=== PATIENT | female | born 1950 | race Caucasian/White ===

== ENCOUNTER → 2021-01-11 12:38 | Outpatient (CLI) | payer MEDICARE, OTHER, SELFPAY | PROVIDERS: Visit Provider Physician Assistant | DX: Z11.52 Encounter for screening for COVID-19 (principal) | CPT/HCPCS: 87635; U0005; U0003 ==

== ENCOUNTER 2021-01-13 12:10 | Emergency (ER) | payer MEDICARE, OTHER, SELFPAY ==
[2021-01-13 12:10] VITALS: BP 123/72; PULSE 68; RESP 18; TEMP 37.2; O2SAT 93; BMI 22.4
--- NOTE | 2021-01-13 13:35 | RAD_ITS ---
STUDY: X-RAY CHEST REASON FOR EXAM: Female, 70 years old. Cough TECHNIQUE: Single AP portable view of the chest. COMPARISON: January 11, 2021 FINDINGS: There are mild right lower lung increased opacity. There is no demonstrated pleural abnormality. Normal size heart. Normal mediastinum and chirag. Normal visualized pulmonary arteries. Normal visualized aortic arch and descending thoracic aorta. Normal visualized thoracic spine. Normal visualized ribs, clavicles, and shoulders. There is no demonstrated abnormality of the visualized soft tissue structures of the upper abdomen. RAD/Chest 1 View (Portable) IMPRESSION: Right lower lung infiltrate or edema. Electronically Signed: Ankush Wilburn MD at 15:14 EDT , Service support ,
--- NOTE | 2021-01-13 13:36 | EDS_ITS ---
HPI History of Present Illness Chief Complaint: General Illness Narrative Narrative: 70-year-old female with history of cough for the last 2 weeks. Patient states that she has not had a fever, chills, myalgias, change in taste or smell. She states she has been a little bit rundown. This has been worse over the last 3 days. She states she has been very sleepy. She has decreased oral intake but states this is not due to nausea she just does not feel like eating. She has been tested for COVID-19 twice. She has been seen at urgent care and then put on Augmentin which gave her diarrhea and made her nauseous. She was switched to Z-Jay Jay. She is also been on methylprednisolone. She had a chest x-ray which she was told was negative and she was also told that she probably had COVID-19. Is unclear why she was placed on antibiotics and steroids as she her oxygen saturations were never low. She states she continues to cough. [facility] Medical History Acute bronchitis, unspecified Encounter for screening for COVID-19 URI (upper respiratory infection) Home Medications benzonatate 200 mg capsule 200 mg PO TID PRN #20 cap 01/04/21 [Rx Last Taken Unknown] methylprednisolone 4 mg tablets in a dose pack See Rx Instructions PO PER PKG DIR #21 tab 01/04/21 [Rx Last Taken Unknown] amoxicillin 875 mg-potassium clavulanate 125 mg tablet 1 tab PO BID #20 tab 01/11/21 [Rx Last Taken Unknown] azithromycin 250 mg tablet 250 mg PO QDAY #6 tab 01/12/21 [Rx Last Taken Unknown] Allergy/AdvReac Type Severity Reaction Status Date / Time No Known Allergies Allergy Verified 01/13/21 12:13 Family History Other Cancer Social History Smoking Status: Never smoker alcohol intake: current alcohol intake frequency: holidays/special occasions only Alcohol type: beer ROS ROS ED Constitutional Constitutional ED: Reports chills and other Details: Fatigue ; Denies sweats ENT ENT ED: Denies rhinorrhea or sore throat Cardiovascular Cardiovascular: Denies chest pain or palpitations Respiratory/Chest Respiratory/Chest: Reports cough; Denies sputum Gastrointestinal Gastrointestinal: Reports diarrhea; Denies abdominal pain, nausea or vomiting Genitourinary Genitourinary ED: Denies dysuria or hematuria Musculoskeletal Musculoskeletal: Denies arthralgias, back pain, myalgias or neck pain Integumentary Denies Abrasions or rash Neurologic Neurologic: Denies headache(s) EXAM Physical Exam Const Vital Signs: 01/13/21 12:10 01/13/21 14:04 Temperature 98.9 F Temperature Source Temporal Pulse Rate 68 Respiratory Rate 18 Respiratory Pattern Normal Blood Pressure 123/72 H Blood Pressure Mean 89 Pulse Ox 93 Oxygen Delivery Method Room Air Positive well nourished General Appearance ED: NAD; Negative for pallor HEENT Denies moist mucous membranes Negative for trauma Eyes PERRL General Eye ED: Yes pale conjunctiva Resp normal respiratory effort and clear to auscultation bilaterally Cardio regular rate and regular rhythm GI normal to inspection, nondistended, normoactive bowel sounds Neuro oriented x3, CN's II-XII intact bilaterally and no sensory deficits noted Sensorium / Orientation: alert Motor Exam: strength 5/5 throughout Psych mental status grossly normal Skin no rashes or lesions noted and no wounds General Skin Exam: Negative for jaundice or pallor MDM MDM MDM Narrative Medical decision making narrative: Patient presented with cough for 2 weeks and generalized fatigue. She does not have really any other symptoms. I did check blood work and she has a slight leukocytosis of 14.8. Her renal function and electrolytes are normal. Urinalysis is negative for infection but does have some ketones. Patient's chest x-ray on my interpretation shows right lower lobe infiltrate and the radiologist does agree. After having a discussion with the patient it seems that she was on Augmentin and could not tolerate it and now she is on azithromycin and took the first 500 mg last evening. She still has 4 more days of treatment. I am not sure that she needs a different antibiotic at this time. He is counseled to continue her course of antibiotics to see if she improves. She is not hypoxic, tachycardic, febrile. She is not requiring any oxygen. I think she is safe for discharge. She was given strict return precautions. Impression: 1. Community-acquired Lab Data Labs: Laboratory Results - last 24 hr 01/13/21 01/13/21 01/13/21 14:00 14:00 15:00 WBC 14.8 H RBC 4.42 Hgb 13.0 Hct 39.3 MCV 88.9 MCH 29.4 MCHC 33.1 RDW Std Deviation 43.1 RDW Coeff of Demetra 13.2 Plt Count 322 MPV 8.4 Immature Gran % (Auto) 0.900 Neut % (Auto) 85.2 H Lymph % (Auto) 6.6 L [place] % (Auto) 6.8 Eos % (Auto) 0.1 Baso % (Auto) 0.4 Absolute Neuts (auto) 12.6 H Absolute Lymphs (auto) 0.97 Nucleated RBC % 0 Sodium 138 Potassium 3.8 Chloride 106 Carbon Dioxide 27.0 Anion Gap 5 BUN 14 Creatinine 0.80 Estim Creat Clear Calc 58.04 Est GFR (MDRD) Af Amer 91 Est GFR (MDRD) Non-Af 75 BUN/Creatinine Ratio 17.5 Glucose 96 Calcium 9.2 Total Bilirubin 1.00 AST 13 L ALT 20 Alkaline Phosphatase 93 Total Protein 7.5 Albumin 3.3 Globulin 4.2 Albumin/Globulin Ratio 0.8 L Urine Color Yellow Urine Clarity Clear Urine pH 5.0 Ur Specific [place] 1.020 Urine Protein 15 H Urine Glucose (UA) Normal Urine Ketones 150 A* Urine Occult Blood 25 H Urine Nitrite Negative Urine Bilirubin Negative Urine Urobilinogen Normal Ur Leukocyte Esterase Negative Urine RBC 0-5 SEEN Urine WBC 0 SEEN Ur Squamous Epith Cells 0-5 SEEN Urine Bacteria 1+ Urine Mucus 1+ Radiography Diagnostic Testing: Radiology Impression Chest X-Ray 01/13/21 13:35 IMPRESSION: Right lower lung infiltrate or edema. Electronically Signed: Ankush Wilburn MD at 15:14 EDT , Service support , Discharge Plan Triage Chief Complaint: General Illness ED Provider: Jeff Christy Dx/Rx/DC Orders Instructions: ED Pneumonia (Adult) Prescriptions: No Action methylprednisolone [Medrol (Jay Jay)] 4 mg tablets,dose pack See Rx Instructions PO PER PKG DIR Qty: 21 RF: 0 benzonatate 200 mg capsule 200 mg PO TID PRN (Reason: cough) Qty: 20 RF: 0 amoxicillin-pot clavulanate 875-125 mg tablet 1 tab PO BID Qty: 20 RF: 0 azithromycin 250 mg tablet 250 mg PO QDAY Qty: 6 RF: 0 Primary Care Provider: Russell Hill Referrals: Russell Hill MD [Primary Care Provider] - Disposition Disposition: Home, Self Care
[2021-01-13 14:05] LABS: Absolute Lymphocyte Count 0.97 X10^3/uL (0.83-4.51); Absolute Neutrophil Count 12.6 X10^3/uL (2.0-7.7); Basophil# 0.06 X10^3/uL; Basophil% 0.4 % (0-1); Eosinophil# 0.01 X10^3/uL; Eosinophils% 0.1 % (0-5); Hematocrit 39.3 % (37-47); Lymphocyte # 0.97 X10^3/ul (0.83-4.51); Lymphocyte % 6.6 % (19-41); Mean Corp Hgb Conc 33.1 g/dL (32-36); Mean Corpuscular Hgb 29.4 pg (27.0-32.0); Mean Corpuscular Volume 88.9 fL (81-99); Mean Platelet Vol. 8.4 fl (6.2-12.0); Monocyte# 1.01 X10^3/uL; Monocyte% 6.8 % (0-10); NRBC Flagged by Analyzer 0 % (0-5); Neutrophil % 85.2 % (47-70); Platelet Count 322 K/mm3 (150-450); RBC Distribution Width CV 13.2 % (11.6-14.6); RBC Distribution Width SD 43.1 fl (35.1-43.9); Red Blood Count 4.42 M/mm3 (4.2-5.4); White Blood Count 14.8 K/mm3 (4.4-11.0)
[2021-01-13 14:22] LABS: ALB/GLOB Ratio 0.8 RATIO (0.9-2.4); AST(SGOT) 13 U/L (15-37); Alanine Aminotransfer ALT/SGPT 20 U/L (13-56); Albumin, Serum 3.3 g/dL (3.2-5.0); Alkaline Phosphatase 93 U/L (45-117); Anion Gap 5 (5-15); BUN 14 mg/dL (7-18); BUN/Creat Ratio 17.5 RATIO (10-20); Calcium,Total 9.2 mg/dL (8.5-10.1); Chloride 106 mmol/L (98-107); EST Glomerular Filtration Rate 75 mL/min (>60); Est Glom Filt Rate - Afr Amer 91 mL/min (>60); Estimated Creatinine Clearance 58.04 ml/min; Globulin 4.2 g/dL (2.2-4.2); Glucose 96 mg/dL (74-106); Potassium 3.8 mmol/L (3.5-5.1); Protein, Total 7.5 g/dL (6.4-8.2); Sodium Level 138 mmol/L (136-145)
[2021-01-13 15:06] LABS: White Blood Cells 0 SEEN /hpf (0-5)
[2021-01-13 15:09] LABS: Color, Urine Yellow (Yellow); Glucose, Dipstick Normal (Normal); Leukocyte Esterase-Dipstick Negative /ul (Negative); Nitrite-Dipstick Negative (Negative); Occult Blood-Urine 25 /ul (Negative); Protein-Dipstick 15 mg/dl (Negative); Urine Bilirubin Dipstick Negative (Negative); Urine Clarity Clear (Clear); Urine Urobilinogen Normal (Normal)
[2021-01-13 15:10] LABS: Ketone-Dipstick 150 mg/dl (Negative)
[2021-01-13 15:14] LABS: Bacteria 1+ /hpf (None Seen); Mucous, Urine 1+ /hpf (<or=2+); Red Blood Cells-Urine 0-5 SEEN /hpf (0-5); Squamous Epithelial Cells - UA 0-5 SEEN /hpf (5-10)
[2021-01-13 15:53] VITALS: BP 168/72; PULSE 84; RESP 18; O2SAT 96
== END 2021-01-13 15:59 | disposition home or self-care (01) ==
PROVIDERS: Emergency Provider Student in an Organized Health Care Education/Training Program; PCP Family Medicine
DX: J18.9 Pneumonia, unspecified organism (principal); Z20.822 Contact with and (suspected) exposure to COVID-19
CPT/HCPCS: 71045; 80053; 81001; 85025; 96372; 99283; A4216

== ENCOUNTER → 2021-01-25 09:09 | Outpatient (CLI) | payer MEDICARE, OTHER, SELFPAY ==
[2021-01-25 10:42] LABS: Vitamin D,25 Hydroxy 31.5 ng/mL
[2021-01-25 10:53] LABS: Anion Gap 5 (5-15); BUN 13 mg/dL (7-18); Calcium,Total 9.3 mg/dL (8.5-10.1); Chloride 107 mmol/L (98-107); Cholesterol 214 mg/dL (200); Creatinine, Serum 0.93 mg/dL (0.55-1.02); EST Glomerular Filtration Rate 63 mL/min (>60); Est Glom Filt Rate - Afr Amer 77 mL/min (>60); Glucose 93 mg/dL (74-106); High Density Lipoprotein 50 mg/dL; Potassium 4.1 mmol/L (3.5-5.1); Sodium Level 141 mmol/L (136-145); Triglycerides 193 mg/dL; Very Low Density Lipoprotein 39 mg/dL (5-40)
== END ==
PROVIDERS: PCP Family Medicine; Referring Provider Family Medicine; Visit Provider Family Medicine
DX: Z00.00 Encounter for general adult medical examination without abnormal findings (principal)
CPT/HCPCS: 36415; 80048; 80061; 82306

== ENCOUNTER → 2021-11-09 | Outpatient (CLI) | payer MEDICARE, SELFPAY ==
--- NOTE | 2021-11-09 12:10 | BI_ITS ---
MAMMOGRAPHY - BILATERAL SCREENING REASON FOR EXAM: Female, 70 years old. Routine annual screening examination. PERTINENT HISTORY: Sister with breast cancer. Remote left excisional breast biopsy. TECHNIQUE: Digital bilateral breast jackie (3D mammographic acquisition) in the CC and MLO projections. 2-D mediolateral oblique (MLO) and craniocaudad (CC) views of both breasts were obtained. CAD: Full Field Digital Mammography with Computer Added Detection was performed. COMPARISON: Comparison is made with prior outside examination of 04/02/2016. FINDINGS: Breast Composition: The breasts are heterogeneously dense, which may obscure small masses. There are no dominant masses or suspicious calcifications. Stable benign-appearing bilateral axillary lymph nodes. No other significant abnormalities are identified. There has been no significant change since the prior study. BI/SCRN MAMM (CAD)W/JACKIE BILAT IMPRESSION: Stable bilateral screening mammogram. Yearly follow-up mammogram recommended. (A) ASSESSMENT CATEGORY: BIRADS Category 2: Benign. A letter regarding these results will be sent to the patient by the facility within 30 days. Approximately 10% of breast cancers are not detected by mammography. A normal mammogram should not delay biopsy of a clinically suspicious abnormality. [id number] Electronically Signed: David Coates MD at 11:18 EDT ,
== END | disposition home or self-care (01) ==
LOC: OPBI 12:03
PROVIDERS: PCP Family Medicine; Referring Provider Family Medicine; Visit Provider Family Medicine
DX: Z12.31 Encounter for screening mammogram for malignant neoplasm of breast (principal); Z80.3 Family history of malignant neoplasm of breast
CPT/HCPCS: 77063; 77067

== ENCOUNTER 2022-12-10 17:30 | Outpatient (RCR) | payer SELFPAY | END 2022-12-10 23:59 | LOC: NS 17:30 | PROVIDERS: PCP Family Medicine | DX: Z71.3 Dietary counseling and surveillance (principal); E11.9 Type 2 diabetes mellitus without complications ==

== ENCOUNTER → 2024-04-08 | Outpatient (CLI) | payer MEDICARE, SELFPAY ==
--- NOTE | 2024-04-08 14:20 | BI_ITS ---
MAMMOGRAPHY - BILATERAL SCREENING 3-D TOMOSYNTHESIS REASON FOR EXAM: Female, 73 years old. Routine screening PERTINENT HISTORY: Sister with breast cancer.. TECHNIQUE: 2-D mammograms and 3-D Tomosynthesis of the breast (s) were performed. CAD was performed. COMPARISON: 11/09/2021 FINDINGS: The breast composition is heterogeneously dense that can obscure small breast masses. Scattered benign calcifications are seen. No dense spiculated masses or suspicious microcalcifications are identified. No architectural distortion is identified. There is no skin thickening or retraction. There has been no significant change since the prior study. BI/SCREENING MAMM (CAD), BILAT IMPRESSION: No mammographic signs of malignancy. Routine yearly mammograms recommended. ASSESSMENT CATEGORY: BIRADS Category 1: Negative. A letter regarding these results will be sent to the patient by the facility within 30 days. FOLLOW UP RECOMMENDATION: Yearly follow up mammogram recommended. (A) Approximately 10% of breast cancers are not detected by mammography. A normal mammogram should not delay biopsy of a clinically suspicious abnormality. Electronically Signed: Jerod Mckeon MD at 15:42 EST ,
--- NOTE | 2024-04-08 14:20 | BD_ITS ---
STUDY: DUAL ENERGY X-RAY ABSORPTIOMETRY / DXA REASON FOR EXAM: Female, 73 years old. [id number] TECHNIQUE: Bone Mineral Density (BMD) measurements of lumbar spine and bilateral hips were obtained. COMPARISON: None. FINDINGS: Lumbar Spine (L1-L4): g/cm2 (0.904) / T-score (-1.3) / Z-score (1.1) Findings are suggestive of osteopenia with a low fracture risk. Left Femur Total: g/cm2 (0.659) / T-score (-2.3) / Z-score (-0.6) Left Femoral Neck: g/cm2 (0.602) / T-score (-2.2) / Z-score (-0.2) Right Femur Total: g/cm2 (0.673) / T-score (-2.2) / Z-score (-0.5) Right Femoral Neck: g/cm2 (0.584) / T-score (-2.4) / Z-score (-0.4) BD/Dexa Bone Density Study IMPRESSION: The patient is considered osteopenic as outlined below according to World Chris Organization (WHO) criteria with a high fracture risk. Reference Information: The T-score is the number of standard deviations above or below the standard which is normal for young adults at their peak bone mineral density. The World Health Organization (WHO) interprets the T-scores as follows: Above -1 Normal bone density Between -1 and -2.5 Osteopenia Equal to / or below -2.5 Osteoporosis As a practical clinical guideline, osteopenia may be graded as follows: Mild -1 through -1.5 Moderate -1.6 through -2.0 Severe -2.1 through -2.4 The Z-score is the number of standard deviations above or below age-matched controls. A Z-score of less than -1.5 would be considered abnormal. References: 1. NIH Osteoporosis and Related Bone Diseases www osteo.org 2. International Society for Clinical Densitometry www iscd.org 3. National Osteoporosis Foundation www nof.org Electronically Signed: David Coates MD at 13:01 EST ,
== END | disposition home or self-care (01) ==
LOC: OPBD 14:18
PROVIDERS: PCP Family Medicine; Referring Provider Nurse Practitioner Family; Visit Provider Nurse Practitioner Family
DX: Z12.31 Encounter for screening mammogram for malignant neoplasm of breast (principal); Z78.0 Asymptomatic menopausal state; M81.0 Age-related osteoporosis without current pathological fracture; Z13.820 Encounter for screening for osteoporosis
CPT/HCPCS: 77067; 77080

== ENCOUNTER 2024-09-05 15:43 | Emergency (ER) | payer MEDICARE, SELFPAY ==
[2024-09-05 15:45] VITALS: BP 155/82; PULSE 62; RESP 18; TEMP 36.6; O2SAT 96; BMI 22.0
--- NOTE | 2024-09-05 15:53 | US_ITS ---
PROCEDURE: GALLBLADDER 09/05/2024 REASON FOR EXAM: PAIN FINDINGS: Liver: Grossly normal size and echotexture. Gallbladder: Multiple echogenic gallstones are identified. Common bile duct: Common bile duct stones are identified with the duct measuring up to 10 mm. Pancreas: Visualized portions are sonographically unremarkable. Other: US/Gallbladder IMPRESSION: Cholelithiasis with choledocholithiasis. Reading Location: [id number]
--- NOTE | 2024-09-05 15:54 | EX.ED.DYSGE1 ---
HPI History of Present Illness Chief Complaint: Other, Pain/Inj Detail of Chief Complaint: Right upper quadrant pain with intermittent radiation to the back Informant: patient and spouse/S.O. Onset/Context/Timing Onset: Yesterday and - (A couple times this past week prior to the pain becoming constant) Context: Sudden Onset Timing: Continuous and Waxes and wanes Quality: Colicky Location: Right upper quadrant Current Severity: Mild Maximum Severity: Moderate Worsened by: Nothing specific Relieved by: Nothing Associated Symptoms Associated Symptoms: Nausea Narrative Narrative: Patient is a healthy 73-year-old woman who is on no medication presently who presents with right upper quadrant pain that intermittently radiates to the back. This past week while having a donut and after having something rich she experienced right upper quadrant pain. She did not present at that time because it went away. This has not gone away. She had fried fish yesterday. She has not eaten since last night. She reported 1 episode of diarrhea. She not noticed any blood or mucus. Mother had emergent cholecystectomy per patient. There is no history personally or in the family of ureteral or renal lithiasis. She denies dysuria, frequency, urgency or hematuria. She denies cardiac or respiratory symptoms. There is no history of trauma. She has not noted a rash. Prior similar symptoms: No Recent Illness/Hospitalization: No PFSH PFSH Medical History (Updated 09/05/24 @ 15:[address] Tj Banerjee MD) FH: total abdominal hysterectomy and bilateral salpingo-oophorectomy Encounter for screening for COVID-19 Acute bronchitis, unspecified URI (upper respiratory infection) Home Medications ?Medication ?Instructions ?Recorded ?Last Taken ?Type NK 09/05/24 Unknown History Allergy/AdvReac Type Severity Reaction Status Date / Time No Known Allergies Allergy Verified 09/05/24 15:45 Family History Other Cancer Social History (Updated 09/05/24 @ 15:[address] Tj Banerjee MD) household members: spouse Smoking Status: Never smoker alcohol intake: current alcohol intake frequency: holidays/special occasions only Alcohol type: beer ROS ROS ED Constitutional Constitutional ED: Denies chills, fever(s), subjective or sweats Eyes Eyes: Denies change in vision Cardiovascular Cardiovascular: Denies chest pain, orthopnea, palpitations or paroxysmal nocturnal dyspnea Respiratory/Chest Respiratory/Chest: Denies cough, dyspnea, dyspnea on exertion, orthopnea or paroxysmal nocturnal dyspnea Gastrointestinal Gastrointestinal: Reports abdominal pain, diarrhea and nausea; Denies constipation, melena or vomiting Genitourinary Genitourinary ED: Denies dysuria, hematuria or urinary frequency Musculoskeletal Musculoskeletal: Reports back pain; Denies arthralgias or myalgias Integumentary Denies rash Neurologic Neurologic: Denies weakness Psychiatric Psychiatric: Denies anxiety or depression Endocrine Endocrinology: Denies cold intolerance or heat intolerance Hematologic/Lymphatic Hematologic/Lymphatic: Reports systems reviewed and no addt'l complaints, except as documented EXAM Physical Exam Const Vital Signs: 09/05/24 15:45 09/05/24 15:49 Temperature 97.9 F Temperature Source Temporal Pulse Rate 62 Respiratory Rate 18 Respiratory Effort Normal Respiratory Pattern Normal Blood Pressure 155/82 H Blood Pressure Mean 106 Pulse Ox 96 Oxygen Delivery Method Room Air Positive well nourished and well developed Constitutional Narrative: Patient appears uncomfortable. General Appearance ED: well developed; Negative for pallor HEENT HEENT Narrative: Head is atraumatic normocephalic. Ears normal. Nares patent. Eyes PERRL and EOMs intact bilaterally General Eye ED: Negative for pale conjunctiva or scleral icterus Neck no lymphadenopathy, supple and no JVD Chest Wall inspection of chest normal and palpation of chest normal Resp normal respiratory effort and clear to auscultation bilaterally Cardio regular rate, regular rhythm, S1 normal heart sound, S2 normal heart sound and no murmurs GI non-distended and no masses; Negative for non-tender or hepatosplenomegaly Inspection: Negative for abdominal distention Auscultation: hypoactive bowel sounds Palpation: soft, tender RUQ and Yeh's sign and guarding RUQ; Negative for splenomegaly or mass Back/Spine no CVA tenderness Extremity normal to inspection Neuro oriented x3 and CN's II-XII intact bilaterally Sensorium / Orientation: alert Psych mental status grossly normal Skin no rashes or lesions noted, no wounds and skin turgor normal General Skin Exam: elasticity normal; Negative for jaundice or pallor MDM MDM MDM Narrative Medical decision making narrative: Differential diagnosis is bowel pain of unknown etiology, right lower lobe pneumonia, cholelithiasis, acute cholecystitis hepatitis. Workup included ultrasound, appropriate blood work. Patient's nausea was treated with Zofran and pain with IV ketorolac. History & Record Review Additional record(s) reviewed:: Prior outpatient record, Prior ED visit (Seen January 2021 for upper respiratory infection and at urgent care [facility] for upper respiratory infection) and Prior labs Lab Data Attestation: I reviewed the patient's lab results. Lab results narrative: There are multiple gallstones noted. There may be a gallstone in the common bile duct. Liver enzymes revealed total bili of 3.79, direct bili of 2.72 with an AST and ALT of 428 and 424 respectively. Alkaline phosphatase is elevated. Labs: Laboratory Results - last 24 hr 09/05/24 15:59 WBC 9.7 RBC 4.42 Hgb 13.0 Hct 39.5 MCV 89.4 MCH 29.4 MCHC 32.9 RDW Std Deviation 45.5 H RDW Coeff of Demetra 13.8 Plt Count 261 MPV 9.0 Immature Gran % (Auto) 0.500 Neut % (Auto) 81.2 H Lymph % (Auto) 8.0 L [place] % (Auto) 8.7 Eos % (Auto) 1.0 Baso % (Auto) 0.6 Absolute Neuts (auto) 7.9 H Absolute Lymphs (auto) 0.78 L Nucleated RBC % 0 Total Bilirubin 3.79 H Direct Bilirubin 2.72 H AST 428 H ALT 424 H Alkaline Phosphatase 305 H Total Protein 7.1 Albumin 4.3 Globulin 2.8 Lipase 62 Labs are consistent with choledocholithiasis. And would confirm where I believe there is a stone in the common bile duct that there is a stone in the common bile duct. Radiography Diagnostic Testing: Clinical Impression(s) from Imaging Studies Gallbladder Ultrasound 09/05/24 15:53 IMPRESSION: Cholelithiasis with choledocholithiasis. Reading Location: [id number] Ultrasound reveals multiple gallstones. There appears to be a stone in the common bile duct. Will need to assess liver enzymes. Management Discussion w/another healthcare provider: Geotechnical Operating Engineer (Spoke with Dr. Xiong. She recommended admission to medicine with consult to GI. She was informed that GI is not on-call this weekend. She recommended transfer. Since patient has [facility] insurance service secretary was asked to contact [facility] for transfer for admission to hospitalist w) and Other (Spoke with the hospitalist at [facility] Dr. Cruz. Patient will be excepted.) Treatment and Re-Evaluation :: Patient was reassessed at 1652. She is still having pain. Morphine was ordered Discharge Plan Triage Chief Complaint: Other, Pain/Inj ED Provider: Tj Banerjee Dx/Rx/DC Orders Prescriptions: No Action NK Primary Care Provider: Russell Hill Referrals: Russell Hill MD [Primary Care Provider] - Print Language: Albanian Disposition Disposition: Acute Care Hospital Discharge Location: [facility]
[2024-09-05] MEDS: Ketorolac 15 MG/ML Vial IV (16:05)
[2024-09-05] MEDS: Ondansetron 4 MG/2 ML Vial IV (16:05)
[2024-09-05 16:10] LABS: Absolute Lymphocyte Count 0.78 X10^3/uL (0.83-4.51); Absolute Neutrophil Count 7.9 X10^3/uL (2.0-7.7); Basophil# 0.06 X10^3/uL; Basophil% 0.6 % (0-1); Hematocrit 39.5 % (37-47); Lymphocyte # 0.78 X10^3/ul (0.83-4.51); Mean Corp Hgb Conc 32.9 g/dL (32-36); Mean Corpuscular Hgb 29.4 pg (27.0-32.0); Mean Corpuscular Volume 89.4 fL (81-99); Monocyte# 0.84 X10^3/uL; Monocyte% 8.7 % (0-10); NRBC Flagged by Analyzer 0 % (0-5); Neutrophil # 7.88 X10^3/uL (2.7-7.7); Neutrophil % 81.2 % (47-70); Platelet Count 261 K/mm3 (150-450); RBC Distribution Width CV 13.8 % (11.6-14.6); RBC Distribution Width SD 45.5 fl (35.1-43.9); Red Blood Count 4.42 M/mm3 (4.2-5.4); White Blood Count 9.7 K/mm3 (4.4-11.0)
[2024-09-05 16:36] LABS: AST(SGOT) 428 U/L (<=31); Alanine Aminotransfer ALT/SGPT 424 U/L (<=34); Albumin, Serum 4.3 g/dL (3.4-4.8); Alkaline Phosphatase 305 U/L (35-104); Bilirubin, Direct 2.72 mg/dL (0.00-0.30); Globulin 2.8 g/dL (2.2-4.2); Lipase 62 U/L (13-75); Protein, Total 7.1 g/dL (5.9-8.4); Total Bilirubin 3.79 mg/dL (0.00-1.30)
[2024-09-05] MEDS: Morphine 4 MG/ML Syringe IV (16:57)
--- NOTE | 2024-09-05 17:12 | PCA ---
CALLED [facility] @ [phone]. FAXED FACE SHEET AND PUSHED ULTRASOUND TO THEM
--- NOTE | 2024-09-05 18:08 | PCA ---
[facility] CALLED @ 175 WILL A BED- H-5 ROOM 9. [facility] WILL HERE TO GET THE PATIENT IN ABOUT 30 MINS- [phone]
[2024-09-05 18:14] LABS: Anion Gap 14 (5-15); BUN 17 mg/dL (4-19); Calcium,Total 9.4 mg/dL (7.6-11.0); Carbon Dioxide 19.6 mmol/L (21.0-32.0); Chloride 106 mmol/L (98-108); Creatinine, Serum 1.06 mg/dL (0.70-1.20); EST Glomerular Filtration Rate 55 (>60); Estimated Creatinine Clearance 43.59 ml/min (50-250); Glucose 104 mg/dL (70-99); Potassium 4.1 mmol/L (3.3-5.1); Sodium Level 140 mmol/L (133-145)
[2024-09-05 18:30] VITALS: BP 138/77; PULSE 50; RESP 16; TEMP 37; O2SAT 97
--- NOTE | 2024-09-05 18:30 | ED.RN ---
REPORT CALLED TO CORINNE GARCIA
== END 2024-09-05 18:43 | disposition short-term general hospital (02) ==
PROVIDERS: Emergency Provider Emergency Medicine; PCP Family Medicine; Referring Provider Emergency Medicine; Visit Provider Emergency Medicine
DX: K80.50 Calculus of bile duct without cholangitis or cholecystitis without obstruction (principal); R10.11 Right upper quadrant pain; R11.0 Nausea; Z90.710 Acquired absence of both cervix and uterus; R19.7 Diarrhea, unspecified
CPT/HCPCS: 76705; 80048; 80076; 83690; 85025; 96374; 96375; 99284; A4216; J2405

== ENCOUNTER → 2024-09-18 | Outpatient (CLI) | payer MEDICARE, SELFPAY ==
[2024-09-18 15:55] LABS: Hematocrit 34.8 % (37-47); Hemoglobin 10.7 g/dL (12.0-15.0); Mean Corp Hgb Conc 30.7 g/dL (32-36); Mean Corpuscular Hgb 28.7 pg (27.0-32.0); Mean Corpuscular Volume 93.3 fL (81-99); Mean Platelet Vol. 8.6 fl (6.2-12.0); POSITIVE COUNT YES; POSITIVE MORPHOLOGY YES; Platelet Count 595 K/mm3 (150-450); RBC Distribution Width CV 14.3 % (11.6-14.6); RBC Distribution Width SD 48.7 fl (35.1-43.9); Red Blood Count 3.73 M/mm3 (4.2-5.4)
[2024-09-18 16:04] LABS: Differential Indicated MANUAL DIFF
[2024-09-18 16:54] LABS: AST(SGOT) 32 U/L (<=31); Alanine Aminotransfer ALT/SGPT 61 U/L (<=34); Albumin, Serum 3.3 g/dL (3.4-4.8); Alkaline Phosphatase 236 U/L (35-104); Anion Gap 11 (5-15); BUN 16 mg/dL (4-19); BUN/Creat Ratio 20.3 RATIO (10-20); Calcium,Total 9.2 mg/dL (7.6-11.0); Carbon Dioxide 24.9 mmol/L (21.0-32.0); Chloride 105 mmol/L (98-108); Creatinine, Serum 0.78 mg/dL (0.70-1.20); EST Glomerular Filtration Rate 80 (>60); Globulin 3.3 g/dL (2.2-4.2); Glucose 89 mg/dL (70-99); Lipase 201 U/L (13-75); Potassium 4.3 mmol/L (3.3-5.1); Protein, Total 6.5 g/dL (5.9-8.4); Sodium Level 141 mmol/L (133-145)
[2024-09-18 19:13] LABS: Lymphocyte 17 % (19-41); Metamyelocyte 2 % (0-1); Monocyte 7 % (0-10); Neutrophil-Segmented 74 % (47-70); Total Cells Counted 100 (MANUAL DIFF)
[2024-09-18 19:16] LABS: Absolute Lymphocyte Count 2.03 X10^3/uL (0.83-4.51); Absolute Neutrophil Count 8.9 X10^3/uL (2.0-7.7)
[2024-09-18 19:18] LABS: Platelet Estimate ADEQUATE (ADEQ); Red Cell Morphology NORM C+C NORMAL (NORM C&C)
[2024-09-18 19:19] LABS: Pathologist Review May foll; Toxic Granulation 2+
== END | disposition home or self-care (01) ==
LOC: MFPLAB 11:28
PROVIDERS: PCP Family Medicine; Referring Provider Family Medicine; Visit Provider Family Medicine
DX: K85.90 Acute pancreatitis without necrosis or infection, unspecified (principal)
CPT/HCPCS: 36415; 80053; 83690; 85025

== ENCOUNTER → 2025-04-15 | Outpatient (CLI) | payer MEDICARE, SELFPAY ==
--- NOTE | 2025-04-15 15:42 | BI_ITS ---
EXAM: SCRN MAMM (CAD)W/JACKIE BILAT DATE: 04/15/2025 CLINICAL HISTORY: F, Age 74 y/o , SCREENING Sister with breast cancer. Remote left excisional breast biopsy. TECHNIQUE: Procedure Code: [id number] Modality: MG Procedure: SCRN MAMM (CAD)W/JACKIE BILAT COMPARISON: Prior exam(s) dated April 08, 2024.. FINDINGS: TISSUE DENSITY: The breasts are heterogeneously dense, which may obscure small masses. Bilateral Breast Mammographic Findings: No significant masses, calcifications or other abnormalities are identified. No suspicious masses, areas of developing architectural distortion, or suspicious calcifications. There has been no significant interval change. BI/SCRN MAMM (CAD)W/JACKIE BILAT IMPRESSION: Stable bilateral screening mammogram. OVERALL FINAL ASSESSMENT BI-RADS 2: BENIGN RECOMMENDATION: Routine annual follow-up in 1 Year Additional Recommendation none A letter with findings and recommendations will be mailed to the patient. Reading Location: [place] [id number]
--- OUTSIDE RECORDS SUMMARY | 2025-04-15 18:28 | XMS RPT_ITS | CCD ---
Author Organization [facility] Care Team Providers Care Beauty Director Name Role Phone Russell Hill MD Primary Care Provider Sergio LAMAS, Dr. Wells Primary Care Provider Chriss LAMAS, Dr. Spencer Attending Provider Chriss LAMAS, Dr. Spencer Referring Provider Chriss LAMAS, Dr. Spencer Emergency Provider Sergio LAMAS, Dr. Wells Attending Provider Sergio LAAMS, Dr. Wells Referring Provider Tj Bryant Referring Unavailable Tj Bryant Attending Unavailable Russell Hill Primary Care Unavailable Hanna Crain Referring Unavailable Hanna Crain Attending Unavailable Russell Hill Primary Care Unavailable Russell Hill Referring Unavailable Russell Hill Attending Unavailable Russell Hill Primary Care Unavailable SAMIULLAH, FNU Admitting Unavailable CRISTIAN RUIZ Attending Unavailable CRISTIAN RUIZ Referring Unavailable RUSSELL HILL Primary Care Unavailable TJ BRYANT Referring Unavailable RUSSELL HILL Primary Care Unavailable GEM LISA Admitting Unavailable CHEPYALA, ELLIS Attending Unavailable Medications Current Medications Medication Drug Class(es) Dates Sig (Normalized) Sig (Original) Spearfish (Nk) (1 source) Start: 09-05-2024 Spearfish (Nk) Active September 05, 2024 12:00am pantoprazole 40 mg delayed release oral tablet (10 sources) Proton Pump Inhibitor Start: 09-13-2024 End: 11-12-2024 take 1 tablet by mouth once daily pantoprazole (ProtoNix) 40 MG EC tablet Take 1 tablet (40 mg) by mouth daily. Do not crush, chew, or split. 30 tablet 1 09/13/2024 11/12/2024 Active Completed/Discontinued Medications Medication Drug Class(es) Dates Sig (Normalized) Sig (Original) acetaminophen 500 mg oral tablet (2 sources) Start: 09-08-2024 End: 09-13-2024 take 1 tablet by mouth every eight hours 1,000 mg, Oral, Every 8 hours, First dose on 09/08/24 at 1230, Phase II/On Unit, Maximum dose of acetaminophen is 4000 mg from all sources in 24 hours. acetaminophen 325 mg / oxyCODONE hydrochloride 5 mg oral tablet (2 sources) Opioid Agonist Start: 09-05-2024 End: 09-08-2024 take 1 tablet by mouth every six hours as needed for pain 1 tablet, Oral, Every 6 hours PRN, moderate pain (4-6), Starting on 09/05/24 at 2120, Maximum dose of acetaminophen is 4000 mg from all sources in 24 hours. amoxicillin 875 mg / clavulanate 125 mg oral tablet (3 sources) Penicillin-class Antibacterial Start: 01-11-2021 End: 09-05-2024 Amoxicillin-Pot Clavulanate 875-125 mg tablet Discontinued 1 {tbl} PO TWICE A DAY January 11, 2021 12:00am September 05, 2024 4:43pm Start: 01-11-2021 take 1 tablet by mima twice daily Amoxicillin-Pot Clavulanate Active 1 TABLET PO TWICE A DAY January 11, 2021 12:00am azithromycin 250 mg oral tablet (3 sources) Macrolide Antimicrobial Start: 01-12-2021 End: 09-05-2024 Azithromycin 250 mg tablet Discontinued 250 mg PO daily January 12, 2021 12:00am September 05, 2024 4:43pm 2 tablets today, then 1 tablet daily on days 2 through 5 benzonatate 200 mg oral capsule (3 sources) Non-narcotic Antitussive Start: 01-04-2021 End: 09-05-2024 take 1 capsule by mouth three times daily as needed for cough Benzonatate 200 mg capsule Discontinued 200 mg PO THREE TIMES A DAY as needed for cough January 04, 2021 12:00am September 05, 2024 4:43pm bisacodyl 10 mg rectal suppository (2 sources) Stimulant Laxative Start: 09-09-2024 End: 09-09-2024 take 10 mg rectal route once 10 mg, Rectal, Once, On Sat09/09/24 at 1100, For 1 dose calcium chloride 0.0014 meq/ml / potassium chloride 0.004 meq/ml / sodium chloride 0.103 meq/ml / sodium lactate 0.028 meq/ml injectable solution (4 sources) Start: 09-06-2024 End: 09-13-2024 take 75 mL intravenously every hour 75 mL/hr, IntraVENous, Continuous, Starting on Sat09/07/24 at 1330 0.4 ml enoxaparin sodium 100 mg/ml prefilled syringe (2 sources) Low Molecular Weight Heparin Start: 09-06-2024 End: 09-13-2024 inject 40 mg by subcutaneous injection every twenty-four hours 40 mg, SubCUTAneous, Every 24 hours scheduled (Daily), First dose on Sat09/06/24 at 0900, Indication of Use: Prophylaxis-DVT/PE, Indications: Prophylaxis of Venous Thromboembolism 1 ml HYDROmorphone hydrochloride 1 mg/ml cartridge (4 sources) Opioid Agonist Start: 09-09-2024 End: 09-13-2024 take 0.5 mg by mouth every three hours as needed for pain 0.5 mg, IntraVENous, Every 3 hours PRN, for breakthrough pain only, Starting on Sat09/09/24 at 0912, Phase II/On Unit, If oral and IV narcotics ordered, use oral first and only use IV if oral is ineffective or cannot take oral. Do Not give oral and IV within 1 hour of each other unless specifically ordered. Start: 09-08-2024 End: 09-08-2024 0.5 mg, IntraVENous, Every 5 min PRN, severe pain (7-10), Starting on Sat09/08/24 at 1010, For 4 doses, Recovery (only), Phase I and Phase II- Initial therapy for severe pain (7-10). Restricted to a 90 minute time frame starting when the patient can verbally state their pain score. If after 2 doses the pain score does not decrease by more than one point, then call the provider. If oral meds are utilized, do not return to initial therapy medications. methocarbamol 500 mg oral tablet (2 sources) Muscle Relaxant Start: 09-09-2024 End: 09-13-2024 take 1 dose by mouth three times daily 500 mg, Oral, Every 8 hours scheduled (3 times per day), First dose on Sat09/09/24 at 1400, Phase II/On Unit methylPREDNISolone 4 mg oral tablet (3 sources) Corticosteroid Start: 01-04-2021 End: 09-05-2024 take 1 tablet by mouth once Methylprednisolone (Medrol (Jay Jay)) 4 mg tablets,dose pack Discontinued 0 PO per package directions January 04, 2021 12:00am September 05, 2024 4:43pm PO PER PKG DIR 1 ml morphine sulfate 4 mg/ml cartridge (2 sources) Opioid Agonist Start: 09-05-2024 End: 09-09-2024 take 2 mg intravenously every four hours as needed for pain 2 mg, IntraVENous, Every 4 hours PRN, severe pain (7-10), Starting on 09/05/24 at 2120, If oral and injectable narcotics ordered, use oral first and only use injectable if oral is ineffective or cannot take oral. Do Not give oral and injectable within 1 hour of each other unless specifically ordered. 1 ml naloxone hydrochloride 0.4 mg/ml injection (2 sources) Opioid Antagonist Start: 09-05-2024 End: 09-13-2024 0.4 mg, IntraVENous, Every 5 min PRN, opioid reversal, respiratory depression, Starting on 09/05/24 at 2127, +++ For RR ondansetron 4 mg disintegrating oral tablet (11 sources) Serotonin-3 Receptor Antagonist Start: 09-13-2024 End: 09-20-2024 take 1 tablet by mouth every eight hours as needed for nausea and vomiting ondansetron ODT (Zofran-ODT) 4 MG disintegrating tablet Take 1 tablet (4 mg) by mouth every 8 hours as needed for nausea or vomiting for up to 7 days. 20 tablet 09/13/2024 09/20/2024 Start: 01-13-2021 End: 09-05-2024 take 1 tablet by mouth every eight hours as needed for nausea Ondansetron 4 mg tablet,disintegrating Discontinued 4 mg PO EVERY 8 HOURS NEEDED as needed for Nausea January 13, 2021 12:00am September 05, 2024 4:43pm ondansetron ODT (Zofran-ODT) disintegrating tablet 4 mg (2 sources) Start: 09-05-2024 End: 09-13-2024 take 1 tablet by mouth every eight hours as needed for nausea and vomiting ondansetron ODT (Zofran-ODT) disintegrating tablet 4 mg oxyCODONE hydrochloride 5 mg oral tablet (10 sources) Opioid Agonist Start: 09-13-2024 End: 09-18-2024 take 1 tablet by mouth every four hours as needed for pain oxyCODONE (Roxicodone) 5 MG immediate release tablet Indications: Choledocholithiasis Take 1 tablet (5 mg) by mouth every 4 hours as needed for moderate pain (4-6) or severe pain (7-10) for up to 5 days. 15 tablet 09/13/2024 09/18/2024 Start: 09-08-2024 End: 09-13-2024 take 1 tablet by mouth every four hours as needed for pain oxyCODONE (Roxicodone) immediate release tablet 5 mg polyethylene glycol [id number] [id number] mg powder for oral solution (4 sources) Osmotic Laxative Start: 09-09-2024 End: 09-13-2024 take 1 dose by mouth every twenty-four hours for constipation 17 g, Oral, Daily, First dose (after last modification) on 09/09/24 at 1100, 1st line for treatment of constipation - give scheduled if no bowel movement in past 24 hours. Start: 09-05-2024 End: 09-09-2024 take 17 g by mouth every twenty-four hours as needed for constipation 17 g, Oral, Daily PRN, constipation, Starting on 09/05/24 at 2059, 1st line for treatment of constipation - give scheduled if no bowel movement in past 24 hours. microencapsulated potassium chloride 10 meq extended release oral tablet (4 sources) Start: 09-13-2024 End: 09-13-2024 40 mEq, Oral, Once, On 09/13/24 at 0945, For 1 dose, Best given with food and plenty of water to minimize gastric irritation. Do not crush or chew. Start: 09-13-2024 End: 09-13-2024 40 mEq, Oral, Once, On Sun at 0945, For 1 dose, Best given with food and plenty of water to minimize gastric irritation. Do not crush or chew. Start: 09-12-2024 End: 09-12-2024 40 mEq, Oral, Once, On Sat at 1000, For 1 dose, Best given with food and plenty of water to minimize gastric irritation. Do not crush or chew. 5 ml sodium chloride 9 mg/ml injection (18 sources) Start: 10-22-2024 End: 10-22-2024 10 mL, IntraVENous, Every 12 hours scheduled (2 times per day), First dose on Renetta 10/22/24 at 0900 Start: 10-22-2024 End: 10-22-2024 take 100 mL intravenously every hour as needed, then take 20 mL intravenously every hour as needed 5-250 mL/hr, IntraVENous, PRN, if patient receiving piggyback infusions and maintenance fluids are not ordered OR KVO fluids to protect IV site / prevent frequent line interruptions/ long duration, Starting on Renetta 10/22/24 at 0830, For piggyback infusion, administer at same rate as piggyback for a total of 25 mL. Enter 25 mL into dose field and piggyback rate into rate field of order. If piggyback is infusing at a rate less than 100 mL/hr, enter 25 mL into dose field and 100 mL/hr into rate field of order. For KVO fluids, enter rate of 20 mL/hr or less into rate field of order. Start: 10-22-2024 End: 10-22-2024 take 10 mL intravenously once as needed 10 mL, IntraVENous, PRN, line care, Starting on Renetta 10/22/24 at 0830, After every IV line use Start: 09-08-2024 End: 09-13-2024 10 mL, IntraVENous, Every 12 hours scheduled (2 times per day), First dose on Sat09/08/24 at 2100, Phase II/On Unit Start: 09-05-2024 End: 09-13-2024 take 5-40 mL intravenously every twelve hours 5-40 mL, IntraVENous, Every 12 hours, First dose on Sat09/05/24 at 2115, For Line Patency: Peripheral IV = 5 mL; Midline or Central Line = 10 mL/lumen. If following IV push medication, administer flush at same rate as the IV push. Flush volume is determined by type of infusion therapy being given. For non-viscous solutions use: Peripheral IV = 5 mL Midline or Central Line = 10 mL/lumen For viscous solutions (i.e. blood components, parenteral nutrition, contrast media, or after obtaining blood sample) use: Peripheral IV = 10 mL Midline or Central Line = 20 mL/lumen Start: 09-05-2024 End: 09-13-2024 Start: 09-05-2024 End: 09-13-2024 Problems Active Problems Problem Classification Problem Date Documented Date Episodic/Chronic Abdominal pain (1 source) Right upper quadrant pain; Translations: [Right upper quadrant pain] Onset: 09-09-2024 Episodic Acute bronchitis (3 sources) Acute bronchitis; Translations: [Acute bronchitis, unspecified] 01-04-2021 Episodic Biliary tract disease (18 sources) Common bile duct calculus; Translations: [Calculus of bile duct without cholangitis or cholecystitis without obstruction] Onset: 09-05-2024 09-05-2024 Episodic Immunizations and screening for infectious disease (3 sources) Patient encounter status; Translations: [Encounter for screening for COVID-19] 01-11-2021 Episodic Other liver diseases (1 source) Jaundice; Translations: [Unspecified jaundice] 09-13-2024 Episodic Other upper respiratory infections (3 sources) Upper respiratory infection; Translations: [Acute upper respiratory infection, unspecified] 01-04-2021 Episodic Pancreatic disorders (not diabetes) (1 source) Acute pancreatitis without necrosis or infection, unspecified; Translations: [Acute pancreatitis without necrosis or infection, unspecified] Onset: 09-23-2024 Episodic Residual codes; unclassified (1 source) Family history of total abdominal hysterectomy with bilateral salpingo-oophorectom y; Translations: [Family history of other diseases of the genitourinary system] 09-05-2024 Episodic Past or Other Problems Problem Classification Problem Date Documented Da te Episodic/Chronic Other screening for suspected conditions (not mental disorders or infectious disease) (1 source) Encounter for screening mammogram for malignant neoplasm of breast; Translations: [Encounter for screening mammogram for malignant neoplasm of breast] Onset: 05-08-2024 Episodic Results Test Name Value Interpretation Reference Range Facility 36on 10-22-2024 36 EGD w stent removal completed today. Pt recommended to follow up w referring physician and/or PCP. No further action needed at this time. Advanced endo list updated. Normal [facility] 36on 10-20-[address] Cristian Ruiz EGD EUS/ERCP/EMR Date: 10/22/24 Arrival time: 7:30am Please report to: [facility] ([facility]) [address] [place] [address] [place] [address] (Go to the registration desk on the ground floor of the [facility]) Spoke with pt, confirmed they will attend scheduled procedure. All questions or concerns addressed. Prep instructions sent via Zyncdt if active. Normal [facility] CBC W/Diff, Automatedon 09-11 PATH REV Reviewed [facility] Comment on above: Result Comment: SEE REPORT IN PATIENT'S EMR AMENDED REPORT 10/01/24 1546 PATH REV previously reported as: September Performed By: #### L 100.0100, L500.4050, L501.2450 #### [facility] [address] [place], [place], [address] 36on 09-21-2024 36 Patient called in to get scheduled. Patient now scheduled on 10/22/24 @ 8:30am with the arrival time of 7:30am with Dr. Ruiz at [address] [place] [address]. EPIC schedule updated Order submitted Open Case request submitted Case # [id number] Endo packet mailed to patient Prep sent via Earnix if pt acct active Pt is aware they will need a haul driver to take them home from procedure. Must be family member or friend. They cannot use any ride programs. Ex: Uber, Lyft, SCAT, bus, etc...) Normal [facility] 36 Lmtcb to discuss EGD w stent removal. Sent Donordonut message. Normal [facility] Absolute lymphocyte countOrd ered By: Russell Hill on 09-18-2024 Lymphocytes Auto (Unsp spec) [#/Vol] 2.03 10*3/uL 0.83-4.51 [facility] Absolute neutrophil countOrd ered By: Russell Hill on 09-18-2024 Neutrophils (Bld) [#/Vol] 8.9 10*3/uL High 2.0-7.7 [facility] Anion gap in Serum or Plasma Ordered By: Russell Hill on 09-18-2024 Anion gap [Moles/Vol] 11 mmol/L 5-15 [facility] BUN/creatinine ratioOrdered By: Russell Hill on 09-18-2024 Urea nitrogen/Creatinine [Mass ratio] 20.3 mg/mg High 10-20 [facility] Bilirubin, totalOrdered By: Russell Hill on 09-18-2024 Bilirubin [Mass/Vol] 0.30 mg/dL 0.00-1.30 [facility] Blood lymphocytes/100 leukoc ytesOrdered By: Russell Hill on 09-18-2024 Lymphocytes/100 WBC (Bld) 17 % Low 19-41 [facility] Blood metamyelocytes/100 thony kocytesOrdered By: Russell Hill on 09-18-2024 Metamyelocytes/100 WBC (Bld) 2 % High 0-1 [facility] Blood monocytes/100 leukocyt esOrdered By: Russell Hill on 09-18-2024 Monocytes/100 WBC (Bld) 7 % 0-10 [facility] Blood segmented neutrophils/ 100 leukocytesOrdered By: Russell iHll on 09-18-2024 Segmented neutrophils/100 WBC (Bld) 74 % High 47-70 [facility] Carbon dioxide, total [Moles /volume] in Central venous bloodOrdered By: Russell Hill on 09-18-2024 CO2 [Moles/Vol] 24.9 mmol/L 21.0-32.0 [facility] Chloride assayOrdered By: Roddy Hill on 09-18-2024 Chloride [Moles/Vol] 105 mmol/L 98-108 [facility] Comprehensive Metabolic Prof ilon 09-18-2024 Albumin [Mass/Vol] 3.3 g/dL Low 3.4-4.8 [facility] Comment on above: Performed By: #### L 100.0100, L500.0430, L501.3190 #### [facility] [address] [place], [address] Albumin/Globulin [Mass ratio] 1.0 {ratio} Normal 0.9-2.4 [facility] Comment on above: Performed By: #### L 100.0100, L500.4050, [id number] #### [facility] [address] [place], [address] ALK PHOS 236 U/L High 35-104 [facility] Comment on above: Performed By: #### L 100.0100, L500.4050, [id number] #### [facility] [address] [place], [address] ALT [Catalytic activity/Vol] 61 U/L High <=34 [facility] Comment on above: Performed By: #### L 100.0100, [id number], [id number] #### [facility] [address] [place], [address] AST [Catalytic activity/Vol] 32 U/L Normal <=31 [facility] Comment on above: Performed By: #### L 100.0100, L500.4050, [id number] #### [facility] [address] [place], [address] Bilirubin [Mass/Vol] 0.30 mg/dL Normal 0.00-1.30 [facility] Comment on above: Performed By: #### L 100.0100, [id number], [id number] #### [facility] [address] [place], [address] BUN/CRE 20.3 RATIO High 10-20 [facility] Comment on above: Performed By: #### L 100.0100, [id number], [id number] #### [facility] [address] [place], [address] Calcium [Mass/Vol] 9.2 mg/dL Normal 7.6-11.0 [facility] Comment on above: Performed By: #### L 100.0100, [id number], [id number] #### [facility] [address] [place], [address] Chloride [Moles/Vol] 105 mmol/L Normal 98-108 [facility] Comment on above: Performed By: #### L 100.0100, [id number], [id number] #### [facility] [address] [place], [address] CO2 [Moles/Vol] 24.9 mmol/L Normal 21.0-32.0 [facility] Comment on above: Performed By: #### L 100.0100, [id number], [id number] #### [facility] [address] [place], [address] Creatinine [Mass/Vol] 0.78 mg/dL Normal 0.70-1.20 [facility] Comment on above: Performed By: #### L 100.0100, [id number], [id number] #### [facility] [address] [place], [address] GAP 11 Normal 5-15 [facility] Comment on above: Performed By: #### L 100.0100, [id number], [id number] #### [facility] [address] [place], [address] GFR/1.73 sq M.predicted among non-blacks MDRD (S/P/Bld) [Vol rate/Area] 80 mL/min/{1.73_m2} Normal >60 [facility] Comment on above: Result Comment: mL/m in/1.73m2 CKD-EPI Creatinine Equation (2020) Performed By: #### L 100.0100, [id number], [id number] #### [facility] [address] [place], [address] Globulin (S) [Mass/Vol] 3.3 g/dL Normal 2.2-4.2 [facility] Comment on above: Performed By: #### L 100.0100, [id number], [id number] #### [facility] [address] [place], [address] Glucose [Mass/Vol] 89 mg/dL Normal 70-99 [facility] Comment on above: Performed By: #### L 100.0100, [id number], [id number] #### [facility] [address] [place], [address] Potassium [Moles/Vol] 4.3 mmol/L Normal 3.3-5.1 [facility] Comment on above: Performed By: #### L 100.0100, [id number], [id number] #### [facility] [address] [place], [address] Sodium [Moles/Vol] 141 mmol/L Normal 133-145 [facility] Comment on above: Performed By: #### L 100.0100, [id number], [id number] #### [facility] [address] [place], [address] T PROT 6.5 g/dL Normal 5.9-8.4 [facility] Comment on above: Performed By: #### L 100.0100, [id number], [id number] #### [facility] [address] [place], [address] Urea nitrogen [Mass/Vol] 16 mg/dL Normal 4-19 [facility] Comment on above: Performed By: #### L 100.0100, [id number], [id number] #### [facility] [address] [place], [address] Erythrocyte distribution wid th ratioOrdered By: Russell Hill on 09-18-2024 Erythrocyte distribution width (RBC) [Ratio] 14.3 % 11.6-14.6 [facility] Erythrocyte distribution wid th standard deviationOrdered By: Russell Hill on 09-18-2024 Erythrocyte distribution width (RBC) [Ratio] 48.7 fl High 35.1-43.9 [facility] Erythrocyte morphology asses smentOrdered By: Russell Hill on 09-18-2024 RBC morphology finding Nom (Bld) NORM C+C NORMAL NORM C&C [facility] Glomerular filtration rate ( GFR) estimation/1.73 sq m using serum, plasma, or whole bOrdered By: Russell Hill on 09-18-2024 GFR/1.73 sq M.predicted among non-blacks MDRD (S/P/Bld) [Vol rate/Area] 80 mL/min/{1.73_m2} >60 [facility] Comment on above: mL/min/1.73m2 CKD-EP I Creatinine Equation (2020) Hematocrit Auto (Bld) [Volum e fraction]Ordered By: Russell Hill on 09-18-2024 Hematocrit (Bld) [Volume fraction] 34.8 % Low 37-47 [facility] Hemoglobin measurementOrdere d By: Russell Hill on 09-18-2024 Hemoglobin (Bld) [Mass/Vol] 10.7 g/dL Low 12.0-15.0 [facility] - Chemistry and C hemistry - challengeOrdered By: Russell Hill on 09-18-2024 AST [Catalytic activity/Vol] 32 U/L <32 [facility] Lipaseon 09-18-2024 Lipase [Catalytic activity/Vol] 201 U/L High 13-75 [facility] Comment on above: Result Comment: Gaby crystal note: LIPASE revised reference range effective 22. New Lipase methodology. Expected to produce lower values than the previous assay method. NEW Reference Range: 13 - 75 U/L Performed By: #### L 100.0100, L500.4050, L501.2450 #### [facility] [address] [place], [place], [id number] Lipase measurementOrdered By : Russell Hill on 09-18-2024 Lipase [Catalytic activity/Vol] 201 U/L High 13-75 [facility] Comment on above: Please note:LIPASE r evised reference range effective 22. New Lipase methodology. Expected to produce lower values than the previous assay method. NEW Reference Range: 13 - 75 U/L MCV (mean corpuscular volume ) determinationOrdered By: Russell Hill on 09-18-2024 MCV (RBC) [Entitic vol] 93.3 fL 81-99 [facility] Mean corpuscular hemoglobin (MCH) determinationOrdered By: Russell Hill on 09-18-2024 MCH (RBC) [Entitic mass] 28.7 pg 27.0-32.0 [facility] Mean corpuscular hemoglobin concentration (MCHC) determinationOrdered By: Russell Hill on 09-18-2024 MCHC (RBC) [Mass/Vol] 30.7 g/dL Low 32-36 [facility] Mean platelet volume determi nationOrdered By: Russell Hill on 09-18-2024 Platelet mean volume (Bld) [Entitic vol] 8.6 fL 6.2-12.0 [facility] Platelet countOrdered By: Roddy Hill on 09-18-2024 Platelets (Bld) [#/Vol] 595 10*3/uL High 150-450 [facility] Platelet estimateOrdered By: Russell Hill on 09-18-2024 Platelets LM Ql (Bld) ADEQUATE ADEQ [facility] Potassium measurement (mass/ volume)Ordered By: Russell Hill on 09-18-2024 Potassium (Unsp spec) [Mass/Vol] 4.3 mmol/L 3.3-5.1 [facility] RBC Auto (Bld) [#/Vol]Ordere d By: Russell Hill on 09-18-2024 RBC (Bld) [#/Vol] 3.73 10*6/uL Low 4.2-5.4 [facility] Review by pathologistOrdered By: Russell Hill on 09-18-2024 Pathologist review Lamont (Unsp spec) [Interp] September foll [facility] Serum creatinine measurement (mass/volume)Ordered By: Russell Hill on 09-18-2024 Creatinine [Mass/Vol] 0.78 mg/dL 0.70-1.20 [facility] Serum globulin measurementOr dered By: Russell Hill on 09-18-2024 Globulin (S) [Mass/Vol] 3.3 g/dL 2.2-4.2 [facility] Serum glucose measurement (m ass/volume)Ordered By: Russell Hill on 09-18-2024 Glucose [Mass/Vol] 89 mg/dL 70-99 [facility] Serum or plasma alanine sanabria otransferase (ALT) measurementOrdered By: Russell Hill on 09-18-2024 ALT [Catalytic activity/Vol] 61 U/L High <35 [facility] Serum or plasma albumin yue urement (mass/volume)Ordered By: Russell Hill on 09-18-2024 Albumin [Mass/Vol] 3.3 g/dL Low 3.4-4.8 [facility] Serum or plasma albumin/glob ulin mass ratioOrdered By: Russell Hill on 09-18-2024 Albumin/Globulin [Mass ratio] 1.0 {ratio} 0.9-2.4 [facility] Serum or plasma alkaline irma sphatase measurementOrdered By: Russell Hill on 09-18-2024 ALP [Catalytic activity/Vol] 236 U/L High 35-104 [facility] Serum or plasma calcium yue urement (mass/volume)Ordered By: Russell Hill on 09-18-2024 Calcium [Mass/Vol] 9.2 mg/dL 7.6-11.0 [facility] Serum or plasma urea nitroge n measurement (mass/volume)Ordered By: Rsusell Hill on 09-18-2024 Urea nitrogen [Mass/Vol] 16 mg/dL 4-19 [facility] Sodium levelOrdered By: Russell Hill on 09-18-2024 Sodium [Moles/Vol] 141 mmol/L 133-145 [facility] Total cell countOrdered By: Russell Hill on 09-18-2024 Cells counted Molgen (Bld/Tiss) [#] 100 MANUAL DIFF [facility] Total proteinOrdered By: Diana Hill on 09-18-2024 Protein [Mass/Vol] 6.5 g/dL 5.9-8.4 [facility] Toxic leukocyte granulation detectionOrdered By: Russell Hill on 09-18-2024 Toxic granules LM Ql (Bld) 2+ [facility] White blood cell (WBC) count Ordered By: Russell Hill on 09-18-2024 WBC (Bld) [#/Vol] 12.0 10*3/uL High 4.4-11.0 [facility] 36on 09-16-2024 36 Called and spoke wit h patient's . Zane was not able to help me schedule the EGD w stent removal. Stated that patient doesn't feel like coming to the doctor again. I offered her 10/19. Zane will have to discuss it with patient and let us know. Normal [facility] 36on 09-15-2024 36 Lmtcb to get schedul ed for EGD with stent removal. Normal [facility] 36on 09-14-2024 36 Lmtcb to get schedul ed for an EGD w stent removal. [facility] 36 Noted. Advanced endo list updated. GI staff to contact pt for scheduling of EGD w stent removal. Holding 10/19/24. Normal [facility] 30on 09-13-2024 30 Problem: Pain - Adul t Goal: Verbalizes/displays adequate comfort level or baseline comfort level Outcome: Progressing Problem: Safety - Adult Goal: Free from fall injury Outcome: Progressing Problem: Discharge Planning Goal: Discharge to home or other facility with appropriate resources Outcome: Progressing Problem: Chronic Conditions and Co-morbidities Goal: Patient's chronic conditions and co-morbidity symptoms are monitored and maintained or improved Outcome: Progressing Problem: Knowledge Deficit Goal: Patient/family/caregiv er demonstrates understanding of disease process, treatment plan, medications, and discharge instructions Outcome: Progressing Problem: Potential for Compromised Skin Integrity Goal: Skin Integrity is Maintained or Improved Outcome: Progressing Goal: Nutritional status is improving Outcome: Progressing Problem: Urinary Incontinence Goal: Perineal skin integrity is maintained or improved Outcome: Progressing Normal [facility] BASIC METABOLIC PANELon Anion gap [Moles/Vol] 8 mmol/L Normal 3-13 [facility] Comment on above: Performed By: #### L AB15, [id number] ####Country Printer Apprentice: ERIN MYRICK ([id number])[facility] ([address] Calcium [Mass/Vol] 8.3 mg/dL Low 8.8-10.0 [facility] Comment on above: Performed By: #### L AB15, [id number] ####Country Printer Apprentice: ERIN MYRICK ([id number])[facility] ([facility])[address] [place] [address] Chloride [Moles/Vol] 105 mmol/L Normal 98-107 [facility] Comment on above: Performed By: #### L AB15, [id number] ####Country Printer Apprentice: ERIN MYRICK ([id number])[facility] ([facility])[address] [place] [address] [place] CO2 [Moles/Vol] 25 mmol/L Normal 23-31 [facility] Comment on above: Performed By: #### L AB15, [id number] ####Country Printer Apprentice: ERIN MYRICK ([phone])[facility])[address] [place] [address] Creatinine [Mass/Vol] 0.68 mg/dL Normal 0.57-1.11 [facility] Comment on above: Performed By: #### L AB15, [id number] ####Country Printer Apprentice: ERIN MYRICK ([id number])[facility])[address] [place] [address] GLOMERULAR FILTRATION RATE ML/MIN/1.73 SQ M.PREDICTED >90.0 Normal >60.0 [facility] Comment on above: Result Comment: Calc ulation based on the Chronic Kidney Disease Epidemiology Collaboration (CKD-EPI) equation refit without adjustment for race Performed By: #### L AB15, [id number] ####Country Printer Apprentice: ERIN MYRICK ([id number])[facility] ([facility])[address] [place] [address] Glucose [Mass/Vol] 97 mg/dL Normal 82-115 [facility] Comment on above: Performed By: #### L AB15, [id number] ####Country Printer Apprentice: ERIN MYRICK ([phone])[facility])[address] [place] [address] [place] Potassium [Moles/Vol] 3.6 mmol/L Normal 3.5-5.1 [facility] Comment on above: Result Comment: Plas ma potassium values may be up to 0.5 mmol/L lower than serum values. Performed By: #### L AB15, [id number] ####Country Printer Apprentice: ERIN MYRICK ([id number])[facility])[address] [place] [address] Sodium [Moles/Vol] 138 mmol/L Normal 136-145 [facility] Comment on above: Performed By: #### L AB15, [id number] ####Country Printer Apprentice: ERIN MYRICK ([id number])[facility] ([facility])[address] [place] [address] Urea nitrogen [Mass/Vol] 9 mg/dL Normal 9-23 [facility] Comment on above: Performed By: #### L AB15, [id number] ####Country Printer Apprentice: ERIN MYRICK ([id number])[address] Basic metabolic 1998 panelon 09-13-2024 Anion gap [Moles/Vol] 8 mmol/L 3 - 13 mmol/L [facility] Calcium [Mass/Vol] 8.3 mg/dL Low 8.8 - 10. 0 mg/dL [facility] Chloride [Moles/Vol] 105 mmol/L 98 - 10 7 mmol/L [facility] CO2 [Moles/Vol] 25 mmol/L 23 - 31 mmol/L [facility] Creatinine [Mass/Vol] 0.68 mg/dL 0.57 - 1.11 mg/dL [facility] GFR/1.73 sq M.predicted (S/P/Bld) [Vol rate/Area] - PINF [facility] Comment on above: Calculation based on the Chronic Kidney Disease Epidemiology Collaboration (CKD-EPI) equation refit without adjustment for race Glucose [Mass/Vol] 97 mg/dL 82 - 115 mg/dL [facility] Potassium [Moles/Vol] 3.6 mmol/L 3.5 - 5.1 mmol/L [facility] Comment on above: Plasma potassium mark ues may be up to 0.5 mmol/L lower than serum values. Sodium [Moles/Vol] 138 mmol/L 136 - 145 mmol/L [facility] Urea nitrogen [Mass/Vol] 9 mg/dL 9 - 23 mg/dL [facility] C-REACTIVE PROTEINon 025 CRP [Mass/Vol] 269.3 mg/L High <5.0 [facility] Comment on above: Performed By: #### L AB15, [id number] ####Country Printer Apprentice: ERIN MYRICK ([id number])[facility] ([facility])[address] [place] [address] CBC (HEMOGRAM)on 09-13-2024 Erythrocyte distribution width (RBC) [Ratio] 14.1 % Normal 11.5-15.0 [facility] Comment on above: Performed By: #### L [id number] ####Country Printer Apprentice: ERIN MYRICK ([id number])[facility])[address] [place] [address] Hematocrit (Bld) [Volume fraction] 28.7 % Low 35.0-47.0 [facility] Comment on above: Performed By: #### L [id number] ####Country Printer Apprentice: ERIN MYRICK ([id number])[facility] ([facility])[address] [place] [address] Hemoglobin (Bld) [Mass/Vol] 9.3 g/dL Low 11.7-16.0 [facility] Comment on above: Performed By: #### L [id number] ####Country Printer Apprentice: ERIN MYRICK ([id number])[facility] ([facility])[address] [place] [address] MCH (RBC) [Entitic mass] 28.6 pg Normal 26.0-34.0 [facility] Comment on above: Performed By: #### L [id number] ####Country Printer Apprentice: ERIN MYRICK ([id number])[facility])[address] [place] [address] MCHC 32.4 % Normal 30.5-36.0 [facility] Comment on above: Performed By: #### L [id number] ####Country Printer Apprentice: ERIN MYRICK ([id number])[facility])[address] [place] [address] MCV (RBC) [Entitic vol] 88.3 fL Normal 77.0-99.0 [facility] Comment on above: Performed By: #### L [id number] ####Country Printer Apprentice: ERIN MYRICK ([id number])[facility] ([facility])[address] [place] [address] Platelet mean volume (Bld) [Entitic vol] 8.9 fL Low 9.0-12.7 [facility] Comment on above: Performed By: #### L [id number] ####Country Printer Apprentice: ERIN MYRICK ([id number])[facility] ([facility])[address] [place] [address] Platelets (Bld) [#/Vol] 325 10*3/uL Normal 140-440 [facility] Comment on above: Performed By: #### L [id number] ####Country Printer Apprentice: ERIN MYRICK ([id number])[facility] ([facility])[address] [place] [address] RBC (Bld) [#/Vol] 3.25 10*6/uL Low 3.80-5.20 [facility] Comment on above: Performed By: #### L [id number] ####Country Printer Apprentice: ERIN MYRICK ([id number])[facility] ([facility])[address] [place] [address] WBC (Bld) [#/Vol] 11.3 10*3/uL High 3.6-10.7 [facility] Comment on above: Performed By: #### L [id number] ####Country Printer Apprentice: ERIN MYRICK ([id number])[facility] ([facility])[address] [place] [address] CBC panel Auto (Bld)on 09-13 Erythrocyte distribution width (RBC) [Ratio] 14.1 % 11.5 - 15.0 % [facility] Hematocrit (Bld) [Volume fraction] 28.7 % Low 35.0 - 47.0 % [facility] Hemoglobin (Bld) [Mass/Vol] 9.3 g/dL Low 11.7 - 16.0 g/dL [facility] Interpretation and review of laboratory results Abnormal [facility] MCH (RBC) [Entitic mass] 28.6 pg 26.0 - 34.0 pg [facility] MCHC (RBC) [Mass/Vol] 32.4 % 30.5 - 36.0 % [facility] MCV (RBC) [Entitic vol] 88.3 fL 77.0 - 99.0 fL [facility] Platelet mean volume (Bld) [Entitic vol] 8.9 fL Low 9.0 - 12.7 fL [facility] Platelets (Bld) [#/Vol] 325 10*3/uL 140 - 440 10*3/uL [facility] RBC (Bld) [#/Vol] 3.25 10*6/uL Low 3.80 - 5.2 0 10*6/uL [facility] WBC (Bld) [#/Vol] 11.3 10*3/uL High 3.6 - 10.7 10*3/uL [facility] Laboratory - Chemistry and C hemistry - challengeon 09-13-2024 CRP [Mass/Vol] 269.3 mg/L High NINF - 5.0 mg/L [facility] No Panel Informationon 09-13 Interpretation and review of laboratory results Abnormal [facility] C-REACTIVE PROTEINon 025 CRP [Mass/Vol] 276.5 mg/L High <5.0 [facility] Comment on above: Performed By: #### L AB17, [id number] ####Country Printer Apprentice: ERIN MYRICK ([id number])[address] CBC W Auto Differential pane l (Bld)Ordered By: Bernardino Osborne on 09-12-2024 Basophils (Bld) [#/Vol] 0 10*3/uL 0.0 - 0.2 10*3/uL [facility] Basophils/100 WBC (Bld) 0.3 % 0.0 - 2.0 % [facility] Eosinophils (Bld) [#/Vol] 0.1 10*3/uL 0.0 - 0.5 10*3/uL [facility] Eosinophils/100 WBC (Bld) 0.8 % 0.0 - 6.0 % [facility] Erythrocyte distribution width (RBC) [Ratio] 14.2 % 11.5 - 15.0 % [facility] Hematocrit (Bld) [Volume fraction] 31 % Low 35.0 - 47.0 % [facility] Hemoglobin (Bld) [Mass/Vol] 10 g/dL Low 11.7 - 16.0 g/dL [facility] Struq Immature granulocytes (Bld) [#/Vol] 0.1 10*3/uL High NINF - 0.1 10*3/uL [facility] Struq Immature granulocytes/100 WBC (Bld) 0.9 % 0.0 - 2.0 % [facility] Interpretation and review of laboratory results Abnormal [facility] Lymphocytes (Bld) [#/Vol] 0.5 10*3/uL Low 1.0 - 4.3 10*3/uL [facility] Lymphocytes/100 WBC (Bld) 4.5 % Low 15.0 - 45.0 % [facility] MCH (RBC) [Entitic mass] 29 pg 26.0 - 34.0 pg [facility] Struq MCHC (RBC) [Mass/Vol] 32.3 % 30.5 - 36.0 % [facility] MCV (RBC) [Entitic vol] 89.9 fL 77.0 - 99.0 fL [facility] Monocytes (Bld) [#/Vol] 0.9 10*3/uL 0.0 - 0.9 10*3/uL [facility] Monocytes/100 WBC (Bld) 7.6 % 5.0 - 13.0 % [facility] Neutrophils (Bld) [#/Vol] 10 10*3/uL High 1.8 - 7.5 10*3/uL [facility] Neutrophils/100 WBC (Bld) 85.9 % High 38.0 - 82.0 % [facility] Nucleated RBC/100 WBC (Bld) [Ratio] 0 % [facility] Platelet mean volume (Bld) [Entitic vol] 8.8 fL Low 9.0 - 12.7 fL [facility] Platelets (Bld) [#/Vol] 314 10*3/uL 140 - 440 10*3/uL [facility] RBC (Bld) [#/Vol] 3.45 10*6/uL Low 3.80 - 5.2 0 10*6/uL [facility] WBC (Bld) [#/Vol] 11.6 10*3/uL High 3.6 - 10.7 10*3/uL [facility] CBC WITH AUTO DIFFERENTIALon 09-12-2024 Basophils (Bld) [#/Vol] 0.0 10*3/uL Normal 0.0-0.2 [facility] Comment on above: Performed By: #### L [id number] ####Country Printer Apprentice: ERIN MYRICK ([id number])[facility])[address] [place] [address] Basophils/100 WBC (Bld) 0.3 % Normal 0.0-2.0 [facility] Comment on above: Performed By: #### L [id number] ####Country Printer Apprentice: ERIN MYRICK ([id number])[facility])[address] [place] [address] Eosinophils (Bld) [#/Vol] 0.1 10*3/uL Normal 0.0-0.5 [facility] Comment on above: Performed By: #### L [id number] ####Country Printer Apprentice: ERIN MYRICK ([id number])[facility] ([facility])[address] [place] [address] Eosinophils/100 WBC (Bld) 0.8 % Normal 0.0-6.0 [facility] Comment on above: Performed By: #### L [id number] ####Country Printer Apprentice: ERIN MYRICK ([id number])[address] Erythrocyte distribution width (RBC) [Ratio] 14.2 % Normal 11.5-15.0 [facility] Comment on above: Performed By: #### L [id number] ####Country Printer Apprentice: ERIN MYRICK ([id number])[address] Hematocrit (Bld) [Volume fraction] 31.0 % Low 35.0-47.0 [facility] Comment on above: Performed By: #### L [id number] ####Country Printer Apprentice: ERIN [id number])[facility])[address] [place] [address] Hemoglobin (Bld) [Mass/Vol] 10.0 g/dL Low 11.7-16.0 [facility] Comment on above: Performed By: #### L [id number] ####Country Printer Apprentice: ERIN MYRICK ([id number])[facility])[address] [place] [address] IMMATURE GRANS % 0.9 % Normal 0.0-2.0 [facility] Comment on above: Performed By: #### L [id number] ####Country Printer Apprentice: ERIN MYRICK ([id number])[address] IMMATURE GRANS ABSOLUTE 0.1 10*3/uL High <0.1 [facility] Comment on above: Performed By: #### L [id number] ####Country Printer Apprentice: ERIN MYRICK ([id number])[facility])[address] [place] [address] Lymphocytes (Bld) [#/Vol] 0.5 10*3/uL Low 1.0-4.3 [facility] Comment on above: Performed By: #### L [id number] ####Country Printer Apprentice: ERIN MYRICK ([id number])[facility])[address] [place] [address] Lymphocytes/100 WBC (Bld) 4.5 % Low 15.0-45.0 [facility] Comment on above: Performed By: #### L [id number] ####Country Printer Apprentice: ERIN MYRICK ([id number])[facility])[address] [place] [address] MCH (RBC) [Entitic mass] 29.0 pg Normal 26.0-34.0 [facility] Comment on above: Performed By: #### L [id number] ####Country Printer Apprentice: ERIN MYRICK ([id number])[facility])[address] [place] [address] MCHC 32.3 % Normal 30.5-36.0 [facility] Comment on above: Performed By: #### L [id number] ####Country Printer Apprentice: ERIN MYRICK ([id number])[facility])[address] [place] [address] MCV (RBC) [Entitic vol] 89.9 fL Normal 77.0-99.0 [facility] Comment on above: Performed By: #### L [id number] ####Country Printer Apprentice: ERIN MYRICK ([id number])[facility])[address] [place] [address] Monocytes (Bld) [#/Vol] 0.9 10*3/uL Normal 0.0-0.9 [facility] Comment on above: Performed By: #### L [id number] ####Country Printer Apprentice: ERIN MYRICK ([id number])[facility])[address] [place] [address] Monocytes/100 WBC (Bld) 7.6 % Normal 5.0-13.0 [facility] Comment on above: Performed By: #### L [id number] ####Country Printer Apprentice: ERIN MYRICK ([id number])[facility])[address] [place] [address] NEUTROPHILS ABSOLUTE 10.0 10*3/uL High 1.8-7.5 [facility] Comment on above: Performed By: #### L [id number] ####Country Printer Apprentice: ERIN MYRICK ([id number])[facility])[address] [place] [address] Neutrophils/100 WBC (Bld) 85.9 % High 38.0-82.0 [facility] Comment on above: Performed By: #### L [id number] ####Country Printer Apprentice: ERIN MYRICK ([id number])[facility])[address] [place] [address] NRBC 0.0 /100 WBCs Normal 0.0-2.0 [facility] Comment on above: Performed By: #### L [id number] ####Country Printer Apprentice: ERIN MYRICK ([id number])[facility] ([facility])[address] [place] [address] Platelet mean volume (Bld) [Entitic vol] 8.8 fL Low 9.0-12.7 [facility] Comment on above: Performed By: #### L [id number] ####Country Printer Apprentice: ERIN MYRICK ([id number])[facility] ([facility])[address] [place] [address] Platelets (Bld) [#/Vol] 314 10*3/uL Normal 140-440 [facility] Comment on above: Performed By: #### L [id number] ####Country Printer Apprentice: ERIN MYRICK ([id number])[facility] ([facility])[address] [place] [address] RBC (Bld) [#/Vol] 3.45 10*6/uL Low 3.80-5.20 [facility] Comment on above: Performed By: #### L [id number] ####Country Printer Apprentice: ERIN MYRICK ([id number])[facility] ([facility])[address] [place] [address] WBC (Bld) [#/Vol] 11.6 10*3/uL High 3.6-10.7 [facility] Comment on above: Performed By: #### L [id number] ####Country Printer Apprentice: ERIN MYRICK ([id number])[facility] ([facility])[address] [place] [address] COMPREHENSIVE METABOLIC PANE Remy 09-12-2024 Albumin [Mass/Vol] 2.1 g/dL Low 3.4-4.8 [facility] Comment on above: Performed By: #### L AB17, [id number] ####Country Printer Apprentice: ERIN MYRICK ([id number])[facility])[address] [place] [address] ALP [Catalytic activity/Vol] 161 U/L High 40-150 [facility] Comment on above: Performed By: #### L AB17, [id number] ####Country Printer Apprentice: ERIN MYRICK ([id number])[facility] [place] [address] [place] ALT [Catalytic activity/Vol] 82 U/L High <30 [facility] Comment on above: Performed By: #### L AB17, [id number] ####Country Printer Apprentice: ERIN MYRICK ([id number])[facility] ([facility])[address] [place] [address] [place] Anion gap [Moles/Vol] 7 mmol/L Normal 3-13 [facility] Comment on above: Performed By: #### L AB17, [id number] ####Country Printer Apprentice: ERIN MYRICK ([id number])[facility] ([facility])[address] [place] [address] AST [Catalytic activity/Vol] 28 U/L Normal <34 [facility] Comment on above: Performed By: #### L AB17, [id number] ####Country Printer Apprentice: ERIN MYRICK ([id number])[facility] ([facility])[address] [place] [address] Bilirubin [Mass/Vol] 0.7 mg/dL Normal <1.2 [facility] Comment on above: Performed By: #### L AB17, [id number] ####Country Printer Apprentice: ERIN MYRICK ([id number])[facility] ([facility])[address] [place] [address] Calcium [Mass/Vol] 8.2 mg/dL Low 8.8-10.0 [facility] Comment on above: Performed By: #### L AB17, [id number] ####Country Printer Apprentice: ERIN MYRICK ([id number])[facility] ([facility])[address] [place] [address] [place] Chloride [Moles/Vol] 104 mmol/L Normal 98-107 [facility] Comment on above: Performed By: #### L AB17, [id number] ####Country Printer Apprentice: ERIN MYRICK ([id number])[facility] ([facility])[address] [place] [address] [place] CO2 [Moles/Vol] 25 mmol/L Normal 23-31 [facility] Comment on above: Performed By: #### L AB17, [id number] ####Country Printer Apprentice: ERIN MYRICK ([id number])[facility])[address] [place] [address] Creatinine [Mass/Vol] 0.69 mg/dL Normal 0.57-1.11 [facility] Comment on above: Performed By: #### L AB17, [id number] ####Country Printer Apprentice: ERIN MYRICK ([id number])[facility])[address] [place] [address] GLOMERULAR FILTRATION RATE ML/MIN/1.73 SQ M.PREDICTED >90.0 Normal >60.0 [facility] Comment on above: Result Comment: Calc ulation based on the Chronic Kidney Disease Epidemiology Collaboration (CKD-EPI) equation refit without adjustment for race Performed By: #### L AB17, [id number] ####Country Printer Apprentice: ERIN MYRICK ([id number])[facility])[address] [place] [address] Glucose [Mass/Vol] 92 mg/dL Normal 82-115 [facility] Comment on above: Performed By: #### L AB17, [id number] ####Country Printer Apprentice: ERIN MYRICK ([id number])[address] Potassium [Moles/Vol] 3.4 mmol/L Low 3.5-5.1 [facility] Comment on above: Result Comment: [facility] potassium values may be up to 0.5 mmol/L lower than serum values. Performed By: #### L AB17, [id number] ####Country Printer Apprentice: ERIN MYRICK ([phone])[facility])[address] [place] [address] Protein [Mass/Vol] 5.1 g/dL Low 6.4-8.3 [facility] Comment on above: Performed By: #### L AB17, [id number] ####Country Printer Apprentice: ERIN MYRICK ([phone])[facility])[address] [place] [address] Sodium [Moles/Vol] 136 mmol/L Normal 136-145 [facility] Comment on above: Performed By: #### L AB17, [id number] ####Country Printer Apprentice: ERIN MYRICK ([phone])[facility] [facility] [place] [address] Urea nitrogen [Mass/Vol] 11 mg/dL Normal 9-23 [facility] Comment on above: Performed By: #### L [id number], [id number] ####Country Printer Apprentice: ERIN MYRICK ([phone])[facility] [place] [address] Comprehensive metabolic 1998 panelon 09-12-2024 Albumin [Mass/Vol] 2.1 g/dL Low 3.4 - 4.8 g/dL [facility] ALP [Catalytic activity/Vol] 161 U/L High 40 - 150 U/L [facility] ALT [Catalytic activity/Vol] 82 U/L High NINF - 30 U/L [facility] Anion gap [Moles/Vol] 7 mmol/L 3 - 13 mmol/L [facility] AST [Catalytic activity/Vol] 28 [facility]L [facility] - [facility]/L [facility] Bilirubin [Mass/Vol] 0.7 mg/dL [facility] - 1.2 mg/dL [facility] Calcium [Mass/Vol] 8.2 mg/dL Low 8.8 - 10. 0 mg/dL [facility] Chloride [Moles/Vol] 104 mmol/L 98 - 10 7 mmol/L [facility] CO2 [Moles/Vol] 25 mmol/L 23 - 31 mmol/L [facility] Creatinine [Mass/Vol] 0.69 mg/dL 0.57 - 1.11 mg/dL [facility] GFR/1.73 sq M.predicted (S/P/Bld) [Vol rate/Area] - PINF [facility] Comment on above: Calculation based on the Chronic Kidney Disease Epidemiology Collaboration (CKD-EPI) equation refit without adjustment for race Glucose [Mass/Vol] 92 mg/dL 82 - 115 mg/dL [facility] Potassium [Moles/Vol] 3.4 mmol/L Low 3.5 - 5.1 mmol/L [facility] Comment on above: Plasma potassium mark ues may be up to 0.5 mmol/L lower than serum values. Protein [Mass/Vol] 5.1 g/dL Low 6.4 - 8.3 g/dL [facility] Sodium [Moles/Vol] 136 mmol/L 136 - 145 mmol/L [facility] Urea nitrogen [Mass/Vol] 11 mg/dL 9 - 23 mg/dL [facility] Laboratory - Chemistry and C hemistry - challengeon 09-12-2024 CRP [Mass/Vol] 276.5 mg/L High NINF - 5.0 mg/L [facility] No Panel Informationon 09-12 Interpretation and review of laboratory results Abnormal [facility] Progress Noteon 09-12-2024 Progress Note Nutrition update completed. Chart reviewed. Patient to be monitored and followed by the diet line technician. Dietitian available upon request. JARON Dacosta Normal [facility] 30on 09-11-2024 30 Problem: Pain - Adul t Goal: Verbalizes/displays adequate comfort level or baseline comfort level Outcome: Progressing Problem: Safety - Adult Goal: Free from fall injury Outcome: Progressing Problem: Discharge Planning Goal: Discharge to home or other facility with appropriate resources Outcome: Progressing Normal [facility] [id number] 09-11-2024 [id number] SW present during Rounds this morning as Tx team discussed Pt's current health status and discharge plans. Reviewed chart. Met w /Pt, introduced self, explained role, and inquired upon possible need for supports or community resources. Male present at bedside, identified as Pt's Noah. Gave [facility] HDM and [employer] info and flyer. Pt reported no needs for SW to address at this time. [facility] C-REACTIVE PROTEINon 025 CRP [Mass/Vol] 264.5 mg/L High <5.0 [facility] Comment on above: Performed By: #### L [id number], [id number] ####Country Printer Apprentice: ERIN MYRICK ([phone])[facility] ([facility])[address] [place] [address] CBC W Auto Differential pane l (Bld)on 09-11-2024 Basophils (Bld) [#/Vol] 0 10*3/uL 0.0 - 0.2 10*3/uL [facility] Basophils/100 WBC (Bld) 0.2 % 0.0 - 2.0 % [facility] Eosinophils (Bld) [#/Vol] 0 10*3/uL 0.0 - 0.5 10*3/uL [facility] Eosinophils/100 WBC (Bld) 0.2 % 0.0 - 6.0 % [facility] Erythrocyte distribution width (RBC) [Ratio] 14.1 % 11.5 - 15.0 % [facility] Hematocrit (Bld) [Volume fraction] 33.2 % Low 35.0 - 47.0 % [facility] Hemoglobin (Bld) [Mass/Vol] 10.6 g/dL Low 11.7 - 16.0 g/dL [facility] Immature granulocytes (Bld) [#/Vol] 0.1 10*3/uL High NINF - 0.1 10*3/uL [facility] Immature granulocytes/100 WBC (Bld) 0.9 % 0.0 - 2.0 % [facility] Interpretation and review of laboratory results Abnormal [facility] Lymphocytes (Bld) [#/Vol] 0.8 10*3/uL Low 1.0 - 4.3 10*3/uL [facility] Lymphocytes/100 WBC (Bld) 6.1 % Low 15.0 - 45.0 % [facility] MCH (RBC) [Entitic mass] 29 pg 26.0 - 34.0 pg [facility] MCHC (RBC) [Mass/Vol] 31.9 % 30.5 - 36.0 % [facility] MCV (RBC) [Entitic vol] 91 fL 77.0 - 99.0 fL [facility] Monocytes (Bld) [#/Vol] 0.9 10*3/uL 0.0 - 0.9 10*3/uL [facility] Monocytes/100 WBC (Bld) 6.6 % 5.0 - 13.0 % [facility] Neutrophils (Bld) [#/Vol] 11.2 10*3/uL High 1.8 - 7.5 10*3/uL [facility] Neutrophils/100 WBC (Bld) 86 % High 38.0 - 82.0 % [facility] Nucleated RBC/100 WBC (Bld) [Ratio] 0 % [facility] Platelet mean volume (Bld) [Entitic vol] 9.5 fL 9.0 - 12.7 fL [facility] Platelets (Bld) [#/Vol] 264 10*3/uL 140 - 440 10*3/uL [facility] RBC (Bld) [#/Vol] 3.65 10*6/uL Low 3.80 - 5.2 0 10*6/uL [facility] WBC (Bld) [#/Vol] 13 10*3/uL High 3.6 - 10.7 10*3/uL [facility] CBC WITH AUTO DIFFERENTIALon 09-11-2024 Basophils (Bld) [#/Vol] 0.0 10*3/uL Normal 0.0-0.2 [facility] Comment on above: Performed By: #### L [id number] ####Country Printer Apprentice: ERIN MYRICK ([id number])[facility])[address] [place] [address] Basophils/100 WBC (Bld) 0.2 % Normal 0.0-2.0 [facility] Comment on above: Performed By: #### L [id number] ####Country Printer Apprentice: ERIN MYRICK ([id number])[facility])[address] [place] [address] Eosinophils (Bld) [#/Vol] 0.0 10*3/uL Normal 0.0-0.5 [facility] Comment on above: Performed By: #### L [id number] ####Country Printer Apprentice: ERIN MYRICK ([phone])[facility] ([facility])[address] [place] [address] [place] Eosinophils/100 WBC (Bld) 0.2 % Normal 0.0-6.0 [facility] Comment on above: Performed By: #### L [id number] ####Country Printer Apprentice: ERIN MYRICK ([phone])[facility])[address] [place] [address] Erythrocyte distribution width (RBC) [Ratio] 14.1 % Normal 11.5-15.0 [facility] Comment on above: Performed By: #### L [id number] ####Country Printer Apprentice: ERIN MYRICK ([phone])[address] Hematocrit (Bld) [Volume fraction] 33.2 % Low 35.0-47.0 [facility] Comment on above: Performed By: #### L [id number] ####Country Printer Apprentice: ERIN MYRICK ([phone])[facility])[address] [place] [address] Hemoglobin (Bld) [Mass/Vol] 10.6 g/dL Low 11.7-16.0 [facility] Comment on above: Performed By: #### L [id number] ####Country Printer Apprentice: ERIN MYRICK ([phone])[facility])[address] [place] [address] IMMATURE GRANS % 0.9 % Normal 0.0-2.0 [facility] Comment on above: Performed By: #### L [id number] ####Country Printer Apprentice: ERIN MYRICK ([phone])[facility])[address] [place] [address] IMMATURE GRANS ABSOLUTE 0.1 10*3/uL High <0.1 [facility] Comment on above: Performed By: #### L [id number] ####Country Printer Apprentice: ERIN MYRICK ([id number])[facility])[address] [place] [address] Lymphocytes (Bld) [#/Vol] 0.8 10*3/uL Low 1.0-4.3 [facility] Comment on above: Performed By: #### L [id number] ####Country Printer Apprentice: REIN MYRICK ([id number])[address] Lymphocytes/100 WBC (Bld) 6.1 % Low 15.0-45.0 [facility] Comment on above: Performed By: #### L [id number] ####Country Printer Apprentice: ERIN [id number])[facility] ([facility])[address] [place] [address] MCH (RBC) [Entitic mass] 29.0 pg Normal 26.0-34.0 [facility] Comment on above: Performed By: #### L [id number] ####Country Printer Apprentice: ERIN MYRICK ([id number])[facility])[address] [place] [address] MCHC 31.9 % Normal 30.5-36.0 [facility] Comment on above: Performed By: #### L [id number] ####Country Printer Apprentice: ERIN MYRICK ([phone])[facility])[address] [place] [address] MCV (RBC) [Entitic vol] 91.0 fL Normal 77.0-99.0 [facility] Comment on above: Performed By: #### L [id number] ####Country Printer Apprentice: ERIN MYRICK ([id number])[facility] ([facility])[address] [place] [address] Monocytes (Bld) [#/Vol] 0.9 10*3/uL Normal 0.0-0.9 [facility] Comment on above: Performed By: #### L [id number] ####Country Printer Apprentice: ERIN MYRICK ([phone])[facility])[address] [place] [address] Monocytes/100 WBC (Bld) 6.6 % Normal 5.0-13.0 [facility] Comment on above: Performed By: #### L [id number] ####Country Printer Apprentice: ERIN MYRICK ([phone])[facility])[address] [place] [address] NEUTROPHILS ABSOLUTE 11.2 10*3/uL High 1.8-7.5 [facility] Comment on above: Performed By: #### L [id number] ####Country Printer Apprentice: ERIN MYRICK ([phone])[facility])[address] [place] [address] Neutrophils/100 WBC (Bld) 86.0 % High 38.0-82.0 [facility] Comment on above: Performed By: #### L [id number] ####Country Printer Apprentice: ERIN MYRICK ([id number])[facility] ([facility])[address] [place] [address] NRBC 0.0 /100 WBCs Normal 0.0-2.0 [facility] Comment on above: Performed By: #### L [id number] ####Country Printer Apprentice: ERIN MYRICK ([phone])[facility] ([facility])[address] [place] [address] Platelet mean volume (Bld) [Entitic vol] 9.5 fL Normal 9.0-12.7 [facility] Comment on above: Performed By: #### L [id number] ####Country Printer Apprentice: ERIN MYRICK ([id number])[facility] ([facility])[address] [place] [address] Platelets (Bld) [#/Vol] 264 10*3/uL Normal 140-440 [facility] Comment on above: Performed By: #### L [id number] ####Country Printer Apprentice: ERIN MYRICK ([id number])[facility] ([facility])[address] [place] [address] RBC (Bld) [#/Vol] 3.65 10*6/uL Low 3.80-5.20 [facility] Comment on above: Performed By: #### L [id number] ####Country Printer Apprentice: ERIN MYRICK ([id number])[facility] ([facility])[address] [place] [address] WBC (Bld) [#/Vol] 13.0 10*3/uL High 3.6-10.7 [facility] Comment on above: Performed By: #### L [id number] ####Country Printer Apprentice: ERIN MYRICK ([id number])[facility] ([facility])[address] [place] [address] COMPREHENSIVE METABOLIC PANE Remy 09-11-2024 Albumin [Mass/Vol] 2.3 g/dL Low 3.4-4.8 [facility] Comment on above: Performed By: #### L [id number], [id number] ####Country Printer Apprentice: ERIN MYRICK ([id number])[facility] ([facility])[address] [place] [address] ALP [Catalytic activity/Vol] 161 U/L High 40-150 [facility] Comment on above: Performed By: #### L [id number], [id number] ####Country Printer Apprentice: ERIN MYRICK ([id number])[facility] ([facility])[address] [place] [address] ALT [Catalytic activity/Vol] 123 U/L High <30 [facility] Comment on above: Performed By: #### L [id number], [id number] ####Country Printer Apprentice: ERIN MYRICK ([id number])[facility] ([facility])[address] [place] [address] Anion gap [Moles/Vol] 11 mmol/L Normal 3-13 [facility] Comment on above: Performed By: #### L [id number], [id number] ####Country Printer Apprentice: ERIN MYRICK ([id number])[facility] ([facility])[address] [place] [address] AST [Catalytic activity/Vol] 48 U/L High <34 [facility] Comment on above: Performed By: #### L [id number], [id number] ####Country Printer Apprentice: ERIN MYRICK ([id number])[facility])[address] [place] [address] Bilirubin [Mass/Vol] 0.9 mg/dL Normal <1.2 [facility] Comment on above: Performed By: #### L [id number], [id number] ####Country Printer Apprentice: ERIN MYRICK ([id number])[facility])[address] [place] [address] Calcium [Mass/Vol] 8.3 mg/dL Low 8.8-10.0 [facility] Comment on above: Performed By: #### L [id number], [id number] ####Country Printer Apprentice: ERIN [id number])[facility] ([facility])[address] [place] [address] Chloride [Moles/Vol] 105 mmol/L Normal 98-107 [facility] Comment on above: Performed By: #### L [id number], [id number] ####Country Printer Apprentice: ERIN MYRICK ([id number])[facility])[address] [place] [address] CO2 [Moles/Vol] 21 mmol/L Low 23-31 [facility] Comment on above: Performed By: #### L [id number], [id number] ####Country Printer Apprentice: ERIN MYRICK ([id number])[facility])[address] [place] [address] Creatinine [Mass/Vol] 0.69 mg/dL Normal 0.57-1.11 [facility] Comment on above: Performed By: #### L [id number], [id number] ####Country Printer Apprentice: ERIN MYRICK ([id number])[facility] ([facility])[address] [place] [address] GLOMERULAR FILTRATION RATE ML/MIN/1.73 SQ M.PREDICTED >90.0 Normal >60.0 [facility] Comment on above: Result Comment: Calc ulation based on the Chronic Kidney Disease Epidemiology Collaboration (CKD-EPI) equation refit without adjustment for race Performed By: #### L [id number], [id number] ####Country Printer Apprentice: ERIN MYRICK ([id number])[facility])[address] [place] [address] Glucose [Mass/Vol] 81 mg/dL Low 82-115 [facility] Comment on above: Performed By: #### L [id number], [id number] ####Country Printer Apprentice: ERIN MYRICK ([id number])[facility])[address] [place] [address] Potassium [Moles/Vol] 3.4 mmol/L Low 3.5-5.1 [facility] Comment on above: Result Comment: [facility] potassium values may be up to 0.5 mmol/L lower than serum values. Performed By: #### L AB17, [id number] ####Country Printer Apprentice: ERIN MYRICK ([phone])[facility] ([facility])[address] [place] [address] Protein [Mass/Vol] 5.5 g/dL Low 6.4-8.3 [facility] Comment on above: Performed By: #### L [id number], [id number] ####Country Printer Apprentice: ERIN MYRICK ([id number])[facility] ([facility])[address] [place] [address] Sodium [Moles/Vol] 137 mmol/L Normal 136-145 [facility] Comment on above: Performed By: #### L [id number], [id number] ####Country Printer Apprentice: ERIN MYRICK ([id number])[facility] ([facility])[address] [place] [address] Urea nitrogen [Mass/Vol] 13 mg/dL Normal 9-23 [facility] Comment on above: Performed By: #### L [id number], [id number] ####Country Printer Apprentice: ERIN MYRICK ([id number])[facility] ([facility])[address] [place] [address] CRP [Mass/Vol]on 09-11-2024 Interpretation and review of laboratory results Abnormal [facility] Comprehensive metabolic 1998 panelon 09-11-2024 Albumin [Mass/Vol] 2.3 g/dL Low 3.4 - 4.8 g/dL [facility] ALP [Catalytic activity/Vol] 161 U/L High 40 - 150 U/L [facility] ALT [Catalytic activity/Vol] 123 U/L High NINF - 30 U/L [facility] Anion gap [Moles/Vol] 11 mmol/L 3 - 13 mmol/L [facility] AST [Catalytic activity/Vol] 48 U/L High NINF - 34 U/L [facility] Bilirubin [Mass/Vol] 0.9 mg/dL NINF - 1.2 mg/dL [facility] Calcium [Mass/Vol] 8.3 mg/dL Low 8.8 - 10. 0 mg/dL [facility] Chloride [Moles/Vol] 105 mmol/L 98 - 10 7 mmol/L [facility] CO2 [Moles/Vol] 21 mmol/L Low 23 - 31 mmol/L [facility] Creatinine [Mass/Vol] 0.69 mg/dL 0.57 - 1.11 mg/dL [facility] GFR/1.73 sq M.predicted (S/P/Bld) [Vol rate/Area] - PINF [facility] Comment on above: Calculation based on the Chronic Kidney Disease Epidemiology Collaboration (CKD-EPI) equation refit without adjustment for race Glucose [Mass/Vol] 81 mg/dL Low 82 - 115 mg/dL [facility] Interpretation and review of laboratory results Abnormal [facility] Potassium [Moles/Vol] 3.4 mmol/L Low 3.5 - 5.1 mmol/L [facility] Comment on above: Plasma potassium mark ues may be up to 0.5 mmol/L lower than serum values. Protein [Mass/Vol] 5.5 g/dL Low 6.4 - 8.3 g/dL [facility] Sodium [Moles/Vol] 137 mmol/L 136 - 145 mmol/L [facility] Urea nitrogen [Mass/Vol] 13 mg/dL 9 - 23 mg/dL [facility] Laboratory - Chemistry and C hemistry - challengeon 09-11-2024 CRP [Mass/Vol] 264.5 mg/L High NINF - 5.0 mg/L [facility] 30on 09-10-2024 30 Problem: Pain - Adul t Goal: Verbalizes/displays adequate comfort level or baseline comfort level Outcome: Progressing Problem: Safety - Adult Goal: Free from fall injury Outcome: Progressing Problem: Discharge Planning Goal: Discharge to home or other facility with appropriate resources Outcome: Progressing Problem: Chronic Conditions and Co-morbidities Goal: Patient's chronic conditions and co-morbidity symptoms are monitored and maintained or improved Outcome: Progressing Problem: Knowledge Deficit Goal: Patient/family/caregiv er demonstrates understanding of disease process, treatment plan, medications, and discharge instructions Outcome: Progressing Problem: Potential for Compromised Skin Integrity Goal: Skin Integrity is Maintained or Improved Outcome: Progressing Goal: Nutritional status is improving Outcome: Progressing Problem: Urinary Incontinence Goal: Perineal skin integrity is maintained or improved Outcome: Progressing Normal [facility] CBC W Auto Differential pane l (Bld)on 09-10-2024 Basophils (Bld) [#/Vol] 0 10*3/uL 0.0 - 0.2 10*3/uL [facility] Basophils/100 WBC (Bld) 0.1 % 0.0 - 2.0 % [facility] Eosinophils (Bld) [#/Vol] 0 10*3/uL 0.0 - 0.5 10*3/uL [facility] Eosinophils/100 WBC (Bld) 0 % 0.0 - 6.0 % [facility] Erythrocyte distribution width (RBC) [Ratio] 14.3 % 11.5 - 15.0 % [facility] Hematocrit (Bld) [Volume fraction] 32.4 % Low 35.0 - 47.0 % [facility] Hemoglobin (Bld) [Mass/Vol] 10.7 g/dL Low 11.7 - 16.0 g/dL [facility] Immature granulocytes (Bld) [#/Vol] 0.1 10*3/uL High NINF - 0.1 10*3/uL [facility] Immature granulocytes/100 WBC (Bld) 0.7 % 0.0 - 2.0 % [facility] Interpretation and review of laboratory results Abnormal [facility] Lymphocytes (Bld) [#/Vol] 0.7 10*3/uL Low 1.0 - 4.3 10*3/uL [facility] Lymphocytes/100 WBC (Bld) 5 % Low 15.0 - 45.0 % [facility] MCH (RBC) [Entitic mass] 28.8 pg 26.0 - 34.0 pg [facility] MCHC (RBC) [Mass/Vol] 33 % 30.5 - 36.0 % [facility] MCV (RBC) [Entitic vol] 87.3 fL 77.0 - 99.0 fL [facility] Monocytes (Bld) [#/Vol] 1.1 10*3/uL High 0.0 - 0.9 10*3/uL [facility] Monocytes/100 WBC (Bld) 7.6 % 5.0 - 13.0 % [facility] Neutrophils (Bld) [#/Vol] 11.9 10*3/uL High 1.8 - 7.5 10*3/uL [facility] Neutrophils/100 WBC (Bld) 86.6 % High 38.0 - 82.0 % [facility] Nucleated RBC/100 WBC (Bld) [Ratio] 0 % [facility] Platelet mean volume (Bld) [Entitic vol] 9.5 fL 9.0 - 12.7 fL [facility] Platelets (Bld) [#/Vol] 227 10*3/uL 140 - 440 10*3/uL [facility] RBC (Bld) [#/Vol] 3.71 10*6/uL Low 3.80 - 5.2 0 10*6/uL [facility] WBC (Bld) [#/Vol] 13.8 10*3/uL High 3.6 - 10.7 10*3/uL [facility] CBC WITH AUTO DIFFERENTIALon 09-10-2024 Basophils (Bld) [#/Vol] 0.0 10*3/uL Normal 0.0-0.2 [facility] Comment on above: Performed By: #### L [id number] ####Country Printer Apprentice: ERIN MYRICK ([phone])[facility] ([facility])[address] [place] [address] Basophils/100 WBC (Bld) 0.1 % Normal 0.0-2.0 [facility] Comment on above: Performed By: #### L [id number] ####Country Printer Apprentice: ERIN MYRICK ([id number])[facility] ([facility])[address] [place] [address] Eosinophils (Bld) [#/Vol] 0.0 10*3/uL Normal 0.0-0.5 [facility] Comment on above: Performed By: #### L [id number] ####Country Printer Apprentice: ERIN MYRICK ([id number])[facility] ([facility])[address] [place] [address] Eosinophils/100 WBC (Bld) 0.0 % Normal 0.0-6.0 [facility] Comment on above: Performed By: #### L [id number] ####Country Printer Apprentice: ERIN MYRICK ([phone])[facility])[address] [place] [address] Erythrocyte distribution width (RBC) [Ratio] 14.3 % Normal 11.5-15.0 [facility] Comment on above: Performed By: #### L [id number] ####Country Printer Apprentice: ERIN MYRICK ([id number])[facility])[address] [place] [address] Hematocrit (Bld) [Volume fraction] 32.4 % Low 35.0-47.0 [facility] Comment on above: Performed By: #### L [id number] ####Country Printer Apprentice: ERIN MYRICK ([id number])[facility])[address] [place] [address] Hemoglobin (Bld) [Mass/Vol] 10.7 g/dL Low 11.7-16.0 [facility] Comment on above: Performed By: #### L [id number] ####Country Printer Apprentice: ERIN MYRICK ([phone])[facility])[address] [place] [address] IMMATURE GRANS % 0.7 % Normal 0.0-2.0 [facility] Comment on above: Performed By: #### L [id number] ####Country Printer Apprentice: ERIN MYRICK ([phone])[facility])[address] [place] [address] IMMATURE GRANS ABSOLUTE 0.1 10*3/uL High <0.1 [facility] Comment on above: Performed By: #### L [id number] ####Country Printer Apprentice: ERIN MYRICK ([id number])[facility])[address] [place] [address] Lymphocytes (Bld) [#/Vol] 0.7 10*3/uL Low 1.0-4.3 [facility] Comment on above: Performed By: #### L [id number] ####Country Printer Apprentice: ERIN MYRICK ([id number])[facility])[address] [place] [address] [place] Lymphocytes/100 WBC (Bld) 5.0 % Low 15.0-45.0 [facility] Comment on above: Performed By: #### L [id number] ####Country Printer Apprentice: ERIN MYRICK ([phone])[facility])[address] [place] [address] MCH (RBC) [Entitic mass] 28.8 pg Normal 26.0-34.0 [facility] Comment on above: Performed By: #### L [id number] ####Country Printer Apprentice: ERIN MYRICK ([id number])[facility])[address] [place] [address] MCHC 33.0 % Normal 30.5-36.0 [facility] Comment on above: Performed By: #### L [id number] ####Country Printer Apprentice: ERIN MYRICK ([phone])[facility] ([facility])[address] [place] [address] MCV (RBC) [Entitic vol] 87.3 fL Normal 77.0-99.0 [facility] Comment on above: Performed By: #### L [id number] ####Country Printer Apprentice: ERIN MYRICK ([phone])[facility])[address] [place] [address] Monocytes (Bld) [#/Vol] 1.1 10*3/uL High 0.0-0.9 [facility] Comment on above: Performed By: #### L [id number] ####Country Printer Apprentice: ERIN MYRICK ([phone])[facility])[address] [place] [address] Monocytes/100 WBC (Bld) 7.6 % Normal 5.0-13.0 [facility] Comment on above: Performed By: #### L [id number] ####Country Printer Apprentice: ERIN MYRICK ([id number])[facility])[address] [place] [address] NEUTROPHILS ABSOLUTE 11.9 10*3/uL High 1.8-7.5 [facility] Comment on above: Performed By: #### L [id number] ####Country Printer Apprentice: ERIN MYRICK ([phone])[facility])[address] [place] [address] Neutrophils/100 WBC (Bld) 86.6 % High 38.0-82.0 [facility] Comment on above: Performed By: #### L [id number] ####Country Printer Apprentice: ERIN MYRICK ([phone])[facility] ([facility])[address] [place] [address] NRBC 0.0 /100 WBCs Normal 0.0-2.0 [facility] Comment on above: Performed By: #### L [id number] ####Country Printer Apprentice: ERIN MYRICK ([id number])[facility] ([facility])[address] [place] [address] Platelet mean volume (Bld) [Entitic vol] 9.5 fL Normal 9.0-12.7 [facility] Comment on above: Performed By: #### L [id number] ####Country Printer Apprentice: ERIN MYRICK ([phone])[facility] ([facility])[address] [place] [address] Platelets (Bld) [#/Vol] 227 10*3/uL Normal 140-440 [facility] Comment on above: Performed By: #### L [id number] ####Country Printer Apprentice: ERIN MYRICK ([phone])[facility] ([facility])[address] [place] [address] RBC (Bld) [#/Vol] 3.71 10*6/uL Low 3.80-5.20 [facility] Comment on above: Performed By: #### L [id number] ####Country Printer Apprentice: ERIN MYRICK ([id number])[facility] ([facility])[address] [place] [address] WBC (Bld) [#/Vol] 13.8 10*3/uL High 3.6-10.7 [facility] Comment on above: Performed By: #### L [id number] ####Country Printer Apprentice: ERIN MYRICK ([id number])[facility])[address] [place] [address] COMPREHENSIVE METABOLIC PANE Remy 09-10-2024 Albumin [Mass/Vol] 2.5 g/dL Low 3.4-4.8 [facility] Comment on above: Performed By: #### L [id number] #### Country Printer Apprentice: ERIN MYRICK ([id number]) [facility] [address] [place] [address] [place] ALP [Catalytic activity/Vol] 169 U/L High 40-150 [facility] Comment on above: Performed By: #### L [id number] #### Country Printer Apprentice: ERIN MYRICK ([phone]) [facility] [address] [place] [address] [place] ALT [Catalytic activity/Vol] 171 U/L High <30 [facility] Comment on above: Performed By: #### L [id number] #### Country Printer Apprentice: ERIN MYRICK ([id number]) [facility] ([facility]) [address] [place] [address] Anion gap [Moles/Vol] 8 mmol/L Normal 3-13 [facility] Comment on above: Performed By: #### L [id number] #### Country Printer Apprentice: ERIN MYRICK ([id number]) [facility] [address] [place] [address] AST [Catalytic activity/Vol] 82 U/L High <34 [facility] Comment on above: Performed By: #### L [id number] #### Country Printer Apprentice: ERIN MYRICK ([id number]) [facility] [address] [place] [address] Bilirubin [Mass/Vol] 0.8 mg/dL Normal <1.2 [facility] Comment on above: Performed By: #### L [id number] #### Country Printer Apprentice: ERIN MYRICK ([id number]) [facility] ([facility]) [address] [place] [address] Calcium [Mass/Vol] 8.2 mg/dL Low 8.8-10.0 [facility] Comment on above: Performed By: #### L [id number] #### Country Printer Apprentice: ERIN MYRICK ([id number]) [facility] ([facility]) [address] [place] [address] [place] Chloride [Moles/Vol] 106 mmol/L Normal 98-107 [facility] Comment on above: Performed By: #### L [id number] #### Country Printer Apprentice: ERIN MYRICK ([id number]) [facility]) [address] [place] [address] CO2 [Moles/Vol] 22 mmol/L Low 23-31 [facility] Comment on above: Performed By: #### L [id number] #### Country Printer Apprentice: ERIN MYRICK ([id number]) [facility]) [address] [place] [address] Creatinine [Mass/Vol] 0.68 mg/dL Normal 0.57-1.11 [facility] Comment on above: Performed By: #### L [id number] #### Country Printer Apprentice: ERIN MYRICK ([phone]) [facility]) [address] [place] [address] GLOMERULAR FILTRATION RATE ML/MIN/1.73 SQ M.PREDICTED >90.0 Normal >60.0 [facility] Comment on above: Result Comment: Calc ulation based on the Chronic Kidney Disease Epidemiology Collaboration (CKD-EPI) equation refit without adjustment for race Performed By: #### L [id number] #### Country Printer Apprentice: ERIN MYRICK ([id number]) [facility]) [address] [place] [address] Glucose [Mass/Vol] 98 mg/dL Normal 82-115 [facility] Comment on above: Performed By: #### L [id number] #### Country Printer Apprentice: ERIN MYRICK ([id number]) [facility]) [address] [place] [address] Potassium [Moles/Vol] 3.5 mmol/L Normal 3.5-5.1 [facility] Comment on above: Result Comment: [facility] potassium values may be up to 0.5 mmol/L lower than serum values. Performed By: #### L [id number] #### Country Printer Apprentice: ERIN MYRICK ([phone]) [facility]) [address] [place] [address] Protein [Mass/Vol] 5.1 g/dL Low 6.4-8.3 [facility] Comment on above: Performed By: #### L [id number] #### Country Printer Apprentice: ERIN MYRICK ([id number]) [facility]) [address] [place] [address] Sodium [Moles/Vol] 136 mmol/L Normal 136-145 [facility] Comment on above: Performed By: #### L [id number] #### Country Printer Apprentice: ERIN MYRICK ([id number]) [facility]) [address] [place] [address] Urea nitrogen [Mass/Vol] 14 mg/dL Normal 9-23 [facility] Comment on above: Performed By: #### L [id number] #### Country Printer Apprentice: ERIN MYRICK ([id number]) [facility]) [address] [place] [address] Comprehensive metabolic 1998 panelon 09-10-2024 Albumin [Mass/Vol] 2.5 g/dL Low 3.4 - 4.8 g/dL [facility] ALP [Catalytic activity/Vol] 169 U/L High 40 - 150 U/L [facility] ALT [Catalytic activity/Vol] 171 U/L High [facility]/L [facility] Anion gap [Moles/Vol] 8 mmol/L 3 - 13 mmol/L [facility] AST [Catalytic activity/Vol] 82 U/L High [facility] - 34 U/L [facility] Bilirubin [Mass/Vol] 0.8 mg/dL [facility] - 1.2 mg/dL [facility] Calcium [Mass/Vol] 8.2 mg/dL Low 8.8 - 10. 0 mg/dL [facility] Chloride [Moles/Vol] 106 mmol/L 98 - 10 7 mmol/L [facility] CO2 [Moles/Vol] 22 mmol/L Low 23 - 31 mmol/L [facility] Creatinine [Mass/Vol] 0.68 mg/dL 0.57 - 1.11 mg/dL [facility] GFR/1.73 sq M.predicted (S/P/Bld) [Vol rate/Area] - PINF [facility] Comment on above: Calculation based on the Chronic Kidney Disease Epidemiology Collaboration (CKD-EPI) equation refit without adjustment for race Glucose [Mass/Vol] 98 mg/dL 82 - 115 mg/dL [facility] Interpretation and review of laboratory results Abnormal [facility] Potassium [Moles/Vol] 3.5 mmol/L 3.5 - 5.1 mmol/L [facility] Comment on above: Plasma potassium mark ues may be up to 0.5 mmol/L lower than serum values. Protein [Mass/Vol] 5.1 g/dL Low 6.4 - 8.3 g/dL [facility] Sodium [Moles/Vol] 136 mmol/L 136 - 145 mmol/L [facility] Urea nitrogen [Mass/Vol] 14 mg/dL 9 - 23 mg/dL [facility] Progress Noteon 09-10-2024 Progress Note -- Attestation signed by Maycol Ngo MD at 09/12/2024 9:09 AM ~~~~~~~~~~~~~~~~~~~~~~ ~~~~~~~~~~~~~~~~~~~~~~ ~~~~~~~~~~~~~~~ Attending physician addendum: I independently saw and evaluated the patient. I personally obtained the rodriguez and critical portion of the history and physical exam. I reviewed and agree with the documentation below. I personally reviewed patient's labs and imaging studies. My findings agree with the below note except for any details corrected. I have examined the patient at the date below. Patient Active Problem List Diagnosis Choledocholithiasis I independently saw the below patient and reviewed the imaging, labs, vital signs; I performed a physical exam and ROS. My findings agree with the above note except for any details corrected below. As per Dr. Spencer's note. I have evaluated the patient on 09/10/24 Patient's pain has improved. Kept NPO by the GI team. CT a/p ordered by GI reviewed - inflammatory changes of pancreatic head and uncinate process, no loculated fluid collection. Chief complain: abdominal pain Problem list: Choledocholithiasis Cholelithiasis Hyperbilirubinemia Transaminates Pancreatitis, likely post ERCP Procedures: 09/07 - ERCP, sphincterotomy, stone evacuation x 2, stent placement Management / Plan : OK to advance diet from General surgery prospective Pain control DVT prophylaxis OK for oral medications Thank you for this consultation and allowing us to participate in the management of your patient. Please, contact me for any concerns or questions. Zach Ngo MD FACS Trauma, Surgical Critical Care, & General Surgery Division of Trauma Department of Surgery [facility] Department of General Surgery Daily Progress Note ADMIT DATE: 09/05/2024 TODAY'S DATE: 09/10/2024 HPI: Chaim Danielle is a 73 y.o. female with no significant past medical history who presents with abdominal pain. Surgery was consulted for evaluation of cholelithiasis with concern for choledocholithiasis. Patient states she has been experiencing intermittent right upper quadrant abdominal pain for the last 2 weeks. Patient reports the pain is related to eating and has occurred 2-3 times and lasts 2 to 3 hours at a time. Patient denies symptoms like this before. Patient's states that she is not experiencing any nausea or vomiting. Patient otherwise endorses normal bowel movements without hematochezia. Patient denies fevers or chills. Past surgical history is significant for laparoscopic hysterectomy 20 years ago. Last colonoscopy was last April and demonstrated normal findings per patient. Patient denies personal or family history of Crohn's, ulcerative colitis, colon cancer. Patient denies smoking, alcohol, illicit drug use. Patient does not take any blood thinners at home. On evaluation patient was afebrile and hemodynamically stable, mildly bradycardic on arrival to . Labs reviewed significant for: WBC 4.6, Hgb 12.1, creatinine 0.92, ALP 299, AST 283, ALT 392, total bilirubin 2.8, direct bilirubin 1.7, lipase 25. Reportedly right upper quadrant ultrasound from OSH demonstrated cholelithiasis with choledocholithiasis. Patient transferred to [facility] for further workup and MRCP. SUBJECTIVE: No acute events overnight. Pain mildly improved with new pain regimen however still persistent. Patient currently n.p.o. per GI. No further concerns this morning. Interval history: 09/06 MRCP with choledocholithiasis 09/07 ERCP with stent 09/08 lap moose OBJECTIVE: VITALS: BP 145/74 Pulse 61 Temp 36.9 ?C (98.5 ?F) (Temporal) Resp 16 Ht 5' 6 (1.676 m) Wt 136 lb (61.7 kg) SpO2 92% BMI 21.95 kg/m? INTAKE/OUTPUT: No intake or output data in the 24 hours ending 09/10/24 1310 No intake/output data recorded. No intake/output data recorded. PHYSICAL EXAM: Gen: NAD, A&Ox3, pain well controlled Heart: RRR, well perfused Lungs: symmetric chest rise, normal work of breathing, breath sounds b/l Abd: soft, laps sites with steri strips in place. Moderately distended and TTP Ext: no c/c/e no gross deformities Skin: warm, well perfused, no obvious rashes, cellulitis or gross discoloration LABS Results from last 7 days Lab Units 09/10/24 0346 09/09/24 04509/08/24 0531 WBC AUTO 10*3/uL 13.8* 12.3* 9.8 HEMOGLOBIN g/dL 10.7* 11.8 11.5* HEMATOCRIT % 32.4* 36.2 35.6 PLATELETS 10*3/uL 227 282 258 Results from last 7 days Lab Units 09/10/24 0346 09/09/24 0452 09/08/24 0532 SODIUM mmol/L 136 137 139 POTASSIUM mmol/L 3.5 3.8 3.9 CHLORIDE mmol/L 106 106 109* CO2 mmol/L 22* 26 22* BUN mg/dL 14 16 17 CREATININE mg/dL 0.68 0.85 0.73 GLUCOSE mg/dL 98 120* 107 CALCIUM mg/dL 8.2* 8.7* 8.7* Results from last 7 days Lab Un (more content not included)... Normal [facility] Progress Note -- Attestation signed by Cristian Ruiz MD at 09/10/2024 11:18 AM (Updated) Attending Supervising Physician?s Attestation Statement I have personally performed and participated in all the above services (including HPI and PE). I have reviewed the case with Advance Practice Provider (APLMA)/ resident / student, and agreed with the PALMA's / resident / student assessment and plan as above. I have following additions or modifications: I did substantive portion of medical decision making. Patient still has same pain , passed gas and had BM , no nausea or vomiting. No tachycardia, no signs of hemoconcentration. On exam , tenderness in epigastrium Imaging reviewed. Inflammatory changes. Start clear liquid diet. OB --> chair Pain control Incenrtive spirometry Lovenox subcutaneous Decrease IV fluids as she tolerates PO Trend CRP Supportive care. No need for any intervention. Discussed I will be out of town starting tomorrow. Inpatient GI service to follow her. All questions answered , met with patient and . [facility] Department of Internal Medicine Gastroenterology Progress Note SUBJECTIVE: GI following for choledocholithiasis. Patient s/p ERCP on 09/07/24. Sphincterotomy with balloon expression 2 stones and stent placement. Status post cholecystectomy on 09/08/24. Yesterday patient with increase in abdominal pain. Abdominal XR without ileus or SBO. Lipase <3000. CT AP without contrast revealed inflammatory changes at the pancreatic head, no loculated fluid collection. LFTs improved, Tbili remains normal. WBC 12.3-->13.8. Patient reports feeling ok this AM. Has been up walking. Has been NPO. Discussed CT findings with patient. She would like to try clear liquids. Pain overnight was better than previous night. No nausea, vomiting. Pain continues to be band like around abdomen, mid and upper. Passing gas and had a BM. Medications Scheduled Meds: Current Facility-Administered Medications: acetaminophen (Tylenol) tablet 1,000 mg, 1,000 mg, Oral, q8h, Isis Amos MD, 1,000 mg at 09/10/24 0346 enoxaparin (Lovenox) syringe 40 mg, 40 mg, SubCUTAneous, Daily, Isis Amos MD, 40 mg at 09/09/24 1207 [DISCONTINUED] HYDROmorphone (Dilaudid) injection 0.25 mg, 0.25 mg, IntraVENous, q3h PRN OR HYDROmorphone (Dilaudid) injection 0.5 mg, 0.5 mg, IntraVENous, q3h PRN, Maycol Ngo MD lactated ringers infusion, 150 mL/hr, IntraVENous, Continuous, Isis Amos MD, Last Rate: 150 mL/hr at 09/08/24 1607, 150 mL/hr at 09/08/24 1607 methocarbamol (Robaxin) tablet 500 mg, 500 mg, Oral, 3 times per day, Maycol Ngo MD naloxone (Narcan) injection 0.4 mg, 0.4 mg, IntraVENous, q5 min PRN, Isis Amos MD ondansetron ODT (Zofran-ODT) disintegrating tablet 4 mg, 4 mg, Oral, q8h PRN OR ondansetron (Zofran) injection 4 mg, 4 mg, IntraVENous, q6h PRN, Isis Amos MD, 4 mg at 09/09/24 0005 oxyCODONE (Roxicodone) immediate release tablet 5 mg, 5 mg, Oral, q4h PRN, 5 mg at 09/08/24 1829 OR oxyCODONE (Roxicodone) immediate release tablet 10 mg, 10 mg, Oral, q4h PRN, Isis Amos MD, 10 mg at 09/09/24 0447 polyethylene glycol (PEG) 3350 (Miralax) packet 17 g, 17 g, Oral, Daily, GREGORY Remy CNP, 17 g at 09/09/24 1207 sodium chloride 0.9 % infusion, 5-250 mL/hr, IntraVENous, PRN, Isis Amos MD sodium chloride 0.9 % infusion, 5-250 mL/hr, IntraVENous, PRN, Isis Amos MD sodium chloride 0.9% (NS) flush 10 mL, 10 mL, IntraVENous, 2 times per day, Isis Amos MD, 10 mL at 09/08/242109 sodium chloride 0.9% (NS) flush 10 mL, 10 mL, IntraVENous, PRN, Isis Amos MD sodium chloride 0.9% (NS) flush 5-40 mL, 5-40 mL, IntraVENous, q12h, Isis Amos MD, 10 mL at 09/08/240 sodium chloride 0.9% (NS) flush 5-40 mL, 5-40 mL, IntraVENous, PRN, Isis Amos MD OBJECTIVE VITALS: BP 132/64 (BP Location: Right arm, Patient Position: Sitting) Pulse 61 Temp 36.4 ?C (97.6 ?F) (Temporal) Resp 17 Ht 5' 6 (1.676 m) Wt 136 lb (61.7 kg) SpO2 92% BMI 21.95 kg/m? Average, Min, and Max for last24 hours Vitals: TEMPERATURE: Temp Av.9 ?C (98.4 ?F) Min: 36.4 ?C (97.6 ?F) Max: 37.4 ?C (99.4 ?F) RESPIRATIONS RANGE: Resp Av.6 Min: 16 Max: 17 PULSE RANGE: Pulse Av Min: 61 Max: 68 BLOOD PRESSURE RANGE: Systolic (24hrs), Av , Min:112 , Max:142 ; Diastolic (24hrs), Av, Min:61, Max:69 PULSE OXIMETRY RANGE:SpO2 Av.4 % Min: 85 % Max: 95 % No intake/output data recorded. Constitutional: No acute distress. Well-nourished. Well hydrated. Up in chair. Eyes: Pupils are equal and round; Conjunctiva are no (more content not included)... Normal [facility] 30on 09-09-2024 30 Problem: Pain - Adul t Goal: Verbalizes/displays adequate comfort level or baseline comfort level Outcome: Progressing Problem: Safety - Adult Goal: Free from fall injury Outcome: Progressing Problem: Discharge Planning Goal: Discharge to home or other facility with appropriate resources Outcome: Progressing Problem: Chronic Conditions and Co-morbidities Goal: Patient's chronic conditions and co-morbidity symptoms are monitored and maintained or improved Outcome: Progressing Problem: Potential for Compromised Skin Integrity Goal: Skin Integrity is Maintained or Improved Outcome: Progressing Problem: Urinary Incontinence Goal: Perineal skin integrity is maintained or improved Outcome: Progressing Normal [facility] BASIC METABOLIC PANELon 08-13 Anion gap [Moles/Vol] 5 mmol/L Normal 3-13 [facility] Comment on above: Performed By: #### L AB20, LAB15 ####Country Printer Apprentice: ERIN MYRICK ([phone])[address] Calcium [Mass/Vol] 8.7 mg/dL Low 8.8-10.0 [facility] Comment on above: Performed By: #### L AB20, LAB15 ####Country Printer Apprentice: ERIN [id number])[facility])[address] [place] [address] Chloride [Moles/Vol] 106 mmol/L Normal 98-107 [facility] Comment on above: Performed By: #### L AB20, LAB15 ####Country Printer Apprentice: ERIN [id number])[facility])[address] [place] [address] CO2 [Moles/Vol] 26 mmol/L Normal 23-31 [facility] Comment on above: Performed By: #### L AB20, LAB15 ####Country Printer Apprentice: ERIN [id number])[facility] [place] [address] Creatinine [Mass/Vol] 0.85 mg/dL Normal 0.57-1.11 [facility] Comment on above: Performed By: #### L AB20, LAB15 ####Country Printer Apprentice: ERIN MYRICK ([phone])[facility] ([facility])[address] [place] [address] [place] GLOMERULAR FILTRATION RATE ML/MIN/1.73 SQ M.PREDICTED 72.0 mL/min/1.73m*2 Normal >60.0 [facility] Comment on above: Result Comment: Calc ulation based on the Chronic Kidney Disease Epidemiology Collaboration (CKD-EPI) equation refit without adjustment for race Performed By: #### L AB20, LAB15 ####Country Printer Apprentice: ERIN MYRICK ([phone])[facility] ([facility])[address] [place] [address] Glucose [Mass/Vol] 120 mg/dL High 82-115 [facility] Comment on above: Performed By: #### L AB20, LAB15 ####Country Printer Apprentice: ERIN MYRICK ([phone])[facility])[address] [place] [address] Potassium [Moles/Vol] 3.8 mmol/L Normal 3.5-5.1 [facility] Comment on above: Result Comment: [facility] potassium values may be up to 0.5 mmol/L lower than serum values. Performed By: #### L AB20, LAB15 ####Country Printer Apprentice: ERIN MYRICK ([id number])[facility] [place] [address] [place] Sodium [Moles/Vol] 137 mmol/L Normal 136-145 [facility] Comment on above: Performed By: #### L AB20, LAB15 ####Country Printer Apprentice: ERIN MYRICK ([phone])[facility] [place] [address] [place] Urea nitrogen [Mass/Vol] 16 mg/dL Normal 9-23 [facility] Comment on above: Performed By: #### L AB20, LAB15 ####Country Printer Apprentice: ERIN MYRICK ([phone])[facility])[address] [place] [address] Basic metabolic 1998 panelon 09-09-2024 Anion gap [Moles/Vol] 5 mmol/L 3 - 13 mmol/L [facility] Calcium [Mass/Vol] 8.7 mg/dL Low 8.8 - 10. 0 mg/dL [facility] Chloride [Moles/Vol] 106 mmol/L 98 - 10 7 mmol/L [facility] CO2 [Moles/Vol] 26 mmol/L 23 - 31 mmol/L [facility] Creatinine [Mass/Vol] 0.85 mg/dL 0.57 - 1.11 mg/dL [facility] GFR/1.73 sq M.predicted (S/P/Bld) [Vol rate/Area] 72 mL/min - PINF [facility] Comment on above: Calculation based on the Chronic Kidney Disease Epidemiology Collaboration (CKD-EPI) equation refit without adjustment for race Glucose [Mass/Vol] 120 mg/dL High 82 - 115 mg/dL [facility] Interpretation and review of laboratory results Abnormal [facility] Potassium [Moles/Vol] 3.8 mmol/L 3.5 - 5.1 mmol/L [facility] Comment on above: Plasma potassium mark ues may be up to 0.5 mmol/L lower than serum values. Sodium [Moles/Vol] 137 mmol/L 136 - 145 mmol/L [facility] Urea nitrogen [Mass/Vol] 16 mg/dL 9 - 23 mg/dL [facility] CBC (HEMOGRAM)on 09-09-2024 Erythrocyte distribution width (RBC) [Ratio] 14.1 % Normal 11.5-15.0 [facility] Comment on above: Performed By: #### L [id number] ####Country Printer Apprentice: ERIN MYRICK ([phone])[facility] ([facility])[address] [place] [address] Hematocrit (Bld) [Volume fraction] 36.2 % Normal 35.0-47.0 [facility] Comment on above: Performed By: #### L [id number] ####Country Printer Apprentice: ERIN MYRICK ([phone])[facility] ([facility])[address] [place] [address] Hemoglobin (Bld) [Mass/Vol] 11.8 g/dL Normal 11.7-16.0 [facility] Comment on above: Performed By: #### L [id number] ####Country Printer Apprentice: ERIN MYRICK ([id number])[facility])[address] [place] [address] MCH (RBC) [Entitic mass] 28.7 pg Normal 26.0-34.0 [facility] Comment on above: Performed By: #### L [id number] ####Country Printer Apprentice: ERIN MYRICK ([phone])[facility])[address] [place] [address] MCHC 32.6 % Normal 30.5-36.0 [facility] Comment on above: Performed By: #### L [id number] ####Country Printer Apprentice: ERIN MYRICK ([id number])[facility] ([facility])[address] [place] [address] MCV (RBC) [Entitic vol] 88.1 fL Normal 77.0-99.0 [facility] Comment on above: Performed By: #### L [id number] ####Country Printer Apprentice: ERIN MYRICK ([id number])[facility] ([facility])[address] [place] [address] Platelet mean volume (Bld) [Entitic vol] 9.5 fL Normal 9.0-12.7 [facility] Comment on above: Performed By: #### L [id number] ####Country Printer Apprentice: ERIN MYRICK ([id number])[facility] ([facility])[address] [place] [address] Platelets (Bld) [#/Vol] 282 10*3/uL Normal 140-440 [facility] Comment on above: Performed By: #### L [id number] ####Country Printer Apprentice: ERIN MYRICK ([id number])[facility])[address] [place] [address] RBC (Bld) [#/Vol] 4.11 10*6/uL Normal 3.80-5.20 [facility] Comment on above: Performed By: #### L [id number] ####Country Printer Apprentice: ERIN MYRICK ([id number])[facility] ([facility])[address] [place] [address] WBC (Bld) [#/Vol] 12.3 10*3/uL High 3.6-10.7 [facility] Comment on above: Performed By: #### L [id number] ####Country Printer Apprentice: ERIN MYRICK ([id number])[facility] [facility])[address] [place] [address] CBC panel Auto (Bld)on 09-09 Erythrocyte distribution width (RBC) [Ratio] 14.1 % 11.5 - 15.0 % [facility] Hematocrit (Bld) [Volume fraction] 36.2 % 35.0 - 47.0 % [facility] Hemoglobin (Bld) [Mass/Vol] 11.8 g/dL 11.7 - 16.0 g/dL [facility] Interpretation and review of laboratory results Abnormal [facility] MCH (RBC) [Entitic mass] 28.7 pg 26.0 - 34.0 pg [facility] MCHC (RBC) [Mass/Vol] 32.6 % 30.5 - 36.0 % [facility] MCV (RBC) [Entitic vol] 88.1 fL 77.0 - 99.0 fL [facility] Platelet mean volume (Bld) [Entitic vol] 9.5 fL 9.0 - 12.7 fL [facility] Platelets (Bld) [#/Vol] 282 10*3/uL 140 - 440 10*3/uL [facility] RBC (Bld) [#/Vol] 4.11 10*6/uL 3.80 - 5.2 0 10*6/uL [facility] WBC (Bld) [#/Vol] 12.3 10*3/uL High 3.6 - 10.7 10*3/uL [facility] CT ABDOMEN PELVIS WO IV CONT RASTon 09-09-2024 CT ABDOMEN PELVIS WO IV CONTRAST Patient Name: CHAIM DANIELLE : 1950 [facility]#: [id number] Exam Date/Time: 09/09/2024 16:15 Procedure: CT ABDOMEN PELVIS WO IV CONTRAST Ordering Provider: HEATON MARGIT Reason For Exam: pancreatitis, s/p ERCP 09/07/24 EXAM: CT Abdomen and pelvis INDICATION: Pancreatitis, status post ERCP 08/30/2024 COMPARISON: none TECHNIQUE: CT of the abdomen and pelvis was performed without intravenous contrast. Coronal and sagittal reformats were obtained. Dose reduction was employed with automated exposure control. FINDINGS: LOWER CHEST: Trace bilateral pleural effusions with bibasilar atelectasis. ABDOMEN: LIVER: within normal limits. BILE DUCTS: Stent noted within the common duct. No gross intrahepatic ductal dilatation, noting that evaluation is somewhat limited due to lack of intravenous contrast. GALLBLADDER: No calcified gallstones. Normal caliber wall. PANCREAS: There is infiltration of the peripancreatic fat predominantly about the pancreatic head and uncinate process extending into the root of the small bowel mesentery. No loculated peripancreatic fluid collection. SPLEEN: within normal limits. ADRENALS: There is a lipid rich left adrenal adenoma measuring up to 1.6 cm. Right adrenal gland is within normal limits. KIDNEYS: within normal limits. PELVIS: REPRODUCTIVE ORGANS: No pelvic masses. URETERS: within normal limits. BLADDER: within normal limits. BOWEL: Bowel is normal in caliber. Appendix within normal limits. No enlarged mesenteric lymph nodes. PERITONEUM: Few foci of pneumoperitoneum within the upper abdomen and subjacent to the left hepatic lobe. There is trace perihepatic ascites, predominantly anterior to the dome of the liver and within the gallbladder fossa. VESSELS: Within normal limits. LYMPH NODES: No enlarged nodes. RETROPERITONEUM: within normal limits. ABDOMINAL WALL: Fat-containing umbilical hernia noted. BONES: Mild degenerative changes of the imaged spine. IMPRESSION: 1. Inflammatory changes noted about the pancreatic head and uncinate process. No loculated fluid collection. 2. Foci of gas within the abdominal wall and upper abdomen, consistent with recent cholecystectomy. There is trace perihepatic ascites. No fluid collection. 3. Stent noted within the common duct. No overt biliary ductal dilatation. 4. Trace pleural effusions with bibasilar atelectasis. Report Dictated on Electronically Signed By: Pollo Turpin MD Electronically Signed Date/Time: 09/09/2024 7:38 PM EDT [facility] CT Abdomen and Pelvis WO con traston 09-09-2024 1. Inflammatory changes noted about the pancreatic head and uncinate process. No loculated fluid collection. 2. Foci of gas within the abdominal wall and upper abdomen, consistent with recent cholecystectomy. There is trace perihepatic ascites. No fluid collection. 3. Stent noted within the common duct. No overt biliary ductal dilatation. 4. Trace pleural effusions with bibasilar atelectasis. Report Dictated on Electronically Signed By: Pollo Turpin MD Electronically Signed Date/Time: 09/09/2024 7:38 PM EDT [facility] Patient Name: CHAIM DANIELLE : 1950 Exam Date/Time: 09/09/2024 16:15 Procedure: CT ABDOMEN PELVIS WO IV CONTRAST Ordering Provider: HEATON MARGIT Reason For Exam: pancreatitis, s/p ERCP 09/07/24 EXAM: CT Abdomen and pelvis INDICATION: Pancreatitis, status post ERCP 08/30/2024 COMPARISON: none TECHNIQUE: CT of the abdomen and pelvis was performed without intravenous contrast. Coronal and sagittal reformats were obtained. Dose reduction was employed with automated exposure control. FINDINGS: LOWER CHEST: Trace bilateral pleural effusions with bibasilar atelectasis. ABDOMEN: LIVER: within normal limits. BILE DUCTS: Stent noted within the common duct. No gross intrahepatic ductal dilatation, noting that evaluation is somewhat limited due to lack of intravenous contrast. GALLBLADDER: No calcified gallstones. Normal caliber wall. PANCREAS: There is infiltration of the peripancreatic fat predominantly about the pancreatic head and uncinate process extending into the root of the small bowel mesentery. No loculated peripancreatic fluid collection. SPLEEN: within normal limits. ADRENALS: There is a lipid rich left adrenal adenoma measuring up to 1.6 cm. Right adrenal gland is within normal limits. KIDNEYS: within normal limits. PELVIS: REPRODUCTIVE ORGANS: No pelvic masses. URETERS: within normal limits. BLADDER: within normal limits. BOWEL: Bowel is normal in caliber. Appendix within normal limits. No enlarged mesenteric lymph nodes. PERITONEUM: Few foci of pneumoperitoneum within the upper abdomen and subjacent to the left hepatic lobe. There is trace perihepatic ascites, predominantly anterior to the dome of the liver and within the gallbladder fossa. VESSELS: Within normal limits. LYMPH NODES: No enlarged nodes. RETROPERITONEUM: within normal limits. ABDOMINAL WALL: Fat-containing umbilical hernia noted. BONES: Mild degenerative changes of the imaged spine. [facility] Pollo Turpin MD - 09/09/2024 [facility] 1950 [id number] Exam Date/Time: 09/09/2024 16:15 Procedure: CT ABDOMEN PELVIS WO IV CONTRAST Ordering Provider: HEATON MARGIT Reason For Exam: pancreatitis, s/p ERCP 09/07/24 EXAM: CT Abdomen and pelvis INDICATION: Pancreatitis, status post ERCP 08/30/2024 COMPARISON: none TECHNIQUE: CT of the abdomen and pelvis was performed without intravenous contrast. Coronal and sagittal reformats were obtained. Dose reduction was employed with automated exposure control. FINDINGS: LOWER CHEST: Trace bilateral pleural effusions with bibasilar atelectasis. ABDOMEN: LIVER: within normal limits. BILE DUCTS: Stent noted within the common duct. No gross intrahepatic ductal dilatation, noting that evaluation is somewhat limited due to lack of intravenous contrast. GALLBLADDER: No calcified gallstones. Normal caliber wall. PANCREAS: There is infiltration of the peripancreatic fat predominantly about the pancreatic head and uncinate process extending into the root of the small bowel mesentery. No loculated peripancreatic fluid collection. SPLEEN: within normal limits. ADRENALS: There is a lipid rich left adrenal adenoma measuring up to 1.6 cm. Right adrenal gland is within normal limits. KIDNEYS: within normal limits. PELVIS: REPRODUCTIVE ORGANS: No pelvic masses. URETERS: within normal limits. BLADDER: within normal limits. BOWEL: Bowel is normal in caliber. Appendix within normal limits. No enlarged mesenteric lymph nodes. PERITONEUM: Few foci of pneumoperitoneum within the upper abdomen and subjacent to the left hepatic lobe. There is trace perihepatic ascites, predominantly anterior to the dome of the liver and within the gallbladder fossa. VESSELS: Within normal limits. LYMPH NODES: No enlarged nodes. RETROPERITONEUM: within normal limits. ABDOMINAL WALL: Fat-containing umbilical hernia noted. BONES: Mild degenerative changes of the imaged spine. IMPRESSION: 1. Inflammatory changes noted about the pancreatic head and uncinate process. No loculated fluid collection. 2. Foci of gas within the abdominal wall and upper abdomen, consistent with recent cholecystectomy. There is trace perihepatic ascites. No fluid collection. 3. Stent noted within the common duct. No overt biliary ductal dilatation. 4. Trace pleural effusions with bibasilar atelectasis. Report Dictated on Electronically Signed By: Pollo Turpin MD Electronically Signed Date/Time: 09/09/2024 7:38 PM EDT [facility] Radiology Study observation (narrative) [facility] CT Abdomen and Pelvis WO con trastOrdered By: Pollo Turpin on 09-09-2024 [facility] [employer] Work Phone: HEPATIC FUNCTION PANELon Albumin [Mass/Vol] 3.1 g/dL Low 3.4-4.8 [facility] Comment on above: Performed By: #### L AB20, LAB15 ####Country Printer Apprentice: ERIN MYRICK ([phone])[facility])[address] [place] [address] ALP [Catalytic activity/Vol] 225 U/L High 40-150 [facility] Comment on above: Performed By: #### L AB20, LAB15 ####Country Printer Apprentice: ERIN MYRICK ([phone])[facility])[address] [place] [address] ALT [Catalytic activity/Vol] 279 U/L High <30 [facility] Comment on above: Performed By: #### L AB20, LAB15 ####Country Printer Apprentice: ERIN MYRICK ([phone])[facility])[address] [place] [address] [place] AST [Catalytic activity/Vol] 180 U/L High <34 [facility] Comment on above: Performed By: #### L AB20, LAB15 ####Country Printer Apprentice: ERIN MYRICK ([phone])[facility])[address] [place] [address] [place] Bilirubin [Mass/Vol] 0.8 mg/dL Normal <1.2 [facility] Comment on above: Performed By: #### L AB20, LAB15 ####Country Printer Apprentice: ERIN MYRICK ([phone])[facility])[address] [place] [address] Bilirubin.indirect [Mass/Vol] 0.4 mg/dL Normal <0.5 [facility] Comment on above: Performed By: #### L AB20, LAB15 ####Country Printer Apprentice: ERIN MYRICK ([phone])[facility])[address] [place] [address] Protein [Mass/Vol] 5.8 g/dL Low 6.4-8.3 [facility] Comment on above: Performed By: #### L AB20, LAB15 ####Country Printer Apprentice: ERIN MYRICK ([phone])[facility])[address] [place] [address] Hepatic function 2000 panelo 09-09-2024 Albumin [Mass/Vol] 3.1 g/dL Low 3.4 - 4.8 g/dL [facility] ALP [Catalytic activity/Vol] 225 U/L High 40 - 150 U/L [facility] ALT [Catalytic activity/Vol] 279 U/L High NINF - 30 U/L [facility] AST [Catalytic activity/Vol] 180 U/L High [facility] - 34 U/L [facility] Bilirubin [Mass/Vol] 0.8 mg/dL [facility] - 1.2 mg/dL [facility] Bilirubin.conjugated [Mass/Vol] 0.4 mg/dL [facility] - 0.5 mg/dL [facility] Interpretation and review of laboratory results Abnormal [facility] Protein [Mass/Vol] 5.8 g/dL Low 6.4 - 8.3 g/dL [facility] LIPASEon 09-09-2024 Lipase [Catalytic activity/Vol] U/L High <55 [facility] Comment on above: Performed By: #### L AB99 ####Country Printer Apprentice: ERIN MYRICK ([phone])[facility])[address] [place] [address] Laboratory - Chemistry and C hemistry - challengeon 09-09-2024 Lipase [Catalytic activity/Vol] U/L High NINF - 55 U/L [facility] Lipase [Catalytic activity/V ol]on 09-09-2024 Interpretation and review of laboratory results Abnormal [facility] No Panel InformationOrdered By: Hermelindo Davis on 09-09-2024 Case Report Surgical Pathology Case: [id number] Authorizing Provider: Maycol Ngo MD Collected: 09/08/2024 0943 Ordering Location: [facility] MAIN OR Received: 09/08/2024 1134 Pathologist: Hermelindo Davis MD PhD Specimen: Gallbladder, GALLBLADDER [facility] [employer] Work Phone: Clinical Information c3nxfATzYELrwZJpRHz wNl dvhpRdAKZunEAoT8Uqusat HYbfKU2zLR0rcYehkZStfE IzXSTpUeGyq7ovy112lHCd v2riUINPQGvnYLHPBRn4lW cgL93fz5X9ZshvF47ruWUo JSD2PSBgKRRkyZOqNUZlEF L4RJZrvNGmM8fpZRPiUY9y largUXpbGRjiYQFxmTS8WS HasJZuV2ZzIBHfMBxbEBTe aci4YkPyNn5keIDmpUnbLO xwYXJkXHBsYWluXGZzMjAg P6lmeTQel2Hae3qsdMdeWZ NpcywgSzgwLjUwLiBccGFy fQ== [employer] Work Phone: Disclaimer s3mglCXfFFTenOVrGjYk UxFIVul3nlJVNppBInKuFc MzNcZnRuYmpcdWMxXGRlZm Ejl3wid991rAOge0paGHDj WyW2lXSdSFXnX95pAIYGZ1 02WSUmKDkjg7snq0GeZWRx dSIbf4R5DQIOERefXTIQJO x1iLqmO56oz0V1FbpaL4gm UPBhLIOrZ7OoZX8kKUFtJr y9WJL4QOP2MERaUBUmU8Bx PI3wCWOllSCyDAg4e1fgwW dhSBZbIOX7k0ijVXoacyCm DM0gzo9rcBe8u4btgbCdMA YuQDWtuBPJWOXtP5BmmDlw Pu7dhHv1zGscKrwqMTV2Lk l5EN9sda42bjj0nLzqPGRf vbrgKjQ9QSgiNKIbvpcnMH p6QUnmBJGmgCL7WQTjaFBw J0YxLVVvZK6mdrb3ACP6WZ hgADOqPrC2FYWzqMChVDFw cTfuYWakr038CRS0BoAiZA 6mN2Nug6A5zW5pdTLzYCTs oIGaZmEpWAMxjd1tiRDrAS cws1MtIIG1klG7jTTstXWi CQDbAD56Vhcva7QgGrhgOI Z0SOAcoxNax5Hgt9uwLwSx mjQeF8diH5AeNZOvYRToOX BvYmHboiPpy6Vvw4WczQXs mDl8m3stQKLrDWQgyFwzz5 yyUIX3DEZvH9M2oBUiv5ya WEztIHWroKS6ztV1VYMkgE ZvL2JhaS4jJIHtXC6bxeq8 y5ueEEJ4QOpkTGZpJeB5hz H8LBWkcEWmCANfpYygOLwz k456MMX2CrIkCGZrw2SmW4 XkjUefS07tbTnjG72uDNDo lAdvkP9btRcrdD8aKrOrEz MyNFxxbFxwbGFpblxmMVxm fhQ5QUdfqvgbCCOiOSzxK3 ylChYkAHWgkSavJQhlq7Zi XEYvXEVbNXKrUZmmC7gtlM 3akhhlIFkxBULvqJkoc3oe CmQliOP4VN4kjaBbPGPstL nzwsS5osAyiBaztV7vjP1v aOkoxG3yxZFdwDM2qrkzJW luIHNpdHUgaHlicmlkaXph tGvzqjqwhK3dBQG3xLPjVQ G2aVXbMRUlPDUwVLGiqF61 cp9opWTdhuCbQ2UrA2AjmH WapQkaFvrrbBAzkFYnHn6r kBUaWJ9mEANswEUfK5FpCE 4gXHBhclxwYXIgVGhlIHVz RPLoRrQfzkKiv6LneH4yEE KoQIAxZT75lvCtliA3zGIs YWJvdmUgdGVzdHMgaXMgcm VndWxhdGVkIGFzIGFuIGFu QRj3jQFca0IsL4xjkRKwyr SsU4QrnBUuOKSMMX9lOJbp m2NvnXWbsMKen5JcTLPiXX SosF4oKCFmJL4nPPYcBHml AXIhmuLmxs0pvaEcTADbRU VbF3SmcxvckZulusWnZOWu ln2qtaHcIUS9ANDaXMZyvS gprWGxsSNrMOBswlM9p8Py VBIjw7PgL0HlpHJjYMOvkT KgIJT5c1OjjY5sXNdtwPBo QRFcRJ2kkQVrCSNaCQFfSH FyZWQgYnkgdGhlIFVTIEZv l2KcBB8eCNGpiTdyBTSdlY 0ni2JpUDMtz28zTHJJBFyl IFRoZSBGREEgaGFzIGRldG VybWluZWQgdGhhdCBzdWNo ZROxSAHwSJ1aJZCjeyTauF Wle2QgdVBjahYio6WafjWi ATYkTYN4ShPdoEBqOUMuxo CLxDjcsW6zsU1du5NzjJ5o TYzhjgPphFUzKb7ssRWiDV 9uIHBhcmFmZmluIGVtYmVk EJMcKHIqw3N2XJ3iQUUkcy 8ghkwduTJfcQ8avSNbuzGq FF8lTF4rW1H3eVZbDKHnzv Uvv3zgGDi1wYNkJLFnuOOv sAMqExbmUNU4DLUdRXJ7ge XumlKtXJIirAtmoTD5bAAf HLPdCLIyWIUmAW95G8Cgi4 OcI0seSW07WXZzCVAqQJBa axSxh3yjLPMin9ipMUHpaL GdW2SyPDAprIPgehbzKhCh API5BWPyFJW6gUSsBXJwM4 JfjOIrsIEziY71QV3nhRY3 VO0mSQT0PGpcaE6eImWFjG 69fc0qzFS9m0EfXD9lM8Db LIVfk9Z9gbBlNZPpYP6aaZ BiZWVuIHZhbGlkYXRlZCBv bwRnVXVzxWArOkkdWWN5gH LxhYTfCvXKCDM0yCNtKTUz a5VkQXYwHPZigtEedwToLX GjQSX5jKQdANTghKWlb26l Z3k3GI1mlUymLMGjbGNnEQ Ivs9EhnORmsKr8cTAnEhYb TYoaQODlXTrlvMn7vTH2AO 6eXXFdW6CsT7nwaEDwGVQb AIRzwZKjoa6isRGrxI== [facility] Work Phone: Gross Description u9byiIYcVSMouFEzPPdu Nl icynOyFNHrbECaL5Krdzff UUecNB3jQF2ywLmfdSXsyV ZdAQPcOpJwg7usv983hKTr m5ypVZAQIEisAEHOFYy7rG ooT20av9S9JhbyF15arECr VQO3TNDlCTGlmZZzRUIaWG L8KAJfvTUcX3zcMIViHT7v zxleCGkfFKvoWEEbcTL0EM JygLBgF5EuZGJsREurCCCm euq2OaQpCp1sdIKazUakMK xwYXJkXHBsYWluXGZzMjAg KxHjVTk6IWDwyZ6wLd4whN HyuH2kkJSxKQyhIBHuV3Ut bGJsYWRkZXIiIGlzIGFuIG ludGFjdCBnYWxsYmxhZGRl ziB5sHM2DJ1rFSW4tgEuMO wwwBEjZSddEeIdnZ0mWBMx ZSBvdXRlciBzdXJmYWNlIG lzIHBpbmstdGFuIGFuZCBz nD4ghViaOIWUqQ4iZXUiL3 Riu32pxnstGVRcbDXbT05l dGVudHMgYXJlIGVtcHRpZW KvECZNmYp5pRWeBMKrmrBa vq40BI9bYA41tAYyZeAzUG RlZCBjYWxjdWxpIGFyZSBp ZGVudGlmaWVkIHRoYXQgYW dncmVnYXRlIHRvIDUgeCAz WWJoUwJrYAvrfULiRW7zXC Jlik8mRSDoPLA4yqWuNyAj F75rdO9fV7KjBLYfi4PnWK baJV3gbU9lCpVwAOwjOM21 D74oDAZdluOzaZ3xIMQxls R7xVUtPXVsplGqPCbgbRYz uW28HYXaTWNrzAUlOnEdJS qoLQlnqJpgv8TmoKfoQWjs bGxibGFkZGVyIHRoYXQgYS G7eThof65qq7Pyf3CzOD0b IGNtLiAgXHBhclxwYXIgUm RdxoBdKJ54VOLxknEst2Lz vNpaasSxKYRtASI2Wb7ukR WoNPEofkOqt8EwiVr5jRVk XPkbMD6pGNSvUDFfJDR1IZ 9gLQWwnp1= [employer] Work Phone: Pathologist Interpretation Location [facility], [address] [place] [id number]; CLIA: [id number]; Joint Commission: HCO [id number]; CAP: [id number] [employer] Work Phone: Pathology report final diagnosis Narrative z8nhnQCmTPEevXJvMDyqAk rxtkZlVQMdeNJfA4Nzppfs RZvsBB7oZF3egXougAEttB VbEKRjGhPzs2ppj092kIHu r0qvFEXXVUkcBWKDKOo7dS mqW50ld9L1CtxtG96bhWPo LEW6GHHzNLFxiFUuTCKaJC K8COUqvZBrV6paJPFeJK0l aorlKOpjLFmzWLXgkMI3FQ AabULsM1OgHONsFDqhDGTd hyv7KeTzOp6vwNDtxZwoYU xwYXJkXHBsYWluXGZzMjAg UZ5yLUiKVGtAFFVLKJEBCJ QKPM0RHXFFP5LZU3VNWYp5 EULkkafouyCnf8sqDDPTSs 2ZJURuQ8jNYNXMMHVDQHSX PcOPAGIYWKIXR3aSTUbTUV jOY1jVKcjcTRLxnAOgWMzl YXJ9 [employer] Phone: [employer] Phone: No Panel InformationOrdered By: Jericho Pritchett on 09-09-2024 Case Report Surgical Pathology Case: [id number] Authorizing Provider: Cristian Ruiz MD Collected: 09/07/2024 1141 Ordering Location: [facility] Endoscopy Received: 09/07/2024 1429 Pathologist: Jericho Pritchett MD Specimen: Gastric, Bx, R/o H. pylori [employer] Phone: Clinical Information i0lltFZaDFYhzVUxBCx wNl oxqpJcTPGblNHuP5Jpgimj OCcwPP2zND5xyQztzLHehD BcSRDbZkXdm8ktj200rUQo r1weTSWOFCgzXZGRAFe1iQ whY38ts8K5ZezfC70deASz JXO1GTVtGTFymITqRAMaXJ I2RVFooOOyP6ccAQSmOP2e ebkhFLctERxdXMRxiIE3JP HvrYWaO9TiPPCoFYoxATCc yeb1BjCuPs6ehMXhxJssVI xwYXJkXHBsYWluXGZzMjAg T3drmRFfe0Hic2vwqBohUK ZcbgQgMHd7QD52AVDbUNDQ LTEwLUNNXVxwYXJ9 [facility] [employer] Work Phone: Disclaimer v2hulPCcEJXaaGAbYvYc MD ZkRMOnp6btEKFtgSTgFwRl MzNcZnRuYmpcdWMxXGRlZm Yvw0lbc571pOKik5msLUOu MqE1xONzRBGmT24kOSIIF1 75UEFdQZcpp4ruc6MqUCQa lJZwg0X3LFEARYybHHAJTC z2dUseL71pc7V4HpumD7jb KJIrRTQmT6NnPT7rNHOcCn d5LTW2WAD9ZYRpAAFnR6Wy BV2xVZZfxYInGHa7j5revU vaZBQqLDI1v6qhLLsuotZs LE6eug5pmMn7o6vmfnNxFZ NeHYDyvFQENVMeD2UgrIbf Uf3ilXx8mKctAeefXWW1Bk k6IK5ass66nri4xNykNLYk ohscFcF0VCpqYDMfrrlpVB k5MXovIVSwbTB1LCVyoCSl G0IvXHNzOS7hnja0IBR5GW gsRBYxVnI4VAJjeKNdYXYv dFxiEYlvy984DIC8TlOjVO 3cZ2Dzk9S8zN3ukJKrUXOa uILdTkHfSHUycz4coOIdZV dgv8XfGWC6txM9fBImhZMz BCZgCS29Slbxo0QzAjqwWB X9DWQwrzYkb0Uba8klIbTw lrZmS2peL3QpAJUeBVVaWG EvNpXhnqOat1Onr2IroARu jIb5q8rfAALjLMNyfMmib2 vcTDS1WCYuG9W6gDVgu6aj COxkWMEzfKX1yhA2IEVqdG FfL8TaoM8jGXSiPX8dbky8 s4nnAGV8GMuiIIGpBfM6eg E9YOHjoAEmXDSlxXeoTUhl z448YJT7TvOzWMJuv3NiY1 EskIwpG24xfFeeQ88uPLFo oKasaI0fcAegwC2eUeAoKf MyNFxxbFxwbGFpblxmMVxm opV8AMyvifxhYYGuMPbzK2 tjRfPuUOLyvLwqJIcmn8Ja HVZwXZGoAWYgAXegM8nofD 9niephRWfgDROcdAsli0ts VjPgzOO9GI7xqqIxJAHfjT pehlX3ntNnkBsohH5ddQ6r aGzqeI0pgNGayAE2blpbMA luIHNpdHUgaHlicmlkaXph qWcsfbymnP6jFVC6xGFzBD I7kJOoDWExYMMpXIZmiY22 wm0pdZYzshUyS4BzC0DgjW ZmqBzjOnwlzUBvdXFqVu0i hYZwXA9kXDMqyPZaT5FiSF 4gXHBhclxwYXIgVGhlIHVz RSEjSxCxioXpj3GdcI8kSN UfKVRsMQ29tvFoqjE0yCXa YWJvdmUgdGVzdHMgaXMgcm VndWxhdGVkIGFzIGFuIGFu FJz0dQLzi7MaE8tbnTDdvs UtJ5VikSIzMITAPW8gUTjf e3VkyUKnlFLvp9TlWSQbYA IauD5wVOCvFA5oDMGoMOjc SVWyaeIzll6taaZvTNZhVV OiT4CkfhsldRrukfIuEIIo zg1rqmJzOXK1XEXmYQGtwO cmwIVzzINdFKHpvuN7w7Lv LFHkb3RyM5JmnMYdWKOizV XfMUM8v2RvvR5gMTstbMIc NQKwSJ7lxLFvXZKiRHZgFA FyZWQgYnkgdGhlIFVTIEZv y6JnVY6gSSMypTynRTBkoH 3tv3NvEYFmd36dHTOOQThd IFRoZSBGREEgaGFzIGRldG VybWluZWQgdGhhdCBzdWNo GDToAJFqDE0tIIUszvXmpN Nfv1LcpXKlvaPti5CjucSd UFIbQBN9NySeuHEvIWFecv PBiUnjlD3urS1ze0GrkO0h SMbxueZzeRIdXz0ugGPdPK 9uIHBhcmFmZmluIGVtYmVk SWYfHQPfd5Z7MW2jEGIjqq 7utfvixZZcjF5jfTXqoqHx TE1oOF1rA4Z9ySUxTOGhgg Wxo2tlDBd4uOCoWXKjjQNx qSXuCcasWPC3GXSwVIM0dq IlsdYiDOUnpMdcjRF5pSIf XVScKXRbDQUsPJ36T5Axk0 VzJ1avLP25ELWzTUMeOJYd bbVks5ccQLZrm7xtPOInfH WsD7JcBMMlgERagyzlTnFu DCI5EBAfBXF6uVRkBLCjK5 BzhWFovGQfqP09JN3cxXG2 BY5tEUC1BEeruB5vTiHXxS 08jn1zqHF8k8PjAS6qP0Kz XBNdp0J2ctTzODMkKG9idX BiZWVuIHZhbGlkYXRlZCBv dpTsSHJhcFAzGalrYYO6xT UskWBeUeVJOKP6xHPhFLJq u9VtYEGpYGStfdRdtxVlGI FuUMT2tVUgFRTggUVvw20w E8e0JX2xiPadUTRkjXCjOJ Njc5HqiAYgwXy4jQEcSuXm CVqhAGSrWOgbsUa7nQG6SN 6mOSMjY2BfI0ujoNOxOWXt EWGvpOUoev6lhZTmbH== [employer] Work Phone: Gross Description x1awmKVeXYAksDNxBVmn Nl yuzhMaCUJtqUWiQ1Pksxba SIjuPW7zVS9zsHkseVYhfJ JcZVLwOyWqk6fba348pFEv s4ebYXYYJNjeLNNHAOh7wB lqW09zm0Z7AvelE05npXTp LYJ6RJItEFVjmODgPYWnFK L9DEWbpTRtG5cbABSgWR0v bipoODzkWKkfBOMqtWD1UJ AplOXuH8FnFAApKGuaRNUc wyz6HdRtKs5coISmxZvvMD xwYXJkXHBsYWluXGZzMjAg TmKvBSo2XPBrjW2cKa7hbE FkdR6sxBReZZelHZHbOcfr f1AziIHaXTHiAJW9k93pfB HoGYFmeooneItnt6RaUKPv AYbfLQ02blP7uLB8II7oKF U3xwWiJT6lLLLsTWRvSsEu N12oBVQMhCOsl8QgH9zsRZ 5wbCSfAV34lZLdgJkqe4Tt mBt3yKAuQAztQA6dHQPxTL DtNUP0YS0xFBOqec6= [employer] Work Phone: Pathology report final diagnosis Narrative w2rmpVUdVCKouPDsBPxuRi tjuzVqPWOfpVViH9Ordduq PKjaUY3dXC9mmLsgsUYnnI QkDRArFuZrv2xar722uUWu s5jwHTTTSVwrHQXKIJd3qH ygW95cp3T6BrrvW75rqBFj PKV8CZVuHUNtyOIaQOGiRF E4LPFnkVSmE0ukPRIqXM8a linaDHrqFVlaVZYtwUS8QJ UzrTOyG7YpYYIkYIhoPTFh tmq7HdJqVx8fsYZdsCijOF xwYXJkXHBsYWluXGZzMjBc iRCwGHCKT75QG3wzANJZI1 HCIDsirMSvFU9eRWlXPZ3Q TCBDSFJPTklDIElOQUNUSV MXFZdWM5GPHOATJ6miDTGs oKKoRTFyUZDmfS9mprCwrU oxBXtqZXUkUAEhBImsWS6s GCN9rKPpjaTuLJ6gNSfneG EgeZcmSJncbXB7WFZbJZDr BMqtYNbdoAwjo5hyHHOxkk UpLXslY67takN5BqNtQOiy MFmqDULuhIDlfoMktZ88fu BfuyUfrsbbCP3xGXXxTuZU TTbkU35bUGE6RXIcyLbxo7 JpLlxwYXJccGFyZFxwYXJ9 [employer] Phone: [employer] Phone: Progress Noteon 09-09-2024 Progress Note -- Attestation signed by Cristian Ruiz MD at 09/09/2024 3:19 PM Attending Supervising Physician?s Attestation Statement I have personally performed and participated in all the above services (including HPI and PE). I have reviewed the case with Advance Practice Provider (PALMA)/ resident / student, and agreed with the PALMA's / resident / student assessment and plan as above. I have following additions or modifications: I did substantive portion of medical decision making. Seen today sitting in chair, states pain started yesterday night into this morning but now is better. On exam she is tender in epigastrium. Lipase is high, her image with X ray doesn't show ileus. She is not passing gas. Had muffin yesterday, no nausea or vomiting. Will keep her NPO today, LR at 150ml/hr, Lovenox for DVT prophylaxis. A little late presentation for post ERCP pancreatitis. Will image without contrast to evaluate. Vitals are normal without SIRS , has mild wbc count. Will follow. [facility] Gastroenterology Progress Note SUBJECTIVE: GI following for choledocholithiasis. Patient s/p ERCP on 09/07/24. Sphincterotomy with balloon expression 2 stones and stent placement. Status post cholecystectomy on 09/08/24. Patient reports feeling bad this AM. A lot of abdominal pain and bloating. Spoke yesterday post procedure and she was still very sleepy. She reports eating a muffin and fruit last night post op without any nausea, vomiting, abdominal pain. Woke up this AM and pain not well controlled and bloating as above. Not passing gas per patient. Was up walking with PT, no change in pain or bloating with ambulating. Tbili remains normal. LFTs slightly worse than yesterday. Medications Scheduled Meds: Current Facility-Administered Medications: acetaminophen (Tylenol) tablet 1,000 mg, 1,000 mg, Oral, q8h, Isis Amos MD, 1,000 mg at 09/09/24 0430 enoxaparin (Lovenox) syringe 40 mg, 40 mg, SubCUTAneous, Daily, Isis Amos MD [DISCONTINUED] HYDROmorphone (Dilaudid) injection 0.25 mg, 0.25 mg, IntraVENous, q3h PRN OR HYDROmorphone (Dilaudid) injection 0.5 mg, 0.5 mg, IntraVENous, q3h PRN, Maycol Ngo MD lactated ringers infusion, 150 mL/hr, IntraVENous, Continuous, Isis Amos MD, Last Rate: 150 mL/hr at 09/08/24 1607, 150 mL/hr at 09/08/24 1607 methocarbamol (Robaxin) tablet 500 mg, 500 mg, Oral, 3 times per day, Maycol Ngo MD naloxone (Narcan) injection 0.4 mg, 0.4 mg, IntraVENous, q5 min PRN, Isis Amos MD ondansetron ODT (Zofran-ODT) disintegrating tablet 4 mg, 4 mg, Oral, q8h PRN OR ondansetron (Zofran) injection 4 mg, 4 mg, IntraVENous, q6h PRN, Isis Amos MD, 4 mg at 09/09/24 0005 oxyCODONE (Roxicodone) immediate release tablet 5 mg, 5 mg, Oral, q4h PRN, 5 mg at 09/08/24 1829 OR oxyCODONE (Roxicodone) immediate release tablet 10 mg, 10 mg, Oral, q4h PRN, Isis Amos MD, 10 mg at 09/09/24 0447 polyethylene glycol (PEG) 3350 (Miralax) packet 17 g, 17 g, Oral, Daily PRN, Isis Amos MD, 17 g at 09/09/24 0447 sodium chloride 0.9 % infusion, 5-250 mL/hr, IntraVENous, PRN, Isis Amos MD sodium chloride 0.9 % infusion, 5-250 mL/hr, IntraVENous, PRN, Isis Amos MD sodium chloride 0.9% (NS) flush 10 mL, 10 mL, IntraVENous, 2 times per day, Isis Amos MD, 10 mL at 09/08/242109 sodium chloride 0.9% (NS) flush 10 mL, 10 mL, IntraVENous, PRN, Isis Amos MD sodium chloride 0.9% (NS) flush 5-40 mL, 5-40 mL, IntraVENous, q12h, Isis Amos MD, 10 mL at 09/08/242109 sodium chloride 0.9% (NS) flush 5-40 mL, 5-40 mL, IntraVENous, PRN, Isis Amos MD OBJECTIVE VITALS: BP 147/72 (BP Location: Right arm, Patient Position: Sitting) Pulse 57 Temp 36.3 ?C (97.3 ?F) (Temporal) Resp 17 Ht 5' 6 (1.676 m) Wt 136 lb (61.7 kg) SpO2 94% BMI 21.95 kg/m? Average, Min, and Max for last24 hours Vitals: TEMPERATURE: Temp Av.5 ?C (97.7 ?F) Min: 35.6 ?C (96 ?F) Max: 37.4 ?C (99.3 ?F) RESPIRATIONS RANGE: Resp Av.2 Min: 14 Max: 17 PULSE RANGE: Pulse Av.2 Min: 51 Max: 57 BLOOD PRESSURE RANGE: Systolic (24hrs), Av , Min:96 , Max:175 ; Diastolic (24hrs), Av, Min:45, Max:77 PULSE OXIMETRY RANGE:SpO2 Av.8 % Min: 92 % Max: 100 % I/O last 3 completed shifts: In: 1950 (31.6 mL/kg) [P.O.:200; I.V.:1750 (28.4 mL/kg)] Out: 750 (12.2 mL/kg) [Urine:700 (0.3 mL/kg/hr); Blood:50] Weight: 61.7 kg Constitutional: No acute distress. Well-nourished. Up in chair, family at bedside. Eyes: Pupils are equal and round; Conjunctiva are not injected; Sclera are non-ict (more content not included)... Normal [facility] Progress Note -- Attestation signed by Maycol Ngo MD at 09/10/2024 10:35 AM ~~~~~~~~~~~~~~~~~~~~~~ ~~~~~~~~~~~~~~~~~~~~~~ ~~~~~~~~~~~~~~~ Attending physician addendum: I independently saw and evaluated the patient. I personally obtained the rodriguez and critical portion of the history and physical exam. I reviewed and agree with the documentation below. I personally reviewed patient's labs and imaging studies. My findings agree with the below note except for any details corrected. I have examined the patient at the date below. Patient Active Problem List Diagnosis Choledocholithiasis I independently saw the below patient and reviewed the imaging, labs, vital signs; I performed a physical exam and ROS. My findings agree with the above note except for any details corrected below. I have evaluated the patient on 09/09/24 Patient complains of epigastric pain associated with bloating. Denies Nausea however does not feel hungry, minimal PO intake since surgery. Chief complain: abdominal pain Problem list: Choledocholithiasis Cholelithiasis Hyperbilirubinemia Transaminates Pancreatitis, likely post ERCP Procedures: 09/07 - ERCP, sphincterotomy, stone evacuation x 2, stent placement Management / Plan : Check Lipase Stop regular diet OK for clear liquid diet IVF - LR@150 ml/hr Pain control - change IV Dilaudid for breakthrough pain only Start PO Robaxin Will follow Zach Ngo MD FACS Trauma, Surgical Critical Care, & General Surgery Division of Trauma Department of Surgery [facility] P Department of General Surgery Daily Progress Note ADMIT DATE: 09/05/2024 TODAY'S DATE: 09/09/2024 HPI: Chaim Danielle is a 73 y.o. female with no significant past medical history who presents with abdominal pain. Surgery was consulted for evaluation of cholelithiasis with concern for choledocholithiasis. Patient states she has been experiencing intermittent right upper quadrant abdominal pain for the last 2 weeks. Patient reports the pain is related to eating and has occurred 2-3 times and lasts 2 to 3 hours at a time. Patient denies symptoms like this before. Patient's states that she is not experiencing any nausea or vomiting. Patient otherwise endorses normal bowel movements without hematochezia. Patient denies fevers or chills. Past surgical history is significant for laparoscopic hysterectomy 20 years ago. Last colonoscopy was last April and demonstrated normal findings per patient. Patient denies personal or family history of Crohn's, ulcerative colitis, colon cancer. Patient denies smoking, alcohol, illicit drug use. Patient does not take any blood thinners at home. On evaluation patient was afebrile and hemodynamically stable, mildly bradycardic on arrival to . Labs reviewed significant for: WBC 4.6, Hgb 12.1, creatinine 0.92, ALP 299, AST 283, ALT 392, total bilirubin 2.8, direct bilirubin 1.7, lipase 25. Reportedly right upper quadrant ultrasound from OSH demonstrated cholelithiasis with choledocholithiasis. Patient transferred to [facility] for further workup and MRCP. SUBJECTIVE: No acute events overnight. Complaining of feeling full of gas. Has been up walking but complaining of abdominal pain. Denies nausea or vomiting Interval history: 09/06 MRCP with choledocholithiasis 09/07 ERCP with stent 09/08 lap moose OBJECTIVE: VITALS: BP 147/72 (BP Location: Right arm, Patient Position: Sitting) Pulse 57 Temp 36.3 ?C (97.3 ?F) (Temporal) Resp 17 Ht 1.676 m (5' 6) Wt 61.7 kg (136 lb) SpO2 94% BMI 21.95 kg/m? INTAKE/OUTPUT: Intake/Output Summary (Last 24 hours) at 09/09/2024 0920 Last data filed at 09/08/2024 1607 Gross per 24 hour Intake 1750 ml Output 50 ml Net 1700 ml I/O last 3 completed shifts: In: 1950 (31.6 mL/kg) [P.O.:200; I.V.:1750 (28.4 mL/kg)] Out: 750 (12.2 mL/kg) [Urine:700 (0.3 mL/kg/hr); Blood:50] Weight: 61.7 kg No intake/output data recorded. PHYSICAL EXAM: Gen: NAD, A&Ox3, pain well controlled Heart: RRR, well perfused Lungs: symmetric chest rise, normal work of breathing, breath sounds b/l Abd: soft, laps sites with steri strips in place. Moderately distended and TTP Ext: no c/c/e no gross deformities Skin: warm, well perfused, no obvious rashes, cellulitis or gross discoloration LABS Results from last 7 days Lab Units 09/09/24 0452 09/08/24 0531 09/07/24 0150 WBC AUTO 10*3/uL 12.3* 9.8 5.7 HEMOGLOBIN g/dL 11.8 11.5* 11.5* HEMATOCRIT % 36.2 35.6 35.6 PLATELETS 10*3/uL 282 258 240 Results from last 7 days Lab Units 09/09/24 0452 09/08/24 0532 09/07/24 0150 SODIUM mmol/L 137 139 139 POTASSIUM mmol/L 3.8 3.9 3.6 CHLORIDE mmol/L 106 109* 110* CO2 mmol/L 26 22* 19* BUN mg/dL 16 17 22 CREATININE mg/dL 0 (more content not included)... Normal [facility] XR ABDOMEN 1 VIEWon 09-10-19 25 XR ABDOMEN 1 VIEW Patient Name: CHAIM DANIELLE : 1950 Exam Date/Time: 09/09/2024 11:51 Procedure: XR ABDOMEN 1 VIEW Ordering Provider: HEATON MARGIT Reason For Exam: post op abdominal pain and distention ABDOMEN: CLINICAL INDICATION: post op abdominal pain and distention. . TECHNIQUE: Supine abdomen and pelvis COMPARISON: MRI from three days ago FINDINGS: A biliary stent is in place. The bowel gas pattern is unremarkable. Vascular calcifications are noted. The osseous structures demonstrate no abnormality. IMPRESSION: Biliary stent. No ileus or obstruction Report Dictated on Electronically Signed By: Heraclio Gil MD Electronically Signed Date/Time: 09/09/2024 2:12 PM EDT [facility] XR Abdomen Single viewon Biliary stent. No ileus or obstruction Report Dictated on Electronically Signed By: Heraclio Gil MD Electronically Signed Date/Time: 09/09/2024 2:12 PM EDT [facility] Patient Name: CHAIM DANIELLE : 1950 Exam Date/Time: 09/09/2024 11:51 Procedure: XR ABDOMEN 1 VIEW Ordering Provider: HEATON MARGIT Reason For Exam: post op abdominal pain and distention ABDOMEN: CLINICAL INDICATION: post op abdominal pain and distention. . TECHNIQUE: Supine abdomen and pelvis COMPARISON: MRI from three days ago FINDINGS: A biliary stent is in place. The bowel gas pattern is unremarkable. Vascular calcifications are noted. The osseous structures demonstrate no abnormality. [facility] Heraclio Gil MD - 09/09/2024 Patient Name: CHAIM DANIELLE : 1950 Exam Date/Time: 09/09/2024 11:51 Procedure: XR ABDOMEN 1 VIEW Ordering Provider: HEATON MARGIT Reason For Exam: post op abdominal pain and distention ABDOMEN: CLINICAL INDICATION: post op abdominal pain and distention. . TECHNIQUE: Supine abdomen and pelvis COMPARISON: MRI from three days ago FINDINGS: A biliary stent is in place. The bowel gas pattern is unremarkable. Vascular calcifications are noted. The osseous structures demonstrate no abnormality. IMPRESSION: Biliary stent. No ileus or obstruction Report Dictated on Electronically Signed By: Heraclio Gil MD Electronically Signed Date/Time: 09/09/2024 2:12 PM EDT [facility] Radiology Study observation (narrative) [facility] XR Abdomen Single viewOrdere d By: Hearclio Gil on 09-09-2024 [facility] Work Phone: 30on 09-08-2024 30 Problem: Pain - Adul t Goal: Verbalizes/displays adequate comfort level or baseline comfort level Outcome: Progressing Problem: Safety - Adult Goal: Free from fall injury Outcome: Progressing Problem: Discharge Planning Goal: Discharge to home or other facility with appropriate resources Outcome: Progressing Problem: Chronic Conditions and Co-morbidities Goal: Patient's chronic conditions and co-morbidity symptoms are monitored and maintained or improved Outcome: Progressing Problem: Potential for Compromised Skin Integrity Goal: Skin Integrity is Maintained or Improved Outcome: Progressing Goal: Nutritional status is improving Outcome: Progressing Problem: Urinary Incontinence Goal: Perineal skin integrity is maintained or improved Outcome: Progressing Normal [facility] BASIC METABOLIC PANELon 08-12 Anion gap [Moles/Vol] 8 mmol/L Normal 3-13 [facility] Comment on above: Performed By: #### L AB20, LAB15 ####Country Printer Apprentice: ERIN MYRICK ([phone])[address] Calcium [Mass/Vol] 8.7 mg/dL Low 8.8-10.0 [facility] Comment on above: Performed By: #### L AB20, LAB15 ####Country Printer Apprentice: ERIN MYRICK ([phone])[facility])[address] [place] [address] Chloride [Moles/Vol] 109 mmol/L High 98-107 [facility] Comment on above: Performed By: #### L AB20, LAB15 ####Country Printer Apprentice: ERIN MYRICK ([id number])[facility])[address] [place] [address] CO2 [Moles/Vol] 22 mmol/L Low 23-31 [facility] Comment on above: Performed By: #### L AB20, LAB15 ####Country Printer Apprentice: ERIN [id number])[facility] [place] [address] Creatinine [Mass/Vol] 0.73 mg/dL Normal 0.57-1.11 [facility] Comment on above: Performed By: #### L AB20, LAB15 ####Country Printer Apprentice: ERIN MYRICK ([phone])[facility])[address] [place] [address] [place] GLOMERULAR FILTRATION RATE ML/MIN/1.73 SQ M.PREDICTED 86.4 mL/min/1.73m*2 Normal >60.0 [facility] Comment on above: Result Comment: Calc ulation based on the Chronic Kidney Disease Epidemiology Collaboration (CKD-EPI) equation refit without adjustment for race Performed By: #### L AB20, LAB15 ####Country Printer Apprentice: ERIN MYRICK ([phone])[facility])[address] [place] [address] [place] Glucose [Mass/Vol] 107 mg/dL Normal 82-115 [facility] Comment on above: Performed By: #### L AB20, LAB15 ####Country Printer Apprentice: ERIN MYRICK ([id number])[facility])[address] [place] [address] [place] Potassium [Moles/Vol] 3.9 mmol/L Normal 3.5-5.1 [facility] Comment on above: Result Comment: [facility] potassium values may be up to 0.5 mmol/L lower than serum values. Performed By: #### L AB20, LAB15 ####Country Printer Apprentice: ERIN MYRICK ([phone])[facility])[address] [place] [address] [place] Sodium [Moles/Vol] 139 mmol/L Normal 136-145 [facility] Comment on above: Performed By: #### L AB20, LAB15 ####Country Printer Apprentice: ERIN MYRICK ([id number])[facility])[address] [place] [address] [place] Urea nitrogen [Mass/Vol] 17 mg/dL Normal 9-23 [facility] Comment on above: Performed By: #### L AB20, LAB15 ####Country Printer Apprentice: ERIN MYRICK ([phone])[facility])[address] [place] [address] Basic metabolic 1998 panelon 09-08-2024 Anion gap [Moles/Vol] 8 mmol/L 3 - 13 mmol/L [facility] Calcium [Mass/Vol] 8.7 mg/dL Low 8.8 - 10. 0 mg/dL [facility] Chloride [Moles/Vol] 109 mmol/L High 98 - 10 7 mmol/L [facility] CO2 [Moles/Vol] 22 mmol/L Low 23 - 31 mmol/L [facility] Creatinine [Mass/Vol] 0.73 mg/dL 0.57 - 1.11 mg/dL [facility] GFR/1.73 sq M.predicted (S/P/Bld) [Vol rate/Area] 86.4 mL/min - PINF [facility] Comment on above: Calculation based on the Chronic Kidney Disease Epidemiology Collaboration (CKD-EPI) equation refit without adjustment for race Glucose [Mass/Vol] 107 mg/dL 82 - 115 mg/dL [facility] Potassium [Moles/Vol] 3.9 mmol/L 3.5 - 5.1 mmol/L [facility] Comment on above: Plasma potassium mark ues may be up to 0.5 mmol/L lower than serum values. Sodium [Moles/Vol] 139 mmol/L 136 - 145 mmol/L [facility] Urea nitrogen [Mass/Vol] 17 mg/dL 9 - 23 mg/dL [facility] CBC (HEMOGRAM)on 09-08-2024 Erythrocyte distribution width (RBC) [Ratio] 13.5 % Normal 11.5-15.0 [facility] Comment on above: Performed By: #### L AB294 ####Country Printer Apprentice: ERIN MYRICK ([phone])[facility])[address] [place] [address] Hematocrit (Bld) [Volume fraction] 35.6 % Normal 35.0-47.0 [facility] Comment on above: Performed By: #### L AB294 ####Country Printer Apprentice: ERIN MYRICK ([id number])[facility])[address] [place] [address] Hemoglobin (Bld) [Mass/Vol] 11.5 g/dL Low 11.7-16.0 [facility] Comment on above: Performed By: #### L AB294 ####Country Printer Apprentice: ERIN MYRICK ([id number])[facility])[address] [place] [address] MCH (RBC) [Entitic mass] 28.3 pg Normal 26.0-34.0 [facility] Comment on above: Performed By: #### L AB294 ####Country Printer Apprentice: ERIN MYRICK ([id number])[facility])[address] [place] [address] MCHC 32.3 % Normal 30.5-36.0 [facility] Comment on above: Performed By: #### L AB294 ####Country Printer Apprentice: ERIN MYRICK ([phone])[facility])[address] [place] [address] MCV (RBC) [Entitic vol] 87.7 fL Normal 77.0-99.0 [facility] Comment on above: Performed By: #### L AB294 ####Country Printer Apprentice: ERIN MYRICK ([id number])[facility])[address] [place] [address] Platelet mean volume (Bld) [Entitic vol] 9.4 fL Normal 9.0-12.7 [facility] Comment on above: Performed By: #### L AB294 ####Country Printer Apprentice: ERIN MYRICK ([id number])[facility])[address] [place] [address] Platelets (Bld) [#/Vol] 258 10*3/uL Normal 140-440 [facility] Comment on above: Performed By: #### L AB294 ####Country Printer Apprentice: ERIN MYRICK ([id number])[facility])[address] [place] [address] RBC (Bld) [#/Vol] 4.06 10*6/uL Normal 3.80-5.20 [facility] Comment on above: Performed By: #### L AB294 ####Country Printer Apprentice: ERIN MYRICK ([id number])[facility] ([facility])[address] [place] [address] WBC (Bld) [#/Vol] 9.8 10*3/uL Normal 3.6-10.7 [facility] Comment on above: Performed By: #### L AB294 ####Country Printer Apprentice: ERIN MYRICK ([id number])[facility] [place] [address] CBC panel Auto (Bld)on 09-08 Erythrocyte distribution width (RBC) [Ratio] 13.5 % 11.5 - 15.0 % [facility] Hematocrit (Bld) [Volume fraction] 35.6 % 35.0 - 47.0 % [facility] Hemoglobin (Bld) [Mass/Vol] 11.5 g/dL Low 11.7 - 16.0 g/dL [facility] Interpretation and review of laboratory results Abnormal [facility] MCH (RBC) [Entitic mass] 28.3 pg 26.0 - 34.0 pg [facility] MCHC (RBC) [Mass/Vol] 32.3 % 30.5 - 36.0 % [facility] MCV (RBC) [Entitic vol] 87.7 fL 77.0 - 99.0 fL [facility] Platelet mean volume (Bld) [Entitic vol] 9.4 fL 9.0 - 12.7 fL [facility] Platelets (Bld) [#/Vol] 258 10*3/uL 140 - 440 10*3/uL [facility] RBC (Bld) [#/Vol] 4.06 10*6/uL 3.80 - 5.2 0 10*6/uL [facility] WBC (Bld) [#/Vol] 9.8 10*3/uL 3.6 - 10.7 10*3/uL [facility] ECG 12-LEADon 09-08-2024 ECG 12-LEAD IMPRESSION: Sinus bradycardia Electronically Signed On 09-08-2024 08:57:59 EDT by Sandra Ibarra [facility] HEPATIC FUNCTION PANELon Albumin [Mass/Vol] 3.1 g/dL Low 3.4-4.8 [facility] Comment on above: Performed By: #### L AB20, LAB15 ####Country Printer Apprentice: ERIN MYRICK ([id number])[facility] ([facility])[address] [place] [address] ALP [Catalytic activity/Vol] 259 U/L High 40-150 [facility] Comment on above: Performed By: #### L AB20, LAB15 ####Country Printer Apprentice: ERIN MYRICK ([id number])[facility] ([facility])[address] [place] [address] [place] ALT [Catalytic activity/Vol] 217 U/L High <30 [facility] Comment on above: Performed By: #### L AB20, LAB15 ####Country Printer Apprentice: ERIN MYRICK ([id number])[facility] ([facility])[address] [place] [address] [place] AST [Catalytic activity/Vol] 91 U/L High <34 [facility] Comment on above: Performed By: #### L AB20, LAB15 ####Country Printer Apprentice: ERIN MYRICK ([id number])[facility] ([facility])[address] [place] [address] [place] Bilirubin [Mass/Vol] 1.0 mg/dL Normal <1.2 [facility] Comment on above: Performed By: #### L AB20, LAB15 ####Country Printer Apprentice: ERIN MYRICK ([id number])[facility] ([facility])[address] [place] [address] [place] Bilirubin.indirect [Mass/Vol] 0.4 mg/dL Normal <0.5 [facility] Comment on above: Performed By: #### L AB20, LAB15 ####Country Printer Apprentice: ERIN MYRICK ([id number])[facility])[address] [place] [address] [place] Protein [Mass/Vol] 5.6 g/dL Low 6.4-8.3 [facility] Comment on above: Result Comment: Seru m protein values are higher than plasma values. Samples from recumbent persons are lower by up to 0.5 g/dL as compared to ambulatory persons. After 60 years values are lower by up to 0.2 g/dL. Performed By: #### L AB20, LAB15 ####Country Printer Apprentice: ERIN MYRICK ([id number])[facility] ([address] Hepatic function 2000 panelo n 09-08-2024 Albumin [Mass/Vol] 3.1 g/dL Low 3.4 - 4.8 g/dL [facility] ALP [Catalytic activity/Vol] 259 U/L High 40 - 150 U/L [facility] ALT [Catalytic activity/Vol] 217 U/L High NINF - 30 U/L [facility] AST [Catalytic activity/Vol] 91 U/L High NINF - 34 U/L [facility] Bilirubin [Mass/Vol] 1 mg/dL NINF - 1.2 mg/dL [facility] Bilirubin.conjugated [Mass/Vol] 0.4 mg/dL NINF - 0.5 mg/dL [facility] Protein [Mass/Vol] 5.6 g/dL Low 6.4 - 8.3 g/dL [facility] Comment on above: Serum protein values are higher than plasma values. Samples from recumbent persons are lower by up to 0.5 g/dL as compared to ambulatory persons. After 60 years values are lower by up to 0.2 g/dL. No Panel InformationOrdered By: Sandra Loyola on 09-08-2024 P [place] 2 degrees [employer] Work Phone: NM Interval 184 ms [employer] Work Phone: QRS [place] 44 degrees [employer] Work Phone: QRSD Interval 100 ms [employer] Work Phone: QT Interval 482 ms [employer] Work Phone: QTC Interval 419 ms [employer] Work Phone: T Wave [place] 81 degrees [employer] Work Phone: [employer] Work Phone: No Panel Informationon 09-08 Sinus bradycardia Electronically Signed On 09-08-2024 08:57:59 EDT by Sandra Saez MD - 09/08/2024 IMPRESSION: Sinus bradycardia Electronically Signed On 09-08-2024 08:57:59 EDT by Sandra Loyola [facility] Interpretation and review of laboratory results Abnormal [facility] Nursing Noteon 09-08-2024 Nursing Note Wound Care consulted for Pressure Injury Prevention. Pt's Lauri= 22 on 09/07/2024 , pt is no longer at risk. Skin Care Precaution order set in place. Will continue to follow peripherally. Please voicera or secure chat message with any questions. Ankita Sharp RN, BSN Normal [facility] Op Noteon 09-08-2024 Op Note -- Attestation signed by Maycol Ngo MD at 09/12/2024 9:08 AM Attending physician addendum: I was present and scrubbed in the operating room for the entire surgery. Agree with below except for: Addendum: - the fascia at the epigastric port was closed with 0 Vicryl stitch - the umbilical fascia was closed with interrupted 0 Vicryl stitches Zach Ngo MD FACS Trauma, Surgical Critical Care, & General Surgery Division of Trauma Department of Surgery [facility] P DEPARTMENT OF SURGERY OPERATIVE NOTE DATE OF PROCEDURE: 09/08/2024 ATTENDING SURGEON: Maycol Ngo MD TABLE GAMES SHIFT MANAGER: Isis Aldridge PGY5 PREOPERATIVE DIAGNOSIS: choledocholithiasis POSTOPERATIVE DIAGNOSIS: same, plus acute cholecystitis OPERATION: laparoscopic cholecystectomy ANESTHESIA: general ESTIMATED BLOOD LOSS: 50cc SPECIMEN: gallbladder PREOPERATIVE MEDICATIONS: zosyn HISTORY: The patient presented with RUQ abdominal pain and workup was positive for choledocholithiasis. She underwent ERCP with stent placement and follows up today for laparoscopic cholecystectomy. The risks, benefits, and alternatives to surgery were presented to the patient and they consented to surgical intervention. PROCEDURE: The patient was brought to the operating room and transferred over to the operating room table in the supine position. General anesthesia was induced and the patient was intubated. An NG tube was placed. They were positioned with arms out. The patient was prepped and draped in the normal sterile fashion. A timeout was performed which confirmed patient, procedure, medications, allergies, and hazards. An umbilical skin incision was made and the subcutaneous tissues were spread laterally with S retractors. The umbilical stalk was grasped with kochers and retracted upwards. The abdominal fascia was incised sharply and spread with kellys. The peritoneum was bluntly entered. Two 2-0 vicryl stay sutures were placed on the superior and inferior aspects of the fascia. The Garcia trocar was introduced and the abdomen was insufflated. No injuries were noted to the abdominal cavity. Additional ports were placed at the epigastrium and right upper quadrant under direct visualization. The patient was positioned in reverse trendelenberg with right side up. The dome of the gallbladder was grasped and retracted cephalad. The patient?s liver was noted to be obstructing the view, despite multiple attempts to retract and reposition. We placed a liver retractor from the left upper quadrant to assist. The overlying omental adhesions and medial and lateral aspects of the gallbladder peritoneum were incised with hook electrocautery. Utilizing hydrodissection from suction sprayer machine and hook electrocautery, the gallbladder was mobilized off the lower half of the cystic plate and retracted laterally. The cystic duct was cleared and noted to be enlarged, as expected. The cystic artery was skeletonized and medialized with [place] and hook electrocautery. At this point our critical view of safety was obtained. Stones of the cystic duct were milked back and the epigastric port was upsized to a 11mm to accommodate the purple hem-o-calderon clips. The cystic artery was taken with the green hem-o-calderon clips with two down on the stay side, one up on specimen side. The cystic duct was taken with the purple hem-o-calderon clips in the same fashion. Both artery and cystic duct were cut with hook scissors. A single stone was removed from the cut lumen of the cystic duct. The infundibulum was then retracted upwards and the remaining gallbladder was removed from the cystic plate with hook electrocautery. Hemostasis of the liver bed was obtained. The specimen was placed into an Endocatch bag and removed via the umbilical port. The abdomen was thoroughly irrigated with 2L warm saline. A 2-0 Vicryl on a suture passer was used to close the epigastric port. The remaining ports were removed under direct visualization and the abdomen was desufflated. Two additional 2-0 vicryl sutures were placed at the umbilical port to close the fascia. The skin was closed with 4-0 monocryl and steri strips. At the conclusion of the case, the needle, sponge, and instrument counts were correct. The patient tolerated the procedure and anesthesia well without any major complications. The patient was extubated and transported to the post-anesthesia care unit in stable condition. The attending surgeon was present for the entire duration of the procedure. [facility] Op Note Date: 09/08/2024 Location: [facility] OR Name: Chaim Danielle, : 1950, Diagnosis Pre-op Diagnosis * Choledocholithiasis [K80.50] Post-op Diagnosis * Choledocholithiasis [K80.50] Procedures * LAPAROSCOPIC, CHOLECYSTECTOMY Surgeons * Maycol Ngo - Primary Procedure Summary Anesthesia: General ASA: II Estimated Blood Loss: 50 mL Drains: * None in log * Specimens ID Source Type Tests Collected By Collected At Frozen? Priority Lab ID 1 Gallbladder Tissue TISSUE EXAM Maycol Ngo MD 09/08/24 0943 No Routine Description: GALLBLADDER Staff: Private Secretary: Elizabeth Cornelius RN Relief Private Secretary: Erin Hensley RN Scrub Person: Stephanie Kuhn Findings: see full op note Complications: None; patient tolerated the procedure well. Specimens Collected: Order Name Source Comment Collection Info Order Time TISSUE EXAM Gallbladder Collected By: Maycol Ngo MD 09/08/2024 9:44 AM Wound Class: Class II: Clean-Contaminated Blood Products: None Prophylactic Antibiotics: Procedure appropriate prophylactic antibiotic(s) given within 1 hour of surgical incision (two hours if receiving Vancomycin or flouroquinolone) Normal [facility] Vital signsOrdered By: Celia Loyola on 09-08-2024 Heart rate 45 /min bpm [facility] Work Phone: BASIC METABOLIC PANELon 08-12 Anion gap [Moles/Vol] 10 mmol/L Normal 3-13 [facility] Comment on above: Performed By: #### L AB15, LAB20 #### Country Printer Apprentice: ERIN MYRICK ([phone]) [facility]) [address] [place] [address] Calcium [Mass/Vol] 8.7 mg/dL Low 8.8-10.0 [facility] Comment on above: Performed By: #### L AB15, LAB20 #### Country Printer Apprentice: ERIN MYRICK ([id number]) [facility]) [address] [place] [address] [place] Chloride [Moles/Vol] 110 mmol/L High 98-107 [facility] Comment on above: Performed By: #### L AB15, LAB20 #### Country Printer Apprentice: ERIN MYRICK ([phone]) [facility]) [address] [place] [address] [place] CO2 [Moles/Vol] 19 mmol/L Low 23-31 [facility] Comment on above: Performed By: #### L AB15, LAB20 #### Country Printer Apprentice: ERIN MYRICK ([phone]) [facility]) [address] [place] [address] Creatinine [Mass/Vol] 0.80 mg/dL Normal 0.57-1.11 [facility] Comment on above: Performed By: #### L AB15, LAB20 #### Country Printer Apprentice: ERIN MYRICK ([phone]) [facility]) [address] [place] [address] GLOMERULAR FILTRATION RATE ML/MIN/1.73 SQ M.PREDICTED 77.4 mL/min/1.73m*2 Normal >60.0 [facility] Comment on above: Result Comment: Calc ulation based on the Chronic Kidney Disease Epidemiology Collaboration (CKD-EPI) equation refit without adjustment for race Performed By: #### L AB15, LAB20 #### Country Printer Apprentice: ERIN MYRICK ([id number]) [facility]) [address] [place] [address] Glucose [Mass/Vol] 92 mg/dL Normal 82-115 [facility] Comment on above: Performed By: #### L AB15, LAB20 #### Country Printer Apprentice: ERIN MYRICK ([phone]) [facility]) [address] [place] [address] Potassium [Moles/Vol] 3.6 mmol/L Normal 3.5-5.1 [facility] Comment on above: Result Comment: [facility] potassium values may be up to 0.5 mmol/L lower than serum values. Performed By: #### L AB15, LAB20 #### Country Printer Apprentice: ERIN MYRICK ([phone]) [facility]) [address] [place] [address] Sodium [Moles/Vol] 139 mmol/L Normal 136-145 [facility] Comment on above: Performed By: #### L AB15, LAB20 #### Country Printer Apprentice: ERIN MYRICK ([phone]) [facility]) [address] [place] [address] Urea nitrogen [Mass/Vol] 22 mg/dL Normal 9-23 [facility] Comment on above: Performed By: #### L AB15, LAB20 #### Country Printer Apprentice: ERIN MYRICK ([phone]) [facility]) [address] [place] [address] Basic metabolic 1998 panelon 09-07-2024 Anion gap [Moles/Vol] 10 mmol/L 3 - 13 mmol/L [facility] Calcium [Mass/Vol] 8.7 mg/dL Low 8.8 - 10. 0 mg/dL [facility] Chloride [Moles/Vol] 110 mmol/L High 98 - 10 7 mmol/L [facility] CO2 [Moles/Vol] 19 mmol/L Low 23 - 31 mmol/L [facility] Creatinine [Mass/Vol] 0.8 mg/dL 0.57 - 1.11 mg/dL [facility] GFR/1.73 sq M.predicted (S/P/Bld) [Vol rate/Area] 77.4 mL/min - PINF [facility] Comment on above: Calculation based on the Chronic Kidney Disease Epidemiology Collaboration (CKD-EPI) equation refit without adjustment for race Glucose [Mass/Vol] 92 mg/dL 82 - 115 mg/dL [facility] Potassium [Moles/Vol] 3.6 mmol/L 3.5 - 5.1 mmol/L [facility] Comment on above: Plasma potassium mark ues may be up to 0.5 mmol/L lower than serum values. Sodium [Moles/Vol] 139 mmol/L 136 - 145 mmol/L [facility] Urea nitrogen [Mass/Vol] 22 mg/dL 9 - 23 mg/dL [facility] CBC (HEMOGRAM)on 09-07-2024 Erythrocyte distribution width (RBC) [Ratio] 14.0 % Normal 11.5-15.0 [facility] Comment on above: Performed By: #### L AB294 ####Country Printer Apprentice: ERIN MYRICK ([id number])[address] Hematocrit (Bld) [Volume fraction] 35.6 % Normal 35.0-47.0 [facility] Comment on above: Performed By: #### L AB294 ####Country Printer Apprentice: ERIN MYRICK ([id number])[address] Hemoglobin (Bld) [Mass/Vol] 11.5 g/dL Low 11.7-16.0 [facility] Comment on above: Performed By: #### L AB294 ####Country Printer Apprentice: ERIN MYRICK ([id number])[facility])[address] [place] [address] MCH (RBC) [Entitic mass] 28.8 pg Normal 26.0-34.0 [facility] Comment on above: Performed By: #### L AB294 ####Country Printer Apprentice: ERIN MYRICK ([id number])[facility])[address] [place] [address] MCHC 32.3 % Normal 30.5-36.0 [facility] Comment on above: Performed By: #### L AB294 ####Country Printer Apprentice: ERIN MYRICK ([id number])[facility])[address] [place] [address] MCV (RBC) [Entitic vol] 89.0 fL Normal 77.0-99.0 S [facility] Comment on above: Performed By: #### L AB294 ####Country Printer Apprentice: ERIN MYRICK ([id number])[facility])[address] [place] [address] Platelet mean volume (Bld) [Entitic vol] 9.4 fL Normal 9.0-12.7 [facility] Comment on above: Performed By: #### L AB294 ####Country Printer Apprentice: ERIN MYRICK ([id number])[facility])[address] [place] [address] Platelets (Bld) [#/Vol] 240 10*3/uL Normal 140-440 [facility] Comment on above: Performed By: #### L AB294 ####Country Printer Apprentice: ERIN MYRICK ([id number])[facility])[address] [place] [address] RBC (Bld) [#/Vol] 4.00 10*6/uL Normal 3.80-5.20 [facility] Comment on above: Performed By: #### L AB294 ####Country Printer Apprentice: ERIN MYRICK ([id number])[facility] [place] [address] WBC (Bld) [#/Vol] 5.7 10*3/uL Normal 3.6-10.7 [facility] Comment on above: Performed By: #### L AB294 ####Country Printer Apprentice: ERIN MYRICK ([id number])[facility])[address] [place] [address] CBC panel Auto (Bld)on 09-07 Erythrocyte distribution width (RBC) [Ratio] 14 % 11.5 - 15.0 % [facility] Hematocrit (Bld) [Volume fraction] 35.6 % 35.0 - 47.0 % [facility] Hemoglobin (Bld) [Mass/Vol] 11.5 g/dL Low 11.7 - 16.0 g/dL [facility] Interpretation and review of laboratory results Abnormal [facility] MCH (RBC) [Entitic mass] 28.8 pg 26.0 - 34.0 pg [facility] MCHC (RBC) [Mass/Vol] 32.3 % 30.5 - 36.0 % [facility] MCV (RBC) [Entitic vol] 89 fL 77.0 - 99.0 fL [facility] Platelet mean volume (Bld) [Entitic vol] 9.4 fL 9.0 - 12.7 fL [facility] Platelets (Bld) [#/Vol] 240 10*3/uL 140 - 440 10*3/uL [facility] RBC (Bld) [#/Vol] 4 10*6/uL 3.80 - 5.2 0 10*6/uL [facility] WBC (Bld) [#/Vol] 5.7 10*3/uL 3.6 - 10.7 10*3/uL [facility] ECG 12-LEADon 09-07-2024 ECG 12-LEAD IMPRESSION: Sinus bradycardia Electronically Signed On 09-07-2024 11:46:32 EDT by Derrick Santoro Normal [facility] [place] ERCP BILIARY AND PANCREAS on 09-07-2024 [place] ERCP BILIARY AND PANCREAS There is no interpretation needed for this exam. Normal [facility] HEPATIC FUNCTION PANELon Albumin [Mass/Vol] 3.3 g/dL Low 3.4-4.8 [facility] Comment on above: Performed By: #### L AB15, LAB20 #### Country Printer Apprentice: ERIN MYRICK ([id number]) [facility]) [address] [place] [address] ALP [Catalytic activity/Vol] 315 U/L High 40-150 [facility] Comment on above: Performed By: #### L AB15, LAB20 #### Country Printer Apprentice: ERIN MYRICK ([id number]) [facility]) [address] [place] [address] [place] ALT [Catalytic activity/Vol] 309 U/L High <30 [facility] Comment on above: Performed By: #### L AB15, LAB20 #### Country Printer Apprentice: ERIN MYRICK ([id number]) [facility]) [address] [place] [address] [place] AST [Catalytic activity/Vol] 195 U/L High <34 [facility] Comment on above: Performed By: #### L AB15, LAB20 #### Country Printer Apprentice: ERIN MYRICK ([id number]) [facility]) [address] [place] [address] [place] Bilirubin [Mass/Vol] 2.6 mg/dL High <1.2 [facility] Comment on above: Performed By: #### L AB15, LAB20 #### Country Printer Apprentice: ERIN MYRICK ([id number]) [facility]) [address] [place] [address] [place] Bilirubin.indirect [Mass/Vol] 1.8 mg/dL High <0.5 [facility] Comment on above: Performed By: #### L AB15, LAB20 #### Country Printer Apprentice: ERIN MYRICK ([id number]) [facility]) [address] [place] [address] [place] Protein [Mass/Vol] 6.0 g/dL Low 6.4-8.3 [facility] Comment on above: Result Comment: Seru m protein values are higher than plasma values. Samples from recumbent persons are lower by up to 0.5 g/dL as compared to ambulatory persons. After 60 years values are lower by up to 0.2 g/dL. Performed By: #### L AB15, LAB20 #### Country Printer Apprentice: ERIN MYRICK ([phone]) [facility]) [address] [place] [address] Hepatic function 2000 panelo n 09-07-2024 Albumin [Mass/Vol] 3.3 g/dL Low 3.4 - 4.8 g/dL [facility] ALP [Catalytic activity/Vol] 315 U/L High 40 - 150 U/L [facility] ALT [Catalytic activity/Vol] 309 U/L High NINF - 30 U/L [facility] AST [Catalytic activity/Vol] 195 U/L High NINF - 34 U/L [facility] Bilirubin [Mass/Vol] 2.6 mg/dL High NINF - 1.2 mg/dL [facility] Bilirubin.conjugated [Mass/Vol] 1.8 mg/dL High NINF - 0.5 mg/dL [facility] Protein [Mass/Vol] 6 g/dL Low 6.4 - 8.3 g/dL [facility] Comment on above: Serum protein values are higher than plasma values. Samples from recumbent persons are lower by up to 0.5 g/dL as compared to ambulatory persons. After 60 years values are lower by up to 0.2 g/dL. MR Abdomen WO contraston 1. Choledocholithias is with mild biliary dilation. 2. Cholecystolithiasis. 3. 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 No high risk features. Given its size and the patient's age, recommend follow-up MRI in two years. Report Dictated on Electronically Signed By: Jared Sorensen MD Electronically Signed Date/Time: 09/07/2024 7:19 AM [facility] [employer] RADIOLOGY SYSTEM Patient Name: CHAIM DANIELLE : 1950 Exam Date/Time: 09/06/2024 19:51 Procedure: MR ABDOMEN WO CONTRAST Ordering Provider: LISA GEORGE Reason For Exam: cholelithiasis with choledocholithiasis EXAM: MR Abdomen Without Intravenous Contrast CLINICAL INDICATION: cholelithiasis with choledocholithiasis TECHNIQUE: Multiplanar magnetic resonance images of the abdomen without intravenous contrast. COMPARISON: No relevant prior studies available. FINDINGS: LIVER: Unremarkable. GALLBLADDER AND BILE DUCTS: The gallbladder is filled with gallstones. The gallbladder is nondistended. Two filling defects are present in the, bile duct measuring 4 mm and 7 mm. The common bile duct is mildly dilated to 9 mm. The common hepatic duct is mildly dilated to 8 mm. No intrahepatic biliary dilation. PANCREAS: No pancreatic duct dilation. There is a pancreatic neck cyst measuring 6 mm. SPLEEN: Unremarkable. No splenomegaly. ADRENALS: No mass. KIDNEYS AND URETERS: Symmetric size. No hydronephrosis. VASCULATURE: Unremarkable. No abdominal aortic aneurysm. LYMPH NODES: Unremarkable. No enlarged lymph nodes. [facility] RADIOLOGY SYSTEM Jared Sorensen MD - 09/07/2024 [facility] Name[facility] 1950 [id number] Exam Date/Time: 09/06/2024 19:51 Procedure: MR ABDOMEN WO CONTRAST Ordering Provider: LISA GEORGE Reason For Exam: cholelithiasis with choledocholithiasis EXAM: MR Abdomen Without Intravenous Contrast CLINICAL INDICATION: cholelithiasis with choledocholithiasis TECHNIQUE: Multiplanar magnetic resonance images of the abdomen without intravenous contrast. COMPARISON: No relevant prior studies available. FINDINGS: LIVER: Unremarkable. GALLBLADDER AND BILE DUCTS: The gallbladder is filled with gallstones. The gallbladder is nondistended. Two filling defects are present in the, bile duct measuring 4 mm and 7 mm. The common bile duct is mildly dilated to 9 mm. The common hepatic duct is mildly dilated to 8 mm. No intrahepatic biliary dilation. PANCREAS: No pancreatic duct dilation. There is a pancreatic neck cyst measuring 6 mm. SPLEEN: Unremarkable. No splenomegaly. ADRENALS: No mass. KIDNEYS AND URETERS: Symmetric size. No hydronephrosis. VASCULATURE: Unremarkable. No abdominal aortic aneurysm. LYMPH NODES: Unremarkable. No enlarged lymph nodes. IMPRESSION: 1. Choledocholithiasis with mild biliary dilation. 2. Cholecystolithiasis. 3. 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 No high risk features. Given its size and the patient's age, recommend follow-up MRI in two years. Report Dictated on Electronically Signed By: Jared Sorensen MD Electronically Signed Date/Time: 09/07/2024 7:19 AM EDT [facility] MR Abdomen WO contrastOrdere d By: Jared Sorensen on 09-07-2024 [employer] Work Phone: No Panel InformationOrdered By: Derrick Santoro on 09-07-2024 P [place] 23 degrees [employer] Work Phone: NM Interval 189 ms [employer] Work Phone: QRS [place] 12 degrees [employer] [facility] Work Phone: QRSD Interval 99 ms [employer] Work Phone: QT Interval 471 ms [facility] Work Phone: QTC Interval 416 ms [employer] [facility] Work Phone: T Wave [place] 45 degrees [employer] Work Phone: [employer] Work Phone: No Panel Informationon 09-07 Sinus bradycardia Electronically Signed On 09-07-2024 11:46:32 EDT by Derrick Santoro CV Derrick Lee MD - 09/07/2024 IMPRESSION: Sinus bradycardia Electronically Signed On 09-07-2024 11:46:32 EDT by Derrick Santoro [facility] Interpretation and review of laboratory results Abnormal [facility] Progress Noteon 09-07-2024 Progress Note .Nutrition rescreen completed. Chart reviewed. Patient to be monitored and followed by the diet line technician. JARON Montalvo Normal [facility] Progress Note -- Attestation signed by Sary Castro MD at 09/08/2024 11:23 AM ATTENDING ADDENDUM Patient Active Problem List Diagnosis Choledocholithiasis I personally supervised the resident in the evaluation and development of a treatment plan for this patient on the same day of service as above. I personally discussed the review of systems and interviewed the patient along with performing a physical examination. I reviewed the recent events, imaging, labs, vital signs. In addition, I discussed the patient's condition and treatment options with him/her when possible. I have also reviewed and agree with the past medical, family, and social history unless otherwise noted. All of the patient's questions were answered and family updated when appropriate and possible. 73F with acute choledocholithiasis, MRCP shows cholelithiasis, and two filling defects in the bile duct with dilation of the CBD. Transaminases slightly downtrending, T bili remains elevated (2.8 -> 2.6). GI following and planning ERCP today. I evaluated the patient on 09/07 Going for ERCP today Plan for lap moose tomorrow, which will be done by my partner Dr. Jeni JOHNSON at midnight, IVF hydration with LR Pre-op EKG shows sinus bradycardia Level of Medical Decision Making: risk of morbidity from additional diagnostic testing or treatment due to acute choledocholithiasis []High [x]Moderate []Low Complexity: Acute illness with systemic symptoms (MOD) Risk: Prescription drug management (MOD) Personally Reviewed/Independently interpreted patient's: [x]Epic notes []Radiology studies [x]Labs []EKG []Ordering tests []Other Discussed/ With: [x]Patient/Family [x]RN []Consultants []SW/TCC []Other I spent total time of 35 minutes reviewing previous notes, test results, and face to face with Chaim Danielle discussing the diagnosis and importance of compliance with the treatment plan as well as documenting on the day of the visit. Sary Castro MD Division of Trauma Department of Surgery [facility] Department of General Surgery Daily Progress Note ADMIT DATE: 09/05/2024 TODAY'S DATE: 09/07/2024 HPI: Chaim Danielle is a 73 y.o. female with no significant past medical history who presents with abdominal pain. Surgery was consulted for evaluation of cholelithiasis with concern for choledocholithiasis. Patient states she has been experiencing intermittent right upper quadrant abdominal pain for the last 2 weeks. Patient reports the pain is related to eating and has occurred 2-3 times and lasts 2 to 3 hours at a time. Patient denies symptoms like this before. Patient's states that she is not experiencing any nausea or vomiting. Patient otherwise endorses normal bowel movements without hematochezia. Patient denies fevers or chills. Past surgical history is significant for laparoscopic hysterectomy 20 years ago. Last colonoscopy was last April and demonstrated normal findings per patient. Patient denies personal or family history of Crohn's, ulcerative colitis, colon cancer. Patient denies smoking, alcohol, illicit drug use. Patient does not take any blood thinners at home. On evaluation patient was afebrile and hemodynamically stable, mildly bradycardic on arrival to . Labs reviewed significant for: WBC 4.6, Hgb 12.1, creatinine 0.92, ALP 299, AST 283, ALT 392, total bilirubin 2.8, direct bilirubin 1.7, lipase 25. Reportedly right upper quadrant ultrasound from OSH demonstrated cholelithiasis with choledocholithiasis. Patient transferred to [facility] for further workup and MRCP. SUBJECTIVE: No acute events overnight. Minimal nausea and right upper quadrant pain with saltine crackers last night. Otherwise patient denies any pain this a.m. Patient currently without nausea or vomiting. Interval history: 09/06 MRCP with choledocholithiasis OBJECTIVE: VITALS: BP 121/58 Pulse (!) 43 Comment: RN aware Temp 36.6 ?C (97.8 ?F) (Temporal) Resp 16 SpO2 97% INTAKE/OUTPUT: Intake/Output Summary (Last 24 hours) at 09/07/2024 0820 Last data filed at 09/07/2024 0529 Gross per 24 hour Intake 1860 ml Output -- Net 1860 ml I/O last 3 completed shifts: In: 1910 [P.O.:410; I.V.:1500] Out: - No intake/output data recorded. PHYSICAL EXAM: Gen: NAD, A&Ox3, pain well controlled Heart: RRR, well perfused Lungs: symmetric chest rise, normal work of breathing, breath sounds b/l Abd: soft, minimally tender in right upper quadrant, non distended. Non rigid. Ext: no c/c/e no gross deformities Skin: warm, well perfused, no obvious rashes, cellulitis or gross discoloration LABS Results from last 7 days Lab Units 09/07/24 0150 09/06/24 0350 WBC AUTO 10*3/uL 5.7 4.6 HEMOGLOBIN g/dL 11.5* 12.1 HEMATOCRIT % 35.6 39.1 (more content not included)... Normal [facility] RF Guidance for endoscopy of Biliary ducts and Pancreatic duct-- W contrast retrogradeon 09-07-2024 There is no interpretation needed for this exam. IMAGING Vital signsOrdered By: Derrick Santoro on 09-07-2024 Heart rate 47 /min bpm [facility] Work Phone: ABO and Rh group Confirm Nom (Bld)on 09-06-2024 ABO group Nom (Bld) A [facility] D Ag Ql (RBC) Positive [facility] BASIC METABOLIC PANELon 08-12 Anion gap [Moles/Vol] 8 mmol/L Normal 3-13 [facility] Comment on above: Performed By: #### L AB99, LAB15, LAB20 ####Country Printer Apprentice: ERIN MYRICK ([id number])[facility])[address] [place] [address] Calcium [Mass/Vol] 9.0 mg/dL Normal 8.8-10.0 [facility] Comment on above: Performed By: #### L AB99, LAB15, LAB20 ####Country Printer Apprentice: ERIN MYRICK ([id number])[facility])[address] [place] [address] Chloride [Moles/Vol] 113 mmol/L High 98-107 [facility] Comment on above: Performed By: #### L AB99, LAB15, LAB20 ####Country Printer Apprentice: ERIN MYRICK ([phone])[facility])[address] [place] [address] CO2 [Moles/Vol] 21 mmol/L Low 23-31 [facility] Comment on above: Performed By: #### L AB99, LAB15, LAB20 ####Country Printer Apprentice: ERIN MYRICK ([phone])[facility])[address] [place] [address] Creatinine [Mass/Vol] 0.92 mg/dL Normal 0.57-1.11 [facility] Comment on above: Performed By: #### L AB99, LAB15, LAB20 ####Country Printer Apprentice: ERIN MYRICK ([phone])[facility])[address] [place] [address] GLOMERULAR FILTRATION RATE ML/MIN/1.73 SQ M.PREDICTED 65.5 mL/min/1.73m*2 Normal >60.0 [facility] Comment on above: Result Comment: Calc ulation based on the Chronic Kidney Disease Epidemiology Collaboration (CKD-EPI) equation refit without adjustment for race Performed By: #### L AB99, LAB15, LAB20 ####Country Printer Apprentice: ERIN MYRICK ([phone])[facility])[address] [place] [address] Glucose [Mass/Vol] 84 mg/dL Normal 82-115 [facility] Comment on above: Performed By: #### L AB99, LAB15, LAB20 ####Country Printer Apprentice: ERIN MYRICK ([phone])[facility])[address] [place] [address] Potassium [Moles/Vol] 3.9 mmol/L Normal 3.5-5.1 [facility] Comment on above: Result Comment: [facility] potassium values may be up to 0.5 mmol/L lower than serum values. Performed By: #### L AB99, LAB15, LAB20 ####Country Printer Apprentice: ERIN MYRICK ([id number])[facility] ([facility])[address] [place] [address] Sodium [Moles/Vol] 142 mmol/L Normal 136-145 [facility] Comment on above: Performed By: #### L AB99, LAB15, LAB20 ####Country Printer Apprentice: ERIN MYRICK ([id number])[facility] [place] [address] Urea nitrogen [Mass/Vol] 17 mg/dL Normal 9-23 [facility] Comment on above: Performed By: #### L AB99, LAB15, LAB20 ####Country Printer Apprentice: ERIN MYRICK ([id number])[facility] ([facility])[address] [place] [address] BLOOD TYPE AND SCREEN GELon 09-06-2024 ABO GROUPING A Normal [facility] Comment on above: Performed By: #### L [id number] ####Country Printer Apprentice: ERIN MYRICK ([id number])[facility] B[facility]OD [facility] ([facility])[address] [place] [address] RH TYPE IN BLOOD Positive Normal [facility] Comment on above: Performed By: #### L [id number] ####Country Printer Apprentice: ERIN MYRICK ([id number])[facility] ([facility])[address] [place] [address] Basic metabolic 1998 panelon 09-06-2024 Anion gap [Moles/Vol] 8 mmol/L 3 - 13 mmol/L [facility] Calcium [Mass/Vol] 9 mg/dL 8.8 - 10. 0 mg/dL [facility] Chloride [Moles/Vol] 113 mmol/L High 98 - 10 7 mmol/L [facility] CO2 [Moles/Vol] 21 mmol/L Low 23 - 31 mmol/L [facility] Creatinine [Mass/Vol] 0.92 mg/dL 0.57 - 1.11 mg/dL [facility] GFR/1.73 sq M.predicted (S/P/Bld) [Vol rate/Area] 65.5 mL/min - PINF [facility] Comment on above: Calculation based on the Chronic Kidney Disease Epidemiology Collaboration (CKD-EPI) equation refit without adjustment for race Glucose [Mass/Vol] 84 mg/dL 82 - 115 mg/dL [facility] Potassium [Moles/Vol] 3.9 mmol/L 3.5 - 5.1 mmol/L [facility] Comment on above: Plasma potassium mark ues may be up to 0.5 mmol/L lower than serum values. Sodium [Moles/Vol] 142 mmol/L 136 - 145 mmol/L [facility] Urea nitrogen [Mass/Vol] 17 mg/dL 9 - 23 mg/dL [facility] Blood type and Crossmatch pa mike (Bld)on 09-06-2024 ABO group Nom (Bld) A [facility] Blood group antibody screen GEL Ql Negative [facility] D Ag Ql (RBC) Positive [facility] CBC W Auto Differential pane l (Bld)Ordered By: Prashant Wilder on 09-06-2024 Basophils (Bld) [#/Vol] 0.1 10*3/uL 0.0 - 0.2 10*3/uL [facility] Basophils/100 WBC (Bld) 1.3 % 0.0 - 2.0 % [facility] Eosinophils (Bld) [#/Vol] 0.2 10*3/uL 0.0 - 0.5 10*3/uL [facility] Eosinophils/100 WBC (Bld) 4.5 % 0.0 - 6.0 % [facility] Erythrocyte distribution width (RBC) [Ratio] 14.1 % 11.5 - 15.0 % [facility] Hematocrit (Bld) [Volume fraction] 39.1 % 35.0 - 47.0 % [facility] Hemoglobin (Bld) [Mass/Vol] 12.1 g/dL 11.7 - 16.0 g/dL [facility] Immature granulocytes (Bld) [#/Vol] 0 10*3/uL NINF - 0.1 10*3/uL [facility] Immature granulocytes/100 WBC (Bld) 0.6 % 0.0 - 2.0 % [facility] IPF 1 [facility] Lymphocytes (Bld) [#/Vol] 1.3 10*3/uL 1.0 - 4.3 10*3/uL [facility] Lymphocytes/100 WBC (Bld) 27.1 % 15.0 - 45.0 % [facility] MCH (RBC) [Entitic mass] 29 pg 26.0 - 34.0 pg [facility] MCHC (RBC) [Mass/Vol] 30.9 % 30.5 - 36.0 % [facility] MCV (RBC) [Entitic vol] 93.8 fL 77.0 - 99.0 fL [facility] Monocytes (Bld) [#/Vol] 0.5 10*3/uL 0.0 - 0.9 10*3/uL [facility] Monocytes/100 WBC (Bld) 11 % 5.0 - 13.0 % [facility] Neutrophils (Bld) [#/Vol] 2.6 10*3/uL 1.8 - 7.5 10*3/uL [facility] Neutrophils/100 WBC (Bld) 55.5 % 38.0 - 82.0 % [facility] Nucleated RBC/100 WBC (Bld) [Ratio] 0.6 % [facility] Platelet mean volume (Bld) [Entitic vol] 9.7 fL 9.0 - 12.7 fL [facility] Platelets (Bld) [#/Vol] 245 10*3/uL 140 - 440 10*3/uL [facility] RBC (Bld) [#/Vol] 4.17 10*6/uL 3.80 - 5.2 0 10*6/uL [facility] WBC (Bld) [#/Vol] 4.6 10*3/uL 3.6 - 10.7 10*3/uL [facility] CBC WITH AUTO DIFFERENTIALon 09-06-2024 Basophils (Bld) [#/Vol] 0.1 10*3/uL Normal 0.0-0.2 [facility] Comment on above: Performed By: #### L [id number] #### Country Printer Apprentice: ERIN MYRICK ([id number]) [facility] ([facility]) [address] [place] [address] Basophils/100 WBC (Bld) 1.3 % Normal 0.0-2.0 S [facility] Comment on above: Performed By: #### L [id number] #### Country Printer Apprentice: ERIN MYRICK ([id number]) [facility] ([facility]) [address] [place] [address] Eosinophils (Bld) [#/Vol] 0.2 10*3/uL Normal 0.0-0.5 [facility] Comment on above: Performed By: #### L [id number] #### Country Printer Apprentice: ERIN MYRICK ([id number]) [facility]) [address] [place] [address] Eosinophils/100 WBC (Bld) 4.5 % Normal 0.0-6.0 [facility] Comment on above: Performed By: #### L [id number] #### Country Printer Apprentice: ERIN MYRICK ([id number]) [facility]) [address] [place] [address] Erythrocyte distribution width (RBC) [Ratio] 14.1 % Normal 11.5-15.0 [facility] Comment on above: Performed By: #### L [id number] #### Country Printer Apprentice: ERIN MYRICK ([id number]) [facility]) [address] [place] [address] Hematocrit (Bld) [Volume fraction] 39.1 % Normal 35.0-47.0 [facility] Comment on above: Performed By: #### L [id number] #### Country Printer Apprentice: ERIN MYRICK ([id number]) [facility]) [address] [place] [address] Hemoglobin (Bld) [Mass/Vol] 12.1 g/dL Normal 11.7-16.0 [facility] Comment on above: Performed By: #### L [id number] #### Country Printer Apprentice: ERIN MYRICK ([id number]) [facility]) [address] [place] [address] IMMATURE GRANS % 0.6 % Normal 0.0-2.0 [facility] Comment on above: Performed By: #### L [id number] #### Country Printer Apprentice: ERIN MYRICK ([id number]) [facility]) [address] [place] [address] IMMATURE GRANS ABSOLUTE 0.0 10*3/uL Normal <0.1 [facility] Comment on above: Performed By: #### L [id number] #### Country Printer Apprentice: ERIN MYRICK ([id number]) [facility]) [address] [place] [address] [place] IPF 1 Normal [facility] Comment on above: Performed By: #### L [id number] #### Country Printer Apprentice: ERIN MYRICK ([id number]) [facility]) [address] [place] [address] [place] Lymphocytes (Bld) [#/Vol] 1.3 10*3/uL Normal 1.0-4.3 [facility] Comment on above: Performed By: #### L [id number] #### Country Printer Apprentice: ERIN MYRICK ([id number]) [address] Lymphocytes/100 WBC (Bld) 27.1 % Normal 15.0-45.0 [facility] Comment on above: Performed By: #### L [id number] #### Country Printer Apprentice: ERIN MYRICK ([id number]) [facility]) [address] [place] [address] MCH (RBC) [Entitic mass] 29.0 pg Normal 26.0-34.0 [facility] Comment on above: Performed By: #### L [id number] #### Country Printer Apprentice: ERIN MYRICK ([id number]) [facility]) [address] [place] [address] MCHC 30.9 % Normal 30.5-36.0 [facility] Comment on above: Performed By: #### L [id number] #### Country Printer Apprentice: ERIN MYRICK ([id number]) [facility]) [address] [place] [address] MCV (RBC) [Entitic vol] 93.8 fL Normal 77.0-99.0 S [facility] Comment on above: Performed By: #### L [id number] #### Country Printer Apprentice: ERIN MYRICK ([id number]) [facility]) [address] [place] [address] Monocytes (Bld) [#/Vol] 0.5 10*3/uL Normal 0.0-0.9 [facility] Comment on above: Performed By: #### L [id number] #### Country Printer Apprentice: ERIN MYRICK ([id number]) [facility]) [address] [place] [address] Monocytes/100 WBC (Bld) 11.0 % Normal 5.0-13.0 [facility] Comment on above: Performed By: #### L [id number] #### Country Printer Apprentice: ERIN MYRICK ([id number]) [facility] ([facility]) [address] [place] [address] NEUTROPHILS ABSOLUTE 2.6 10*3/uL Normal 1.8-7.5 [facility] Comment on above: Performed By: #### L [id number] #### Country Printer Apprentice: ERIN MYRICK ([id number]) [facility] ([facility]) [address] [place] [address] Neutrophils/100 WBC (Bld) 55.5 % Normal 38.0-82.0 [facility] Comment on above: Performed By: #### L [id number] #### Country Printer Apprentice: ERIN MYRICK ([id number]) [facility] ([facility]) [address] [place] [address] NRBC 0.6 /100 WBCs Normal 0.0-2.0 [facility] Comment on above: Performed By: #### L [id number] #### Country Printer Apprentice: ERIN MYRICK ([id number]) [facility] ([facility]) [address] [place] [address] Platelet mean volume (Bld) [Entitic vol] 9.7 fL Normal 9.0-12.7 [facility] Comment on above: Performed By: #### L [id number] #### Country Printer Apprentice: ERIN MYRICK ([id number]) [facility] ([facility]) [address] [place] [address] Platelets (Bld) [#/Vol] 245 10*3/uL Normal 140-440 [facility] Comment on above: Performed By: #### L [id number] #### Country Printer Apprentice: ERIN MYRICK ([id number]) [facility]) [address] [place] [address] RBC (Bld) [#/Vol] 4.17 10*6/uL Normal 3.80-5.20 [facility] Comment on above: Performed By: #### L [id number] #### Country Printer Apprentice: ERIN MYRICK ([id number]) [facility]) [address] [place] [address] WBC (Bld) [#/Vol] 4.6 10*3/uL Normal 3.6-10.7 [facility] Comment on above: Performed By: #### L [id number] #### Country Printer Apprentice: ERIN MYRICK ([id number]) [address] Consulton 09-06-2024 Consult -- Attestation signed by Sary Castro MD at 09/06/2024 12:13 PM (Updated) ATTENDING ADDENDUM Patient Active Problem List Diagnosis Choledocholithiasis I personally supervised the resident or GREGORY/TRUMAN in the evaluation and development of a treatment plan for this patient on the same day of service as above. I personally discussed the review of systems and interviewed the patient along with performing a physical examination. In addition, I discussed the patient's condition and treatment options with him/her when possible. All of the patient's questions were answered and family updated when appropriate and possible. I performed a physical exam and ROS on the same date of service as above. A complete review of systems was obtained and is negative except as stated in HPI and/or Subjective Section. My findings agree with the above note except for any details corrected below. 73F transferred from [facility] for further evaluation of suspect acute choledocholithiasis. She reports 2 weeks of post prandial abdominal pain that have progressively worsened. Work-up in [facility] included a RUQ US that demonstrated cholelithiasis with choledocholithiasis without evidence of acute cholecystitis (I am unable to view these images). Labs were significant for elevated transaminases and T bili. On evaluation at [facility], she reports improvement in her pain. Her labs this morning are significant for elevated transaminases (AST 283, ALT 392, and T bili 2.8). MRCP is pending. Will follow up MRCP results. If negative for choledocholithiasis, will tentatively plan for laparoscopic cholecystectomy tomorrow, Thursday 09/07. IF MRCP showed + choledocholithiasis, will defer to GI for ERCP and plan for lap moose on Saturday. This was discussed with the patient who is in agreement with this plan. Sinus bradycardia at baseline - will obtain EKG for pre-op planning. Level of Medical Decision Making: risk of morbidity from additional diagnostic testing or treatment due to acute choledocholithiasis []High [x]Moderate []Low Complexity: Acute illness with systemic symptoms (MOD) Risk: Decision regarding elective major surgery without limited identified patient or procedure risk factors (MOD) Personally Reviewed/Independently interpreted patient's: [x]Epic notes []Radiology studies [x]Labs []EKG []Ordering tests []Other Discussed/ With: [x]Patient/Family []RN []Consultants []SW/TCC []Other I spent total time of 60 minutes reviewing previous notes, test results, and face to face with Chaim Danielle discussing the diagnosis and importance of compliance with the treatment plan as well as documenting on the day of the visit. Sary Castro MD Division of Trauma Department of Surgery [facility] Pager: [phone] Department of General Surgery Surgical Service - [facility] Resident Consult Note 09/06/2024 CHIEF COMPLAINT: No chief complaint on file. Reason for Consult: Concern for choledocholithiasis HISTORY OF PRESENT ILLNESS: Chaim Danielle is a 73 y.o. female with no significant past medical history who presents with abdominal pain. Surgery was consulted for evaluation of cholelithiasis with concern for choledocholithiasis. Patient states she has been experiencing intermittent right upper quadrant abdominal pain for the last 2 weeks. Patient reports the pain is related to eating and has occurred 2-3 times and lasts 2 to 3 hours at a time. Patient denies symptoms like this before. Patient's states that she is not experiencing any nausea or vomiting. Patient otherwise endorses normal bowel movements without hematochezia. Patient denies fevers or chills. Past surgical history is significant for laparoscopic hysterectomy 20 years ago. Last colonoscopy was last April and demonstrated normal findings per patient. Patient denies personal or family history of Crohn's, ulcerative colitis, colon cancer. Patient denies smoking, alcohol, illicit drug use. Patient does not take any blood thinners at home. On evaluation patient was afebrile and hemodynamically stable, mildly bradycardic on arrival to . Labs reviewed significant for: WBC 4.6, Hgb 12.1, creatinine 0.92, ALP 299, AST 283, ALT 392, total bilirubin 2.8, direct bilirubin 1.7, lipase 25. Reportedly right upper quadrant ultrasound from OSH demonstrated cholelithiasis with choledocholithiasis. Patient transferred to [facility] for further workup and MRCP. History reviewed. No pertinent past medical history. Past Surgical History: Procedure Laterality Date HYSTERECTOMY Medications Prior to Admission: Current Facility-Administered Medications Medication Dose Route Frequency Provider Last Rate Last Admin acetaminophen (Tylenol) tablet 650 mg 650 mg Oral q6h PRN Ge (more content not included)... Normal [facility] Consult Department of [employer]er al Medicine Gastroenterology Attending Consult Note Reason for Consult: The patient was seen in consultation at the request of Dr Lisa CHIEF COMPLAINT: Abdominal pain History Obtained From: patient HISTORY OF PRESENT ILLNESS: The patient is a 73 y.o. female with significant past medical history of no significnat medical issues presented to OSH with intermittent abdominal pain, this time it was severe so she came to ER. Work up showed elevated LFTs, ultrasound report states gall bladder and cbd stones. Today pain is improved. Did have nausea but no vomiting. Had colonoscopy a few years ago with local GI. No blood thinners. Allergies: Patient has no known allergies. Current Medications: Current Facility-Administered Medications: acetaminophen (Tylenol) tablet 650 mg, 650 mg, Oral, q6h PRN OR acetaminophen (Tylenol) suppository 650 mg, 650 mg, Rectal, q6h PRN, Gem Lisa, DO enoxaparin (Lovenox) syringe 40 mg, 40 mg, SubCUTAneous, Daily, Gem Lisa, DO morphine injection 2 mg, 2 mg, IntraVENous, q4h PRN, Gem Lisa, DO naloxone (Narcan) injection 0.4 mg, 0.4 mg, IntraVENous, q5 min PRN, Gem Lisa, DO ondansetron ODT (Zofran-ODT) disintegrating tablet 4 mg, 4 mg, Oral, q8h PRN OR ondansetron (Zofran) injection 4 mg, 4 mg, IntraVENous, q6h PRN, Gem Lisa, DO oxyCODONE-acetaminophe n (Percocet) 5-325 MG per tablet 1 tablet, 1 tablet, Oral, q6h PRN, Gem Lisa, DO polyethylene glycol (PEG) 3350 (Miralax) packet 17 g, 17 g, Oral, Daily PRN, Gem Lisa, DO sodium chloride 0.9 % infusion, 5-250 mL/hr, IntraVENous, PRN, Gem Guyodi, DO sodium chloride 0.9% (NS) flush 5-40 mL, 5-40 mL, IntraVENous, q12h, Gem Lisa, DO, 10 mL at 09/05/242114 sodium chloride 0.9% (NS) flush 5-40 mL, 5-40 mL, IntraVENous, PRN, Gem Lisa, DO Past Medical History: Active Ambulatory Problems Diagnosis Date Noted No Active Ambulatory Problems Resolved Ambulatory Problems Diagnosis Date Noted No Resolved Ambulatory Problems No Additional Past Medical History Past Surgical History: Social History Socioeconomic History Marital status: Spouse name: Not on file Number of children: Not on file Years of education: Not on file Highest education level: Not on file Occupational History Not on file Tobacco Use Smoking status: Never Smokeless tobacco: Never Vaping Use Vaping status: Never Used Substance and Sexual Activity Alcohol use: Yes Alcohol/week: 2.0 standard drinks of alcohol Types: 1 Glasses of wine, 1 Cans of beer per week Comment: occasionally with dinner Drug use: Never Sexual activity: Not on file Other Topics Concern Not on file Social History Narrative Not on file Social Drivers of Health Financial Resource Strain: Not on file Food Insecurity: No Food Insecurity (09/05/2024) Hunger Vital Sign Worried About Running Out of Food in the Last Year: Never true Ran Out of Food in the Last Year: Never true Transportation Needs: No Transportation Needs (09/05/2024) PRAPARE - Transportation Lack of Transportation (Medical): No Lack of Transportation (Non-Medical): No Physical Activity: Not on file Stress: Not on file Social Connections: Not on file Intimate Partner Violence: Not At Risk (09/05/2024) Humiliation, Afraid, Rape, and Kick questionnaire Fear of Current or Ex-Partner: No Emotionally Abused: No Physically Abused: No Sexually Abused: No Housing Stability: Low Risk (09/05/2024) Housing Stability Vital Sign Unable to Pay for Housing in the Last Year: No Number of Times Moved in the Last Year: 0 Homeless in the Last Year: No Family History: No family history on file. No family history colon or stomach cancer. Social History: TOBACCO: reports that she has never smoked. She has never used smokeless tobacco. ETOH: reports current alcohol use of about 2.0 standard drinks of alcohol per week. DRUGS: reports no history of drug use. REVIEW OF SYSTEMS: No fever, chills, or sweats. Normal appetite and weight. No DOYLE, visual disturbance, eye pain, jaundice, sore throat or mouth ulcers. No skin rash or itching. No CP, SOB, MAI, cough or wheeze. No urinary frequency, urgency, hematuria, or dysuria. No myalgia, arthralgia, or joint swelling. No weakness, numbness, or confusion. GI per HPI. No polyuria, polydipsia, heat or cold intolerance. PHYSICAL EXAM: VS: BP 134/63 (BP Location: Right arm, Patient Position: Lying) Pulse (!) 39 Temp 36.9 ?C (98.5 ?F) (Temporal) Resp 17 SpO2 100% There is no height or weight on file to calculate BMI. Constitutional: No acute distress. Well-nourished. Well hydrated Head/Eyes: Pupils are equal and round; Conjunctiva are not injected; Sclera are non-icteric. ENT: Ears/nose without external abnormalities. Oral mucosa is pink and moist. Neck: No JVD. No carotid bruits; No thyromegaly. Respiratory: Clear to auscultation bilate (more content not included)... Normal [facility] HEPATIC FUNCTION PANELon Albumin [Mass/Vol] 3.5 g/dL Normal 3.4-4.8 [facility] Comment on above: Performed By: #### L AB99, LAB15, LAB20 ####Country Printer Apprentice: ERIN MYRICK ([id number])[facility])[address] [place] [address] ALP [Catalytic activity/Vol] 299 U/L High 40-150 [facility] Comment on above: Performed By: #### L AB99, LAB15, LAB20 ####Country Printer Apprentice: ERIN MYRICK ([phone])[facility])[address] [place] [address] ALT [Catalytic activity/Vol] 392 U/L High <30 [facility] Comment on above: Performed By: #### L AB99, LAB15, LAB20 ####Country Printer Apprentice: ERIN MYRICK ([id number])[facility])[address] [place] [address] AST [Catalytic activity/Vol] 283 U/L High <34 [facility] Comment on above: Performed By: #### L AB99, LAB15, LAB20 ####Country Printer Apprentice: ERIN MYRICK ([id number])[facility])[address] [place] [address] Bilirubin [Mass/Vol] 2.8 mg/dL High <1.2 [facility] Comment on above: Performed By: #### L AB99, LAB15, LAB20 ####Country Printer Apprentice: ERIN MYRICK ([id number])[facility])[address] [place] [address] Bilirubin.indirect [Mass/Vol] 1.7 mg/dL High <0.5 [facility] Comment on above: Performed By: #### L AB99, LAB15, LAB20 ####Country Printer Apprentice: ERIN MYRICK ([id number])[facility])[address] [place] [address] Protein [Mass/Vol] 6.2 g/dL Low 6.4-8.3 [facility] Comment on above: Result Comment: Seru m protein values are higher than plasma values. Samples from recumbent persons are lower by up to 0.5 g/dL as compared to ambulatory persons. After 60 years values are lower by up to 0.2 g/dL. Performed By: #### L AB99, LAB15, LAB20 ####Country Printer Apprentice: ERIN MYRICK ([id number])[address] Hepatic function 2000 panelo n 09-06-2024 Albumin [Mass/Vol] 3.5 g/dL 3.4 - 4.8 g/dL [facility] ALP [Catalytic activity/Vol] 299 U/L High 40 - 150 U/L [facility] ALT [Catalytic activity/Vol] 392 U/L High NINF - 30 U/L [facility] AST [Catalytic activity/Vol] 283 U/L High NINF - 34 U/L [facility] Bilirubin [Mass/Vol] 2.8 mg/dL High [facility] - 1.[facility] mg/dL [facility] Bilirubin.conjugated [Mass/Vol] 1.7 mg/dL High NINF - 0.5 mg/dL [facility] Protein [Mass/Vol] 6.2 g/dL Low 6.4 - 8.3 g/dL [facility] Comment on above: Serum protein values are higher than plasma values. Samples from recumbent persons are lower by up to 0.5 g/dL as compared to ambulatory persons. After 60 years values are lower by up to 0.2 g/dL. LIPASEon 09-06-2024 Lipase [Catalytic activity/Vol] 25 U/L Normal <55 [facility] Comment on above: Performed By: #### L AB99, LAB15, LAB20 ####Country Printer Apprentice: ERIN MYRICK ([phone])[facility])[address] [place] [address] Laboratory - Chemistry and C hemistry - challengeon 09-06-2024 Lipase [Catalytic activity/Vol] 25 U/L NINF - 55 U/L [facility] Laboratory - Coagulationon 0 09-06-2024 PT Coag (Bld) [Time] 10.3 s 9.0 - 12.0 s [facility] Lipase [Catalytic activity/V ol]on 09-06-2024 Interpretation and review of laboratory results Normal [facility] MR Abdomen WO contraston Radiology Study observation (narrative) [facility] alth No Panel Informationon 09-06 Interpretation and review of laboratory results Abnormal [facility] PROTHROMBIN TIMEon INR Coag (PPP) [Relative time] 1.0 {INR} Normal 0.9-1.1 [facility] Comment on above: Result Comment: Greg mmended Anticoagulant Therapy: SEE BELOW ----- INR of 2.0 - 3.0 : - Prophylaxis of Venous Thrombosis (high-risk surgery) - Treatment of Venous Thrombosis - Treatment of Pulmonary Embolism (Includes tissue heart valves, Acute Myocardial Infarction to prevent systemic embolism, Valvular Heart Disease, and Atrial Fibrillation) ----- INR of 2.5 - 3.5 : - Mechanical Prosthetic Valves (high risk) - If oral anticoagulant therapy is used to prevent Myocardial Infarction Performed By: #### L AB320 ####Country Printer Apprentice: ERIN MYRICK ([phone])[facility] ([facility])[address] [place] [address] PT Coag (PPP) [Time] 10.3 s Normal 9.0-12.0 [facility] Comment on above: Performed By: #### L AB320 ####Country Printer Apprentice: ERIN MYRICK ([phone])[facility])[address] [place] [address] PT Coag (Bld) [Time]on 09-06 INR Coag (PPP) [Relative time] 1 {INR} 0.9 - 1.1 [facility] Comment on above: Recommended Anticoag ulant Therapy: SEE BELOW ----- INR of 2.0 - 3.0 : - Prophylaxis of Venous Thrombosis (high-risk surgery) - Treatment of Venous Thrombosis - Treatment of Pulmonary Embolism (Includes tissue heart valves, Acute Myocardial Infarction to prevent systemic embolism, Valvular Heart Disease, and Atrial Fibrillation) ----- INR of 2.5 - 3.5 : - Mechanical Prosthetic Valves (high risk) - If oral anticoagulant therapy is used to prevent Myocardial Infarction Interpretation and review of laboratory results [facility] 36on 09-05-2024 36 Name of Caller: Pretty rose Contact Physician requesting Consult: Dr. Lisa Patient Location (facility name, room, bed number): [facility], , Room 5109 Bed A Patient Diagnosis/Reason for Consult:Cholelithiasis Provider being paged: TE sent to office Time page was sent: 8:26pm Department of provider being paged: Gastroenterology Page Content: Irma from [facility], called in to request a consult for patient located on , room 5109, Bed A. The reason for the consult is Cholelithiasis. Dr. Lisa requested the consult. Irma can be reached at [phone] Message sent via Secure Chat [facility] Absolute lymphocyte countOrd ered By: Tj Bryant on 09-05-2024 Lymphocytes Auto (Unsp spec) [#/Vol] 0.78 10*3/uL Low 0.83-4.51 [facility] Absolute neutrophil countOrd ered By: Tj Bryant on 09-05-2024 Neutrophils (Bld) [#/Vol] 7.9 10*3/uL High 2.0-7.7 [facility] Anion gap in Serum or Plasma Ordered By: Tjariadne Bryant on 09-05-2024 Anion gap [Moles/Vol] 14 mmol/L 5-15 [facility] Automated lymphocyte count a s percentage of total leukocytesOrdered By: Tj Bryant on 09-05-2024 Lymphocytes/100 WBC Auto (Unsp spec) 8.0 % Low 19-41 [facility] BUN/creatinine ratioOrdered By: Tj Bryant on 09-05-2024 Urea nitrogen/Creatinine [Mass ratio] 16.0 mg/mg 10-20 [facility] Basic Metabolic Profile (BMP )on 09-05-2024 BUN/CRE 16.0 RATIO Normal - [facility] Comment on above: Performed By: #### L 100.0100, L500.4050, L501.2450 #### [facility] Laboratory [address] [place], [address] Calcium [Mass/Vol] 9.4 mg/dL Normal 7.6-11.0 [facility] Comment on above: Performed By: #### L 100.0100, L500.4050, L501.2450 #### [facility] [address] [place], [address] Chloride [Moles/Vol] 106 mmol/L Normal 98-108 [facility] Comment on above: Performed By: #### L 100.0100, L500.4050, L501.2450 #### [facility] [address] [place], [address] CO2 [Moles/Vol] 19.6 mmol/L Low 21.0-32.0 [facility] Comment on above: Performed By: #### L 100.0100, L500.4050, L501.2450 #### [facility] [address] [place], [address] Creatinine [Mass/Vol] 1.06 mg/dL Normal 0.70-1.20 [facility] Comment on above: Performed By: #### L 100.0100, L500.4050, L501.2450 #### [facility] [address] [place], [address] ECRCL 43.59 ml/min Low 50-250 [facility] Comment on above: Performed By: #### L 100.0100, L500.4050, L501.2450 #### [facility] [address] [place], [address] GAP 14 Normal 5-15 [facility] Comment on above: Performed By: #### L 100.0100, L500.4050, L501.2450 #### [facility] [address] [place], [address] GFR/1.73 sq M.predicted among non-blacks MDRD (S/P/Bld) [Vol rate/Area] 55 mL/min/{1.73_m2} Low >60 [facility] Comment on above: Result Comment: mL/m in/1.73m2 CKD-EPI Creatinine Equation (2020) Performed By: #### L 100.0100, L500.4050, L501.2450 #### [facility] [address] [place], [address] Glucose [Mass/Vol] 104 mg/dL High 70-99 [facility] Comment on above: Performed By: #### L 100.0100, L500.4050, L501.2450 #### [facility] [address] [place], [address] Potassium [Moles/Vol] 4.1 mmol/L Normal 3.3-5.1 [facility] Comment on above: Performed By: #### L 100.0100, L500.4050, L501.2450 #### [facility] [address] [place], [address] Sodium [Moles/Vol] 140 mmol/L Normal 133-145 [facility] Comment on above: Performed By: #### L 100.0100, L500.4050, L501.2450 #### [facility] [address] [place], [address] Urea nitrogen [Mass/Vol] 17 mg/dL Normal 4-19 [facility] Comment on above: Performed By: #### L 100.0100, L500.4050, L501.2450 #### [facility] [address] [place], [address] Basophil percentageOrdered B y: Tj Bryant on 09-05-2024 Basophils/100 WBC (Bld) 0.6 % 0-1 [facility] Bilirubin directOrdered By: Tj Bryant on 09-05-2024 Bilirubin.direct [Mass/Vol] 2.72 mg/dL High 0.00-0.30 [facility] Bilirubin, totalOrdered By: Tj Bryant on 09-05-2024 Bilirubin [Mass/Vol] 3.79 mg/dL High 0.00-1.30 [facility] CBC W/Diff, Automatedon 08-12 Absolute Lymph 0.78 X10 3/uL Low 0.83-4.51 [facility] Comment on above: Performed By: #### L 100.0100, L500.3400, L501.2450 #### [facility] [address] [place], [address] Absolute Neut 7.9 X10 3/uL High 2.0-7.7 [facility] Comment on above: Performed By: #### L 100.0100, L500.3400, L501.2450 #### [facility] [address] [place], [address] Basophils/100 WBC (Bld) 0.6 % Normal 0-1 [facility] Comment on above: Performed By: #### L 100.0100, L500.3400, L501.2450 #### [facility] [address] [place], [address] Eosinophils/100 WBC (Bld) 1.0 % Normal 0-5 [facility] Comment on above: Performed By: #### L 100.0100, L500.3400, L501.2450 #### [facility] [address] [place], [address] Erythrocyte distribution width (RBC) [Ratio] 13.8 % Normal 11.6-14.6 [facility] Comment on above: Performed By: #### L 100.0100, L500.3400, L501.2450 #### [facility] [address] [place], [address] Hematocrit (Bld) [Volume fraction] 39.5 % Normal 37-47 [facility] Comment on above: Performed By: #### L 100.0100, L500.3400, L501.2450 #### [facility] [address] [place], [address] Hemoglobin (Bld) [Mass/Vol] 13.0 g/dL Normal 12.0-15.0 [facility] Comment on above: Performed By: #### L 100.0100, L500.3400, L501.2450 #### [facility] [address] [place], [address] IG% 0.500 Normal 0.0-0.9 [facility] Comment on above: Result Comment: IG% - Immature Granulocytes (promyelocytes, myelocytes and metamyelocytes) > 1% indicates that a LEFT SHIFT is Present. Performed By: #### L 100.0100, L500.3400, L501.2450 #### [facility] [address] [place], [address] Lymphocytes/100 WBC (Bld) 8.0 % Low 19-41 [facility] Comment on above: Performed By: #### L 100.0100, L500.3400, L501.2450 #### [facility] [address] [place], [address] MCH (RBC) [Entitic mass] 29.4 pg Normal 27.0-32.0 [facility] Comment on above: Performed By: #### L 100.0100, L500.3400, L501.2450 #### [facility] [address] [place], [address] MCHC (RBC) [Mass/Vol] 32.9 g/dL Normal 32-36 [facility] Comment on above: Performed By: #### L 100.0100, L500.3400, L501.2450 #### [facility] [address] [place], [address] MCV (RBC) [Entitic vol] 89.4 fL Normal 81-99 [facility] Comment on above: Performed By: #### L 100.0100, L500.3400, L501.2450 #### [facility] [address] [place], [address] Monocytes/100 WBC (Bld) 8.7 % Normal 0-10 [facility] Comment on above: Performed By: #### L 100.0100, L500.3400, L501.2450 #### [facility] [address] [place], [address] Neutrophils/100 WBC (Bld) 81.2 % High 47-70 [facility] Comment on above: Performed By: #### L 100.0100, L500.3400, L501.2450 #### [facility] [address] [place], [address] Nucleated RBC (Bld) [#/Vol] 0 10*3/uL Normal 0-5 [facility] Comment on above: Performed By: #### L 100.0100, L500.3400, L501.2450 #### [facility] [address] [place], [address] Platelet mean volume (Bld) [Entitic vol] 9.0 fL Normal 6.2-12.0 [facility] Comment on above: Performed By: #### L 100.0100, L500.3400, L501.2450 #### [facility] [address] [place], [address] Platelets (Bld) [#/Vol] 261 10*3/uL Normal 150-450 [facility] Comment on above: Performed By: #### L 100.0100, L500.3400, L501.2450 #### [facility] [address] [place], [address] RBC (Bld) [#/Vol] 4.42 10*6/uL Normal 4.2-5.4 [facility] Comment on above: Performed By: #### L 100.0100, L500.3400, L501.2450 #### [facility] [address] [place], [address] RDW SD 45.5 fl High 35.1-43.9 [facility] Comment on above: Performed By: #### L 100.0100, L500.3400, L501.2450 #### [facility] [address] [place], [address] WBC (Bld) [#/Vol] 9.7 10*3/uL Normal 4.4-11.0 [facility] Comment on above: Performed By: #### L 100.0100, L500.3400, L501.2450 #### [facility] [address] [place], [address] Carbon dioxide, total [Moles /volume] in Central venous bloodOrdered By: Tj Bryant on 09-05-2024 CO2 [Moles/Vol] 19.6 mmol/L Low 21.0-32.0 [facility] Chloride assayOrdered By: Ug o Bryant on 09-05-2024 Chloride [Moles/Vol] 106 mmol/L 98-108 [facility] Emergency Department Summary on 09-05-2024 Emergency Department Summary [facility] Medical Records Department [address] [place] [address] Emergency Department Summary 09/05/24 MR#: [id number] Acct: [id number] Name: CHAIM DANIELLE Rep #: [id number] : 1950 73 From: Tj Bryant MD PCP: Dr. Russell Hill MD Status:REG ER Location: ED HPI History of Present Illness Chief Complaint: Other, Pain/Inj Detail of Chief Complaint: Right upper quadrant pain with intermittent radiation to the back Informant: patient and spouse/S.O. Onset/Context/Timing Onset: Yesterday and - (A couple times this past week prior to the pain becoming constant) Context: Sudden Onset Timing: Continuous and Waxes and wanes Quality: Colicky Location: Right upper quadrant Current Severity: Mild Maximum Severity: Moderate Worsened by: Nothing specific Relieved by: Nothing Associated Symptoms Associated Symptoms: Nausea Narrative Narrative: Patient is a healthy 73-year-old woman who is on no medication presently who presents with right upper quadrant pain that intermittently radiates to the back. This past week while having a donut and after having something rich she experienced right upper quadrant pain. She did not present at that time because it went away. This has not gone away. She had fried fish yesterday. She has not eaten since last night. She reported 1 episode of diarrhea. She not noticed any blood or mucus. Mother had emergent cholecystectomy per patient. There is no history personally or in the family of ureteral or renal lithiasis. She denies dysuria, frequency, urgency or hematuria. She denies cardiac or respiratory symptoms. There is no history of trauma. She has not noted a rash. Prior similar symptoms: No Recent Illness/Hospitalizatio n: No PFSH PFSH Medical History (Updated 09/05/24 @ 15:[address] Tj Bryant MD) FH: total abdominal hysterectomy and bilateral salpingo-oophorectomy Encounter for screening for COVID-19 Acute bronchitis, unspecified URI (upper respiratory infection) Home Medications ???Medication ???Instructions ???Recorded ???Last Taken ???Type NK 09/05/24 Unknown History Allergy/AdvReac Type Severity Reaction Status Date / Time No Known Allergies Allergy Verified 09/05/24 15:45 Family History Other Cancer Social History (Updated 09/05/24 @ 15:[address] Tj Bryant MD) household members: spouse Smoking Status: Never smoker alcohol intake: current alcohol intake frequency: holidays/special occasions only Alcohol type: beer ROS ROS ED Constitutional Constitutional ED: Denies chills, fever(s), subjective or sweats Eyes Eyes: Denies change in vision Cardiovascular Cardiovascular: Denies chest pain, orthopnea, palpitations or paroxysmal nocturnal dyspnea Respiratory/Chest Respiratory/Chest: Denies cough, dyspnea, dyspnea on exertion, orthopnea or paroxysmal nocturnal dyspnea Gastrointestinal Gastrointestinal: Reports abdominal pain, diarrhea and nausea; Denies constipation, melena or vomiting Genitourinary Genitourinary ED: Denies dysuria, hematuria or urinary frequency Musculoskeletal Musculoskeletal: Reports back pain; Denies arthralgias or myalgias Integumentary Denies rash Neurologic Neurologic: Denies weakness Psychiatric Psychiatric: Denies anxiety or depression Endocrine Endocrinology: Denies cold intolerance or heat intolerance Hematologic/Lymphatic Hematologic/Lymphatic: Reports systems reviewed and no addt'l complaints, except as documented EXAM Physical Exam Const Vital Signs: 09/05/24 15:45 09/05/24 15:49 Temperature 97.9 F Temperature Source Temporal Pulse Rate 62 Respiratory Rate 18 Respiratory Effort Normal Respiratory Pattern Normal Blood Pressure 155/82 H Blood Pressure Mean 106 Pulse Ox 96 Oxygen Delivery Method Room Air Positive well nourished and well developed Constitutional Narrative: Patient appears uncomfortable. General Appearance ED: well developed; Negative for pallor HEENT HEENT Narrative: Head is atraumatic normocephalic. Ears normal. Nares patent. Eyes PERRL and EOMs intact bilaterally General Eye ED: Negative for pale conjunctiva or scleral icterus Neck no lymphadenopathy, supple and no JVD Chest Wall inspection of chest normal and palpation of chest normal Resp normal respiratory effort and clear to auscultation bilaterally Cardio regular rate, regular rhythm, S1 normal heart sound, S2 normal heart sound and no murmurs GI non-distended and no masses; Negative for non-tender or hepatosplenomegaly Inspection: Negative for abdominal distention Auscultation: hypoactive bowel sounds Palpation: soft, tender RUQ and Yeh's sign and guarding RUQ; Negative for splenomegaly or mass Back/Spine no CVA tenderness (more content not included)... Normal [facility] Eosinophil percentageOrdered By: Tj Bryant on 09-05-2024 Eosinophils/100 WBC (Bld) 1.0 % 0-5 [facility] Erythrocyte distribution wid th ratioOrdered By: Tj Bryant on 09-05-2024 Erythrocyte distribution width (RBC) [Ratio] 13.8 % 11.6-14.6 [facility] Erythrocyte distribution wid th standard deviationOrdered By: Tj Bryant on 09-05-2024 Erythrocyte distribution width (RBC) [Ratio] 45.5 fl High 35.1-43.9 [facility] Gallbladderon 09-05-2024 Gallbladder [facility] [address] [place], [place] [address] Gallbladder MR#: [id number] Acct: [id number] Name: CHAIM DANIELLE Rep #: [id number] : 1950 F 73 From: Tadeo Díaz MD PCP: Dr. Russell Hill MD Status: [facility] Study: Gallbladder Date of Exam: 09/05/24 Exam# [id number] Ordering Dr: Tj Bryant MD PROCEDURE: GALLBLADDER 09/05/2024 REASON FOR EXAM: PAIN FINDINGS: Liver: Grossly normal size and echotexture. Gallbladder: Multiple echogenic gallstones are identified. Common bile duct: Common bile duct stones are identified with the duct measuring up to 10 mm. Pancreas: Visualized portions are sonographically unremarkable. Other: US/Gallbladder IMPRESSION: Cholelithiasis with choledocholithiasis. Reading Location: [id number] CC: Dr. Russell Hill MD; Dr. Tj Bryant MD Exploration Geologist: Signed Normal [facility] Glomerular filtration rate ( GFR) estimation/1.73 sq m using serum, plasma, or whole bOrdered By: Tj Bryant on 09-05-2024 GFR/1.73 sq M.predicted among non-blacks MDRD (S/P/Bld) [Vol rate/Area] 55 mL/min/{1.73_m2} Low >60 [facility] Comment on above: mL/min/1.73m2 CKD-EP I Creatinine Equation (2020) Hematocrit Auto (Bld) [Volum e fraction]Ordered By: Tj Bryant on 04-26-2025 Hematocrit (Bld) [Volume fraction] 39.5 % 37-47 [facility] Hemoglobin measurementOrdere d By: Tj Bryant on 09-05-2024 Hemoglobin (Bld) [Mass/Vol] 13.0 g/dL 12.0-15.0 [facility] Immature granulocytes/100 WB C Auto (Bld)Ordered By: Tjariadne Bryant on 09-05-2024 Immature granulocytes/100 WBC (Bld) 0.500 % 0.0-0.9 [facility] Comment on above: IG% - Immature Granu locytes (promyelocytes, myelocytes and metamyelocytes) > 1% indicates that a LEFT SHIFT is Present. Laboratory - Chemistry and C hemistry - challengeOrdered By: Tjariadne Bryant on 09-05-2024 AST [Catalytic activity/Vol] 428 U/L High <32 [facility] Lipaseon 09-05-2024 Lipase [Catalytic activity/Vol] 62 U/L Normal 13-75 [facility] Comment on above: Result Comment: Gaby crystal note: LIPASE revised reference range effective 22. New Lipase methodology. Expected to produce lower values than the previous assay method. NEW Reference Range: 13 - 75 U/L Performed By: #### L 100.0100, L500.3400, L501.2450 #### [facility] Laboratory [address] [place], [address] Lipase measurementOrdered By : Tjariadne Bryant on 09-05-2024 Lipase [Catalytic activity/Vol] 62 U/L 13-75 [facility] Comment on above: Please note:LIPASE r evised reference range effective 22. New Lipase methodology. Expected to produce lower values than the previous assay method. NEW Reference Range: 13 - 75 U/L Liver Profileon 09-05-2024 Albumin [Mass/Vol] 4.3 g/dL Normal 3.4-4.8 [facility] Comment on above: Performed By: #### L 100.0100, L500.3400, L501.2450 #### [facility] Laboratory [address] [place], [address] ALK PHOS 305 U/L High 35-104 [facility] Comment on above: Performed By: #### L 100.0100, L500.3400, L501.2450 #### [facility] Laboratory [address] [place], [address] ALT [Catalytic activity/Vol] 424 U/L High <=34 [facility] Comment on above: Performed By: #### L 100.0100, L500.3400, L501.2450 #### [facility] Laboratory [address] [place], [address] AST [Catalytic activity/Vol] 428 U/L High <=31 [facility] Comment on above: Performed By: #### L 100.0100, L500.3400, L501.2450 #### [facility] Laboratory [address] [place], [address] Bilirubin [Mass/Vol] 3.79 mg/dL High 0.00-1.30 [facility] Comment on above: Performed By: #### L 100.0100, L500.3400, L501.2450 #### [facility] Laboratory [address] [place], [address] Bilirubin.direct [Mass/Vol] 2.72 mg/dL High 0.00-0.30 [facility] Comment on above: Performed By: #### L 100.0100, L500.3400, L501.2450 #### [facility] [address] [place], [address] Globulin (S) [Mass/Vol] 2.8 g/dL Normal 2.2-4.2 [facility] Comment on above: Performed By: #### L 100.0100, L500.3400, L501.2450 #### [facility] [address] [place], [address] T PROT 7.1 g/dL Normal 5.9-8.4 [facility] Comment on above: Performed By: #### L 100.0100, L500.3400, L501.2450 #### [facility] Laboratory [place], [address] MCV (mean corpuscular volume ) determinationOrdered By: [facility] MCV (RBC) [Entitic vol] 89.4 fL 81-99 [facility] Mean corpuscular hemoglobin (MCH) determinationOrdered By: [facility] on 09-05-2024 MCH (RBC) [Entitic mass] 29.4 pg 27.0-32.0 [facility] Mean corpuscular hemoglobin concentration (MCHC) determinationOrdered By: [facility] on 09-05-2024 MCHC (RBC) [Mass/Vol] 32.9 g/dL 32-36 [facility] Mean platelet volume determi nationOrdered By: [facility] on 09-05-2024 Platelet mean volume (Bld) [Entitic vol] 9.0 fL 6.2-12.0 [facility] Monocyte percentageOrdered B y: [facility] on 09-05-2024 Monocytes/100 WBC (Bld) 8.7 % 0-10 [facility] Neutrophil percentageOrdered By: [facility] on 09-05-2024 Neutrophils/100 WBC (Bld) 81.2 % High 47-70 [facility] Nucleated red blood cell per centageOrdered By: [facility] on 09-05-2024 Nucleated RBC/100 WBC (Bld) [Ratio] 0 % 0-5 [facility] Platelet countOrdered By: [facility] on 09-05-2024 Platelets (Bld) [#/Vol] 261 10*3/uL 150-450 [facility] Potassium measurement (mass/ volume)Ordered By: [facility] on 09-05-2024 Potassium (Unsp spec) [Mass/Vol] 4.1 mmol/L 3.3-5.1 [facility] [facility] 09-05-2024 Progress Note [facility]VANCED CARE JUNENI MARLO Danielle : 1950 Primary Care Physician: RUSSELL HILL MD The patient and/or family/surrogate voluntarily agreed to participate in ACP services. Patient?s cognitive capacity: yes, patient has capacity Code Status: [x] [FULL CODE - Continue all advanced life support: CPR,intubation,invasiv e procedures] [_] [DNR-CCA - DO NOT do CPR, intubation] [_] [DNR-PACKER INSPECTOR - Comfort care only] [_] DNR form [was/was not] signed Summary of discussion: The patient health care POA/ surrogate is the following: Zane(spouse). Long discussion about patient code status. Patient has living will that says she is DNR but patient has decided to be a full code. She has changed her mind. She says she will update her paperwork when she gets home. I answered all the patient/family questions that I could within the range and scope of the current medical situation. We discussed the medical conditions, risks, benefits, outcomes, and goals of care at this time for the patient's medical issues at hand in the face of the patient's chronic issues and current presentation. Total time spent: 20 minutes were spent discussing the patient's resuscitation status, advance care planning, and end of life care, with patient and/or family/surrogate. Gem Lisa, DO Acute care solutions 09/05/2024, 8:09 PM Normal [facility] RBC Auto (Bld) [#/Vol]Ordere d By: Tj Bryant on 09-05-2024 RBC (Bld) [#/Vol] 4.42 10*6/uL 4.2-5.4 [facility] Serum creatinine measurement (mass/volume)Ordered By: Tj Bryant on 09-05-2024 Creatinine [Mass/Vol] 1.06 mg/dL 0.70-1.20 [facility] Serum globulin measurementOr dered By: Tj Bryant on 09-05-2024 Globulin (S) [Mass/Vol] 2.8 g/dL 2.2-4.2 [facility] Serum glucose measurement (m ass/volume)Ordered By: Tj Bryant on 09-05-2024 Glucose [Mass/Vol] 104 mg/dL High 70-99 [facility] Serum or plasma alanine sanabria otransferase (ALT) measurementOrdered By: Tj Bryant on 09-05-2024 ALT [Catalytic activity/Vol] 424 U/L High <35 [facility] Serum or plasma albumin yue urement (mass/volume)Ordered By: Tj Bryant on 09-05-2024 Albumin [Mass/Vol] 4.3 g/dL 3.4-4.8 [facility] Serum or plasma alkaline irma sphatase [facility]Ordered [facility]: [facility] 09-[facility] ALP [Catalytic activity/Vol] 305 U/L High 35-104 [facility] Serum or plasma calcium yue urement (mass/volume)Ordered By: Tj Bryant on 09-05-2024 Calcium [Mass/Vol] 9.4 mg/dL 7.6-11.0 [facility] Serum or plasma urea nitroge n measurement (mass/volume)Ordered By: [facility] on 09-05-2024 Urea nitrogen [Mass/Vol] 17 mg/dL 4-19 [facility] Sodium levelOrdered By: [facility] on 09-05-2024 Sodium [Moles/Vol] 140 mmol/L 133-145 [facility] Total proteinOrdered By: [facility] on 09-05-2024 Protein [Mass/Vol] 7.1 g/dL 5.9-8.4 [facility] White blood cell (WBC) count Ordered By: [facility] on 09-05-2024 WBC (Bld) [#/Vol] 9.7 10*3/uL 4.4-11.0 [facility] Dexa Bone Density Studyon Dexa Bone Density Study [facility] Imaging Services [address] [place] [id number] Dexa Bone Density Study MR#: [id number] Acct: [id number] Name: CHAIM DANIELLE Rep #: [id number] : 1950 F 73 From: David cruz MD PCP: Dr. Russell Hill MD Status: [facility] Study: Dexa Bone Density Study Date of Exam: 04/08/24 Exam# [id number] Ordering Dr: Breann,Hanna NURSE LDR NURSE LDR-C [id number] STUDY: DUAL ENERGY X-RAY ABSORPTIOMETRY / DXA REASON FOR EXAM: Female, 73 years old. [id number] TECHNIQUE: Bone Mineral Density (BMD) measurements of lumbar spine and bilateral hips were obtained. COMPARISON: None. FINDINGS: Lumbar Spine (L1-L4): g/cm2 (0.904) / T-score (-1.3) / Z-score (1.1) Findings are suggestive of osteopenia with a low fracture risk. Left Femur Total: g/cm2 (0.659) / T-score (-2.3) / Z-score (-0.6) Left Femoral Neck: g/cm2 (0.602) / T-score (-2.2) / Z-score (-0.2) Right Femur Total: g/cm2 (0.673) / T-score (-2.2) / Z-score (-0.5) Right Femoral Neck: g/cm2 (0.584) / T-score (-2.4) / Z-score (-0.4) BD/Dexa Bone Density Study IMPRESSION: The patient is considered osteopenic as outlined below according to World Chris Organization (WHO) criteria with a high fracture risk. Reference Information: The T-score is the number of standard deviations above or below the standard which is normal for young adults at their peak bone mineral density. The World Health Organization (WHO) interprets the T-scores as follows: Above -1 Normal bone density Between -1 and -2.5 Osteopenia Equal to / or below -2.5 Osteoporosis As a practical clinical guideline, osteopenia may be graded as follows: Mild -1 through -1.5 Moderate -1.6 through -2.0 Severe -2.1 through -2.4 The Z-score is the number of standard deviations above or below age-matched controls. A Z-score of less than -1.5 would be considered abnormal. References: 1. NIH Osteoporosis and Related Bone Diseases www osteo.org 2. International Society for Clinical Densitometry www iscd.org 3. National Osteoporosis Foundation www nof.org Electronically Signed: David Coates MD at 13:01 EST Reading Location ID and State: [facility] / [place] , Service support , CC: EMILIA Crain; Dr. Russell Hill MD Exploration Geologist: Signed Normal [facility] SCREENING MAMM (CAD), [facility] n 04-08-2024 SCREENING MAMM (CAD), [facility] Imaging Services [address] [place] [address] [id number] SCREENING MAMM (CAD), [facility] MR#: [id number] Acct: [id number] Name: CHAIM DANIELLE Rep #: [id number] : 1950 F 73 From: Rj Mckeon MD PCP: Dr. Russell Hill MD Status: [facility] Study: SCREENING MAMM (CAD), [facility] Date of Exam: 03/14 12/03 Exam# [id number] Ordering Dr: Hanna Crain NP NURSE LDR-Sherin [id number] MAMMOGRAPHY - BILATERAL SCREENING 3-D TOMOSYNTHESIS REASON FOR EXAM: Female, 73 years old. Routine screening PERTINENT HISTORY: Sister with breast cancer.. TECHNIQUE: 2-D mammograms and 3-D Tomosynthesis of the breast (s) were performed. CAD was performed. COMPARISON: 11/09/2021 FINDINGS: The breast composition is heterogeneously dense that can obscure small breast masses. Scattered benign calcifications are seen. No dense spiculated masses or suspicious microcalcifications are identified. No architectural distortion is identified. There is no skin thickening or retraction. There has been no significant change since the prior study. BI/SCREENING MAMM (CAD), BILAT IMPRESSION: No mammographic signs of malignancy. Routine yearly mammograms recommended. ASSESSMENT CATEGORY: BIRADS Category 1: Negative. A letter regarding these results will be sent to the patient by the facility within 30 days. FOLLOW UP RECOMMENDATION: Yearly follow up mammogram recommended. (A) Approximately 10% of breast cancers are not detected by mammography. A normal mammogram should not delay biopsy of a clinically suspicious abnormality. Electronically Signed: Jerod Mckeon MD at 15:42 EST , CC: EMILIA Crain; Dr. Russell Hill MD Exploration Geologist: Signed Normal [facility] Vital Signs Date Time Vital Sign Value Performing Clinician Facility 10-22-2024 09:05-0400 Diastolic blood pressure 77 mm[Hg] Cristian Ruiz MD Work Phone: [facility] 10-22-2024 09:05-0400 Heart rate 56 /min rCistian Ruiz MD Work Phone: [facility] 10-22-2024 09:05-0400 Respiratory rate 16 /min Cristian Ruiz MD Work Phone: [facility] 10-22-2024 09:05-0400 SaO2% (BldA) [Mass fraction] 99 % Cristian Ruiz MD Work Phone: [facility] 10-22-2024 09:05-0400 Systolic blood pressure 148 mm[Hg] Cristian Ruiz MD Work Phone: [facility] 10-22-2024 07:45-0400 Body height 157.5 cm Cristian Ruiz MD Work Phone: [facility] 10-22-2024 07:45-0400 Body mass index (BMI) [Ratio] 24.14 kg/m2 Cristian Ruiz MD Work Phone: [facility] 10-22-2024 07:45-0400 Body temperature 97.81 [degF] Cristian Ruiz MD Work Phone: [facility] 10-22-2024 07:45-0400 Body weight 59.88 kg Cristian Ruiz MD Work Phone: [facility] 09-13-2024 04:05-0400 SaO2% (BldA) [Mass fraction] 92 % Abdirizak Cruz MD Work Phone: [facility] 09-13-2024 04:04-0400 Body temperature 97.39 [degF] Abdirizak Cruz MD Work Phone: [facility] 09-13-2024 04:04-0400 Diastolic blood pressure 64 mm[Hg] Abdirizak Cruz MD Work Phone: [facility] 09-13-2024 04:04-0400 Heart rate 60 /min Abdirizak Cruz MD Work Phone: [facility] 09-13-2024 04:04-0400 Respiratory rate 17 /min Abdirizak Cruz MD Work Phone: [facility] 09-13-2024 04:04-0400 Systolic blood pressure 130 mm[Hg] Abdirizak Cruz MD Work Phone: [facility] 09-07-2024 10:01-0400 Body height 167.6 cm Abdirizak Cruz MD Work Phone: [facility] 09-07-2024 10:01-0400 Body mass index (BMI) [Ratio] 21.95 kg/m2 Abdirizak Cruz MD Work Phone: [facility] 09-07-2024 10:01-0400 Body weight 61.69 kg Abdirizak Cruz MD Work Phone: [facility] 09-05-2024 18:30-0400 Body temperature 98.6 [degF] Dr. Russell Hill MD Work Phone: [facility] 09-05-2024 18:30-0400 Diastolic blood pressure 77 mm[Hg] Dr. Russell Hill MD Work Phone: [facility] 09-05-2024 18:30-0400 Heart rate 50 /min Dr. Russell Hill MD Work Phone: [facility] 09-05-2024 18:30-0400 Respiratory rate 16 /min Dr. Russell Hill MD Work Phone: [facility] 09-05-2024 18:30-0400 SaO2% (BldA) [Mass fraction] 97 % Dr. Russell Hill MD Work Phone: [facility] 09-05-2024 18:30-0400 Systolic blood pressure 138 mm[Hg] Dr. Russell Hill MD Work Phone: [facility] 09-05-2024 15:45-0400 Body height 167.[address] Russell Hill MD Work Phone: [facility] 09-05-2024 15:45-0400 Body mass index (BMI) [Ratio] 22 kg/m2 Dr. Russell Hill MD Work Phone: [facility] 09-05-2024 15:45-0400 Body weight 61.[address] Russell Hill MD Work Phone: [facility] Encounters Encounter Date Encounter Type Care Provider Facility Start: 10-22-2024 End: 10-22-2024 ambulatory [facility] Start: 10-22-2024 End: 10-22-2024 Subsequent hospital visit by physician Cristian Ruiz MD Work Phone: [facility] Start: 09-18-2024 End: 09-18-[address] Russell Hill MD Work Phone: [facility] Work Phone: Start: 09-18-2024 End: 09-18-[address] Russell Hill MD -Laboratory [facility] Start: 09-18-2024 End: 09-18-2024 ambulatory Russell Hill Facility:[facility] Start: 09-13-2024 End: 09-14-2024 Telephone encounter Romina Anderson APRN - V GRO[employer] CUTTER Work Phone: [facility] Gastroenterology [facility] Comment on above: Care Coordination Start: 09-05-2024 End: 09-13-2024 Evaluation and management of inpatient Abdirizak Cruz MD Work Phone: [facility] Medical Surgical Unit [facility] H5 Comment on above: Choledocholithiasis (Primary Dx) Start: 09-05-2024 End: 09-05-2024 Emergency department patient visit Dr. Tj Bryant MD -Emergency Department Work Phone: Start: 09-05-2024 End: 09-07-2024 Telephone encounter Cristian Ruiz MD Work Phone: [facility] Comment on above: Consult Start: 04-08-2024 End: 04-08-2024 ambulatory [facility] Facility:[facility] Start: 12-10-2022 End: 12-10-2022 ambulatory [facility] Work Phone: Start: 12-10-2022 End: 12-10-2022 Discharged Recurring [facility]-Nutritional Services Work Phone: Start: 11-09-2021 End: 11-09-2021 Patient encounter procedure [facility]-Outpatient Breast Imaging Procedures Date Procedure Procedure Detail Performing Clinician Start: 09-18-2024 Flow cytometry cell surf marker techl only 1st Dr. Russell Hill MD Work Phone: Start: 09-13-2024 Basic metabolic pane l calcium total Ellis Olmstead MD Work Phone: Start: 09-13-2024 C-reactive protein Anabella Campbell HISTORY CARD CLERK - [employer]TER Work Phone: Start: 09-12-2024 C-reactive protein Anabella Campbell HISTORY CARD CLERK - [employer] Work Phone: Start: 09-12-2024 Comprehensive metabo lic panel Roxane Bailey MD Work Phone: Start: 09-11-2024 C-reactive protein Anabella Campbell HISTORY CARD CLERK - [employer]TER Work Phone: Start: 09-11-2024 Comprehensive metabo lic panel Roxane Bailey MD Work Phone: Start: 09-10-2024 Comprehensive metabo lic panel Roxane Bailey MD Work Phone: Start: 09-09-2024 Ct abdomen & pelvis w/o contrast material Sonia Florina LAUGHLIN Work Phone: Start: 09-09-2024 Radiologic exam abdo men 1 view Sonia Heaton PA-C Work Phone: Start: 09-09-2024 Assay of lipase Sonia Heaton PA-C Work Phone: Start: 09-09-2024 Comprehensive metabo lic panel Masoud Dowell MD Work Phone: Start: 09-08-2024 Level iii surg patho logy gross&microscopic exam Maycol Ngo MD Work Phone: Start: 09-08-2024 End: 09-08-2024 Laparoscopic cholecystectomy Maycol Ngo MD Work Phone: Start: 09-08-2024 End: 09-08-2024 Basic metabolic panel calcium total Masoud Dowell MD Work Phone: Start: 09-07-2024 Ecg routine ecg w/le ast 12 lds trcg only w/o i&r Ricarda Gavin MD Work Phone: Start: 09-07-2024 End: 09-07-2024 Cmbn ndsc cathj biliary&pncrtc ductal sys rs&i Cristian Ruiz MD Work Phone: Start: 09-07-2024 Level iv surg pathol ogy gross&microscopic exam Cristian Ruiz MD Work Phone: Start: 09-07-2024 Basic metabolic pane l calcium total Masoud Dowell MD Work Phone: Start: 09-06-2024 Mri abdomen w/o cont rast material Gem Lisa DO Work Phone: Start: 09-06-2024 Ecg routine ecg w/le ast 12 lds trcg only w/o i&r Gem Lisa DO Work Phone: Start: 09-06-2024 Antibody screen [facility] Comment on above: Performed By: #### L [id number] ####Country Printer Apprentice: ERIN MYRICK ([phone])[facility] (ACH)[address] Start: 09-06-2024 ABO and Rh group [Ty pe] in Blood by Confirmatory method Vinayak Spencer MD Work Phone: Start: 09-06-2024 Blood typing serologic abo Vinayak Spencer MD Work Phone: Start: 09-06-2024 Basic metabolic pane l calcium total Gem Lisa [employer] Work Phone: Start: 09-05-[address] Russell Hill MD Work Phone: Start: 09-05-2024 US scan of gallbladder Dr. Russell Hill MD Work Phone: Start: 11-09-2021 End: 11-09-2021 Screening mammography Plan of Treatment Date Care Activity Detail Author Start: 05-15-2031 DTaP/Tdap/Td Vaccines (2 - Td or Tdap) DTaP/Tdap/Td Vaccines (2 - Td or Tdap) [facility] Start: 01-11-2025 Influenza vaccination Influenza Vaccine (Season Ended) [facility] Start: 2024 RSV Immunization for Adults (1 - 1-dose 75+ series) RSV Immunization for Adults (1 - 1-dose 75+ series) [facility] Start: 10-22-2024 End: 10-22-2024 Admission to same day surgery center 10/22/2024 8:30 AM EDT - 10/22/2024 9:00 AM EDT Surgery [facility] Endoscopy [address] [place] [id number] Cristian Ruiz MD [address] [place] [address] ESOPHAGOGASTRODUODENOSCOPY , DIAGNOSTIC WITH STENT REMOVAL [90195 (CPT )] [facility] Endoscopy Comment on above: ESOPHAGOGASTRODUODENOSCOPY, DIAGNOSTIC W ITH STENT REMOVAL [14649 (CPT )] Start: 10-22-2024 End: 10-22-2024 Egd flexible foreign body removal ESOPHAGOGASTRODUODENOSCOPY , DIAGNOSTIC Choledocholithiasis 10/22/2024 8:30 AM EDT [facility] Gastroenterology Start: 10-22-2024 Subsequent hospital visit by physician 10/22/2024 8:30 AM EDT Hospital Encounter [facility] [address] [place] [address] Cristian Ruiz MD [address] [place] [address] [address] [place] [address] [facility] Endoscopy Start: 09-08-2024 End: 09-08-2024 Laparoscopic cholecystectomy LAPAROSCOPIC, CHOLECYSTECTOMY Choledocholithiasis 09/08/2024 7:30 AM EDT [facility] Start: 09-05-2024 [facility] Start: 09-05-2024 [facility] Start: 05-13-2024 Medicare Advantage Annual Wellness Visit Medicare Advantage Annual Wellness Visit [facility] Start: 01-12-2024 COVID-19 Vaccine ( season) COVID-19 Vaccine ( season) [facility] Start: 11-09-2022 Screening for malignant neoplasm of breast Mammogram [facility] Start: 12-24-1999 Zoster Vaccines (1 of 2) Zoster Vaccines (1 of 2) [facility] Start: 12-24-1967 Hepatitis C screening Hepatitis C Screening [facility] Start: 1961 Depression Screening Depression Screening [facility] Start: 1950 Screening for malignant neoplasm of colon [facility] Start: 1950 Screening for osteoporosis Bone Density Scan [facility] End: 09-06-2024 ECG 12 lead ECG 12 lead CV ECG Routine Once for 1 Occurrences starting 09/06/2024 until 09/06/2024 [facility] Work Phone: Comment on above: Once for 1 Occurrences starting 09/07/19 until 09/06/2024 End: 09-06-2024 Fungus identified in Unspecified specimen by Culture Fungal culture Microbiology STAT STAT (Lab) for 1 Occurrences starting 09/06/2024 until 09/06/2024 [facility] Comment on above: STAT (Lab) for 1 Occurrences starting until 09/06/2024 [facility] Work Phone: End: 09-06-2024 Tissue exam Tissue exam Pathology and Cytology STAT Once (Lab) for 1 Occurrences starting 09/06/2024 until 09/06/2024 [employer] Work Phone: Comment on above: Once (Lab) for 1 Occurrences starting until 09/06/2024 Immunizations Immunization Date Immunization Notes Care Provider Fa cility 03-10-2021 influenza virus vacc ine, unspecified formulation Cristian Ruiz MD Work Phone: [facility] Payers Date Payer Category Payer Medicare HMO [employer] [id number] 2024 Unknown [id number] 2024 Self-pay [id number] 2024 Private Health Insurance [id number] Medicare [id number] Self-pay [id number] Unknown [id number] Unknown [id number] Unknown [id number] Unknown [id number] Social History Date Type Detail Facility Start: 01-13-2021 Tobacco smoking stat us PRIS Unknown if ever smoked [facility] Start: 1950 Sex Assigned At Female [facility] Start: 09-05-2024 End: 09-05-2024 Tobacco smoking status NHIS Never smoked tobacco [facility] Start: 09-05-2024 Tobacco use and exposure Smokeless tobacco non-user [facility] Start: 09-05-2024 End: 09-09-2024 Alcoholic beverage intake Current drinker of alcohol (finding) [facility] Start: 09-05-2024 End: 09-06-2024 Alcoholic beverage intake [facility] Start: 09-06-2024 End: 10-22-2024 [id number] Health Literacy [facility] How often do you nee d to have someone help you when you read instructions, pamphlets, or other written material from your doctor or pharmacy [SILS] Never [facility] Has the [employer], [employer], or [employer] threatened to shut off services in your home in past 12Mo No [facility] Are you now , , , , never or living with a partner? [facility] How often to you hav e a drink containing alcohol? 2-4 times a month [facility] How many standard drinks containing alcohol do you have on a typical day? 1 or 2 [facility] How often do you hav e 6 or more drinks on 1 occasion? Never [facility] Do you feel stress - tense, restless, nervous, or anxious, or unable to sleep at night because your mind is troubled all the time - these days [OSQ] Not at all [facility] (I/We) worried tahira er (my/our) food would run out before (I/we) got money to buy more. Never true [facility] Start: 09-05-2024 Alcohol Comment occasionally with di sebastian [facility] Start: 1950 Sex assigned at Not on file [facility] Start: 12-11-2021 Sex Female (finding) [facility] Medical Equipment Procedure Code Equipment Code Equipment Origin al Text Equipment Identifier Dates Stent Wiley 7f 9cm Advveronikax - [id number] - [id number] FDA Start: 09-07-2024 Mental Status Date Assessment Result Facility 09-05-2024 Cognitive function Level Of Cons ciousness Awake;Alert;Appropriate;Follow s Commands [facility] Work Phone: Clinical Notes 09-05-2024 to 10-22-2024 Telephone Encounter - Lorena Faith RN - 10/22/2024 12:47 PM EDTTelephone Encounter - Lorena Faith RN - 10/22/2024 12:47 PM EDNathan Ruiz MD - 10/22/2024 8:26 AM EDT Note Date & Type Note Facility 10-22-2024 Telephone encounter Note EGD w stent removal completed today. Pt recommended to follow up w referring physician and/or PCP. No further action needed at this time. Advanced endo list updated. [facility] 10-22-2024 Miscellaneous Notes EGD w stent removal completed today. Pt recommended to follow up w referring physician and/or PCP. No further action needed at this time. Advanced endo list updated. Dr. Cristian Ruiz EGD EUS/ERCP/EMR Date: 10/22/24 Arrival time: 7:30am Please report to: [facility] Main Entrance ([facility]) Luis Baird [place] [address] [place] [address] (Go to the registration desk on the ground floor of the -[place]) Spoke with pt, confirmed they will attend scheduled procedure. All questions or concerns addressed. Prep instructions sent via [employer] if active. Patient called in to get scheduled. Patient now scheduled on 10/22/24 @ 8:30am with the arrival time of 7:30am with Dr. Ruiz at [address] [place] [address]. EPIC schedule updated Order submitted Open Case request submitted Case # [id number] Endo packet mailed to patient Prep sent via [employer] if pt acct active Pt is aware they will need a haul driver to take them home from procedure. Must be family member or friend. They cannot use any ride programs. Ex: Uber, Lyft, SCAT, bus, etc...) Lmtcb to discuss EGD w stent removal. Sent [employer] message. Called and spoke with patient's . Zane was not able to help me schedule the EGD w stent removal. Stated that patient doesn't feel like coming to the doctor again. I offered her 10/19. Zane will have to discuss it with patient and let us know. Lmtcb to get scheduled for EGD with stent removal. Lmtcb to get scheduled for an EGD w stent removal. Noted. Advanced endo list updated. GI staff to contact pt for scheduling of EGD w stent removal. Holding 10/19/24. Patient discharged today; Had ERCP with stent placement 09/07/[address] Perkins- post ERCP pancreatitis. Needs EGD with stent removal scheduled in 6-10 weeks from procedure. TY documented in this encounter [facility] 10-22-2024 Note Patient: Chaim Duff arpenter Procedure Summary Date: 10/22/24 Room / Location: [facility] ENDO 8 / [facility] Gastroenterology Anesthesia Start: 829 Anesthesia Stop: 844 Procedure: ESOPHAGOGASTRODUODENOSCOPY, DIAGNOSTIC WITH STENT REMOVAL (Abdomen) Diagnosis: Choledocholithiasis Providers: Cristian Ruiz MD Responsible Provider: Shahbaz Cortez MD Anesthesia Type: TIVA ASA Status: 2 Anesthesia Type: TIVA Vitals Value Taken Time BP 118/95 10/22/24 08:51 Temp 97.2 10/22/24 08:55 Pulse 58 10/22/24 08:51 Resp 16 10/22/24 08:51 SpO2 100 % 10/22/24 08:51 Anesthesia Post Evaluation Patient location during evaluation: PACU Patient participation: complete - patient participated Level of consciousness: awake and alert Pain management: satisfactory to patient Airway patency: patent Dental Injury: no Cardiovascular status: acceptable, blood pressure returned to baseline and hemodynamically stable Respiratory status: acceptable and spontaneous ventilation Hydration status: euvolemic Nausea/Vomiting: controlled There were no known notable events for this encounter. Patient can be discharged once all PACU criteria has been met. [facility] 10-22-2024 Note Patient: Chaim Duff arpenter Procedure Summary Date: 10/22/24 Room / Location: [facility] ENDO 8 / [facility] Gastroenterology Anesthesia Start: 829 Anesthesia Stop: 844 Procedure: ESOPHAGOGASTRODUODENOSCOPY, DIAGNOSTIC WITH STENT REMOVAL (Abdomen) Diagnosis: Choledocholithiasis Providers: Cristian Ruiz MD Responsible Provider: Shahbaz Cortez MD Anesthesia Type: TIVA ASA Status: 2 Anesthesia Type: TIVA Vitals Value Taken Time BP 118/95 10/22/24 08:51 Temp 97.2 10/22/24 08:54 Pulse 58 10/22/24 08:51 Resp 16 10/22/24 08:51 SpO2 100 % 10/22/24 08:51 Anesthesia Post Evaluation Patient participation: complete - patient participated Level of consciousness: alert and awake Pain management: satisfactory to patient Multimodal analgesia pain management approach Airway patency: patent Two or more strategies used to mitigate risk of obstructive sleep apnea Respiratory status: acceptable Cardiovascular status: acceptable Hydration status: acceptable There were no known notable events for this encounter. MIPS #430 PONV Patient did not receive an inhalational anesthetic (XX430) MIPS # 424 Perioperative Temperature Management Anesthesia time was less than 60 minutes (4256F) MIPS #477 Multimodal Pain Management Not emergent case Patient was not administered multimodal pain management (G2149) Patient reports no pain in PACU (G2149) MIPS #404 Anesthesiology Smoking Abstinence The patient is not a current smoker (e.g. cigarette, cigar, pipe, e-cigarette/vaping/marijuana) If no stop here (XX404) I completed my handoff to the receiving clinician during which we: 1. Identified the patient 2. Identified the responsible provider 3. Reviewed the pertinent medical history 4. Discussed the surgical course 5. Reviewed intra-op anesthesia management and issues during anesthesia 6. Set expectations for post-procedure period 7. Allowed opportunity for questions and acknowledgement of understanding. [facility] 10-22-2024 History and physical note GASTROENTEROLOGY PHYSICIAN PRE PROCEDURE NOTE HPI: Chaim Danielle is a 73 y.o. female who is here today for planned endoscopic examination. See office or consult note for details. All: Patient has no known allergies. Meds: Current Medications[1] PMH: Medical History[2] No reactions to anesthesia in the past. Airway patent PE: VS: BP (!) 155/84 Pulse 53 Temp 36.6 C (97.8 F) (Temporal) Resp 16 Ht 1.575 m (5' 2) Wt 59.9 kg (132 lb) LMP (LMP Unknown) SpO2 99% BMI 24.14 kg/m Body mass index is 24.14 kg/m . General: Patient in no distress Abdomen: soft and tender ASA score : [] 1 [] 2 [x] 3 ASSESSMENT & PLAN: [x] EGD with biopsy or other interventions including dilation with removal of stent . Risks & benefits of the endoscopic procedure(s) and MAC /GA sedation were personally explained to patient / family along with alternatives to the procedure in detail including radiological and surgical options. The risks of the endoscopic procedure include but are not limited to risk from anesthesia, cardio- respiratory failure, infection, bleeding, perforation, pancreatitis with its sequelae , ARDS, multi-organ failure, damage to the adjacent organs, missed lesions and need for further procedure, surgery or interventional radiological intervention, from procedure or complications. We made a shared decision to proceed with planned procedure. [facility] [1] No current facility-administered medications for this encounter. [2] History reviewed. No pertinent past medical history. Media Work Phone: 10-22-2024 Note GASTROENTEROLOGY DONATO THOMSON PRE PROCEDURE NOTE HPI: Chaim Danielle is a 73 y.o. female who is here today for planned endoscopic examination. See office or consult note for details. All: Patient has no known allergies. Meds: Current Medications[1] PMH: Medical History[2] No reactions to anesthesia in the past. Airway patent PE: VS: BP (!) 155/84 Pulse 53 Temp 36.6 ?C (97.8 ?F) (Temporal) Resp 16 Ht 1.575 m (5' 2) Wt 59.9 kg (132 lb) LMP (LMP Unknown) SpO2 99% BMI 24.14 kg/m? Body mass index is 24.14 kg/m?. General: Patient in no distress Abdomen: soft and tender ASA score : [] 1 [] 2 [x] 3 ASSESSMENT & PLAN: [x] EGD with biopsy or other interventions including dilation with removal of stent . Risks & benefits of the endoscopic procedure(s) and MAC /GA sedation were personally explained to patient / family along with alternatives to the procedure in detail including radiological and surgical options. The risks of the endoscopic procedure include but are not limited to risk from anesthesia, cardio- respiratory failure, infection, bleeding, perforation, pancreatitis with its sequelae , ARDS, multi-organ failure, damage to the adjacent organs, missed lesions and need for further procedure, surgery or interventional radiological intervention, from procedure or complications. We made a shared decision to proceed with planned procedure. [facility] [1] No current facility-administered medications for this encounter. [2] History reviewed. No pertinent past medical history. [facility] 10-22-2024 History and physical note GASTROENTEROLOGY PHYSICIAN PRE PROCEDURE NOTE HPI: Chaim Danielle is a 73 y.o. female who is here today for planned endoscopic examination. See office or consult note for details. All: Patient has no known allergies. Meds: Current Medications[1] PMH: Medical History[2] No reactions to anesthesia in the past. Airway patent PE: VS: BP (!) 155/84 Pulse 53 Temp 36.6 C (97.8 F) (Temporal) Resp 16 Ht 1.575 m (5' 2) Wt 59.9 kg (132 lb) LMP (LMP Unknown) SpO2 99% BMI 24.14 kg/m Body mass index is 24.14 kg/m . General: Patient in no distress Abdomen: soft and tender ASA score : [] 1 [] 2 [x] 3 ASSESSMENT & PLAN: [x] EGD with biopsy or other interventions including dilation with removal of stent . Risks & benefits of the endoscopic procedure(s) and MAC /GA sedation were personally explained to patient / family along with alternatives to the procedure in detail including radiological and surgical options. The risks of the endoscopic procedure include but are not limited to risk from anesthesia, cardio- respiratory failure, infection, bleeding, perforation, pancreatitis with its sequelae , ARDS, multi-organ failure, damage to the adjacent organs, missed lesions and need for further procedure, surgery or interventional radiological intervention, from procedure or complications. We made a shared decision to proceed with planned procedure. [facility] [1] No current facility-administered medications for this encounter. [2] History reviewed. No pertinent past medical history. documented in this encounter [facility] 10-22-2024 Note Patient: Chaim meng Procedure Information Date/Time: 10/22/24 0830 Procedure: ESOPHAGOGASTRODUODENOSCOPY, DIAGNOSTIC WITH STENT REMOVAL (Abdomen) - EGD 30min Location: [facility] ENDO 8 / [facility] Gastroenterology Providers: Cristian Ruiz MD Relevant Problems No relevant active problems Past Medical History: No past medical history on file. Past Surgical History: Past Surgical History: No date: ERCP No date: HYSTERECTOMY Social History: TOBACCO: reports that she has never smoked. She has never used smokeless tobacco. ETOH: reports current alcohol use of about 2.0 standard drinks of alcohol per week. Social History Substance and Sexual Activity Drug Use Never Family History: Family History[1] Screening: Hysterectomy Clinical information reviewed: Tobacco Allergies Meds Med Hx Surg Hx Fam Hx Soc Hx Physical Exam Airway Mallampati: II TM distance: >3 FB Neck ROM: full Mouth Open: normal Cardiovascular - normal exam Dental (+) Poor Pulmonary - normal exam Abdominal - normal exam Anesthesia Plan patient is NPO appropriate Any family history or previous problems with anesthesia no ASA 2 TIVA Any family history or previous problems with anesthesia no The patient is not a current smoker. Anesthetic plan and risks discussed with patient. Use of blood products discussed with who consented to blood products. [facility] Screening Labs: Lab Results Component Value Date WBC 11.3 (H) 09/13/2024 HGB 9.3 (L) 09/13/2024 HCT 28.7 (L) 09/13/2024 MCV 88.3 09/13/2024 PLT 325 09/13/2024 Lab Results Component Value Date NA 138 09/13/2024 K 3.6 09/13/2024 CL 105 09/13/2024 CO2 25 09/13/2024 BUN 9 09/13/2024 CREATININE 0.68 09/13/2024 GLUCOSE 97 09/13/2024 CALCIUM 8.3 (L) 09/13/2024 PROT 5.1 (L) 09/12/2024 ALKPHOS 161 (H) 09/12/2024 AST 28 09/12/2024 ALT 82 (H) 09/12/2024 EGFR >90.0 09/13/2024 No echocardiogram results found for the past 14 days 09/05/24 ECG 12-LEAD 09/08/2024 8:57 AM (Final) Impression Sinus bradycardia Electronically Signed On 09-08-2024 08:57:59 EDT by Sandra Loyola Signed by: Sandra Loyola MD on 09/08/2024 8:57 AM Equipment Requests: Additional Equipment Requests [1] No family history on file. [facility] 10-22-2024 Note [facility] Patient Name: Chaim Danielle Procedure Date: 10/22/2024 7:51 AM Gender: Female Date of : 1950 Age: 73 Admit Type: Outpatient Note Status: Finalized Endoscopist: CRISTIAN Ruiz MD, [id number] Procedure: Upper GI endoscopy Indications: Foreign body in the small bowel Findings: A previously placed plastic stent was seen in the second portion of the duodenum. Stent removal was accomplished with a snare. Impression: - Plastic stent in the duodenum. Removed. Recommendation: - Patient has a contact number available for emergencies. The signs and symptoms of potential delayed complications were discussed with the patient. Return to normal activities tomorrow. Written discharge instructions were provided to the patient. - Follow up in office in 4 weeks. - Continue present medications. - Resume previous diet. - Return to referring physician as previously scheduled. Referring MD: Cristian Ruiz Medicines: Monitored Anesthesia Care Procedure: Pre-Anesthesia Assessment: - Prior to the procedure, a History and Physical was performed, and patient medications and allergies were reviewed. The patient is competent. The risks and benefits of the procedure and the sedation options and risks were discussed with the patient. All questions were answered and informed consent was obtained. Patient identification and proposed procedure were verified by the physician, the nurse and the pediatric critical care nurse in the pre-procedure area in the procedure room. Mental Status Examination: alert and oriented. Airway Examination: normal oropharyngeal airway and neck mobility. CV Examination: normal. Prophylactic Antibiotics: The patient does not require prophylactic antibiotics. Prior Anticoagulants: The patient has taken no anticoagulant or antiplatelet agents. ASA Grade Assessment: III - A patient with severe systemic disease. After reviewing the risks and benefits, the patient was deemed in satisfactory condition to undergo the procedure. The anesthesia plan was to use monitored anesthesia care (MAC). Immediately prior to administration of medications, the patient was re-assessed for adequacy to receive sedatives. The heart rate, respiratory rate, oxygen saturations, blood pressure, adequacy of pulmonary ventilation, and response to care were monitored throughout the procedure. The physical status of the patient was re-assessed after the procedure. - Prior Aspirin/ NSAID therapy: The patient has taken no aspirin or NSAID medications. After obtaining informed consent, the endoscope was passed under direct vision. Throughout the procedure, the patient's blood pressure, pulse, and oxygen saturations were monitored continuously. The Endoscope was introduced through the mouth, and advanced to the second part of duodenum. The upper GI endoscopy was accomplished with ease. The patient tolerated the procedure well. Complications: No immediate complications. Estimated blood loss: None. Procedure Code(s): --- Professional --- 97946, Esophagogastroduodenoscopy, flexible, transoral; with removal of foreign body(s) --- Technical --- 88346, Esophagogastroduodenoscopy, flexible, transoral; with removal of foreign body(s) Diagnosis Code(s): --- Professional --- Z46.59, Encounter for fitting and adjustment of other gastrointestinal appliance and device T18.3XXA, Foreign body in small intestine, initial encounter --- Technical --- Z46.59, Encounter for fitting and adjustment of other gastrointestinal appliance and device T18.3XXA, Foreign body in small intestine, initial encounter CPT copyright 2021 [employer]. All rights reserved. The codes documented in this report are preliminary and upon rn psych review may be revised to meet current compliance requirements. Attending Participation: I personally performed the entire procedure. CRISTIAN Ruiz MD 10/22/2024 8:52:57 AM This report has been signed electronically. Number of Addenda: 0 Note Initiated On: 10/22/2024 7:51 AM [facility] 10-22-2024 [facility] Name: Chaim Danielle Procedure Date: 10/22/2024 7:51 AM Gender: Female Date of : 1950 Age: 73 Admit Type: Outpatient Note Status: Finalized Endoscopist: CRISTIAN Ruiz MD, [id number] Procedure: Upper GI endoscopy Indications: Foreign body in the small bowel Findings: A previously placed plastic stent was seen in the second portion of the duodenum. Stent removal was accomplished with a snare. Impression: - Plastic stent in the duodenum. Removed. Recommendation: - Patient has a contact number available for emergencies. The signs and symptoms of potential delayed complications were discussed with the patient. Return to normal activities tomorrow. Written discharge instructions were provided to the patient. - Follow up in office in 4 weeks. - Continue present medications. - Resume previous diet. - Return to referring physician as previously scheduled. Referring MD: Cristian Ruiz Medicines: Monitored Anesthesia Care Procedure: Pre-Anesthesia Assessment: - Prior to the procedure, a History and Physical was performed, and patient medications and allergies were reviewed. The patient is competent. The risks and benefits of the procedure and the sedation options and risks were discussed with the patient. All questions were answered and informed consent was obtained. Patient identification and proposed procedure were verified by the physician, the nurse and the pediatric critical care nurse in the pre-procedure area in the procedure room. Mental Status Examination: alert and oriented. Airway Examination: normal oropharyngeal airway and neck mobility. CV Examination: normal. Prophylactic Antibiotics: The patient does not require prophylactic antibiotics. Prior Anticoagulants: The patient has taken no anticoagulant or antiplatelet agents. ASA Grade Assessment: III - A patient with severe systemic disease. After reviewing the risks and benefits, the patient was deemed in satisfactory condition to undergo the procedure. The anesthesia plan was to use monitored anesthesia care (MAC). Immediately prior to administration of medications, the patient was re-assessed for adequacy to receive sedatives. The heart rate, respiratory rate, oxygen saturations, blood pressure, adequacy of pulmonary ventilation, and response to care were monitored throughout the procedure. The physical status of the patient was re-assessed after the procedure. - Prior Aspirin/ NSAID therapy: The patient has taken no aspirin or NSAID medications. After obtaining informed consent, the endoscope was passed under direct vision. Throughout the procedure, the patient's blood pressure, pulse, and oxygen saturations were monitored continuously. The Endoscope was introduced through the mouth, and advanced to the second part of duodenum. The upper GI endoscopy was accomplished with ease. The patient tolerated the procedure well. Complications: No immediate complications. Estimated blood loss: None. Procedure Code(s): --- Professional --- 64059, Esophagogastroduodenoscopy, flexible, transoral; with removal of foreign body(s) --- Technical --- 17843, Esophagogastroduodenoscopy, flexible, transoral; with removal of foreign body(s) Diagnosis Code(s): --- Professional --- Z46.59, Encounter for fitting and adjustment of other gastrointestinal appliance and device T18.3XXA, Foreign body in small intestine, initial encounter --- Technical --- Z46.59, Encounter for fitting and adjustment of other gastrointestinal appliance and device T18.3XXA, Foreign body in small intestine, initial encounter CPT copyright 2021 [employer]. All rights reserved. The codes documented in this report are preliminary and upon rn psych review may be revised to meet current compliance requirements. Attending Participation: I personally performed the entire procedure. CRISTIAN Ruiz MD 10/22/2024 8:52:57 AM This report has been signed electronically. Number of Addenda: 0 Note Initiated On: 10/22/2024 7:51 AM [facility] 10-22-2024 [facility]iscellaneous [facility] Patient Name: Chaim Danielle Procedure Date: 10/22/2024 7:51 AM Gender: Female Date of : 1950 Age: 73 Admit Type: Outpatient Note Status: Finalized Endoscopist: CRISTIAN Ruiz MD, [id number] Procedure: Upper GI endoscopy Indications: Foreign body in the small bowel Findings: A previously placed plastic stent was seen in the second portion of the duodenum. Stent removal was accomplished with a snare. Impression: - Plastic stent in the duodenum. Removed. Recommendation: - Patient has a contact number available for emergencies. The signs and symptoms of potential delayed complications were discussed with the patient. Return to normal activities tomorrow. Written discharge instructions were provided to the patient. - Follow up in office in 4 weeks. - Continue present medications. - Resume previous diet. - Return to referring physician as previously scheduled. Referring MD: Cristian Ruiz Medicines: Monitored Anesthesia Care Procedure: Pre-Anesthesia Assessment: - Prior to the procedure, a History and Physical was performed, and patient medications and allergies were reviewed. The patient is competent. The risks and benefits of the procedure and the sedation options and risks were discussed with the patient. All questions were answered and informed consent was obtained. Patient identification and proposed procedure were verified by the physician, the nurse and the pediatric critical care nurse in the pre-procedure area in the procedure room. Mental Status Examination: alert and oriented. Airway Examination: normal oropharyngeal airway and neck mobility. CV Examination: normal. Prophylactic Antibiotics: The patient does not require prophylactic antibiotics. Prior Anticoagulants: The patient has taken no anticoagulant or antiplatelet agents. ASA Grade Assessment: III - A patient with severe systemic disease. After reviewing the risks and benefits, the patient was deemed in satisfactory condition to undergo the procedure. The anesthesia plan was to use monitored anesthesia care (MAC). Immediately prior to administration of medications, the patient was re-assessed for adequacy to receive sedatives. The heart rate, respiratory rate, oxygen saturations, blood pressure, adequacy of pulmonary ventilation, and response to care were monitored throughout the procedure. The physical status of the patient was re-assessed after the procedure. - Prior Aspirin/ NSAID therapy: The patient has taken no aspirin or NSAID medications. After obtaining informed consent, the endoscope was passed under direct vision. Throughout the procedure, the patient's blood pressure, pulse, and oxygen saturations were monitored continuously. The Endoscope was introduced through the mouth, and advanced to the second part of duodenum. The upper GI endoscopy was accomplished with ease. The patient tolerated the procedure well. Complications: No immediate complications. Estimated blood loss: None. Procedure Code(s): --- Professional --- 84730, Esophagogastroduodenoscopy, flexible, transoral; with removal of foreign body(s) --- Technical --- 98536, Esophagogastroduodenoscopy, flexible, transoral; with removal of foreign body(s) Diagnosis Code(s): --- Professional --- Z46.59, Encounter for fitting and adjustment of other gastrointestinal appliance and device T18.3XXA, Foreign body in small intestine, initial encounter --- Technical --- Z46.59, Encounter for fitting and adjustment of other gastrointestinal appliance and device T18.3XXA, Foreign body in small intestine, initial encounter CPT copyright 2021 [employer]. All rights reserved. The codes documented in this report are preliminary and upon rn psych review may be revised to meet current compliance requirements. Attending Participation: I personally performed the entire procedure. CRISTIAN Ruiz MD 10/22/2024 8:52:57 AM This report has been signed electronically. Number of Addenda: 0 Note Initiated On: 10/22/2024 7:51 AM documented in this encounter [facility] 10-20-[address] Cristian Ruiz EGGrant EUS/ERCP/EMR Date: 10/22/24 Arrival time: 7:30am Please report to: [facility] Entrance (-[place]) [place] [address] (Go to the registration desk on the ground floor of the [facility]) Spoke with pt, confirmed they will attend scheduled procedure. All questions or concerns addressed. Prep instructions sent via [employer] if active. [facility] 10-20-[address] Cristian Ruiz EGGrant EUS/ERCP/EMR Date: 10/22/24 Arrival time: 7:30am Please report to: [facility] Entrance (-[place]) [place] [address] (Go to the registration desk on the ground floor of the [facility]) Spoke with pt, confirmed they will attend scheduled procedure. All questions or concerns addressed. Prep instructions sent via [employer] if active. Patient called in to get scheduled. Patient now scheduled on 10/22/24 @ 8:30am with the arrival time of 7:30am with Dr. Ruiz at [address] [place] [address]. EPIC schedule updated Order submitted Open Case request submitted Case # [id number] Endo packet mailed to patient Prep sent via [employer] if pt acct active Pt is aware they will need a haul driver to take them home from procedure. Must be family member or friend. They cannot use any ride programs. Ex: Uber, Lyft, [employer], bus, etc...) Lmtcb to discuss EGD w stent removal. Sent [employer] message. Called and spoke with patient's . Zane was not able to help me schedule the EGD w stent removal. Stated that patient doesn't feel like coming to the doctor again. I offered her 10/19. Zane will have to discuss it with patient and let us know. Lmtcb to get scheduled for EGD with stent removal. Lmtcb to get scheduled for an EGD w stent removal. Noted. Advanced endo list updated. GI staff to contact pt for scheduling of EGD w stent removal. Holding 10/19/24. Patient discharged today; Had ERCP with stent placement 09/07/[address] Perkins- post ERCP pancreatitis. Needs EGD with stent removal scheduled in 6-10 weeks from procedure. TY documented in this encounter [facility] 09-21-2024 Telephone encounter Note Patient called in to get scheduled. Patient now scheduled on 10/22/24 @ 8:30am with the arrival time of 7:30am with Dr. Ruiz at [address] [facility] schedule updated Order submitted Open Case request submitted Case # [id number] Endo packet mailed to patient Prep sent via Earnix if pt acct active Pt is aware they will need a haul driver to take them home from procedure. Must be family member or friend. They cannot use any ride programs. Ex: Uber, Lyft, SCAT, bus, etc...) [facility] 09-21-2024 Miscellaneous Notes Patient called in to get scheduled. Patient now scheduled on 10/22/24 @ 8:30am with the arrival time of 7:30am with Dr. Ruiz at [address] [place] [address] schedule updated Order submitted Open Case request submitted Case # [id number] Endo packet mailed to patient Prep sent via [employer] if pt acct active Pt is aware they will need a haul driver to take them home from procedure. Must be family member or friend. They cannot use any ride programs. Ex: Uber, Lyft, SCAT, bus, etc...) Lmtcb to discuss EGD w stent removal. Sent Don[employer]ut message. Called and spoke with patient's . Zane was not able to help me schedule the EGD w stent removal. Stated that patient doesn't feel like coming to the doctor again. I offered her 10/19. Zane will have to discuss it with patient and let us know. Lmtcb to get scheduled for EGD with stent removal. Lmtcb to get scheduled for an EGD w stent removal. Noted. Advanced endo list updated. GI staff to contact pt for scheduling of EGD w stent removal. Holding 10/19/24. Patient discharged today; Had ERCP with stent placement 09/07/[address] Perkins- post ERCP pancreatitis. Needs EGD with stent removal scheduled in 6-10 weeks from procedure. TY documented in this encounter [facility] 09-21-2024 Telephone encounter Note Lmtcb to discuss EGD w stent removal. Sent Donordonut message. [facility] 09-16-2024 Telephone encounter Note Called and spoke with patient's . Zane was not able to help me schedule the EGD w stent removal. Stated that patient doesn't feel like coming to the doctor again. I offered her 10/19. Zane will have to discuss it with patient and let us know. [facility] 09-16-2024 Miscellaneous Notes Called and spoke with patient's . Zane was not able to help me schedule the EGD w stent removal. Stated that patient doesn't feel like coming to the doctor again. I offered her 10/19. Zane will have to discuss it with patient and let us know. Lmtcb to get scheduled for EGD with stent removal. Lmtcb to get scheduled for an EGD w stent removal. Noted. Advanced endo list updated. GI staff to contact pt for scheduling of EGD w stent removal. Holding 10/19/24. Patient discharged today; Had ERCP with stent placement 09/07/[address] Perkins- post ERCP pancreatitis. Needs EGD with stent removal scheduled in 6-10 weeks from procedure. TY documented in this encounter [facility] 09-15-2024 Telephone encounter Note Lmtcb to get scheduled for EGD with stent removal. [facility] 09-15-2024 Miscellaneous Notes Lmtcb to get scheduled for EGD with stent removal. Lmtcb to get scheduled for an EGD w stent removal. Noted. Advanced endo list updated. GI staff to contact pt for scheduling of EGD w stent removal. Holding 10/19/24. Patient discharged today; Had ERCP with stent placement 09/07/[address] Perkins- post ERCP pancreatitis. Needs EGD with stent removal scheduled in 6-10 weeks from procedure. TY documented in this encounter [facility] 09-14-2024 Telephone encounter Note Lmtcb to get scheduled for an EGD w stent removal. [facility] 09-14-2024 Telephone encounter Note Noted. Advanced endo list updated. GI staff to contact pt for scheduling of EGD w stent removal. Holding 10/19/24. [facility] 09-13-2024 Note Patient discharged t shannon; Had ERCP with stent placement 09/07/[address] Perkins- post ERCP pancreatitis. Needs EGD with stent removal scheduled in 6-10 weeks from procedure. TY [facility] 09-13-2024 Telephone encounter Note Patient discharged today; Had ERCP with stent placement 09/07/[address] Perkins- post ERCP pancreatitis. Needs EGD with stent removal scheduled in 6-10 weeks from procedure. 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 No fever or chills. Having liquid Bms. 2 in the past 24 hours. Medications Scheduled Meds: Current Facility-Administered Medications: acetaminophen (Tylenol) tablet 1,000 mg, 1,000 mg, Oral, q8h, Isis Amos MD, 1,000 mg at 09/13/24 1353 enoxaparin (Lovenox) syringe 40 mg, 40 mg, SubCUTAneous, Daily, Isis Amos MD, 40 mg at 09/13/24 0943 [DISCONTINUED] HYDROmorphone (Dilaudid) injection 0.25 mg, 0.25 mg, IntraVENous, q3h PRN OR HYDROmorphone (Dilaudid) injection 0.5 mg, 0.5 mg, IntraVENous, q3h PRN, Maycol Ngo MD lactated ringers infusion, 75 mL/hr, IntraVENous, Continuous, Sonia Heaton PA-C, Last Rate: 75 mL/hr at 09/13/24942, 75 mL/hr at 09/13/24 0943 methocarbamol (Robaxin) tablet 500 mg, 500 mg, Oral, 3 times per day, Maycol Ngo MD, 500 mg at 09/13/24 1353 naloxone (Narcan) injection 0.4 mg, 0.4 mg, IntraVENous, q5 min PRN, Isis Amos MD ondansetron ODT (Zofran-ODT) disintegrating tablet 4 mg, 4 mg, Oral, q8h PRN, 4 mg at 09/11/24 1405 OR ondansetron (Zofran) injection 4 mg, 4 mg, IntraVENous, q6h PRN, Isis Amos MD, 4 mg at 09/09/24 0005 oxyCODONE (Roxicodone) immediate release tablet 5 mg, 5 mg, Oral, q4h PRN, 5 mg at 09/13/24 1353 OR oxyCODONE (Roxicodone) immediate release tablet 10 mg, 10 mg, Oral, q4h PRN, Isis Amos MD, 10 mg at 09/09/24 0447 polyethylene glycol (PEG) 3350 (Miralax) packet 17 g, 17 g, Oral, Daily, Kimmie CarrGREGORY - V GROOVE CUTTER, 17 g at 09/09/24 1207 sodium chloride 0.9 % infusion, 5-250 mL/hr, IntraVENous, PRN, Isis Amos MD sodium chloride 0.9 % infusion, 5-250 mL/hr, IntraVENous, PRN, Isis Amos MD sodium chloride 0.9% (NS) flush 10 mL, 10 mL, IntraVENous, 2 times per day, Isis Amos MD, 10 mL at 09/12/24 2137 sodium chloride 0.9% (NS) flush 10 mL, 10 mL, IntraVENous, PRN, Isis Amos MD sodium chloride 0.9% (NS) flush 5-40 mL, 5-40 mL, IntraVENous, q12h, Isis Amos MD, 10 mL at 09/12/24 2138 sodium chloride 0.9% (NS) flush 5-40 mL, 5-40 mL, IntraVENous, PRN, Isis Amos MD OBJECTIVE VITALS: BP 130/64 (BP Location: Left arm, Patient Position: Sitting) Pulse 60 Temp 36.3 ?C (97.4 ?F) (Temporal) Resp 17 Ht 5' 6 (1.676 m) Wt 136 lb (61.7 kg) SpO2 92% BMI 21.95 kg/m? Average, Min, and Max for last24 hours Vitals: TEMPERATURE: Temp Av.8 ?C (98.2 ?F) Min: 36.3 ?C (97.4 ?F) Max: 37.2 ?C (98.9 ?F) RESPIRATIONS RANGE: Resp Av.5 Min: 14 Max: 17 PULSE RANGE: Pulse Av.3 Min: 60 Max: 68 BLOOD PRESSURE RANGE: Systolic (24hrs), Av , Min:130 , Max:155 ; Diastolic (24hrs), Av, Min:64, Max:73 PULSE OXIMETRY RANGE:SpO2 Av.3 % Min: 91 % Max: 97 % I/O last 3 completed shifts: In: 1476.3 (23.9 mL/kg) [P.O.:550; I.V.:926.3 (15 mL/kg)] Out: - (0 mL/kg) Weight: 61.7 kg Physical Exam Constitutional: General: She is not in acute distress. Appearance: Normal appearance. She is not ill-appearing. HENT: Head: Normocephalic. Eyes: General: No scleral icterus. Extraocular Movements: Extraocular movements intact. Cardiovascular: Rate and Rhythm: Normal rate and regular rhythm. Pulmonary: Effort: Pulmonary effort is normal. Breath sounds: Normal breath sounds. Abdominal: General: Abdomen is flat. Bowel sounds are normal. There is no distension. Palpations: Abdomen is soft. There is no mass. Tenderness: There is no abdominal tenderness. There is no guarding or rebound. Hernia: No hernia is present. Musculoskeletal: Cervical back: Neck supple. Lymphadenopathy: Cervical: No cervical adenopathy. Skin: General: Skin is warm and dry. Coloration: Skin is not jaundiced or pale. Findings: No bruising or rash. Neurological: General: No focal deficit present. Mental Status: She is alert. Psychiatric: Mood and Affect: Mood normal. Behavior: Behavior normal. Data Recent blood work, radiologic study and endoscopic study were reviewed with the patient. CBC: Recent Labs 09/11/24 0233 09/12/24 0535 09/13/24 0353 WBC 13.0* 11.6* 11.3* RBC 3.65* 3.45* 3.25* HGB 10.6* 10.0* 9.3* HCT 33.2* 31.0* 28.7* MCV 91.0 89.9 88.3 MCH 29.0 29.0 28.6 MCHC 31.9 32.3 32.4 RDW 14.1 14.2 14.1 PLT 264 314 325 MPV 9.5 8.8* 8.9* CMP: Recent Labs 09/11/24 0233 09/12/24 0535 09/13/24 0353 NA 137 136 138 K 3.4* 3.4* 3.6 CL 105 104 105 CO2 25 BUN 13 11 9 CREATININE 0.69 0.69 0.68 GLUCOSE 81* 92 97 CALCIUM 8.3* 8.2* 8.3* PROT 5.5* 5.1* -- BILITOT 0.9 0.7 -- ALKPHOS 161* 161* -- AST 48* 28 -- (more content not included)... [facility] 09-13-2024 History of Present illness Narrative Images from the original note were not included. Department of Internal Medicine Gastroenterology Progress Note SUBJECTIVE: GI following for choledocholithiasis s/p ERCP with Stent placement; s/p Lap moose and post ERCP pancreatitis New events overnight none Patient feels pain is improved today Tolerating solids and liquids. No fever or chills. Having liquid Bms. 2 in the past 24 hours. Medications Scheduled Meds: Current Facility-Administered Medications: acetaminophen (Tylenol) tablet 1,000 mg, 1,000 mg, Oral, q8h, Isis Amos MD, 1,000 mg at 09/13/24 1353 enoxaparin (Lovenox) syringe 40 mg, 40 mg, SubCUTAneous, Daily, Isis Amos MD, 40 mg at 09/13/24 0943 [DISCONTINUED] HYDROmorphone (Dilaudid) injection 0.25 mg, 0.25 mg, IntraVENous, q3h PRN OR HYDROmorphone (Dilaudid) injection 0.5 mg, 0.5 mg, IntraVENous, q3h PRN, Maycol Ngo MD lactated ringers infusion, 75 mL/hr, IntraVENous, Continuous, Sonia Heaton PA-C, Last Rate: 75 mL/hr at 09/13/2443, 75 mL/hr at 09/13/24 0943 methocarbamol (Robaxin) tablet 500 mg, 500 mg, Oral, 3 times per day, Maycol Ngo MD, 500 mg at 09/13/24 1353 naloxone (Narcan) injection 0.4 mg, 0.4 mg, IntraVENous, q5 min PRN, Isis Amos MD ondansetron ODT (Zofran-ODT) disintegrating tablet 4 mg, 4 mg, Oral, q8h PRN, 4 mg at 09/11/24 1405 OR ondansetron (Zofran) injection 4 mg, 4 mg, IntraVENous, q6h PRN, Isis Amos MD, 4 mg at 09/09/24 0005 oxyCODONE (Roxicodone) immediate release tablet 5 mg, 5 mg, Oral, q4h PRN, 5 mg at 09/13/24 1353 OR oxyCODONE (Roxicodone) immediate release tablet 10 mg, 10 mg, Oral, q4h PRN, Isis Amos MD, 10 mg at 09/09/24 0447 polyethylene glycol (PEG) 3350 (Miralax) packet 17 g, 17 g, Oral, Daily, Kimmie Carr, HISTORY CARD CLERK - V GROOVE CUTTER, 17 g at 09/09/24 1207 sodium chloride 0.9 % infusion, 5-250 mL/hr, IntraVENous, PRN, Isis Amos MD sodium chloride 0.9 % infusion, 5-250 mL/hr, IntraVENous, PRN, Isis Amos MD sodium chloride 0.9% (NS) flush 10 mL, 10 mL, IntraVENous, 2 times per day, Isis Amos MD, 10 mL at 09/12/24 2137 sodium chloride 0.9% (NS) flush 10 mL, 10 mL, IntraVENous, PRN, Isis Amos MD sodium chloride 0.9% (NS) flush 5-40 mL, 5-40 mL, IntraVENous, q12h, Isis Amos MD, 10 mL at 09/12/24 2138 sodium chloride 0.9% (NS) flush 5-40 mL, 5-40 mL, IntraVENous, PRN, Isis Amos MD OBJECTIVE VITALS: BP 130/64 (BP Location: Left arm, Patient Position: Sitting) Pulse 60 Temp 36.3 C (97.4 F) (Temporal) Resp 17 Ht 5' 6 (1.676 m) Wt 136 lb (61.7 kg) SpO2 92% BMI 21.95 kg/m Average, Min, and Max for last24 hours Vitals: TEMPERATURE: Temp Av.8 C (98.2 F) Min: 36.3 C (97.4 F) Max: 37.2 C (98.9 F) RESPIRATIONS RANGE: Resp Av.5 Min: 14 Max: 17 PULSE RANGE: Pulse Av.3 Min: 60 Max: 68 BLOOD PRESSURE RANGE: Systolic (24hrs), Av , Min:130 , Max:155 ; Diastolic (24hrs), Av, Min:64, Max:73 PULSE OXIMETRY RANGE:SpO2 Av.3 % Min: 91 % Max: 97 % I/O last 3 completed shifts: In: 1476.3 (23.9 mL/kg) [P.O.:550; I.V.:926.3 (15 mL/kg)] Out: - (0 mL/kg) Weight: 61.7 kg Physical Exam Constitutional: General: She is not in acute distress. Appearance: Normal appearance. She is not ill-appearing. HENT: Head: Normocephalic. Eyes: General: No scleral icterus. Extraocular Movements: Extraocular movements intact. Cardiovascular: Rate and Rhythm: Normal rate and regular rhythm. Pulmonary: Effort: Pulmonary effort is normal. Breath sounds: Normal breath sounds. Abdominal: General: Abdomen is flat. Bowel sounds are normal. There is no distension. Palpations: Abdomen is soft. There is no mass. Tenderness: There is no abdominal tenderness. There is no guarding or rebound. Hernia: No hernia is present. Musculoskeletal: Cervical back: Neck supple. Lymphadenopathy: Cervical: No cervical adenopathy. Skin: General: Skin is warm and dry. Coloration: Skin is not jaundiced or pale. Findings: No bruising or rash. Neurological: General: No focal deficit present. Mental Status: She is alert. Psychiatric: Mood and Affect: Mood normal. Behavior: Behavior normal. Data Recent blood work, radiologic study and endoscopic study were reviewed with the patient. CBC: Recent Labs 09/11/24 0233 09/12/24 0535 09/13/24 0353 WBC 13.0* 11.6* 11.3* RBC 3.65* 3.45* 3.25* HGB 10.6* 10.0* 9.3* HCT 33.2* 31.0* 28.7* MCV 91.0 89.9 88.3 MCH 29.0 29.0 28.6 MCHC 31.9 32.3 32.4 RDW 14.1 14.2 14.1 PLT 264 314 325 MPV 9.5 8.8* 8.9* CMP: Recent Labs 09/11/24 0233 09/12/24 0535 09/13/24 0353 NA 137 136 138 K 3.4* 3.4* 3.6 CL 105 104 105 CO2 21* 25 25 BUN 13 11 9 CREATININE 0.69 0.69 0.68 GLUCOSE 81* 92 97 CALCIUM 8.3* 8.2* 8.3* PROT 5.5* 5.1* -- BILITOT 0.9 0.7 -- ALKPHOS 161* 161* -- AST 48* 28 -- ALT 123* 82* -- PT/INR: No results for input(s): INR in the last 72 hours. ASSESSMENT AND PLAN Choledocholithiasis s/p ERCP with Sphincterotomy, Balloon Extraction and Biliary Stent Placement Post ERCP Pancreatitis Duodenal Erosions Elevated LFTs Cholelithiasis s/p Cholecystectomy 09/08 --CRP remains elevated with minimal improvement however patient continues to improve clinically --continue LR --pain is improved and tolerating diet --ADAT --EGD with stent removal in 6-10 weeks --s/s of stent obstruction and infection discussed and when to return to ED --the GI service will sign off as patient to be discharged today Cosigned by Luly Samayoa MD at 09/13/2024 4:45 PM EDT Images from the original note were not included. Department of Internal Medicine Gastroenterology Progress Note SUBJECTIVE: GI following for choledocholithiasis s/p ERCP with Stent placement; s/p Lap moose and post ERCP pancreatitis New events overnight none Patient continuing to have some discomfort today. Started nibbling on solids and tolerating liquids. No fever or chills. Having liquid Bms. Medications Scheduled Meds: Current Facility-Administered Medications: acetaminophen (Tylenol) tablet 1,000 mg, 1,000 mg, Oral, q8h, Isis Amos MD, 1,000 mg at 09/13/24 1353 enoxaparin (Lovenox) syringe 40 mg, 40 mg, SubCUTAneous, Daily, Isis Amos MD, 40 mg at 09/13/24 0943 [DISCONTINUED] HYDROmorphone (Dilaudid) injection 0.25 mg, 0.25 mg, IntraVENous, q3h PRN OR HYDROmorphone (Dilaudid) injection 0.5 mg, 0.5 mg, IntraVENous, q3h PRN, Maycol Ngo MD lactated ringers infusion, 75 mL/hr, IntraVENous, Continuous, Sonia Heaton PA-C, Last Rate: 75 mL/hr at 09/13/24 0943, 75 mL/hr at 09/13/24 0943 methocarbamol (Robaxin) tablet 500 mg, 500 mg, Oral, 3 times per day, Maycol Ngo MD, 500 mg at 09/13/24 1353 naloxone (Narcan) injection 0.4 mg, 0.4 mg, IntraVENous, q5 min PRN, Isis Amos MD ondansetron ODT (Zofran-ODT) disintegrating tablet 4 mg, 4 mg, Oral, q8h PRN, 4 mg at 09/11/24 1405 OR ondansetron (Zofran) injection 4 mg, 4 mg, IntraVENous, q6h PRN, Isis Amos MD, 4 mg at 09/09/24 0005 oxyCODONE (Roxicodone) immediate release tablet 5 mg, 5 mg, Oral, q4h PRN, 5 mg at 09/13/24 1353 OR oxyCODONE (Roxicodone) immediate release tablet 10 mg, 10 mg, Oral, q4h PRN, Isis Amos MD, 10 mg at 09/09/24 0447 polyethylene glycol (PEG) 3350 (Miralax) packet 17 g, 17 g, Oral, Daily, GREGORY Remy CNP, 17 g at 09/09/24 1207 sodium chloride 0.9 % infusion, 5-250 mL/hr, IntraVENous, PRN, Isis Amos MD sodium chloride 0.9 % infusion, 5-250 mL/hr, IntraVENous, PRN, Isis Amos MD sodium chloride 0.9% (NS) flush 10 mL, 10 mL, IntraVENous, 2 times per day, Isis Amos MD, 10 mL at 09/12/24 2137 sodium chloride 0.9% (NS) flush 10 mL, 10 mL, IntraVENous, PRN, Isis Amos MD sodium chloride 0.9% (NS) flush 5-40 mL, 5-40 mL, IntraVENous, q12h, Isis Amos MD, 10 mL at 09/12/24 2138 sodium chloride 0.9% (NS) flush 5-40 mL, 5-40 mL, IntraVENous, PRN, Isis Amos MD Current Outpatient Medications: ondansetron ODT (Zofran-ODT) 4 MG disintegrating tablet, Take 1 tablet (4 mg) by mouth every 8 hours as needed for nausea or vomiting for up to 7 days., Disp: 20 tablet, Rfl: 0 oxyCODONE (Roxicodone) 5 MG immediate release tablet, Take 1 tablet (5 mg) by mouth every 4 hours as needed for moderate pain (4-6) or severe pain (7-10) for up to 5 days., Disp: 15 tablet, Rfl: 0 pantoprazole (ProtoNix) 40 MG EC tablet, Take 1 tablet (40 mg) by mouth daily. Do not crush, chew, or split., Disp: 30 tablet, Rfl: 1 OBJECTIVE VITALS: BP 130/64 (BP Location: Left arm, Patient Position: Sitting) Pulse 60 Temp 36.3 C (97.4 F) (Temporal) Resp 17 Ht 5' 6 (1.676 m) Wt 136 lb (61.7 kg) SpO2 92% BMI 21.95 kg/m Average, Min, and Max for last24 hours Vitals: TEMPERATURE: Temp Av.8 C (98.2 F) Min: 36.3 C (97.4 F) Max: 37.2 C (98.9 F) RESPIRATIONS RANGE: Resp Av.5 Min: 14 Max: 17 PULSE RANGE: Pulse Av.3 Min: 60 Max: 68 BLOOD PRESSURE RANGE: Systolic (24hrs), Av , Min:130 , Max:155 ; Diastolic (24hrs), Av, Min:64, Max:73 PULSE OXIMETRY RANGE:SpO2 Av.3 % Min: 91 % Max: 97 % I/O last 3 completed shifts: In: 1476.3 (23.9 mL/kg) [P.O.:550; I.V.:926.3 (15 mL/kg)] Out: - (0 mL/kg) Weight: 61.7 kg Physical Exam Constitutional: General: She is not in acute distress. Appearance: Normal appearance. She is not ill-appearing. HENT: Head: Normocephalic. Eyes: General: No scleral icterus. Extraocular Movements: Extraocular movements intact. Cardiovascular: Rate and Rhythm: Normal rate and regular rhythm. Pulmonary: Effort: Pulmonary effort is normal. Breath sounds: Normal breath sounds. Abdominal: General: Bowel sounds are normal. There is no distension. Palpations: Abdomen is soft. There is no mass. Tenderness: There is abdominal tenderness. There is no guarding or rebound. Hernia: No hernia is present. Musculoskeletal: Cervical back: Neck supple. Lymphadenopathy: Cervical: No cervical adenopathy. Skin: General: Skin is warm and dry. Coloration: Skin is not jaundiced or pale. Findings: No bruising or rash. Neurological: General: No focal deficit present. Mental Status: She is alert. Psychiatric: Mood and Affect: Mood normal. Behavior: Behavior normal. Data Recent blood work, radiologic study and endoscopic study were reviewed with the patient. CBC: Recent Labs 09/11/24 0233 09/12/24 0535 09/13/24 0353 WBC 13.0* 11.6* 11.3* RBC 3.65* 3.45* 3.25* HGB 10.6* 10.0* 9.3* HCT 33.2* 31.0* 28.7* MCV 91.0 89.9 88.3 MCH 29.0 29.0 28.6 MCHC 31.9 32.3 32.4 RDW 14.1 14.2 14.1 PLT 264 314 325 MPV 9.5 8.8* 8.9* CMP: Recent Labs 09/11/24 0233 09/12/24 0535 09/13/24 0353 NA 137 136 138 K 3.4* 3.4* 3.6 CL 105 104 105 CO2 * 25 25 BUN 13 11 9 CREATININE 0.69 0.69 0.68 GLUCOSE 81* 92 97 CALCIUM 8.3* 8.2* 8.3* PROT 5.5* 5.1* -- BILITOT 0.9 0.7 -- ALKPHOS 161* 161* -- AST 48* 28 -- ALT 123* 82* -- PT/INR: No results for input(s): INR in the last 72 hours. ASSESSMENT AND PLAN Choledocholithiasis s/p ERCP with Sphincterotomy, Balloon Extraction and Biliary Stent Placement Post ERCP Pancreatitis Duodenal Erosions Elevated LFTs Cholelithiasis s/p Cholecystectomy 09/08 --continues to have some pain; tolerating liquids and some solids --continue LR --ADAT --continue to trend CRP --GI to follow Cosigned by Luly Samayoa MD at 09/13/2024 4:45 PM EDT Nutrition update completed. Chart reviewed. Patient to be monitored and followed by the diet line technician. Dietitian available upon request. JARON Dacosta [facility] Hospitalist Progress note [phone]: Please page me ([phone]) for patient care issues. [phone]: Please page [facility] Hospitalist for any issues. Subjective: Admit Date: 09/05/2024 PCP: RUSSELL HILL MD Room#: [id number] Farooq Danielle is a 73 y.o. female who presents with right upper quadrant pain for 2 weeks, worse with eating, diagnosed with Choledocholithiasis. Patient is an ultrasound at outside facility that showed cholelithiasis and transferred to [facility] for further evaluation and management GI and surgery consulted and MRCP revealed choledocholithiasis Patient is status post ERCP on 09/07/2024 sphincterotomy with balloon extraction to stones and stent placement. Patient developed post ERCP pancreatitis lipase elevated gastroenterology on board please monitor LFTs gastroenterology to follow stent to be removed as outpatient 6 to 10 weeks. General surgery following okay to advance diet and DVT prophylaxis Interval History: Patient alert, chart reviewed, has some abdominal pain. Had BM today. Afebrile. Denies any nausea or vomiting. Adult diet Full liquid 24HR INTAKE/OUTPUT: Intake/Output Summary (Last 24 hours) at 09/12/2024 1232 Last data filed at 09/12/2024 0606 Gross per 24 hour Intake 1881.25 ml Output -- Net 1881.25 ml LABS: CBC: Recent Labs 09/10/2434509/11/2423209/12/24 0535 WBC 13.8* 13.0* 11.6* RBC 3.71* 3.65* 3.45* HGB 10.7* 10.6* 10.0* HCT 32.4* 33.2* 31.0* MCV 87.3 91.0 89.9 RDW 14.3 14.1 14.2 PLT 227 264 314 BMP: Recent Labs 09/10/2434509/11/24 02309/12/24 0535 NA 136 137 136 K 3.5 3.4* 3.4* CL 106 105 104 CO2 22* 21* 25 BUN 14 13 11 CREATININE 0.68 0.69 0.69 GLUCOSE 98 81* 92 CALCIUM 8.2* 8.3* 8.2* ANIONGAP 8 11 7 LIVER PROFILE: Recent Labs 09/10/2434509/11/24 0233 09/12/24 0535 AST 82* 48* 28 ALT 171* 123* 82* BILITOT 0.8 0.9 0.7 ALKPHOS 169* 161* 161* PROT 5.1* 5.5* 5.1* PT/INR: No results for input(s): PROTIME, INR in the last 72 hours. CARDIAC ENZYMES: No results for input(s): TROPONINI in the last 72 hours. Procalcitonin: No results found for: PROCAL @RISRSLTSPECIALTY@ Objective: Vitals: BP 144/79 (BP Location: Right arm, Patient Position: Lying) Pulse 58 Temp 36.7 C (98 F) (Temporal) Resp 16 Ht 5' 6 (1.676 m) Wt 136 lb (61.7 kg) SpO2 92% BMI 21.95 kg/m Pulse Ox: SpO2 Av.5 % Min: 91 % Max: 92 % Supplemental O2: O2 Flow Rate (L/min): 1.5 L/min 09/12/2024 General appearance: Wincing in pain Oral: Tongue is semi-moist Cardiovascular: S1/S2 heard, RRR Respiratory: Clear to auscultation bilaterally Abdomen: Slight abdominal tenderness noted Musculoskeletal: No obvious deformities seen Medications: lactated Ringer's, 75 mL/hr, Last Rate: 75 mL/hr (09/12/24 0537) acetaminophen, 1,000 mg, Oral, q8h enoxaparin, 40 mg, SubCUTAneous, Daily methocarbamol, 500 mg, Oral, 3 times per day polyethylene glycol (PEG) 3350, 17 g, Oral, Daily potassium chloride CR, 40 mEq, Oral, Once sodium chloride 0.9%, 10 mL, IntraVENous, 2 times per day sodium chloride 0.9%, 5-40 mL, IntraVENous, q12h Assessment Cholelithiasis with choledocholithiasis status post ERCP with stent placement POD 2 laparoscopic cholecystectomy Elevated LFTs Asymptomatic bradycardia Plan Seen and examined Vitals and meds reviewed Consult notes reviewed GI following Replace potassium S/p ERCP with biliary sphincterotomy, balloon extraction. Continue IV fluids, pain control Surgery signed off advance diet to regular Skin incision noted clean Will continue to follow hemoglobin and labs in the a.m. -am labs, replace lytes prn -increase activity Diet Adult diet Full liquid DVT Prophylaxis [x] Lovenox, [] Heparin, [] SCDs, [] Ambulation [] Already on Anticoagulation GI Prophylaxis [] PPI, [] H2 Godfrey, [] Carafate, [] Diet/Tube Feeds Code Status Full Code MDM [] Low, [] Moderate,[] High Patient's risk as above Anticipated Discharge - Date -09/13 pending pain control - Location - Home - Pending the following -pain control Total time spent (which include face to face and non face to face encounters) : minutes Toxic drug monitoring/narrow therapeutic index drug monitoring : # Drug name : # Route administered : # Method of monitoring : Extended Emergency Contact Information Primary Emergency Contact: Zane Danielle Mobile Relation: Spouse Secondary Emergency Contact: Erin Ken Mobile Relation: Daughter Advance Directive: Full Code Discharge planning: TBD Ellis Olmstead MD Division of Hospitalist Medicine Inpatient Medical Services/[facility] Hospitalist Progress note [phone]: Please page md ([phone]) for patient care issues. [phone]: Please page [facility] Hospitalist for any issues. Subjective: Admit Date: 09/05/2024 PCP: RUSSELL HILL MD Room#: [id number] A Chaim Danielle is a 73 y.o. female who presents with right upper quadrant pain for 2 weeks, worse with eating, diagnosed with Choledocholithiasis. Patient is an ultrasound at outside facility that showed cholelithiasis and transferred to [facility] for further evaluation and management GI and surgery consulted and MRCP revealed choledocholithiasis Patient is status post ERCP on 09/07/2024 sphincterotomy with balloon extraction to stones and stent placement. Patient developed post ERCP pancreatitis lipase elevated gastroenterology on board please monitor LFTs gastroenterology to follow stent to be removed as outpatient 6 to 10 weeks. General surgery following okay to advance diet and DVT prophylaxis Interval History: Tolerating diet initial advance, holding at cld with inflammation, review for advance fld No other concerns like chest pain, fever, shortness of breath, numbness or tingling in the body Adult diet Full liquid 24HR INTAKE/OUTPUT: Intake/Output Summary (Last 24 hours) at 09/11/2024 1154 Last data filed at 09/10/2024 1200 Gross per 24 hour Intake 400 ml Output -- Net 400 ml LABS: CBC: Recent Labs 09/09/2445109/10/246 09/11/24 0233 WBC 12.3* 13.8* 13.0* RBC 4.11 3.71* 3.65* HGB 11.8 10.7* 10.6* HCT 36.2 32.4* 33.2* MCV 88.1 87.3 91.0 RDW 14.1 14.3 14.1 PLT 282 227 264 BMP: Recent Labs 09/09/2445109/10/2434509/11/24 023 NA 137 136 137 K 3.8 3.5 3.4* CL 106 106 105 CO2 26 22* 21* BUN 16 14 13 CREATININE 0.85 0.68 0.69 GLUCOSE 120* 98 81* CALCIUM 8.7* 8.2* 8.3* ANIONGAP 5 8 11 LIVER PROFILE: Recent Labs 09/09/2445109/10/2434509/11/24232 AST 180* 82* 48* ALT 279* 171* 123* BILITOT 0.8 0.8 0.9 ALKPHOS 225* 169* 161* PROT 5.8* 5.1* 5.5* PT/INR: No results for input(s): PROTIME, INR in the last 72 hours. CARDIAC ENZYMES: No results for input(s): TROPONINI in the last 72 hours. Procalcitonin: No results found for: PROCAL @RISRSLTSPECIALTY@ Objective: Vitals: BP 141/68 Pulse 57 Temp 36.4 C (97.5 F) Resp 16 Ht 5' 6 (1.676 m) Wt 136 lb (61.7 kg) SpO2 92% BMI 21.95 kg/m Pulse Ox: SpO2 Av.7 % Min: 92 % Max: 94 % Supplemental O2: O2 Flow Rate (L/min): 1.5 L/min 09/11/2024 General appearance: No apparent distress, appears stated age, AAOX4 Oral: Tongue is semi-moist Cardiovascular: S1/S2 heard, RRR Respiratory: Clear to auscultation bilaterally Abdomen: Clean dry and intact dressing noted Musculoskeletal: No obvious deformities seen Medications: lactated Ringer's, 75 mL/hr, Last Rate: 75 mL/hr (09/10/24 1832) acetaminophen, 1,000 mg, Oral, q8h enoxaparin, 40 mg, SubCUTAneous, Daily methocarbamol, 500 mg, Oral, 3 times per day polyethylene glycol (PEG) 3350, 17 g, Oral, Daily sodium chloride 0.9%, 10 mL, IntraVENous, 2 times per day sodium chloride 0.9%, 5-40 mL, IntraVENous, q12h Assessment Cholelithiasis with choledocholithiasis status post ERCP with stent placement POD 2 laparoscopic cholecystectomy Elevated LFTs Asymptomatic bradycardia Plan Seen and examined Vitals and meds reviewed Consult notes reviewed GI following S/p ERCP with biliary sphincterotomy, balloon extraction. Continue IV fluids, pain control Surgery signed off advance diet to regular Skin incision noted clean Will continue to follow hemoglobin and labs in the a.m. -am labs, replace lytes prn -increase activity Diet Adult diet Full liquid DVT Prophylaxis [x] Lovenox, [] Heparin, [] SCDs, [] Ambulation [] Already on Anticoagulation GI Prophylaxis [] PPI, [] H2 Godfrey, [] Carafate, [] Diet/Tube Feeds Code Status Full Code MDM [] Low, [] Moderate,[] High Patient's risk as above Anticipated Discharge - Date -09/12 pending diet - Location - Home - Pending the following -clinical improvement, executive talent acquisition consultant recommendations Total time spent (which include face to face and non face to face encounters) : 63 minutes Toxic drug monitoring/narrow therapeutic index drug monitoring : # Drug name : # Route administered : # Method of monitoring : Extended Emergency Contact Information Primary Emergency Contact: Zane Danielle Mobile Relation: Spouse Secondary Emergency Contact: SuellenErin Mobile Relation: Daughter Advance Directive: Full Code Discharge planning: TBD Jericho Cedillo MD Division of Hospitalist Medicine Inpatient Medical Services/[facility] Images from the original note were not included. Department of Internal Medicine Gastroenterology Progress Note SUBJECTIVE: GI following for choledocholithiasis s/p ERCP 09/07 with sphincterotomy, balloon extraction and biliary stent placement complicated by post ERCP pancreatitis. Patient sitting in chair, reports feeling a little better, intermittent abdominal pain well controlled with analgesics, denies nausea and vomiting, tolerating CLD without difficulty, loose stool yesterday. Medications Scheduled Meds: Current Facility-Administered Medications: acetaminophen (Tylenol) tablet 1,000 mg, 1,000 mg, Oral, q8h, Isis Amos MD, 1,000 mg at 09/11/24 0625 enoxaparin (Lovenox) syringe 40 mg, 40 mg, SubCUTAneous, Daily, Isis Amos MD, 40 mg at 09/10/24 1054 [DISCONTINUED] HYDROmorphone (Dilaudid) injection 0.25 mg, 0.25 mg, IntraVENous, q3h PRN OR HYDROmorphone (Dilaudid) injection 0.5 mg, 0.5 mg, IntraVENous, q3h PRN, Maycol Ngo MD lactated ringers infusion, 75 mL/hr, IntraVENous, Continuous, Sonai Heaton PA-C, Last Rate: 75 mL/hr at 09/10/24 183, 75 mL/hr at 09/10/24 183 methocarbamol (Robaxin) tablet 500 mg, 500 mg, Oral, 3 times per day, Maycol Ngo MD, 500 mg at 09/11/24 0625 naloxone (Narcan) injection 0.4 mg, 0.4 mg, IntraVENous, q5 min PRN, Isis Amos MD ondansetron ODT (Zofran-ODT) disintegrating tablet 4 mg, 4 mg, Oral, q8h PRN OR ondansetron (Zofran) injection 4 mg, 4 mg, IntraVENous, q6h PRN, Isis Amos MD, 4 mg at 09/09/24 0005 oxyCODONE (Roxicodone) immediate release tablet 5 mg, 5 mg, Oral, q4h PRN, 5 mg at 09/11/24 0626 OR oxyCODONE (Roxicodone) immediate release tablet 10 mg, 10 mg, Oral, q4h PRN, Isis Amos MD, 10 mg at 09/09/24 0447 polyethylene glycol (PEG) 3350 (Miralax) packet 17 g, 17 g, Oral, Daily, GREGORY Remy CNP, 17 g at 09/09/24 1207 sodium chloride 0.9 % infusion, 5-250 mL/hr, IntraVENous, PRN, Isis Amos MD sodium chloride 0.9 % infusion, 5-250 mL/hr, IntraVENous, PRN, Isis Amos MD sodium chloride 0.9% (NS) flush 10 mL, 10 mL, IntraVENous, 2 times per day, Isis Amos MD, 10 mL at 09/10/24 2124 sodium chloride 0.9% (NS) flush 10 mL, 10 mL, IntraVENous, PRN, Isis Amos MD sodium chloride 0.9% (NS) flush 5-40 mL, 5-40 mL, IntraVENous, q12h, Isis Amos MD, 10 mL at 09/10/24 1056 sodium chloride 0.9% (NS) flush 5-40 mL, 5-40 mL, IntraVENous, PRN, Isis Amos MD OBJECTIVE VITALS: BP 154/73 (BP Location: Left arm, Patient Position: Lying) Pulse 60 Temp 36.1 C (97 F) (Temporal) Resp 16 Ht 5' 6 (1.676 m) Wt 136 lb (61.7 kg) SpO2 92% BMI 21.95 kg/m Average, Min, and Max for last24 hours Vitals: TEMPERATURE: Temp Av.6 C (97.9 F) Min: 36.1 C (97 F) Max: 36.9 C (98.5 F) RESPIRATIONS RANGE: Resp Av.7 Min: 16 Max: 18 PULSE RANGE: Pulse Av Min: 60 Max: 62 BLOOD PRESSURE RANGE: Systolic (24hrs), Av , Min:145 , Max:154 ; Diastolic (24hrs), Av, Min:73, Max:78 PULSE OXIMETRY RANGE:SpO2 Av.7 % Min: 92 % Max: 94 % I/O last 3 completed shifts: In: 400 (6.5 mL/kg) [P.O.:400] Out: - (0 mL/kg) Weight: 61.7 kg Constitutional: No acute distress. Well-nourished. Well hydrated, sitting in chair Eyes: Pupils are equal and round; Conjunctiva are not injected; Sclera are non-icteric. ENT: Ears/nose without external abnormalities. Oral mucosa is pink and moist. Neck: No JVD. No carotid bruits; No thyromegaly. Respiratory: Clear to auscultation bilaterally without any added sounds. Effort is normal Heart: Regular, Normal S1 and S2. No murmur; No added sounds. Abdomen: Normal BS, soft, upper region tenderness, non-distended; no hepatomegaly. Extremities/Skin: No LE edema; Skin warm to touch and well perfused. Musculoskeletal: Head - normocephalic. Neck - supple Psychiatric: AAO x 3, answers appropriately, normal mood, normal affect. Data Recent blood work, radiologic study and endoscopic study were reviewed with the patient. CBC: Recent Labs 09/09/242 09/10/24 0346 09/11/24 0233 WBC 12.3* 13.8* 13.0* RBC 4.11 3.71* 3.65* HGB 11.8 10.7* 10.6* HCT 36.2 32.4* 33.2* MCV 88.1 87.3 91.0 MCH 28.7 28.8 29.0 MCHC 32.6 33.0 31.9 RDW 14.1 14.3 14.1 PLT 282 227 264 MPV 9.5 9.5 9.5 CMP: Recent Labs 09/09/24 0452 09/10/24 0346 09/11/24 0233 NA 137 136 137 K 3.8 3.5 3.4* CL 106 106 105 CO2 26 22* 21* BUN 16 14 13 CREATININE 0.85 0.68 0.69 GLUCOSE 120* 98 81* CALCIUM 8.7* 8.2* 8.3* PROT 5.8* 5.1* 5.5* BILITOT 0.8 0.8 0.9 ALKPHOS 225* 169* 161* AST 180* 82* 48* ALT 279* 171* 123* Radiologic Review MRCP 09/07/24 FINDINGS: LIVER: Unremarkable. GALLBLADDER AND BILE DUCTS: The gallbladder is filled with gallstones. The gallbladder is nondistended. Two filling defects are present in the, bile duct measuring 4 mm and 7 mm. The common bile duct is mildly dilated to 9 mm. The common hepatic duct is mildly dilated to 8 mm. No intrahepatic biliary dilation. PANCREAS: No pancreatic duct dilation. There is a pancreatic neck cyst measuring 6 mm. SPLEEN: Unremarkable. No splenomegaly. ADRENALS: No mass. KIDNEYS AND URETERS: Symmetric size. No hydronephrosis. VASCULATURE: Unremarkable. No abdominal aortic aneurysm. LYMPH NODES: Unremarkable. No enlarged lymph nodes. IMPRESSION: 1. Choledocholithiasis with mild biliary dilation. 2. Cholecystolithiasis. 3. 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 No high risk features. Given its size and the patient's age, recommend follow-up MRI in two years. CT AP without contrast 09/09/24 FINDINGS: LOWER CHEST: Trace bilateral pleural effusions with bibasilar atelectasis. ABDOMEN: LIVER: within normal limits. BILE DUCTS: Stent noted within the common duct. No gross intrahepatic ductal dilatation, noting that evaluation is somewhat limited due to lack of intravenous contrast. GALLBLADDER: No calcified gallstones. Normal caliber wall. PANCREAS: There is infiltration of the peripancreatic fat predominantly about the pancreatic head and uncinate process extending into the root of the small bowel mesentery. No loculated peripancreatic fluid collection. SPLEEN: within normal limits. ADRENALS: There is a lipid rich left adrenal adenoma measuring up to 1.6 cm. Right adrenal gland is within normal limits. KIDNEYS: within normal limits. PELVIS: REPRODUCTIVE ORGANS: No pelvic masses. URETERS: within normal limits. BLADDER: within normal limits. BOWEL: Bowel is normal in caliber. Appendix within normal limits. No enlarged mesenteric lymph nodes. PERITONEUM: Few foci of pneumoperitoneum within the upper abdomen and subjacent to the left hepatic lobe. There is trace perihepatic ascites, predominantly anterior to the dome of the liver and within the gallbladder fossa. VESSELS: Within normal limits. LYMPH NODES: No enlarged nodes. RETROPERITONEUM: within normal limits. ABDOMINAL WALL: Fat-containing umbilical hernia noted. BONES: Mild degenerative changes of the imaged spine. IMPRESSION: 1. Inflammatory changes noted about the pancreatic head and uncinate process. No loculated fluid collection. 2. Foci of gas within the abdominal wall and upper abdomen, consistent with recent cholecystectomy. There is trace perihepatic ascites. No fluid collection. 3. Stent noted within the common duct. No overt biliary ductal dilatation. 4. Trace pleural effusions with bibasilar atelectasis. Endoscopic Review ERCP 09/07/24 ASSESSMENT AND PLAN Choledocholithiasis s/p ERCP with Sphincterotomy, Balloon Extraction and Biliary Stent Placement Post ERCP Pancreatitis Duodenal Erosions Elevated LFTs Cholelithiasis s/p Cholecystectomy 09/08 Plan: - Continue to trend CRP and LFTs daily - Continue LR 75 mL/hr - FLD, advance slowly as tolerated - Analgesics and antiemetics as indicated - Continue pantoprazole 40 mg daily - Continue lovenox for DVT prophylaxis - Continue ambulation and incentive spirometer. - Continue medical management and supportive care per primary team - Outpatient follow up with Roque GODOY, clinic staff notified - GI to follow ATTENDING NOTE: Pt is being followed by inpatient GI service for: pancreatitis Above note has also been edited to reflect my additional findings and recommendations Family present at bedside: Brief Exam Gen: NAD HEENT: anicteric sclera Chest: normal respiratory effort Abd: +tender with light palpation Ext: no c/c/e Neuro: nonfocal Labs/Studies reviewed in [facility] ASSESSMENT/PLAN: Choledocholithiasis Status Post ERCP Biliary stent in place Pancreatitis --Continue supportive care, IVF, pain medication --Slow advancement of diet --Above note has been edited to reflect updated assessment/plan/recommendations LULY SAMAYOA MD Images from the original note were not included. Department of General Surgery Daily Progress Note ADMIT DATE: 09/05/2024 TODAY'S DATE: 09/10/2024 HPI: Chaim Danielle is a 73 y.o. female with no significant past medical history who presents with abdominal pain. Surgery was consulted for evaluation of cholelithiasis with concern for choledocholithiasis. Patient states she has been experiencing intermittent right upper quadrant abdominal pain for the last 2 weeks. Patient reports the pain is related to eating and has occurred 2-3 times and lasts 2 to 3 hours at a time. Patient denies symptoms like this before. Patient's states that she is not experiencing any nausea or vomiting. Patient otherwise endorses normal bowel movements without hematochezia. Patient denies fevers or chills. Past surgical history is significant for laparoscopic hysterectomy 20 years ago. Last colonoscopy was last April and demonstrated normal findings per patient. Patient denies personal or family history of Crohn's, ulcerative colitis, colon cancer. Patient denies smoking, alcohol, illicit drug use. Patient does not take any blood thinners at home. On evaluation patient was afebrile and hemodynamically stable, mildly bradycardic on arrival to . Labs reviewed significant for: WBC 4.6, Hgb 12.1, creatinine 0.92, ALP 299, AST 283, ALT 392, total bilirubin 2.8, direct bilirubin 1.7, lipase 25. Reportedly right upper quadrant ultrasound from OSH demonstrated cholelithiasis with choledocholithiasis. Patient transferred to [facility] for further workup and MRCP. SUBJECTIVE: No acute events overnight. Pain mildly improved with new pain regimen however still persistent. Patient currently n.p.o. per GI. No further concerns this morning. Interval history: 09/06 MRCP with choledocholithiasis 09/07 ERCP with stent 09/08 lap moose OBJECTIVE: VITALS: BP 145/74 Pulse 61 Temp 36.9 C (98.5 F) (Temporal) Resp 16 Ht 5' 6 (1.676 m) Wt 136 lb (61.7 kg) SpO2 92% BMI 21.95 kg/m INTAKE/OUTPUT: No intake or output data in the 24 hours ending 09/10/24 1310 No intake/output data recorded. No intake/output data recorded. PHYSICAL EXAM: Gen: NAD, A&Ox3, pain well controlled Heart: RRR, well perfused Lungs: symmetric chest rise, normal work of breathing, breath sounds b/l Abd: soft, laps sites with steri strips in place. Moderately distended and TTP Ext: no c/c/e no gross deformities Skin: warm, well perfused, no obvious rashes, cellulitis or gross discoloration LABS Results from last 7 days Lab Units 09/10/24 0346 09/09/24 0452 09/08/24 0531 WBC AUTO 10*3/uL 13.8* 12.3* 9.8 HEMOGLOBIN g/dL 10.7* 11.8 11.5* HEMATOCRIT % 32.4* 36.2 35.6 PLATELETS 10*3/uL 227 282 258 Results from last 7 days Lab Units 09/10/24 0346 09/09/24 0452 09/08/24 0532 SODIUM mmol/L 136 137 139 POTASSIUM mmol/L 3.5 3.8 3.9 CHLORIDE mmol/L 106 106 109* CO2 mmol/L 22* 26 22* BUN mg/dL 14 16 17 CREATININE mg/dL 0.68 0.85 0.73 GLUCOSE mg/dL 98 120* 107 CALCIUM mg/dL 8.2* 8.7* 8.7* Results from last 7 days Lab Units 09/10/24 0346 09/09/24 0452 09/08/24 0532 09/07/24 0150 ALK PHOS U/L 169* 225* 259* 315* BILIRUBIN TOTAL mg/dL 0.8 0.8 1.0 2.6* BILIRUBIN DIRECT mg/dL -- 0.4 0.4 1.8* PROTEIN TOTAL g/dL 5.1* 5.8* 5.6* 6.0* ALT U/L 171* 279* 217* 309* AST U/L 82* 180* 91* 195* LIPASE Date Value Ref Range Status 09/09/2024 >3,000 (H) <55 U/L Final 09/06/2024 25 <55 U/L Final Results from last 7 days Lab Units 09/06/24 0350 INR 1.0 Current Inpatient Medications Scheduled Meds:acetaminophen, 1,000 mg, Oral, q8h enoxaparin, 40 mg, SubCUTAneous, Daily methocarbamol, 500 mg, Oral, 3 times per day polyethylene glycol (PEG) 3350, 17 g, Oral, Daily sodium chloride 0.9%, 10 mL, IntraVENous, 2 times per day sodium chloride 0.9%, 5-40 mL, IntraVENous, q12h Continuous Infusions:lactated Ringer's, 75 mL/hr, Last Rate: 75 mL/hr (09/10/24 1114) PRN Meds:PRN medications: [DISCONTINUED] HYDROmorphone OR HYDROmorphone, naloxone, ondansetron ODT OR ondansetron, oxyCODONE OR oxyCODONE, sodium chloride, sodium chloride, sodium chloride 0.9%, sodium chloride 0.9% ASSESSMENT AND PLAN: 73 y.o. female with choledocholithiasis s/p ERCP with stent placement now status post laparoscopic cholecystectomy on 09/08/2024 now with post ERCP pancreatitis - No further surgical intervention - Recommend clear liquid diet - IVF - Encourage ambulation -Rest of care per primary - General surgery will sign off, please call with any questions or concerns. Discussed with Dr. Jeni Spencer MD 09/10/24 1:10 PM Cosigned by Maycol Ngo MD at 09/12/2024 9:09 AM EDT Associated attestation - Maycol Ngo MD - 09/12/2024 9:09 AM EDT ~~~~~~~~~~~~~~~~~~~~~~~~~~~~~~~~~~~~~~ ~~~~~~~~~~~~~~~~~~~~~ Attending physician addendum: I independently saw and evaluated the patient. I personally obtained the rodriguez and critical portion of the history and physical exam. I reviewed and agree with the documentation below. I personally reviewed patient's labs and imaging studies. My findings agree with the below note except for any details corrected. I have examined the patient at the date below. Patient Active Problem List Diagnosis Choledocholithiasis I independently saw the below patient and reviewed the imaging, labs, vital signs; I performed a physical exam and ROS. My findings agree with the above note except for any details corrected below. As per Dr. Spencer's note. I have evaluated the patient on 09/10/24 Patient's pain has improved. Kept NPO by the GI team. CT a/p ordered by GI reviewed - inflammatory changes of pancreatic head and uncinate process, no loculated fluid collection. Chief complain: abdominal pain Problem list: Choledocholithiasis Cholelithiasis Hyperbilirubinemia Transaminates Pancreatitis, likely post ERCP Procedures: 09/07 - ERCP, sphincterotomy, stone evacuation x 2, stent placement Management / Plan : OK to advance diet from General surgery prospective Pain control DVT prophylaxis OK for oral medications Thank you for this consultation and allowing us to participate in the management of your patient. Please, contact me for any concerns or questions. Zach Ngo MD [facility] Trauma, Surgical Critical Care, & General Surgery Division of Trauma Department of Surgery [facility] P Please see full details from the history and physical exam in the resident's / nurse practitioner's note Patient's pain has improved. Kept NPO by the GI team. CT a/p ordered by GI reviewed - inflammatory changes of pancreatic head and uncinate process, no loculated fluid collection. Chief complain: abdominal pain Problem list: Choledocholithiasis Cholelithiasis Hyperbilirubinemia Transaminates Pancreatitis, likely post ERCP Procedures: 09/07 - ERCP, sphincterotomy, stone evacuation x 2, stent placement Management / Plan : OK to advance diet from General surgery prospective Pain control DVT prophylaxis OK for oral medications Zach Ngo MD [facility] Trauma, Surgical Critical Care, & General Surgery Division of Trauma Department of Surgery [facility] P [facility] Hospitalist Progress note [phone]: Please page me ([phone]) for patient care issues. [phone]: Please page [facility] Hospitalist for any issues. Subjective: Admit Date: 09/05/2024 PCP: RUSSELL HILL MD Room#: [id number] Farooq Danielle is a 73 y.o. female who presents with right upper quadrant pain for 2 weeks, worse with eating, diagnosed with Choledocholithiasis. Patient is an ultrasound at outside facility that showed cholelithiasis and transferred to [facility] for further evaluation and management GI and surgery consulted and MRCP revealed choledocholithiasis Patient is status post ERCP on 09/07/2024 sphincterotomy with balloon extraction to stones and stent placement. Patient developed post ERCP pancreatitis lipase elevated gastroenterology on board please monitor LFTs gastroenterology to follow stent to be removed as outpatient 6 to 10 weeks. General surgery following okay to advance diet and DVT prophylaxis Interval History: Tolerating diet no new concerns - over bedside all questions answered No other concerns like chest pain, fever, shortness of breath, numbness or tingling in the body NPO diet with enteral medications 24HR INTAKE/OUTPUT: No intake or output data in the 24 hours ending 09/10/24 0902 LABS: CBC: Recent Labs 09/08/24 0531 09/09/24 0452 09/10/24 0346 WBC 9.8 12.3* 13.8* RBC 4.06 4.11 3.71* HGB 11.5* 11.8 10.7* HCT 35.6 36.2 32.4* MCV 87.7 88.1 87.3 RDW 13.5 14.1 14.3 PLT 258 282 227 BMP: Recent Labs 09/08/24 0532 09/09/24 0452 09/10/24 0346 NA 139 137 136 K 3.9 3.8 3.5 CL 109* 106 106 CO2 22* 26 22* BUN 17 16 14 CREATININE 0.73 0.85 0.68 GLUCOSE 107 120* 98 CALCIUM 8.7* 8.7* 8.2* ANIONGAP 8 5 8 LIVER PROFILE: Recent Labs 09/08/24 0532 09/09/24 0452 09/10/24 0346 AST 91* 180* 82* ALT 217* 279* 171* BILITOT 1.0 0.8 0.8 ALKPHOS 259* 225* 169* PROT 5.6* 5.8* 5.1* PT/INR: No results for input(s): PROTIME, INR in the last 72 hours. CARDIAC ENZYMES: No results for input(s): TROPONINI in the last 72 hours. Procalcitonin: No results found for: PROCAL @RISRSLTSPECIALTY@ Objective: Vitals: BP 132/64 (BP Location: Right arm, Patient Position: Sitting) Pulse 61 Temp 36.4 C (97.6 F) (Temporal) Resp 17 Ht 5' 6 (1.676 m) Wt 136 lb (61.7 kg) SpO2 92% BMI 21.95 kg/m Pulse Ox: SpO2 Av.4 % Min: 85 % Max: 95 % Supplemental O2: O2 Flow Rate (L/min): 1.5 L/min 09/10/2024 General appearance: No apparent distress, appears stated age, AAOX4 Oral: Tongue is semi-moist Cardiovascular: S1/S2 heard, RRR Respiratory: Clear to auscultation bilaterally Abdomen: Clean dry and intact dressing noted Musculoskeletal: No obvious deformities seen Medications: lactated Ringer's, 150 mL/hr, Last Rate: 150 mL/hr (09/08/24 1607) acetaminophen, 1,000 mg, Oral, q8h enoxaparin, 40 mg, SubCUTAneous, Daily methocarbamol, 500 mg, Oral, 3 times per day polyethylene glycol (PEG) 3350, 17 g, Oral, Daily sodium chloride 0.9%, 10 mL, IntraVENous, 2 times per day sodium chloride 0.9%, 5-40 mL, IntraVENous, q12h Assessment Cholelithiasis with choledocholithiasis status post ERCP with stent placement POD 2 laparoscopic cholecystectomy Elevated LFTs Asymptomatic bradycardia Plan Seen and examined Vitals and meds reviewed Consult notes reviewed GI following S/p ERCP with biliary sphincterotomy, balloon extraction. Continue IV fluids, pain control Surgery signed off advance diet to regular Skin incision noted clean Will continue to follow hemoglobin and labs in the a.m. -am labs, replace lytes prn -increase activity Diet NPO diet with enteral medications DVT Prophylaxis [x] Lovenox, [] Heparin, [] SCDs, [] Ambulation [] Already on Anticoagulation GI Prophylaxis [] PPI, [] H2 Godfrey, [] Carafate, [] Diet/Tube Feeds Code Status Full Code MDM [] Low, [] Moderate,[] High Patient's risk as above Anticipated Discharge - Date -09/11 - Location - Home - Pending the following -clinical improvement, executive talent acquisition consultant recommendations Total time spent (which include face to face and non face to face encounters) : 43 minutes Toxic drug monitoring/narrow therapeutic index drug monitoring : # Drug name : # Route administered : # Method of monitoring : Extended Emergency Contact Information Primary Emergency Contact: Zane Danielle Mobile Relation: Spouse Secondary Emergency Contact: Erin Ken Mobile Relation: Daughter Advance Directive: Full Code Discharge planning: TBD Roxane Bailey MD Division of Hospitalist Medicine Inpatient Medical Services/[facility] [place] Images from the original note were not included. Department of Internal Medicine Gastroenterology Progress Note SUBJECTIVE: GI following for choledocholithiasis. Patient s/p ERCP on 09/07/24. Sphincterotomy with balloon expression 2 stones and stent placement. Status post cholecystectomy on 09/08/24. Yesterday patient with increase in abdominal pain. Abdominal XR without ileus or SBO. Lipase <3000. CT AP without contrast revealed inflammatory changes at the pancreatic head, no loculated fluid collection. LFTs improved, Tbili remains normal. WBC 12.3-->13.8. Patient reports feeling ok this AM. Has been up walking. Has been NPO. Discussed CT findings with patient. She would like to try clear liquids. Pain overnight was better than previous night. No nausea, vomiting. Pain continues to be band like around abdomen, mid and upper. Passing gas and had a BM. Medications Scheduled Meds: Current Facility-Administered Medications: acetaminophen (Tylenol) tablet 1,000 mg, 1,000 mg, Oral, q8h, Isis Amos MD, 1,000 mg at 09/10/24 0346 enoxaparin (Lovenox) syringe 40 mg, 40 mg, SubCUTAneous, Daily, Isis Amos MD, 40 mg at 09/09/24 1207 [DISCONTINUED] HYDROmorphone (Dilaudid) injection 0.25 mg, 0.25 mg, IntraVENous, q3h PRN OR HYDROmorphone (Dilaudid) injection 0.5 mg, 0.5 mg, IntraVENous, q3h PRN, Maycol Ngo MD lactated ringers infusion, 150 mL/hr, IntraVENous, Continuous, Isis Amos MD, Last Rate: 150 mL/hr at 09/08/24 1607, 150 mL/hr at 09/08/24 1607 methocarbamol (Robaxin) tablet 500 mg, 500 mg, Oral, 3 times per day, Maycol Ngo MD naloxone (Narcan) injection 0.4 mg, 0.4 mg, IntraVENous, q5 min PRN, Isis Amos MD ondansetron ODT (Zofran-ODT) disintegrating tablet 4 mg, 4 mg, Oral, q8h PRN OR ondansetron (Zofran) injection 4 mg, 4 mg, IntraVENous, q6h PRN, Isis Amos MD, 4 mg at 09/09/24 0005 oxyCODONE (Roxicodone) immediate release tablet 5 mg, 5 mg, Oral, q4h PRN, 5 mg at 09/08/24 1829 OR oxyCODONE (Roxicodone) immediate release tablet 10 mg, 10 mg, Oral, q4h PRN, Isis Amos MD, 10 mg at 09/09/24 0447 polyethylene glycol (PEG) 3350 (Miralax) packet 17 g, 17 g, Oral, Daily, Kimmie Carr, HISTORY CARD CLERK - [employer], 17 g at 09/09/24 1207 sodium chloride 0.9 % infusion, 5-250 mL/hr, IntraVENous, PRN, Isis Amos MD sodium chloride 0.9 % infusion, 5-250 mL/hr, IntraVENous, PRN, Isis Amos MD sodium chloride 0.9% (NS) flush 10 mL, 10 mL, IntraVENous, 2 times per day, Isis Amos MD, 10 mL at 09/08/24 2110 sodium chloride 0.9% (NS) flush 10 mL, 10 mL, IntraVENous, PRN, Isis Amos MD sodium chloride 0.9% (NS) flush 5-40 mL, 5-40 mL, IntraVENous, q12h, Isis Amos MD, 10 mL at 09/08/24 2110 sodium chloride 0.9% (NS) flush 5-40 mL, 5-40 mL, IntraVENous, PRN, Isis Bucka Coccola, MD OBJECTIVE VITALS: BP 132/64 (BP Location: Right arm, Patient Position: Sitting) Pulse 61 Temp 36.4 C (97.6 F) (Temporal) Resp 17 Ht 5' 6 (1.676 m) Wt 136 lb (61.7 kg) SpO2 92% BMI 21.95 kg/m Average, Min, and Max for last24 hours Vitals: TEMPERATURE: Temp Av.9 C (98.4 F) Min: 36.4 C (97.6 F) Max: 37.4 C (99.4 F) RESPIRATIONS RANGE: Resp Av.6 Min: 16 Max: 17 PULSE RANGE: Pulse Av Min: 61 Max: 68 BLOOD PRESSURE RANGE: Systolic (24hrs), Av , Min:112 , Max:142 ; Diastolic (24hrs), Av, Min:61, Max:69 PULSE OXIMETRY RANGE:SpO2 Av.4 % Min: 85 % Max: 95 % No intake/output data recorded. Constitutional: No acute distress. Well-nourished. Well hydrated. Up in chair. Eyes: Pupils are equal and round; Conjunctiva are not injected; Sclera are non-icteric. ENT: Ears/nose without external abnormalities. Oral mucosa is pink and moist. Respiratory: Clear to auscultation bilaterally without any added sounds. Effort is normal Heart: Regular, Normal S1 and S2. No murmur; No added sounds. Abdomen: Normal BS, soft, protuberant, diffusely tender, most notable mid and upper abdomen bilaterally, no hepatomegaly. Extremities/Skin: No LE edema; Skin warm to touch and well perfused. Musculoskeletal: Head - normocephalic. Neck - supple Psychiatric: AAO x 3, answers appropriately, normal mood, normal affect. Non-focal. Data Recent blood work, radiologic study and endoscopic study were reviewed with the patient. CBC: Recent Labs 09/08/24 0531 09/09/24 0452 09/10/24 0346 WBC 9.8 12.3* 13.8* RBC 4.06 4.11 3.71* HGB 11.5* 11.8 10.7* HCT 35.6 36.2 32.4* MCV 87.7 88.1 87.3 MCH 28.3 28.7 28.8 MCHC 32.3 32.6 33.0 RDW 13.5 14.1 14.3 PLT 258 282 227 MPV 9.4 9.5 9.5 CMP: Recent Labs 09/08/24 0532 09/09/24 0452 09/10/24 0346 NA 139 137 136 K 3.9 3.8 3.5 CL 109* 106 106 CO2 22* 26 22* BUN 17 16 14 CREATININE 0.73 0.85 0.68 GLUCOSE 107 120* 98 CALCIUM 8.7* 8.7* 8.2* PROT 5.6* 5.8* 5.1* BILITOT 1.0 0.8 0.8 ALKPHOS 259* 225* 169* AST 91* 180* 82* ALT 217* 279* 171* PT/INR: No results for input(s): INR in the last 72 hours. Lab Results Component Value Date LIPASE >3,000 (H) 09/09/2024 Radiologic Review MRCP 09/07/24 FINDINGS: LIVER: Unremarkable. GALLBLADDER AND BILE DUCTS: The gallbladder is filled with gallstones. The gallbladder is nondistended. Two filling defects are present in the, bile duct measuring 4 mm and 7 mm. The common bile duct is mildly dilated to 9 mm. The common hepatic duct is mildly dilated to 8 mm. No intrahepatic biliary dilation. PANCREAS: No pancreatic duct dilation. There is a pancreatic neck cyst measuring 6 mm. SPLEEN: Unremarkable. No splenomegaly. ADRENALS: No mass. KIDNEYS AND URETERS: Symmetric size. No hydronephrosis. VASCULATURE: Unremarkable. No abdominal aortic aneurysm. LYMPH NODES: Unremarkable. No enlarged lymph nodes. IMPRESSION: 1. Choledocholithiasis with mild biliary dilation. 2. Cholecystolithiasis. 3. 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 No high risk features. Given its size and the patient's age, recommend follow-up MRI in two years. CT AP without contrast 09/09/24 FINDINGS: LOWER CHEST: Trace bilateral pleural effusions with bibasilar atelectasis. ABDOMEN: LIVER: within normal limits. BILE DUCTS: Stent noted within the common duct. No gross intrahepatic ductal dilatation, noting that evaluation is somewhat limited due to lack of intravenous contrast. GALLBLADDER: No calcified gallstones. Normal caliber wall. PANCREAS: There is infiltration of the peripancreatic fat predominantly about the pancreatic head and uncinate process extending into the root of the small bowel mesentery. No loculated peripancreatic fluid collection. SPLEEN: within normal limits. ADRENALS: There is a lipid rich left adrenal adenoma measuring up to 1.6 cm. Right adrenal gland is within normal limits. KIDNEYS: within normal limits. PELVIS: REPRODUCTIVE ORGANS: No pelvic masses. URETERS: within normal limits. BLADDER: within normal limits. BOWEL: Bowel is normal in caliber. Appendix within normal limits. No enlarged mesenteric lymph nodes. PERITONEUM: Few foci of pneumoperitoneum within the upper abdomen and subjacent to the left hepatic lobe. There is trace perihepatic ascites, predominantly anterior to the dome of the liver and within the gallbladder fossa. VESSELS: Within normal limits. LYMPH NODES: No enlarged nodes. RETROPERITONEUM: within normal limits. ABDOMINAL WALL: Fat-containing umbilical hernia noted. BONES: Mild degenerative changes of the imaged spine. IMPRESSION: 1. Inflammatory changes noted about the pancreatic head and uncinate process. No loculated fluid collection. 2. Foci of gas within the abdominal wall and upper abdomen, consistent with recent cholecystectomy. There is trace perihepatic ascites. No fluid collection. 3. Stent noted within the common duct. No overt biliary ductal dilatation. 4. Trace pleural effusions with bibasilar atelectasis. Endoscopic Review ERCP 09/07/24 ASSESSMENT AND PLAN Choledocholithiasis- s/p ERCP with sphincterotomy, stone extraction x2 and stent placement 09/07/24 Post ERCP pancreatitis- lipase >3000 09/09/24 Cholelithiasis- s/p cholecystectomy 09/08/24 Elevated LFTs Duodenal erosions - Continue LR at 75 ml/hr - Advance to clear liquid diet - DVT prophylaxis - Encourage ambulation around the floor and incentive spirometer - Continue medical management and supportive care per primary team - Continue to monitor LFTs and bilirubin - Recommend Protonix 40 mg daily - OP follow up for stent removal in 6-10 weeks, GI clinic aware - GI to follow Cosigned by Cristian Ruiz MD at 09/10/2024 11:18 AM EDT Associated attestation - Cristian Ruiz MD - 09/10/2024 11:18 AM EDT Attending Supervising Physician s Attestation Statement I have personally performed and participated in all the above services (including HPI and PE). I have reviewed the case with Advance Practice Provider (PALMA)/ resident / student, and agreed with the PALMA's / resident / student assessment and plan as above. I have following additions or modifications: I did substantive portion of medical decision making. Patient still has same pain , passed gas and had BM , no nausea or vomiting. No tachycardia, no signs of hemoconcentration. On exam , tenderness in epigastrium Imaging reviewed. Inflammatory changes. Start clear liquid diet. OB --> chair Pain control Incenrtive spirometry Lovenox subcutaneous Decrease IV fluids as she tolerates PO Trend CRP Supportive care. No need for any intervention. Discussed I will be out of town starting tomorrow. Inpatient GI service to follow her. All questions answered , met with patient and . [facility] Images from the original note were not included. Department of Internal Medicine Gastroenterology Progress Note SUBJECTIVE: GI following for choledocholithiasis. Patient s/p ERCP on 09/07/24. Sphincterotomy with balloon expression 2 stones and stent placement. Status post cholecystectomy on 09/08/24. Patient reports feeling bad this AM. A lot of abdominal pain and bloating. Spoke yesterday post procedure and she was still very sleepy. She reports eating a muffin and fruit last night post op without any nausea, vomiting, abdominal pain. Woke up this AM and pain not well controlled and bloating as above. Not passing gas per patient. Was up walking with PT, no change in pain or bloating with ambulating. Tbili remains normal. LFTs slightly worse than yesterday. Medications Scheduled Meds: Current Facility-Administered Medications: acetaminophen (Tylenol) tablet 1,000 mg, 1,000 mg, Oral, q8h, Isis Amos MD, 1,000 mg at 09/09/24 0430 enoxaparin (Lovenox) syringe 40 mg, 40 mg, SubCUTAneous, Daily, Isis Amos MD [DISCONTINUED] HYDROmorphone (Dilaudid) injection 0.25 mg, 0.25 mg, IntraVENous, q3h PRN OR HYDROmorphone (Dilaudid) injection 0.5 mg, 0.5 mg, IntraVENous, q3h PRN, Maycol Ngo MD lactated ringers infusion, 150 mL/hr, IntraVENous, Continuous, Isis Amos MD, Last Rate: 150 mL/hr at 09/08/24 1607, 150 mL/hr at 09/08/24 1607 methocarbamol (Robaxin) tablet 500 mg, 500 mg, Oral, 3 times per day, Maycol Ngo MD naloxone (Narcan) injection 0.4 mg, 0.4 mg, IntraVENous, q5 min PRN, Isis Amos MD ondansetron ODT (Zofran-ODT) disintegrating tablet 4 mg, 4 mg, Oral, q8h PRN OR ondansetron (Zofran) injection 4 mg, 4 mg, IntraVENous, q6h PRN, Isis Amos MD, 4 mg at 09/09/24 0005 oxyCODONE (Roxicodone) immediate release tablet 5 mg, 5 mg, Oral, q4h PRN, 5 mg at 09/08/24 1829 OR oxyCODONE (Roxicodone) immediate release tablet 10 mg, 10 mg, Oral, q4h PRN, Isis Amos MD, 10 mg at 09/09/24 0447 polyethylene glycol (PEG) 3350 (Miralax) packet 17 g, 17 g, Oral, Daily PRN, Isis Amos MD, 17 g at 09/09/24 0447 sodium chloride 0.9 % infusion, 5-250 mL/hr, IntraVENous, PRN, Isis Amos MD sodium chloride 0.9 % infusion, 5-250 mL/hr, IntraVENous, PRN, Isis Amos MD sodium chloride 0.9% (NS) flush 10 mL, 10 mL, IntraVENous, 2 times per day, Isis Amos MD, 10 mL at 09/08/242109 sodium chloride 0.9% (NS) flush 10 mL, 10 mL, IntraVENous, PRN, Isis Amos MD sodium chloride 0.9% (NS) flush 5-40 mL, 5-40 mL, IntraVENous, q12h, Isis Amos MD, 10 mL at 09/08/242109 sodium chloride 0.9% (NS) flush 5-40 mL, 5-40 mL, IntraVENous, PRN, Isis Amos MD OBJECTIVE VITALS: BP 147/72 (BP Location: Right arm, Patient Position: Sitting) Pulse 57 Temp 36.3 C (97.3 F) (Temporal) Resp 17 Ht 5' 6 (1.676 m) Wt 136 lb (61.7 kg) SpO2 94% BMI 21.95 kg/m Average, Min, and Max for last24 hours Vitals: TEMPERATURE: Temp Av.5 C (97.7 F) Min: 35.6 C (96 F) Max: 37.4 C (99.3 F) RESPIRATIONS RANGE: Resp Av.2 Min: 14 Max: 17 PULSE RANGE: Pulse Av.2 Min: 51 Max: 57 BLOOD PRESSURE RANGE: Systolic (24hrs), Av , Min:96 , Max:175 ; Diastolic (24hrs), Av, Min:45, Max:77 PULSE OXIMETRY RANGE:SpO2 Av.8 % Min: 92 % Max: 100 % I/O last 3 completed shifts: In: 1950 (31.6 mL/kg) [P.O.:200; I.V.:1750 (28.4 mL/kg)] Out: 750 (12.2 mL/kg) [Urine:700 (0.3 mL/kg/hr); Blood:50] Weight: 61.7 kg Constitutional: No acute distress. Well-nourished. Up in chair, family at bedside. Eyes: Pupils are equal and round; Conjunctiva are not injected; Sclera are non-icteric. ENT: Ears/nose without external abnormalities. Oral mucosa is pink and moist. Respiratory: Clear to auscultation bilaterally without any added sounds. Effort is normal Heart: Regular, Normal S1 and S2. No murmur; No added sounds. Abdomen: Normal BS, soft, distended, diffuse tenderness, no hepatomegaly. Extremities/Skin: No LE edema; Skin warm to touch and well perfused. Musculoskeletal: Head - normocephalic. Neck - supple Psychiatric: AAO x 3, answers appropriately, normal mood, normal affect. Non-focal. Data Recent blood work, radiologic study and endoscopic study were reviewed with the patient. CBC: Recent Labs 09/07/24 0150 09/08/24 0531 09/09/24 0452 WBC 5.7 9.8 12.3* RBC 4.00 4.06 4.11 HGB 11.5* 11.5* 11.8 HCT 35.6 35.6 36.2 MCV 89.0 87.7 88.1 MCH 28.8 28.3 28.7 MCHC 32.3 32.3 32.6 RDW 14.0 13.5 14.1 PLT 240 258 282 MPV 9.4 9.4 9.5 CMP: Recent Labs 09/07/24 0150 09/08/24 0532 09/09/24 0452 NA 139 139 137 K 3.6 3.9 3.8 CL 110* 109* 106 CO2 19* 22* 26 BUN 22 17 16 CREATININE 0.80 0.73 0.85 GLUCOSE 92 107 120* CALCIUM 8.7* 8.7* 8.7* PROT 6.0* 5.6* 5.8* BILITOT 2.6* 1.0 0.8 ALKPHOS 315* 259* 225* AST 195* 91* 180* ALT 309* 217* 279* PT/INR: No results for input(s): INR in the last 72 hours. Lab Results Component Value Date 09/06/2024 Radiologic Review MRCP 09/07/24 FINDINGS: LIVER: Unremarkable. GALLBLADDER AND BILE DUCTS: The gallbladder is filled with gallstones. The gallbladder is nondistended. Two filling defects are present in the, bile duct measuring 4 mm and 7 mm. The common bile duct is mildly dilated to 9 mm. The common hepatic duct is mildly dilated to 8 mm. No intrahepatic biliary dilation. PANCREAS: No pancreatic duct dilation. There is a pancreatic neck cyst measuring 6 mm. SPLEEN: Unremarkable. No splenomegaly. ADRENALS: No mass. KIDNEYS AND URETERS: Symmetric size. No hydronephrosis. VASCULATURE: Unremarkable. No abdominal aortic aneurysm. LYMPH NODES: Unremarkable. No enlarged lymph nodes. IMPRESSION: 1. Choledocholithiasis with mild biliary dilation. 2. Cholecystolithiasis. 3. 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 No high risk features. Given its size and the patient's age, recommend follow-up MRI in two years. Endoscopic Review ERCP 09/07/24 ASSESSMENT AND PLAN Choledocholithiasis- s/p ERCP with sphincterotomy, stone extraction x2 and stent placement 09/07/24 Cholelithiasis- 90 Elevated LFTs- 2/2 above Abdominal pain- Duodenal erosions Patient with pain, abdominal distention this AM, not passing gas, no nausea, vomiting and tolerated a diet last night without difficulty. Recommend: - NPO - 1 view abdominal XR - Check lipase - Continue medical management and supportive care per primary team - Continue to monitor LFTs and bilirubin - Recommend Protonix 40 mg daily - OP follow up for stent removal in 6-10 weeks, GI clinic aware - GI to follow Cosigned by Cristian Ruiz MD at 09/09/2024 3:19 PM EDT Associated attestation - Cristian Ruiz MD - 09/09/2024 3:19 PM EDT Attending Supervising Physician s Attestation Statement I have personally performed and participated in all the above services (including HPI and PE). I have reviewed the case with Advance Practice Provider (PALMA)/ resident / student, and agreed with the PALMA's / resident / student assessment and plan as above. I have following additions or modifications: I did substantive portion of medical decision making. Seen today sitting in chair, states pain started yesterday night into this morning but now is better. On exam she is tender in epigastrium. Lipase is high, her image with X ray doesn't show ileus. She is not passing gas. Had muffin yesterday, no nausea or vomiting. Will keep her NPO today, LR at 150ml/hr, Lovenox for DVT prophylaxis. A little late presentation for post ERCP pancreatitis. Will image without contrast to evaluate. Vitals are normal without SIRS , has mild wbc count. Will follow. [facility] Images from the original note were not included. Department of General Surgery Daily Progress Note ADMIT DATE: 09/05/2024 TODAY'S DATE: 09/09/2024 HPI: Chaim Danielle is a 73 y.o. female with no significant past medical history who presents with abdominal pain. Surgery was consulted for evaluation of cholelithiasis with concern for choledocholithiasis. Patient states she has been experiencing intermittent right upper quadrant abdominal pain for the last 2 weeks. Patient reports the pain is related to eating and has occurred 2-3 times and lasts 2 to 3 hours at a time. Patient denies symptoms like this before. Patient's states that she is not experiencing any nausea or vomiting. Patient otherwise endorses normal bowel movements without hematochezia. Patient denies fevers or chills. Past surgical history is significant for laparoscopic hysterectomy 20 years ago. Last colonoscopy was last April and demonstrated normal findings per patient. Patient denies personal or family history of Crohn's, ulcerative colitis, colon cancer. Patient denies smoking, alcohol, illicit drug use. Patient does not take any blood thinners at home. On evaluation patient was afebrile and hemodynamically stable, mildly bradycardic on arrival to . Labs reviewed significant for: WBC 4.6, Hgb 12.1, creatinine 0.92, ALP 299, AST 283, ALT 392, total bilirubin 2.8, direct bilirubin 1.7, lipase 25. Reportedly right upper quadrant ultrasound from OSH demonstrated cholelithiasis with choledocholithiasis. Patient transferred to [facility] for further workup and MRCP. SUBJECTIVE: No acute events overnight. Complaining of feeling full of gas. Has been up walking but complaining of abdominal pain. Denies nausea or vomiting Interval history: 09/06 MRCP with choledocholithiasis 09/07 ERCP with stent 09/08 lap moose OBJECTIVE: VITALS: BP 147/72 (BP Location: Right arm, Patient Position: Sitting) Pulse 57 Temp 36.3 C (97.3 F) (Temporal) Resp 17 Ht 1.676 m (5' 6) Wt 61.7 kg (136 lb) SpO2 94% BMI 21.95 kg/m INTAKE/OUTPUT: Intake/Output Summary (Last 24 hours) at 09/09/2024 0920 Last data filed at 09/08/2024 1607 Gross per 24 hour Intake 1750 ml Output 50 ml Net 1700 ml I/O last 3 completed shifts: In: 1950 (31.6 mL/kg) [P.O.:200; I.V.:1750 (28.4 mL/kg)] Out: 750 (12.2 mL/kg) [Urine:700 (0.3 mL/kg/hr); Blood:50] Weight: 61.7 kg No intake/output data recorded. PHYSICAL EXAM: Gen: NAD, A&Ox3, pain well controlled Heart: RRR, well perfused Lungs: symmetric chest rise, normal work of breathing, breath sounds b/l Abd: soft, laps sites with steri strips in place. Moderately distended and TTP Ext: no c/c/e no gross deformities Skin: warm, well perfused, no obvious rashes, cellulitis or gross discoloration LABS Results from last 7 days Lab Units 09/09/24 0452 09/08/24 0531 09/07/24 0150 WBC AUTO 10*3/uL 12.3* 9.8 5.7 HEMOGLOBIN g/dL 11.8 11.5* 11.5* HEMATOCRIT % 36.2 35.6 35.6 PLATELETS 10*3/uL 282 258 240 Results from last 7 days Lab Units 09/09/24 0452 09/08/24 0532 09/07/24 0150 SODIUM mmol/L 137 139 139 POTASSIUM mmol/L 3.8 3.9 3.6 CHLORIDE mmol/L 106 109* 110* CO2 mmol/L 26 22* 19* BUN mg/dL 16 17 22 CREATININE mg/dL 0.85 0.73 0.80 GLUCOSE mg/dL 120* 107 92 CALCIUM mg/dL 8.7* 8.7* 8.7* Results from last 7 days Lab Units 09/08/24 0532 09/07/24 0150 09/06/24 0350 ALK PHOS U/L 259* 315* 299* BILIRUBIN TOTAL mg/dL 1.0 2.6* 2.8* BILIRUBIN DIRECT mg/dL 0.4 1.8* 1.7* PROTEIN TOTAL g/dL 5.6* 6.0* 6.2* ALT U/L 217* 309* 392* AST U/L 91* 195* 283* LIPASE Date Value Ref Range Status 09/06/2024 25 <55 U/L Final Results from last 7 days Lab Units 09/06/24 0350 INR 1.0 Current Inpatient Medications Scheduled Meds:acetaminophen, 1,000 mg, Oral, q8h enoxaparin, 40 mg, SubCUTAneous, Daily methocarbamol, 500 mg, Oral, 3 times per day sodium chloride 0.9%, 10 mL, IntraVENous, 2 times per day sodium chloride 0.9%, 5-40 mL, IntraVENous, q12h Continuous Infusions:lactated Ringer's, 150 mL/hr, Last Rate: 150 mL/hr (09/08/24 1607) PRN Meds:PRN medications: [DISCONTINUED] HYDROmorphone OR HYDROmorphone, naloxone, ondansetron ODT OR ondansetron, oxyCODONE OR oxyCODONE, polyethylene glycol (PEG) 3350, sodium chloride, sodium chloride, sodium chloride 0.9%, sodium chloride 0.9% ASSESSMENT AND PLAN: 73 y.o. female with choledocholithiasis s/p ERCP with stent placement - POD#1 laparoscopic cholecystectomy - Regular diet - IVF - Encourage ambulation - General surgery will sign off, please call with any questions or concerns. Discussed with GREGORY Zelaya CNP 09/09/24 9:20 AM Cosigned by Maycol Ngo MD at 09/10/2024 10:35 AM EDT Associated attestation - Maycol Ngo MD - 09/10/2024 10:35 AM EDT ~~~~~~~~~~~~~~~~~~~~~~~~~~~~~~~~~~~~~~ ~~~~~~~~~~~~~~~~~~~~~ Attending physician addendum: I independently saw and evaluated the patient. I personally obtained the rodriguez and critical portion of the history and physical exam. I reviewed and agree with the documentation below. I personally reviewed patient's labs and imaging studies. My findings agree with the below note except for any details corrected. I have examined the patient at the date below. Patient Active Problem List Diagnosis Choledocholithiasis I independently saw the below patient and reviewed the imaging, labs, vital signs; I performed a physical exam and ROS. My findings agree with the above note except for any details corrected below. I have evaluated the patient on 09/09/24 Patient complains of epigastric pain associated with bloating. Denies Nausea however does not feel hungry, minimal PO intake since surgery. Chief complain: abdominal pain Problem list: Choledocholithiasis Cholelithiasis Hyperbilirubinemia Transaminates Pancreatitis, likely post ERCP Procedures: 09/07 - ERCP, sphincterotomy, stone evacuation x 2, stent placement Management / Plan : Check Lipase Stop regular diet OK for clear liquid diet IVF - LR@150 ml/hr Pain control - change IV Dilaudid for breakthrough pain only Start PO Robaxin Will follow Zach Ngo MD FACS Trauma, Surgical Critical Care, & General Surgery Division of Trauma Department of Surgery [facility] Hospitalist Progress note [phone]: Please page me ([phone]) for patient care issues. [phone]: Please page [facility] Hospitalist for any issues. Subjective: Admit Date: 09/05/2024 PCP: RUSSELL HILL MD Room#: [id number] Farooq Danielle is a 73 y.o. female who presents with right upper quadrant pain for 2 weeks, worse with eating, diagnosed with Choledocholithiasis. Patient is an ultrasound at outside facility that showed cholelithiasis and transferred to [facility] for further evaluation and management GI and surgery consulted and MRCP revealed choledocholithiasis Patient is status post ERCP on 09/07/2024 sphincterotomy with balloon extraction to stones and stent placement. . lIPASE very elevated Cmp, CBC pending Interval History: Patient tolerated liquid diet -mild pain reported at the surgical site No other concerns like chest pain, fever, shortness of breath, numbness or tingling in the body Adult diet Regular 24HR INTAKE/OUTPUT: Intake/Output Summary (Last 24 hours) at 09/09/2024 0841 Last data filed at 09/08/2024 1607 Gross per 24 hour Intake 1750 ml Output 50 ml Net 1700 ml LABS: CBC: Recent Labs 09/07/24 0150 09/08/24 0531 09/09/24 0452 WBC 5.7 9.8 12.3* RBC 4.00 4.06 4.11 HGB 11.5* 11.5* 11.8 HCT 35.6 35.6 36.2 MCV 89.0 87.7 88.1 RDW 14.0 13.5 14.1 PLT 240 258 282 BMP: Recent Labs 09/07/24 0150 09/08/24 0532 09/09/24 0452 NA 139 139 137 K 3.6 3.9 3.8 CL 110* 109* 106 CO2 19* 22* 26 BUN 22 17 16 CREATININE 0.80 0.73 0.85 GLUCOSE 92 107 120* CALCIUM 8.7* 8.7* 8.7* ANIONGAP 10 8 5 LIVER PROFILE: Recent Labs 09/07/24 0150 09/08/24 0532 AST 195* 91* ALT 309* 217* BILITOT 2.6* 1.0 ALKPHOS 315* 259* PROT 6.0* 5.6* PT/INR: No results for input(s): PROTIME, INR in the last 72 hours. CARDIAC ENZYMES: No results for input(s): TROPONINI in the last 72 hours. Procalcitonin: No results found for: PROCAL @RISRSLTSPECIALTY@ Objective: Vitals: BP 147/72 (BP Location: Right arm, Patient Position: Sitting) Pulse 57 Temp 36.3 C (97.3 F) (Temporal) Resp 17 Ht 5' 6 (1.676 m) Wt 136 lb (61.7 kg) SpO2 94% BMI 21.95 kg/m Pulse Ox: SpO2 Av.8 % Min: 92 % Max: 100 % Supplemental O2: O2 Flow Rate (L/min): 1.5 L/min 09/09/2024 General appearance: No apparent distress, appears stated age, AAOX4 Oral: Tongue is semi-moist Cardiovascular: S1/S2 heard, RRR Respiratory: Clear to auscultation bilaterally Abdomen: Clean dry and intact dressing noted Musculoskeletal: No obvious deformities seen Medications: lactated Ringer's, 150 mL/hr, Last Rate: 150 mL/hr (09/08/24 1607) acetaminophen, 1,000 mg, Oral, q8h enoxaparin, 40 mg, SubCUTAneous, Daily sodium chloride 0.9%, 10 mL, IntraVENous, 2 times per day sodium chloride 0.9%, 5-40 mL, IntraVENous, q12h Assessment Cholelithiasis with choledocholithiasis status post ERCP with stent placement- Elevated LFTs Asymptomatic bradycardia Plan Seen and examined Vitals and meds reviewed Consult notes reviewed General Surgery, GI following S/p ERCP with biliary sphincterotomy, balloon extraction. Patient is n.p.o. for the procedure CMP pending today Will continue to follow hemoglobin and labs in the a.m. -am labs, replace lytes prn -increase activity Diet Adult diet Regular DVT Prophylaxis [x] Lovenox, [] Heparin, [] SCDs, [] Ambulation [] Already on Anticoagulation GI Prophylaxis [] PPI, [] H2 Godfrey, [] Carafate, [] Diet/Tube Feeds Code Status Full Code MDM [] Low, [] Moderate,[] High Patient's risk as above Anticipated Discharge - Date -09/10 - Location - Home - Pending the following -clinical improvement, executive talent acquisition consultant recommendations Total time spent (which include face to face and non face to face encounters) : 44 minutes Toxic drug monitoring/narrow therapeutic index drug monitoring : # Drug name : # Route administered : # Method of monitoring : Extended Emergency Contact Information Primary Emergency Contact: Zane Danielle Mobile Relation: Spouse Secondary Emergency Contact: Erin Ken Mobile Relation: Daughter Advance Directive: Full Code Discharge planning: TBD Roxane Bailey MD Division of Hospitalist Medicine Inpatient Medical Services/[facility] Hospitalist Progress note [phone]: Please page md ([phone]) for patient care issues. [phone]: Please page [facility] Hospitalist for any issues. Subjective: Admit Date: 09/05/2024 PCP: RUSSELL HILL MD Room#: [id number] Farooq Danielle is a 73 y.o. female who presents with right upper quadrant pain for 2 weeks, worse with eating, diagnosed with Choledocholithiasis. On admission patient was afebrile, mildly bradycardic with heart rate in the high 40s. WBC 14.6, hemoglobin 12.1. AST, ALT elevated. Total bilirubin 2.8, lipase 25. Right upper quadrant ultrasound from outside facility demonstrated cholelithiasis, choledocholithiasis. She was transferred to [facility] for further workup, MRCP. MRCP revealed choledocholithiasis. GI, general surgery consulted, s/p ERCP on 09/07 Interval History: Patient patient was seen s/p lap cholecystectomy this morning She denies any nausea, vomiting at this time. She reports feeling not back to baseline, still having pain LFTs trending down Adult diet Regular 24HR INTAKE/OUTPUT: Intake/Output Summary (Last 24 hours) at 09/08/2024 1603 Last data filed at 09/08/2024 0952 Gross per 24 hour Intake 1470 ml Output 750 ml Net 720 ml LABS: CBC: Recent Labs 09/06/24 0350 09/07/24 0150 09/08/24 0531 WBC 4.6 5.7 9.8 RBC 4.17 4.00 4.06 HGB 12.1 11.5* 11.5* HCT 39.1 35.6 35.6 MCV 93.8 89.0 87.7 RDW 14.1 14.0 13.5 PLT 245 240 258 BMP: Recent Labs 09/06/24 0350 09/07/24 0150 09/08/24 0532 NA 142 139 139 K 3.9 3.6 3.9 CL 113* 110* 109* CO2 21* 19* 22* BUN 17 22 17 CREATININE 0.92 0.80 0.73 GLUCOSE 84 92 107 CALCIUM 9.0 8.7* 8.7* ANIONGAP 8 10 8 LIVER PROFILE: Recent Labs 09/06/24 0350 09/07/24 0150 09/08/24 0532 AST 283* 195* 91* ALT 392* 309* 217* BILITOT 2.8* 2.6* 1.0 ALKPHOS 299* 315* 259* PROT 6.2* 6.0* 5.6* PT/INR: Recent Labs 09/06/24349 PROTIME 10.3 INR 1.0 CARDIAC ENZYMES: No results for input(s): TROPONINI in the last 72 hours. Procalcitonin: No results found for: PROCAL @RISRSLTSPECIALTY@ Objective: Vitals: BP 113/59 (BP Location: Right arm, Patient Position: Lying) Pulse 57 Temp 36.1 C (97 F) (Temporal) Resp 14 Ht 5' 6 (1.676 m) Wt 136 lb (61.7 kg) SpO2 94% BMI 21.95 kg/m Pulse Ox: SpO2 Av.2 % Min: 94 % Max: 100 % Supplemental O2: O2 Flow Rate (L/min): 1.5 L/min 09/08/2024 General appearance: No apparent distress, appears stated age, AAOX4 Oral: Tongue is semi-moist Cardiovascular: S1/S2 heard, RRR Respiratory: Clear to auscultation bilaterally Abdomen: Soft, tenderness in right upper quadrant non-distended bowel sounds positive Musculoskeletal: No obvious deformities seen Medications: lactated Ringer's, 150 mL/hr, Last Rate: 150 mL/hr (09/07/24 1950) acetaminophen, 1,000 mg, Oral, q8h enoxaparin, 40 mg, SubCUTAneous, Daily sodium chloride 0.9%, 10 mL, IntraVENous, 2 times per day sodium chloride 0.9%, 5-40 mL, IntraVENous, q12h Assessment Cholelithiasis with choledocholithiasis Elevated LFTs Asymptomatic bradycardia Plan General Surgery, GI following S/p ERCP with biliary sphincterotomy, balloon extraction on 09/07. GI recommending continue LR at 150 cc/h S/p lap cholecystectomy today Trend LFTs, bilirubin in a.m., lipase -am labs, replace lytes prn -increase activity Diet Adult diet Regular DVT Prophylaxis [x] Lovenox, [] Heparin, [] SCDs, [] Ambulation [] Already on Anticoagulation GI Prophylaxis [] PPI, [] H2 Godfrey, [] Carafate, [] Diet/Tube Feeds Code Status Full Code MDM [] Low, [] Moderate,[] High Patient's risk as above Anticipated Discharge - Date -09/09 - Location - Home - Pending the following -clinical improvement, executive talent acquisition consultant recommendations Total time spent (which include face to face and non face to face encounters) : 45 minutes Toxic drug monitoring/narrow therapeutic index drug monitoring : # Drug name : # Route administered : # Method of monitoring : Extended Emergency Contact Information Primary Emergency Contact: Zane Danielle Mobile Relation: Spouse Secondary Emergency Contact: DayaemilioalexandrageetaErin Mobile Relation: Daughter Advance Directive: Full Code Discharge planning: TBD Ricarda Gavin MD Division of Hospitalist Medicine Inpatient Medical Services/[facility] Images from the original note were not included. Department of Internal Medicine Gastroenterology Progress Note SUBJECTIVE: GI following for choledocholithiasis. Patient s/p ERCP on 09/07/24. Sphincterotomy with balloon expression 2 stones and stent placement. Patient was on clear liquids yesterday after procedure. She was bradycardic postprocedure. Afebrile. LFTs improved this AM and Tbili now normal. She was in OR this AM for cholecystectomy, seen in PACU. Still sleepy ut denies abdominal pain post procedure yesterday. Remembers she has a stent in place and it will need removed outpatient. Medications Scheduled Meds: Current Facility-Administered Medications: [Transfer Hold] acetaminophen (Tylenol) tablet 650 mg, 650 mg, Oral, q6h PRN, 650 mg at 09/08/24 0500 OR [Transfer Hold] acetaminophen (Tylenol) suppository 650 mg, 650 mg, Rectal, q6h PRN, Gem Lisa, DO [Transfer Hold] enoxaparin (Lovenox) syringe 40 mg, 40 mg, SubCUTAneous, Daily, Gem Lisa DO lactated Ringer's infusion, 150 mL/hr, IntraVENous, Continuous, Ricarda Gavin MD, Stopped at 09/07/24 1515 lactated ringers infusion, 150 mL/hr, IntraVENous, Continuous, Sonia Heaton PA-C, Last Rate: 150 mL/hr at 09/07/241949, 150 mL/hr at 09/07/24 1950 [Transfer Hold] morphine injection 2 mg, 2 mg, IntraVENous, q4h PRN, Gem Lisa, DO, 2 mg at 09/07/24 0135 [Transfer Hold] naloxone (Narcan) injection 0.4 mg, 0.4 mg, IntraVENous, q5 min PRN, Gem Lisa, DO [Transfer Hold] ondansetron ODT (Zofran-ODT) disintegrating tablet 4 mg, 4 mg, Oral, q8h PRN OR [Transfer Hold] ondansetron (Zofran) injection 4 mg, 4 mg, IntraVENous, q6h PRN, Gem Lisa, DO [Transfer Hold] oxyCODONE-acetaminophen (Percocet) 5-325 MG per tablet 1 tablet, 1 tablet, Oral, q6h PRN, Gem Lisa, DO, 1 tablet at 09/07/24 0040 [Transfer Hold] polyethylene glycol (PEG) 3350 (Miralax) packet 17 g, 17 g, Oral, Daily PRN, Gem Lisa, DO [Transfer Hold] sodium chloride 0.9 % infusion, 5-250 mL/hr, IntraVENous, PRN, Gem Lisa, DO [Transfer Hold] sodium chloride 0.9% (NS) flush 5-40 mL, 5-40 mL, IntraVENous, q12h, Gem Lisa, DO, 10 mL at 09/06/24 0925 [Transfer Hold] sodium chloride 0.9% (NS) flush 5-40 mL, 5-40 mL, IntraVENous, PRN, Gem Lisa, DO OBJECTIVE VITALS: BP 149/69 (BP Location: Right arm, Patient Position: Sitting) Pulse 53 Temp 36.8 C (98.3 F) (Temporal) Resp 18 Ht 5' 6 (1.676 m) Wt 136 lb (61.7 kg) SpO2 94% BMI 21.95 kg/m Average, Min, and Max for last24 hours Vitals: TEMPERATURE: Temp Av.6 C (97.8 F) Min: 36 C (96.8 F) Max: 36.9 C (98.4 F) RESPIRATIONS RANGE: Resp Av.1 Min: 12 Max: 18 PULSE RANGE: Pulse Av.5 Min: 43 Max: 95 BLOOD PRESSURE RANGE: Systolic (24hrs), Av , Min:125 , Max:174 ; Diastolic (24hrs), Av, Min:59, Max:83 PULSE OXIMETRY RANGE:SpO2 Av.2 % Min: 94 % Max: 100 % I/O last 3 completed shifts: In: 3080 (49.9 mL/kg) [P.O.:1080; I.V.:2000 (32.4 mL/kg)] Out: 1000 (16.2 mL/kg) [Urine:1000 (0.5 mL/kg/hr)] Weight: 61.7 kg Constitutional: No acute distress. Well-nourished. Sleepy. Eyes: Pupils are equal and round; Conjunctiva are not injected; Sclera are non-icteric. ENT: Ears/nose without external abnormalities. Oral mucosa is pink and moist. Respiratory: Clear to auscultation bilaterally without any added sounds. Effort is normal Heart: Regular, Normal S1 and S2. No murmur; No added sounds. Abdomen: Normal BS, soft, expected post op tenderness, no hepatomegaly. Extremities/Skin: No LE edema; Skin warm to touch and well perfused. Musculoskeletal: Head - normocephalic. Neck - supple Psychiatric: AAO x 3, answers appropriately, normal mood, normal affect. Non-focal. Data Recent blood work, radiologic study and endoscopic study were reviewed with the patient. CBC: Recent Labs 09/06/24 0350 09/07/24 0150 09/08/24 0531 WBC 4.6 5.7 9.8 RBC 4.17 4.00 4.06 HGB 12.1 11.5* 11.5* HCT 39.1 35.6 35.6 MCV 93.8 89.0 87.7 MCH 29.0 28.8 28.3 MCHC 30.9 32.3 32.3 RDW 14.1 14.0 13.5 PLT 245 240 258 MPV 9.7 9.4 9.4 CMP: Recent Labs 09/06/24 0350 09/07/24 0150 09/08/24 0532 NA 142 139 139 K 3.9 3.6 3.9 CL 113* 110* 109* CO2 21* 19* 22* BUN 17 22 17 CREATININE 0.92 0.80 0.73 GLUCOSE 84 92 107 CALCIUM 9.0 8.7* 8.7* PROT 6.2* 6.0* 5.6* BILITOT 2.8* 2.6* 1.0 ALKPHOS 299* 315* 259* AST 283* 195* 91* ALT 392* 309* 217* PT/INR: Recent Labs 09/06/24 0350 INR 1.0 Lab Results Component Value Date LIPASE 09/06/2024 Radiologic Review MRCP 09/07/24 FINDINGS: LIVER: Unremarkable. GALLBLADDER AND BILE DUCTS: The gallbladder is filled with gallstones. The gallbladder is nondistended. Two filling defects are present in the, bile duct measuring 4 mm and 7 mm. The common bile duct is mildly dilated to 9 mm. The common hepatic duct is mildly dilated to 8 mm. No intrahepatic biliary dilation. PANCREAS: No pancreatic duct dilation. There is a pancreatic neck cyst measuring 6 mm. SPLEEN: Unremarkable. No splenomegaly. ADRENALS: No mass. KIDNEYS AND URETERS: Symmetric size. No hydronephrosis. VASCULATURE: Unremarkable. No abdominal aortic aneurysm. LYMPH NODES: Unremarkable. No enlarged lymph nodes. IMPRESSION: 1. Choledocholithiasis with mild biliary dilation. 2. Cholecystolithiasis. 3. 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 No high risk features. Given its size and the patient's age, recommend follow-up MRI in two years. Endoscopic Review ERCP 09/07/24 ASSESSMENT AND PLAN Choledocholithiasis- s/p ERCP with sphincterotomy, stone extraction x2 and stent placement 09/07/24 Cholelithiasis Elevated LFTs- 2/2 above Abdominal pain- 2/2 above Duodenal erosions - Diet per primary team post op - Continue LR at 1500 ml/hr - Continue medical management and supportive care per primary team - Continue to monitor LFTs and bilirubin - Recommend Protonix 40 mg daily - OP follow up for stent removal in 6-10 weeks, GI clinic aware - GI to follow Images from the original note were not included. Department of General Surgery Daily Progress Note ADMIT DATE: 09/05/2024 TODAY'S DATE: 09/08/2024 HPI: Chaim Dnaielle is a 73 y.o. female with no significant past medical history who presents with abdominal pain. Surgery was consulted for evaluation of cholelithiasis with concern for choledocholithiasis. Patient states she has been experiencing intermittent right upper quadrant abdominal pain for the last 2 weeks. Patient reports the pain is related to eating and has occurred 2-3 times and lasts 2 to 3 hours at a time. Patient denies symptoms like this before. Patient's states that she is not experiencing any nausea or vomiting. Patient otherwise endorses normal bowel movements without hematochezia. Patient denies fevers or chills. Past surgical history is significant for laparoscopic hysterectomy 20 years ago. Last colonoscopy was last April and demonstrated normal findings per patient. Patient denies personal or family history of Crohn's, ulcerative colitis, colon cancer. Patient denies smoking, alcohol, illicit drug use. Patient does not take any blood thinners at home. On evaluation patient was afebrile and hemodynamically stable, mildly bradycardic on arrival to . Labs reviewed significant for: WBC 4.6, Hgb 12.1, creatinine 0.92, ALP 299, AST 283, ALT 392, total bilirubin 2.8, direct bilirubin 1.7, lipase 25. Reportedly right upper quadrant ultrasound from OSH demonstrated cholelithiasis with choledocholithiasis. Patient transferred to [facility] for further workup and MRCP. SUBJECTIVE: No acute events overnight. Plan for OR today for lap moose Interval history: 09/06 MRCP with choledocholithiasis 09/07 ERCP with stent OBJECTIVE: VITALS: BP (!) 152/64 Pulse 52 Temp (!) 35.6 C (96 F) (Tympanic) Resp 16 Ht 5' 6 (1.676 m) Wt 136 lb (61.7 kg) SpO2 100% BMI 21.95 kg/m INTAKE/OUTPUT: Intake/Output Summary (Last 24 hours) at 09/08/2024 1056 Last data filed at 09/08/2024 0952 Gross per 24 hour Intake 3470 ml Output 750 ml Net 2720 ml I/O last 3 completed shifts: In: 3080 (49.9 mL/kg) [P.O.:1080; I.V.:2000 (32.4 mL/kg)] Out: 1000 (16.2 mL/kg) [Urine:1000 (0.5 mL/kg/hr)] Weight: 61.7 kg I/O this shift: In: 750 [I.V.:750] Out: 50 [Blood:50] PHYSICAL EXAM: Gen: NAD, A&Ox3, pain well controlled Heart: RRR, well perfused Lungs: symmetric chest rise, normal work of breathing, breath sounds b/l Abd: soft, minimally tender in right upper quadrant, non distended. Non rigid. Ext: no c/c/e no gross deformities Skin: warm, well perfused, no obvious rashes, cellulitis or gross discoloration LABS Results from last 7 days Lab Units 09/08/24 0531 09/07/24 0150 09/06/24 0350 WBC AUTO 10*3/uL 9.8 5.7 4.6 HEMOGLOBIN g/dL 11.5* 11.5* 12.1 HEMATOCRIT % 35.6 35.6 39.1 PLATELETS 10*3/uL 258 240 245 Results from last 7 days Lab Units 09/08/24 0532 09/07/24 0150 09/06/24 0350 SODIUM mmol/L 139 139 142 POTASSIUM mmol/L 3.9 3.6 3.9 CHLORIDE mmol/L 109* 110* 113* CO2 mmol/L 22* 19* 21* BUN mg/dL 17 22 17 CREATININE mg/dL 0.73 0.80 0.92 GLUCOSE mg/dL 107 92 84 CALCIUM mg/dL 8.7* 8.7* 9.0 Results from last 7 days Lab Units 09/08/24 0532 09/07/24 0150 09/06/24 0350 ALK PHOS U/L 259* 315* 299* BILIRUBIN TOTAL mg/dL 1.0 2.6* 2.8* BILIRUBIN DIRECT mg/dL 0.4 1.8* 1.7* PROTEIN TOTAL g/dL 5.6* 6.0* 6.2* ALT U/L 217* 309* 392* AST U/L 91* 195* 283* LIPASE Date Value Ref Range Status 09/06/2024 25 <55 U/L Final Results from last 7 days Lab Units 09/06/24 0350 INR 1.0 Current Inpatient Medications Scheduled Meds:[Transfer Hold] enoxaparin, 40 mg, SubCUTAneous, Daily sodium chloride 0.9%, 10 mL, IntraVENous, 2 times per day [Transfer Hold] sodium chloride 0.9%, 5-40 mL, IntraVENous, q12h Continuous Infusions:lactated Ringer's, 150 mL/hr, Last Rate: Stopped (09/07/24 1515) lactated Ringer's, 150 mL/hr, Last Rate: 150 mL/hr (09/07/24 1950) lactated Ringer's, 125 mL/hr PRN Meds:PRN medications: [Transfer Hold] acetaminophen OR [Transfer Hold] acetaminophen, diphenhydrAMINE, labetalol OR hydrALAZINE, HYDROmorphone, HYDROmorphone, LORazepam, [Transfer Hold] morphine sulfate, [Transfer Hold] naloxone, [Transfer Hold] ondansetron ODT OR [Transfer Hold] ondansetron, ondansetron, oxyCODONE OR oxyCODONE, [Transfer Hold] oxyCODONE-acetaminophen, [Transfer Hold] polyethylene glycol (PEG) 3350, sodium chloride, [Transfer Hold] sodium chloride, sodium chloride, sodium chloride 0.9%, [Transfer Hold] sodium chloride 0.9% ASSESSMENT AND PLAN: 73 y.o. female with choledocholithiasis s/p ERCP with stent placement - laparoscopic cholecystectomy, possible open today - N.p.o. for procedure - IVF - General Surgery follow Discussed with Dr. Jeni Amos MD 09/08/24 10:56 AM Please see full details from the history and physical exam in the resident's / nurse practitioner's note ~~~~~~~~~~~~~~~~~~~~~~~~~~~~~~~~~~~~~~ ~~~~~~~~~~~~~~~~~~~~~ Attending physician addendum: I independently saw and evaluated the patient. I personally obtained the rodriguez and critical portion of the history and physical exam. I reviewed and agree with the documentation below. I personally reviewed patient's labs and imaging studies. My findings agree with the below note except for any details corrected. I have examined the patient at the date below. Patient Active Problem List Diagnosis Choledocholithiasis I independently saw the below patient and reviewed the imaging, labs, vital signs; I performed a physical exam and ROS. My findings agree with the above note except for any details corrected below. I have evaluated the patient on 09/08/24 Patient still complains of epigastric discomfort following ERCP yesterday. Tolerated some clear liquids yesterday. PSH - LUCI. Last colonoscopy - 3 months ago - normal per patient. This AM labs - hyperbilirubinemia has resolved, improving LFTs. Chief complain: abdominal pain Problem list: Choledocholithiasis Cholelithiasis Hyperbilirubinemia Transaminates Procedures: 09/07 - ERCP, sphincterotomy, stone evacuation x 2, stent placement Management / Plan : - NPO - IVF - IV Abx - pain control - OR plans I had a long discussion with the patient regarding the risks, benefits, alternatives and limitations of surgery - laparoscopic cholecystectomy, possible open. The risks include however are not limited to risks of an open operation, bleeding, injury to intraabdominal organs, bile duct injury, bile leak, retained stones, altered bowel habits, and the risk of wound complications, hernia or infection. I have also explained to the patient in detail the operation, the anatomy involved and the typical recovery associated with either laparoscopic or open gallbladder surgery. All of her questions were answered. Patient expressed understanding about the procedure and its associated risks and consented to proceed with surgery. Zach Ngo MD FACS Trauma, Surgical Critical Care, & General Surgery Division of Trauma Department of Surgery [facility] Hospitalist Progress note [phone]: Please page md ([phone]) for patient care issues. [phone]: Please page [facility] Hospitalist for any issues. Subjective: Admit Date: 09/05/2024 PCP: RUSSELL HILL MD Room#: [id number] Farooq Danielle is a 73 y.o. female who presents with right upper quadrant pain for 2 weeks, worse with eating, diagnosed with Choledocholithiasis. On admission patient was afebrile, mildly bradycardic with heart rate in the high 40s. WBC 14.6, hemoglobin 12.1. AST, ALT elevated. Total bilirubin 2.8, lipase 25. Right upper quadrant ultrasound from outside facility demonstrated cholelithiasis, choledocholithiasis. She was transferred to [facility] for further workup, MRCP. MRCP revealed choledocholithiasis. GI, general surgery consulted Interval History: Patient had minimal nausea when she had crackers last night, patient seen after ERCP. reports feeling sleepy from anesthesia. Noted to have bradycardia down in recovery room also. Patient asymptomatic. Denies any nausea, vomiting at this time. Patient has been n.p.o. Adult diet Clear liquid 24HR INTAKE/OUTPUT: Intake/Output Summary (Last 24 hours) at 09/07/2024 1505 Last data filed at 09/07/2024 1305 Gross per 24 hour Intake 3860 ml Output 300 ml Net 3560 ml LABS: CBC: Recent Labs 09/06/24 0350 09/07/24 0150 WBC 4.6 5.7 RBC 4.17 4.00 HGB 12.1 11.5* HCT 39.1 35.6 MCV 93.8 89.0 RDW 14.1 14.0 PLT 245 240 BMP: Recent Labs 09/06/24 0350 09/07/24 0150 NA 142 139 K 3.9 3.6 CL 113* 110* CO2 21* 19* BUN 17 22 CREATININE 0.92 0.80 GLUCOSE 84 92 CALCIUM 9.0 8.7* ANIONGAP 8 10 LIVER PROFILE: Recent Labs 09/06/24 0350 09/07/24 0150 AST 283* 195* ALT 392* 309* BILITOT 2.8* 2.6* ALKPHOS 299* 315* PROT 6.2* 6.0* PT/INR: Recent Labs 09/06/24 0350 PROTIME 10.3 INR 1.0 CARDIAC ENZYMES: No results for input(s): TROPONINI in the last 72 hours. Procalcitonin: No results found for: PROCAL @RISRSLTSPECIALTY@ Objective: Vitals: BP 152/78 (Patient Position: Sitting) Pulse (!) 48 Temp 36.6 C (97.9 F) (Temporal) Resp 16 Ht 5' 6 (1.676 m) Wt 136 lb (61.7 kg) SpO2 96% BMI 21.95 kg/m Pulse Ox: SpO2 Av.7 % Min: 94 % Max: 100 % Supplemental O2: 09/07/2024 General appearance: No apparent distress, appears stated age, AAOX4 Oral: Tongue is semi-moist Cardiovascular: S1/S2 heard, RRR Respiratory: Clear to auscultation bilaterally Abdomen: Soft, tenderness in right upper quadrant non-distended bowel sounds positive Musculoskeletal: No obvious deformities seen Medications: lactated Ringer's, 150 mL/hr [Held by provider] enoxaparin, 40 mg, SubCUTAneous, Daily sodium chloride 0.9%, 5-40 mL, IntraVENous, q12h Assessment Cholelithiasis with choledocholithiasis Elevated LFTs Asymptomatic bradycardia Plan General Surgery, GI following S/p ERCP with biliary sphincterotomy, balloon extraction. GI recommending clear liquid diet for today, continue LR at 150 cc/h Trend LFTs, bilirubin in a.m., lipase N.p.o. at midnight for lap cholecystectomy tomorrow -am labs, replace lytes prn -increase activity Diet Adult diet Clear liquid DVT Prophylaxis [x] Lovenox, [] Heparin, [] SCDs, [] Ambulation [] Already on Anticoagulation GI Prophylaxis [] PPI, [] H2 Godfrey, [] Carafate, [] Diet/Tube Feeds Code Status Full Code MDM [] Low, [] Moderate,[] High Patient's risk as above Anticipated Discharge - Date -09/09 - Location - Home - Pending the following -clinical improvement, executive talent acquisition consultant recommendations Total time spent (which include face to face and non face to face encounters) : 45 minutes Toxic drug monitoring/narrow therapeutic index drug monitoring : # Drug name : # Route administered : # Method of monitoring : Extended Emergency Contact Information Primary Emergency Contact: Zane Danielle Mobile Relation: Spouse Secondary Emergency Contact: Erin Ken Mobile Relation: Daughter Advance Directive: Full Code Discharge planning: TBD Rciarda Gavin MD Division of Hospitalist Medicine Inpatient Medical Services/[facility] .Nutrition rescreen completed. Chart reviewed. Patient to be monitored and followed by the diet line technician. JARON Montalvo GASTROENTEROLOGY PHYSICIAN PRE PROCEDURE NOTE HPI: Chaim Danielle is a 73 y.o. female who is here today for planned endoscopic examination. See office or consult note for details. All: Patient has no known allergies. Meds: Current Facility-Administered Medications: [Transfer Hold] acetaminophen (Tylenol) tablet 650 mg, 650 mg, Oral, q6h PRN OR [Transfer Hold] acetaminophen (Tylenol) suppository 650 mg, 650 mg, Rectal, q6h PRN, Gem Lisa DO [Held by provider] enoxaparin (Lovenox) syringe 40 mg, 40 mg, SubCUTAneous, Daily, Gem Lisa DO [Transfer Hold] morphine injection 2 mg, 2 mg, IntraVENous, q4h PRN, Gem Lisa DO, 2 mg at 09/07/24 0135 [Transfer Hold] naloxone (Narcan) injection 0.4 mg, 0.4 mg, IntraVENous, q5 min PRN, Gem Lisa DO [Transfer Hold] ondansetron ODT (Zofran-ODT) disintegrating tablet 4 mg, 4 mg, Oral, q8h PRN OR [Transfer Hold] ondansetron (Zofran) injection 4 mg, 4 mg, IntraVENous, q6h PRN, Gem Ilodi, DO [Transfer Hold] oxyCODONE-acetaminophen (Percocet) 5-325 MG per tablet 1 tablet, 1 tablet, Oral, q6h PRN, Gem Ilodi, DO, 1 tablet at 09/07/24 0040 [Transfer Hold] polyethylene glycol (PEG) 3350 (Miralax) packet 17 g, 17 g, Oral, Daily PRN, Gem Ilodi, DO [Transfer Hold] sodium chloride 0.9 % infusion, 5-250 mL/hr, IntraVENous, PRN, Gem Ilodi, DO [Transfer Hold] sodium chloride 0.9% (NS) flush 5-40 mL, 5-40 mL, IntraVENous, q12h, Gem Ilodi, DO, 10 mL at 09/06/24 0925 [Transfer Hold] sodium chloride 0.9% (NS) flush 5-40 mL, 5-40 mL, IntraVENous, PRN, Gem Ilodi, DO PMH: History reviewed. No pertinent past medical history. No reactions to anesthesia in the past. Airway patent PE: VS: BP (!) 149/72 Pulse 93 Temp 36 C (96.8 F) (Temporal) Resp 16 Ht 1.676 m (5' 6) Wt 61.7 kg (136 lb) SpO2 100% BMI 21.95 kg/m Body mass index is 21.95 kg/m . General: Patient in no distress Abdomen: soft and tender ASA score : [] 1 [] 2 [x] 3 ASSESSMENT & PLAN: Imaging reviewed with patient, complains of worseneing abdominal pain today, imaging seen with radiology. Needs ERCP [x] Esophagogastroduodenoscopy with biopsy or dilation or other related interventions with Endoscopic retrograde cholangiopancreatography with or without sphincterotomy , sphincter dilation, stone removal , stricture dilation , stent placement with other therapeutic interventions. Risks & benefits of the endoscopic procedure(s) and MAC /GA sedation were personally explained to patient / family along with alternatives to the procedure in detail including radiological and surgical options. Diagrams were made where applicable. The risks of the endoscopic procedure include but are not limited to risk from anesthesia, cardio - respiratory failure, infection, bleeding, perforation, pancreatitis with its sequelae , ARDS , multiorgan failure, damage to the adjacent organs, missed lesions and need for further procedure, prolonged hospitalization, surgery or interventional radiological intervention, from procedure or complications. We made a shared decision to proceed with planned procedure. Claudia LAMAS Gastroenterology Images from the original note were not included. Department of General Surgery Daily Progress Note ADMIT DATE: 09/05/2024 TODAY'S DATE: 09/07/2024 HPI: Chaim Danielle is a 73 y.o. female with no significant past medical history who presents with abdominal pain. Surgery was consulted for evaluation of cholelithiasis with concern for choledocholithiasis. Patient states she has been experiencing intermittent right upper quadrant abdominal pain for the last 2 weeks. Patient reports the pain is related to eating and has occurred 2-3 times and lasts 2 to 3 hours at a time. Patient denies symptoms like this before. Patient's states that she is not experiencing any nausea or vomiting. Patient otherwise endorses normal bowel movements without hematochezia. Patient denies fevers or chills. Past surgical history is significant for laparoscopic hysterectomy 20 years ago. Last colonoscopy was last April and demonstrated normal findings per patient. Patient denies personal or family history of Crohn's, ulcerative colitis, colon cancer. Patient denies smoking, alcohol, illicit drug use. Patient does not take any blood thinners at home. On evaluation patient was afebrile and hemodynamically stable, mildly bradycardic on arrival to . Labs reviewed significant for: WBC 4.6, Hgb 12.1, creatinine 0.92, ALP 299, AST 283, ALT 392, total bilirubin 2.8, direct bilirubin 1.7, lipase 25. Reportedly right upper quadrant ultrasound from OSH demonstrated cholelithiasis with choledocholithiasis. Patient transferred to [facility] for further workup and MRCP. SUBJECTIVE: No acute events overnight. Minimal nausea and right upper quadrant pain with saltine crackers last night. Otherwise patient denies any pain this a.m. Patient currently without nausea or vomiting. Interval history: 09/06 MRCP with choledocholithiasis OBJECTIVE: VITALS: BP 121/58 Pulse (!) 43 Comment: RN aware Temp 36.6 C (97.8 F) (Temporal) Resp 16 SpO2 97% INTAKE/OUTPUT: Intake/Output Summary (Last 24 hours) at 09/07/2024 0820 Last data filed at 09/07/2024 0529 Gross per 24 hour Intake 1860 ml Output -- Net 1860 ml I/O last 3 completed shifts: In: 1910 [P.O.:410; I.V.:1500] Out: - No intake/output data recorded. PHYSICAL EXAM: Gen: NAD, A&Ox3, pain well controlled Heart: RRR, well perfused Lungs: symmetric chest rise, normal work of breathing, breath sounds b/l Abd: soft, minimally tender in right upper quadrant, non distended. Non rigid. Ext: no c/c/e no gross deformities Skin: warm, well perfused, no obvious rashes, cellulitis or gross discoloration LABS Results from last 7 days Lab Units 09/07/24 0150 09/06/24 0350 WBC AUTO 10*3/uL 5.7 4.6 HEMOGLOBIN g/dL 11.5* 12.1 HEMATOCRIT % 35.6 39.1 PLATELETS 10*3/uL 240 245 Results from last 7 days Lab Units 09/07/24 0150 09/06/24 0350 SODIUM mmol/L 139 142 POTASSIUM mmol/L 3.6 3.9 CHLORIDE mmol/L 110* 113* CO2 mmol/L 19* 21* BUN mg/dL 22 17 CREATININE mg/dL 0.80 0.92 GLUCOSE mg/dL 92 84 CALCIUM mg/dL 8.7* 9.0 Results from last 7 days Lab Units 09/07/24 0150 09/06/24 0350 ALK PHOS U/L 315* 299* BILIRUBIN TOTAL mg/dL 2.6* 2.8* BILIRUBIN DIRECT mg/dL 1.8* 1.7* PROTEIN TOTAL g/dL 6.0* 6.2* ALT U/L 309* 392* AST U/L 195* 283* LIPASE Date Value Ref Range Status 09/06/2024 25 <55 U/L Final Results from last 7 days Lab Units 09/06/24 0350 INR 1.0 Current Inpatient Medications Scheduled Meds:[Held by provider] enoxaparin, 40 mg, SubCUTAneous, Daily sodium chloride 0.9%, 5-40 mL, IntraVENous, q12h Continuous Infusions:lactated Ringer's, 150 mL/hr, Last Rate: 150 mL/hr (09/06/24 0954) PRN Meds:PRN medications: acetaminophen OR acetaminophen, morphine sulfate, naloxone, ondansetron ODT OR ondansetron, oxyCODONE-acetaminophen, polyethylene glycol (PEG) 3350, sodium chloride, sodium chloride 0.9% ASSESSMENT AND PLAN: 73 y.o. female with choledocholithiasis - Will plan for laparoscopic cholecystectomy, possible open following successful ERCP for biliary decompression and stone removal -Tentatively plan for OR tomorrow - MRCP positive for choledocholithiasis, ERCP to follow - N.p.o. for procedure - IVF - General Surgery follow Discussed with Dr. Gloria Spencer MD 09/07/24 8:20 AM Cosigned by Sary Castro MD at 09/08/2024 11:23 AM EDT Associated attestation - Sary Castro MD - 09/08/2024 11:23 AM EDT ATTENDING ADDENDUM Patient Active Problem List Diagnosis Choledocholithiasis I personally supervised the resident in the evaluation and development of a treatment plan for this patient on the same day of service as above. I personally discussed the review of systems and interviewed the patient along with performing a physical examination. I reviewed the recent events, imaging, labs, vital signs. In addition, I discussed the patient's condition and treatment options with him/her when possible. I have also reviewed and agree with the past medical, family, and social history unless otherwise noted. All of the patient's questions were answered and family updated when appropriate and possible. 73F with acute choledocholithiasis, MRCP shows cholelithiasis, and two filling defects in the bile duct with dilation of the CBD. Transaminases slightly downtrending, T bili remains elevated (2.8 -> 2.6). GI following and planning ERCP today. I evaluated the patient on 09/07 Going for ERCP today Plan for lap moose tomorrow, which will be done by my partner Dr. Ngo NPO at midnight, IVF hydration with LR Pre-op EKG shows sinus bradycardia Level of Medical Decision Making: risk of morbidity from additional diagnostic testing or treatment due to acute choledocholithiasis []High [x]Moderate []Low Complexity: Acute illness with systemic symptoms (MOD) Risk: Prescription drug management (MOD) Personally Reviewed/Independently interpreted patient's: [x]Epic notes []Radiology studies [x]Labs []EKG []Ordering tests []Other Discussed/ With: [x]Patient/Family [x]RN []Consultants []SW/TCC []Other I spent total time of 35 minutes reviewing previous notes, test results, and face to face with Chaim Danielle discussing the diagnosis and importance of compliance with the treatment plan as well as documenting on the day of the visit. Sary Castro MD Division of Trauma Department of Surgery [facility] Hospitalist Progress Note 09/06/2024 [phone]: Please page me ([phone]) for patient care issues. [phone]: Please page [facility] night Hospitalist for any issues. Subjective: Admit Date: 09/05/2024 PCP: RUSSELL HILL MD Room#: [id number]/[id number] A Interval History: Patient is sitting on the bed, denies any abdominal pain nausea or vomiting No other significant overnight issues. NPO diet with enteral medications NPO diet NPO diet with enteral medications @[id number]@ 24HR INTAKE/OUTPUT: Intake/Output Summary (Last 24 hours) at 09/06/2024 1329 Last data filed at 09/05/2024 2355 Gross per 24 hour Intake 50 ml Output -- Net 50 ml Past Medical History: History reviewed. No pertinent past medical history. LABS: CBC: Recent Labs 09/06/24 0350 WBC 4.6 RBC 4.17 HGB 12.1 HCT 39.1 MCV 93.8 RDW 14.1 PLT 245 BMP: Recent Labs 09/06/24 0350 NA 142 K 3.9 CL 113* CO2 21* BUN 17 CREATININE 0.92 GLUCOSE 84 CALCIUM 9.0 ANIONGAP 8 LIVER PROFILE: Recent Labs 09/06/24 0350 AST 283* ALT 392* BILITOT 2.8* ALKPHOS 299* PROT 6.2* PT/INR: Recent Labs 09/06/24 0350 PROTIME 10.3 INR 1.0 CARDIAC ENZYMES: No results for input(s): TROPONINI in the last 72 hours. Procalcitonin: No results found for: PROCAL COVID-19 PCR: No results for input(s): COVID19 in the last 72 hours. Objective: Vitals: BP 134/63 (BP Location: Right arm, Patient Position: Lying) Pulse (!) 39 Temp 36.9 C (98.5 F) (Temporal) Resp 17 SpO2 100% Pulse Ox: SpO2 Av.5 % Min: 97 % Max: 100 % Supplemental O2: General appearance: No apparent distress, appears stated age and cooperative with exam HEENT: Normal cephalic, atraumatic without obvious deformity. Pupils equal, round, and reactive to light. Extra ocular muscles intact. Conjunctivae/corneas clear. Neck: Supple, with full range of motion. No jugular venous distention. Trachea midline. No lymphadenopathy. Respiratory: Normal respiratory effort. Clear to auscultation, bilaterally without Rales/Wheezes/Rhonchi. Cardiovascular: Regular rate and rhythm with normal S1/S2 without murmurs, rubs or gallops. Abdomen: Soft, non-tender, non-distended with normal bowel sounds. No rebound or guarding. Musculoskeletal: No clubbing, cyanosis or edema bilaterally. Full range of motion without deformity, +2 peripheral pulses in all extremities. Skin: Skin color, texture, turgor normal. No rashes or lesions. Neurologic: Neurovascularly intact without any focal sensory/motor deficits. Cranial nerves: II-XII intact, grossly non-focal. Medications: lactated Ringer's, 150 mL/hr, Last Rate: 150 mL/hr (09/06/24 0954) [Held by provider] enoxaparin, 40 mg, SubCUTAneous, Daily sodium chloride 0.9%, 5-40 mL, IntraVENous, q12h Assessment Intractable abdominal pain. Cholelithiasis with choledocholithiasis. Elevated LFTs and alkaline phosphatase Asymptomatic bradycardia Plan: Abdominal pain is better, denies any nausea or vomitings. No signs of cholangitis-no requirement for antibiotics Continue symptomatic treatment with IV fluids and pain medications. Follow-up LFTs ordered. MRCP pending. Gastroenterology is following, appreciate their recommendations Follow-up CBC BMP ordered. DVT prophylaxis: Lovenox is on hold. Disposition: Pending MRCP. Pending possible ERCP. Pending GI clearance Possible discharge in next 1 to 2 days. Next -am labs, replace lytes prn -increase activity -DVT prophylaxis: [] Lovenox [] Heparin [] SCDs [x] Encourage ambulation [] Already on Anticoagulation Advance Directive: Full Code Discharge planning: TBD Masoud Dowell MD Division of Hospitalist Medicine Inpatient Medical Services/[facility] PAGER: [phone] documented in this encounter [facility] 09-13-2024 Note Hospitalist Discharg e Summary Chaim Danielle : 1950 Admit date: 09/05/2024 Discharge date: 09/13/2024 Admitting Physician: Gem Lisa DO Primary Care Physician: RUSSELL HILL MD Code Status: Full Code Discharge Diagnoses: Cholelithiasis with choledocholithiasis status post ERCP with stent placement POD 2 laparoscopic cholecystectomy Elevated LFTs Asymptomatic bradycardia Duodenal erosions Hospital Course: Chaim Danielle is a 73 y.o. female who presents with right upper quadrant pain for 2 weeks, worse with eating, diagnosed with Choledocholithiasis. Patient is an ultrasound at outside facility that showed cholelithiasis and transferred to [facility] for further evaluation and management GI and surgery consulted and MRCP revealed choledocholithiasis Patient is status post ERCP on 09/07/2024 sphincterotomy with balloon extraction to stones and stent placement. Patient developed post ERCP pancreatitis lipase elevated gastroenterology on board please monitor LFTs gastroenterology to follow stent to be removed as outpatient 6 to 10 weeks. Patient also underwent laparoscopic cholecystectomy. Postoperatively patient remained stable. Pain today is controlled. Denies any headache or dizziness. Tolerating diet. Had BM. Eager to go home. Medication sent to pharmacy. Recommended to take Protonix daily. Consults: GI, general surgery Discharge Instructions: Diet: Dietary Orders (From admission, onward) Start Ordered 09/12/24 1315 Adult diet Regular Diet effective now Question: Diet type Answer: Regular 09/12/24 1314 Activity: as tolerated Recommended Outpatient Tests: Disposition: Patient discharged in stable condition to Home. Greater than 31 minutes spent discharging the patient and coming up with patient discharge plan. Vitals: BP 130/64 (BP Location: Left arm, Patient Position: Sitting) Pulse 60 Temp 36.3 ?C (97.4 ?F) (Temporal) Resp 17 Ht 5' 6 (1.676 m) Wt 136 lb (61.7 kg) SpO2 92% BMI 21.95 kg/m? Pulse Ox: SpO2 Av.3 % Min: 84 % Max: 97 % Supplemental O2: O2 Flow Rate (L/min): 2 L/min Physical Exam Cardiovascular: Rate and Rhythm: Normal rate. Pulmonary: Effort: Pulmonary effort is normal. Abdominal: Palpations: Abdomen is soft. Neurological: General: No focal deficit present. Mental Status: She is oriented to person, place, and time. Discharge Medications: Medication List START taking these medications ondansetron ODT 4 MG disintegrating tablet Commonly known as: Zofran-ODT Take 1 tablet (4 mg) by mouth every 8 hours as needed for nausea or vomiting for up to 7 days. oxyCODONE 5 MG immediate release tablet Commonly known as: Roxicodone Take 1 tablet (5 mg) by mouth every 4 hours as needed for moderate pain (4-6) or severe pain (7-10) for up to 5 days. pantoprazole 40 MG EC tablet Commonly known as: ProtoNix Take 1 tablet (40 mg) by mouth daily. Do not crush, chew, or split. Where to Get Your Medications These medications were sent to [facility] [place] [id number] [address] [address] ondansetron ODT 4 MG disintegrating tablet oxyCODONE 5 MG immediate release tablet pantoprazole 40 MG EC tablet Recommended Follow-up: Russell Hill MD [address] [facility] [address] Follow up in 3 day(s) Complexity of Follow up: [] Moderate Complexity: follow up within 7-14 calendar days (49922) [x] Severe Complexity: follow up within 7 calendar days (26477) Follow up Testing, Pending results or Referrals at Transitional Care Visit: [x] yes [] no Instructions to MA: Please call patient on day after discharge (must document patient contacted within 2 business days of discharge). Follow up questions for MA: 1. Did you get medications filled and taking them as instructed from discharge? 2. Are you following your discharge instructions from your hospital stay? 3. Please confirm patient is scheduled for a follow up appointment within the above time frame. Signed: Ellis Olmstead MD Division of Hospitalist Medicine [facility] 09/13/2024, 12:51 PM [facility] 09-13-2024 Hospital course Narrative Hospitalist Discharge Summary Chaim Danielle : 1950 Admit date: 09/05/2024 Discharge date: 09/13/2024 Admitting Physician: Gem Lisa DO Primary Care Physician: RUSSELL HILL MD Code Status: Full Code Discharge Diagnoses: Cholelithiasis with choledocholithiasis status post ERCP with stent placement POD 2 laparoscopic cholecystectomy Elevated LFTs Asymptomatic bradycardia Duodenal erosions Hospital Course: Chaim Danielle is a 73 y.o. female who presents with right upper quadrant pain for 2 weeks, worse with eating, diagnosed with Choledocholithiasis. Patient is an ultrasound at outside facility that showed cholelithiasis and transferred to [facility] for further evaluation and management GI and surgery consulted and MRCP revealed choledocholithiasis Patient is status post ERCP on 09/07/2024 sphincterotomy with balloon extraction to stones and stent placement. Patient developed post ERCP pancreatitis lipase elevated gastroenterology on board please monitor LFTs gastroenterology to follow stent to be removed as outpatient 6 to 10 weeks. Patient also underwent laparoscopic cholecystectomy. Postoperatively patient remained stable. Pain today is controlled. Denies any headache or dizziness. Tolerating diet. Had BM. Eager to go home. Medication sent to pharmacy. Recommended to take Protonix daily. Consults: GI, general surgery Discharge Instructions: Diet: Dietary Orders (From admission, onward) Start Ordered 09/12/24 1315 Adult diet Regular Diet effective now Question: Diet type Answer: Regular 09/12/24 1314 Activity: as tolerated Recommended Outpatient Tests: Disposition: Patient discharged in stable condition to Home. Greater than 31 minutes spent discharging the patient and coming up with patient discharge plan. Vitals: BP 130/64 (BP Location: Left arm, Patient Position: Sitting) Pulse 60 Temp 36.3 C (97.4 F) (Temporal) Resp 17 Ht 5' 6 (1.676 m) Wt 136 lb (61.7 kg) SpO2 92% BMI 21.95 kg/m Pulse Ox: SpO2 Av.3 % Min: 84 % Max: 97 % Supplemental O2: O2 Flow Rate (L/min): 2 L/min Physical Exam Cardiovascular: Rate and Rhythm: Normal rate. Pulmonary: Effort: Pulmonary effort is normal. Abdominal: Palpations: Abdomen is soft. Neurological: General: No focal deficit present. Mental Status: She is oriented to person, place, and time. Discharge Medications: Medication List START taking these medications ondansetron ODT 4 MG disintegrating tablet Commonly known as: Zofran-ODT Take 1 tablet (4 mg) by mouth every 8 hours as needed for nausea or vomiting for up to 7 days. oxyCODONE 5 MG immediate release tablet Commonly known as: Roxicodone Take 1 tablet (5 mg) by mouth every 4 hours as needed for moderate pain (4-6) or severe pain (7-10) for up to 5 days. pantoprazole 40 MG EC tablet Commonly known as: ProtoNix Take 1 tablet (40 mg) by mouth daily. Do not crush, chew, or split. Where to Get Your Medications These medications were sent to [facility] [address] [place] [id number] [place] [id number] [facility] [address] ondansetron ODT 4 MG disintegrating tablet oxyCODONE 5 MG immediate release tablet pantoprazole 40 MG EC tablet Recommended Follow-up: Russell Hill MD [address] [place] [address] [facility] [address] Follow up in 3 day(s) Complexity of Follow up: [] Moderate Complexity: follow up within 7-14 calendar days (18691) [x] Severe Complexity: follow up within 7 calendar days (27796) Follow up Testing, Pending results or Referrals at Transitional Care Visit: [x] yes [] no Instructions to MA: Please call patient on day after discharge (must document patient contacted within 2 business days of discharge). Follow up questions for MA: 1. Did you get medications filled and taking them as instructed from discharge? 2. Are you following your discharge instructions from your hospital stay? 3. Please confirm patient is scheduled for a follow up appointment within the above time frame. Signed: Ellis Olmstead MD Division of Hospitalist Medicine [facility] 09/13/2024, 12:51 PM documented in this encounter [facility] 09-13-2024 Plan of care note Problem: Pain - Adult Goal: Verbalizes/displays adequate comfort level or baseline comfort level Outcome: Progressing Problem: Safety - Adult Goal: Free from fall injury Outcome: Progressing Problem: Discharge Planning Goal: Discharge to home or other facility with appropriate resources Outcome: Progressing Problem: Chronic Conditions and Co-morbidities Goal: Patient's chronic conditions and co-morbidity symptoms are monitored and maintained or improved Outcome: Progressing Problem: Knowledge Deficit Goal: Patient/family/caregiver demonstrates understanding of disease process, treatment plan, medications, and discharge instructions Outcome: Progressing Problem: Potential for Compromised Skin Integrity Goal: Skin Integrity is Maintained or Improved Outcome: Progressing Goal: Nutritional status is improving Outcome: Progressing Problem: Urinary Incontinence Goal: Perineal skin integrity is maintained or improved Outcome: Progressing [facility] 09-13-2024 Miscellaneous Notes Problem: Pain - Adult Goal: Verbalizes/displays adequate comfort level or baseline comfort level Outcome: Progressing Problem: Safety - Adult Goal: Free from fall injury Outcome: Progressing Problem: Discharge Planning Goal: Discharge to home or other facility with appropriate resources Outcome: Progressing Problem: Chronic Conditions and Co-morbidities Goal: Patient's chronic conditions and co-morbidity symptoms are monitored and maintained or improved Outcome: Progressing Problem: Knowledge Deficit Goal: Patient/family/caregiver demonstrates understanding of disease process, treatment plan, medications, and discharge instructions Outcome: Progressing Problem: Potential for Compromised Skin Integrity Goal: Skin Integrity is Maintained or Improved Outcome: Progressing Goal: Nutritional status is improving Outcome: Progressing Problem: Urinary Incontinence Goal: Perineal skin integrity is maintained or improved Outcome: Progressing SW present during Rounds this morning as Tx team discussed Pt's current health status and discharge plans. Reviewed chart. Met w /Pt, introduced self, explained role, and inquired upon possible need for supports or community resources. Male present at bedside, identified as Pt's Noah. Gave [facility] and [facility] info and flyer. Pt reported no needs for SW to address at this time. Problem: Pain - Adult Goal: Verbalizes/displays adequate comfort level or baseline comfort level Outcome: Progressing Problem: Safety - Adult Goal: Free from fall injury Outcome: Progressing Problem: Pain - Adult Goal: Verbalizes/displays adequate comfort level or baseline comfort level Outcome: Progressing Problem: Safety - Adult Goal: Free from fall injury Outcome: Progressing Problem: Discharge Planning Goal: Discharge to home or other facility with appropriate resources Outcome: Progressing Care Management Progress Note Introduced self to patient and husb at bedside- from home indep no DME- currently NPO- per GI note Post ERCP pancreatitis- lipase >3000 09/09/24 Problem: Pain - Adult Goal: Verbalizes/displays adequate comfort level or baseline comfort level Outcome: Progressing Problem: Safety - Adult Goal: Free from fall injury Outcome: Progressing Problem: Discharge Planning Goal: Discharge to home or other facility with appropriate resources Outcome: Progressing Problem: Chronic Conditions and Co-morbidities Goal: Patient's chronic conditions and co-morbidity symptoms are monitored and maintained or improved Outcome: Progressing Problem: Knowledge Deficit Goal: Patient/family/caregiver demonstrates understanding of disease process, treatment plan, medications, and discharge instructions Outcome: Progressing Problem: Potential for Compromised Skin Integrity Goal: Skin Integrity is Maintained or Improved Outcome: Progressing Goal: Nutritional status is improving Outcome: Progressing Problem: Urinary Incontinence Goal: Perineal skin integrity is maintained or improved Outcome: Progressing Problem: Pain - Adult Goal: Verbalizes/displays adequate comfort level or baseline comfort level Outcome: Progressing Problem: Safety - Adult Goal: Free from fall injury Outcome: Progressing Problem: Discharge Planning Goal: Discharge to home or other facility with appropriate resources Outcome: Progressing Problem: Chronic Conditions and Co-morbidities Goal: Patient's chronic conditions and co-morbidity symptoms are monitored and maintained or improved Outcome: Progressing Problem: Potential for Compromised Skin Integrity Goal: Skin Integrity is Maintained or Improved Outcome: Progressing Problem: Urinary Incontinence Goal: Perineal skin integrity is maintained or improved Outcome: Progressing Problem: Pain - Adult Goal: Verbalizes/displays adequate comfort level or baseline comfort level Outcome: Progressing Problem: Safety - Adult Goal: Free from fall injury Outcome: Progressing Problem: Discharge Planning Goal: Discharge to home or other facility with appropriate resources Outcome: Progressing Problem: Chronic Conditions and Co-morbidities Goal: Patient's chronic conditions and co-morbidity symptoms are monitored and maintained or improved Outcome: Progressing Problem: Potential for Compromised Skin Integrity Goal: Skin Integrity is Maintained or Improved Outcome: Progressing Goal: Nutritional status is improving Outcome: Progressing Problem: Urinary Incontinence Goal: Perineal skin integrity is maintained or improved Outcome: Progressing Images from the original note were not included. DEPARTMENT OF SURGERY OPERATIVE NOTE DATE OF PROCEDURE: 09/08/2024 ATTENDING SURGEON: Maycol Ngo MD TABLE GAMES SHIFT MANAGER: Isis Aldridge PGY5 PREOPERATIVE DIAGNOSIS: choledocholithiasis POSTOPERATIVE DIAGNOSIS: same, plus acute cholecystitis OPERATION: laparoscopic cholecystectomy ANESTHESIA: general ESTIMATED BLOOD LOSS: 50cc SPECIMEN: gallbladder PREOPERATIVE MEDICATIONS: zosyn HISTORY: The patient presented with RUQ abdominal pain and workup was positive for choledocholithiasis. She underwent ERCP with stent placement and follows up today for laparoscopic cholecystectomy. The risks, benefits, and alternatives to surgery were presented to the patient and they consented to surgical intervention. PROCEDURE: The patient was brought to the operating room and transferred over to the operating room table in the supine position. General anesthesia was induced and the patient was intubated. An NG tube was placed. They were positioned with arms out. The patient was prepped and draped in the normal sterile fashion. A timeout was performed which confirmed patient, procedure, medications, allergies, and hazards. An umbilical skin incision was made and the subcutaneous tissues were spread laterally with S retractors. The umbilical stalk was grasped with kochers and retracted upwards. The abdominal fascia was incised sharply and spread with kellys. The peritoneum was bluntly entered. Two 2-0 vicryl stay sutures were placed on the superior and inferior aspects of the fascia. The Garcia trocar was introduced and the abdomen was insufflated. No injuries were noted to the abdominal cavity. Additional ports were placed at the epigastrium and right upper quadrant under direct visualization. The patient was positioned in reverse trendelenberg with right side up. The dome of the gallbladder was grasped and retracted cephalad. The patient s liver was noted to be obstructing the view, despite multiple attempts to retract and reposition. We placed a liver retractor from the left upper quadrant to assist. The overlying omental adhesions and medial and lateral aspects of the gallbladder peritoneum were incised with hook electrocautery. Utilizing hydrodissection from suction sprayer machine and hook electrocautery, the gallbladder was mobilized off the lower half of the cystic plate and retracted laterally. The cystic duct was cleared and noted to be enlarged, as expected. The cystic artery was skeletonized and medialized with [place] and hook electrocautery. At this point our critical view of safety was obtained. Stones of the cystic duct were milked back and the epigastric port was upsized to a 11mm to accommodate the purple hem-o-calderon clips. The cystic artery was taken with the green hem-o-calderon clips with two down on the stay side, one up on specimen side. The cystic duct was taken with the purple hem-o-calderon clips in the same fashion. Both artery and cystic duct were cut with hook scissors. A single stone was removed from the cut lumen of the cystic duct. The infundibulum was then retracted upwards and the remaining gallbladder was removed from the cystic plate with hook electrocautery. Hemostasis of the liver bed was obtained. The specimen was placed into an Endocatch bag and removed via the umbilical port. The abdomen was thoroughly irrigated with 2L warm saline. A 2-0 Vicryl on a suture passer was used to close the epigastric port. The remaining ports were removed under direct visualization and the abdomen was desufflated. Two additional 2-0 vicryl sutures were placed at the umbilical port to close the fascia. The skin was closed with 4-0 monocryl and steri strips. At the conclusion of the case, the needle, sponge, and instrument counts were correct. The patient tolerated the procedure and anesthesia well without any major complications. The patient was extubated and transported to the post-anesthesia care unit in stable condition. The attending surgeon was present for the entire duration of the procedure. Cosigned by Maycol Ngo MD at 09/12/2024 9:08 AM EDT Associated attestation - Maycol Ngo MD - 09/12/2024 9:08 AM EDT Attending physician addendum: I was present and scrubbed in the operating room for the entire surgery. Agree with below except for: Addendum: - the fascia at the epigastric port was closed with 0 Vicryl stitch - the umbilical fascia was closed with interrupted 0 Vicryl stitches Zach Ngo MD FACS Trauma, Surgical Critical Care, & General Surgery Division of Trauma Department of Surgery [facility] P Date: 09/08/2024 Location: [facility] OR Name: Chaim Danielle, : 1950, Diagnosis Pre-op Diagnosis * Choledocholithiasis [K80.50] Post-op Diagnosis * Choledocholithiasis [K80.50] Procedures * LAPAROSCOPIC, CHOLECYSTECTOMY Surgeons * Maycol Ngo - Primary Procedure Summary Anesthesia: General ASA: II Estimated Blood Loss: 50 mL Drains: * None in log * Specimens ID Source Type Tests Collected By Collected At Frozen? Priority Lab ID 1 Gallbladder Tissue TISSUE EXAM Maycol Ngo MD 09/08/24 0943 No Routine Description: GALLBLADDER Staff: Private Secretary: Elizabeth Cornelius RN Relief Private Secretary: Erin Hensley RN Scrub Person: Stephanie Kuhn Findings: see full op note Complications: None; patient tolerated the procedure well. Specimens Collected: Order Name Source Comment Collection Info Order Time TISSUE EXAM Gallbladder Collected By: Maycol Ngo MD 09/08/2024 9:44 AM Wound Class: Class II: Clean-Contaminated Blood Products: None Prophylactic Antibiotics: Procedure appropriate prophylactic antibiotic(s) given within 1 hour of surgical incision (two hours if receiving Vancomycin or flouroquinolone) Cosigned by Maycol Ngo MD at 09/10/2024 10:23 AM EDT [facility] Name: Chaim Danielle Procedure Date: 09/07/2024 11:19 AM Gender: Female Date of : 1950 Age: 73 Admit Type: Outpatient Note Status: Finalized Endoscopist: CRISTIAN Ruiz MD, [id number] Procedure: ERCP Indications: For therapy of bile duct stone(s) Findings: The coutierier film was normal. Upper endoscopy shows antral erosions. Cold biopsies taken. D2 shows multiple superficial ulcerations. A duodenoscope is passed to D2. The ampulla is small and inside folds. 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 Initial attempt to cannulate led to MPD cannulation. Small amount of contrast injection showed MPD cannulation, the wire however was not able to be passed beyond genu due to slight angulation, hence I opted to remove the wire. CBD was then able to cannulated and wire advanced to the intrahepatic ducts. Contrast injection showed CBD to be 9 mm in size. There are small filling defects noted. A 7 mm biliary sphincterotomy was then made with ERBE without any immediate complications. Balloon sweep with 9-12 mm balloon expressed 2 stones. Rest of sweeps were negative. Given multiple stones in the gall bladder and elevated LFTs, a 7 fr x9 cm biliary stent was placed in the CBD with good flow of contrast and bile. The GI tract was then decompressed and scope removed from the patient. I personally interpreted the bile duct and pancreatic duct images. Impression: - Choledocholithiasis with an obstruction was found. Complete removal was accomplished by biliary sphincterotomy and balloon extraction. - Duodenal erosions. Recommendation: - Patient has a contact number available for emergencies. The signs and symptoms of potential delayed complications were discussed with the patient. Return to normal activities tomorrow. Written discharge instructions were provided to the patient. - Observe patient's clinical course. - Clear liquid diet today. - PPI daily. - LR at 150 ml/hour. - Watch for pancreatitis, bleeding, perforation, and cholangitis. - The findings and recommendations were discussed with the patient's family. - Remove stent in 6-10 weeks. Referring MD: Tj Campoverde Medicines: Indomethacin 100 mg NM, Lactated Ringers Procedure: Pre-Anesthesia Assessment: - Prior to the procedure, a History and Physical was performed, and patient medications and allergies were reviewed. The patient is competent. The risks and benefits of the procedure and the sedation options and risks were discussed with the patient. All questions were answered and informed consent was obtained. Patient identification and proposed procedure were verified by the physician, the nurse and the pediatric critical care nurse in the pre-procedure area in the procedure room. Mental Status Examination: alert and oriented. Airway Examination: normal oropharyngeal airway and neck mobility. CV Examination: normal. Prophylactic Antibiotics: The patient does not require prophylactic antibiotics. Prior Anticoagulants: The patient has taken no anticoagulant or antiplatelet agents. ASA Grade Assessment: III - A patient with severe systemic disease. After reviewing the risks and benefits, the patient was deemed in satisfactory condition to undergo the procedure. The anesthesia plan was to use general anesthesia. Immediately prior to administration of medications, the patient was re-assessed for adequacy to receive sedatives. The heart rate, respiratory rate, oxygen saturations, blood pressure, adequacy of pulmonary ventilation, and response to care were monitored throughout the procedure. The physical status of the patient was re-assessed after the procedure. After obtaining informed consent, the scope was passed under direct vision. Throughout the procedure, the patient's blood pressure, pulse, and oxygen saturations were monitored continuously. The Duodenoscope was introduced through the mouth, and advanced to the duodenum and used to inject contrast into the bile duct. The Endoscope was introduced through the mouth, and advanced to the duodenum and used to inject contrast into the bile duct. The patient tolerated the procedure well. The ERCP was accomplished without difficulty. Complications: No immediate complications. Procedure Code(s): --- Professional --- 88837, Endoscopic retrograde cholangiopancreatography (ERCP); diagnostic, including collection of specimen(s) by brushing or washing, when performed (separate procedure) --- Technical --- 10413, Endoscopic retrograde cholangiopancreatography (ERCP); diagnostic, including collection of specimen(s) by brushing or washing, when performed (separate procedure) Diagnosis Code(s): --- Professional --- K80.51, Calculus of bile duct without cholangitis or cholecystitis with obstruction --- Technical --- K80.51, Calculus of bile duct without cholangitis or cholecystitis with obstruction CPT copyright 2021 [employer]. All rights reserved. The codes documented in this report are preliminary and upon rn psych review may be revised to meet current compliance requirements. Attending Participation: I personally performed the entire procedure. CRISTIAN Ruiz MD 09/07/2024 12:15:06 PM This report has been signed electronically. Number of Addenda: 0 Note Initiated On: 09/07/2024 11:19 AM [employer]ING Chaim Danielle : 1950 Primary Care Physician: RUSSELL HILL MD The patient and/or family/surrogate voluntarily agreed to participate in ACP services. Patient s cognitive capacity: yes, patient has capacity Code Status: [x] [FULL CODE - Continue all advanced life support: CPR,intubation,invasive procedures] [_] [DNR-CCA - DO NOT do CPR, intubation] [_] [DNR-PACKER INSPECTOR - Comfort care only] [_] DNR form [was/was not] signed Summary of discussion: The patient health care POA/ surrogate is the following: Zane(spouse). Long discussion about patient code status. Patient has living will that says she is DNR but patient has decided to be a full code. She has changed her mind. She says she will update her paperwork when she gets home. I answered all the patient/family questions that I could within the range and scope of the current medical situation. We discussed the medical conditions, risks, benefits, outcomes, and goals of care at this time for the patient's medical issues at hand in the face of the patient's chronic issues and current presentation. Total time spent: 20 minutes were spent discussing the patient's resuscitation status, advance care planning, and end of life care, with patient and/or family/surrogate. Gem Lisa DO [facility] 09/05/2024, 8:09 PM documented in this encounter [facility] 09-12-2024 Note Department of Industrial [employer]ro[employer] Designer al Medicine Gastroenterology Progress Note SUBJECTIVE: GI following for choledocholithiasis s/p ERCP with Stent placement; s/p Lap moose and post ERCP pancreatitis New events overnight none Patient continuing to have some discomfort today. Started nibbling on solids and tolerating liquids. No fever or chills. Having liquid Bms. Medications Scheduled Meds: Current Facility-Administered Medications: acetaminophen (Tylenol) tablet 1,000 mg, 1,000 mg, Oral, q8h, Isis Amos MD, 1,000 mg at 09/13/24 1353 enoxaparin (Lovenox) syringe 40 mg, 40 mg, SubCUTAneous, Daily, Isis Amos MD, 40 mg at 09/13/24 0943 [DISCONTINUED] HYDROmorphone (Dilaudid) injection 0.25 mg, 0.25 mg, IntraVENous, q3h PRN OR HYDROmorphone (Dilaudid) injection 0.5 mg, 0.5 mg, IntraVENous, q3h PRN, Maycol Ngo MD lactated ringers infusion, 75 mL/hr, IntraVENous, Continuous, Sonia Heaton PA-C, Last Rate: 75 mL/hr at 09/13/24 0943, 75 mL/hr at 09/13/24 0943 methocarbamol (Robaxin) tablet 500 mg, 500 mg, Oral, 3 times per day, Maycol Ngo MD, 500 mg at 09/13/24 1353 naloxone (Narcan) injection 0.4 mg, 0.4 mg, IntraVENous, q5 min PRN, Isis Amos MD ondansetron ODT (Zofran-ODT) disintegrating tablet 4 mg, 4 mg, Oral, q8h PRN, 4 mg at 09/11/24 1405 OR ondansetron (Zofran) injection 4 mg, 4 mg, IntraVENous, q6h PRN, Isis Amos MD, 4 mg at 09/09/24 0005 oxyCODONE (Roxicodone) immediate release tablet 5 mg, 5 mg, Oral, q4h PRN, 5 mg at 09/13/24 1353 OR oxyCODONE (Roxicodone) immediate release tablet 10 mg, 10 mg, Oral, q4h PRN, Isis Amos MD, 10 mg at 09/09/24 0447 polyethylene glycol (PEG) 3350 (Miralax) packet 17 g, 17 g, Oral, Daily, GREGORY Remy CNP, 17 g at 09/09/24 1207 sodium chloride 0.9 % infusion, 5-250 mL/hr, IntraVENous, PRN, Isis Amos MD sodium chloride 0.9 % infusion, 5-250 mL/hr, IntraVENous, PRN, Isis Amos MD sodium chloride 0.9% (NS) flush 10 mL, 10 mL, IntraVENous, 2 times per day, Isis Amos MD, 10 mL at 09/12/242136 sodium chloride 0.9% (NS) flush 10 mL, 10 mL, IntraVENous, PRN, Isis Amos MD sodium chloride 0.9% (NS) flush 5-40 mL, 5-40 mL, IntraVENous, q12h, Isis Amos MD, 10 mL at 09/12/242137 sodium chloride 0.9% (NS) flush 5-40 mL, 5-40 mL, IntraVENous, PRN, Isis Amos MD Current Outpatient Medications: ondansetron ODT (Zofran-ODT) 4 MG disintegrating tablet, Take 1 tablet (4 mg) by mouth every 8 hours as needed for nausea or vomiting for up to 7 days., Disp: 20 tablet, Rfl: 0 oxyCODONE (Roxicodone) 5 MG immediate release tablet, Take 1 tablet (5 mg) by mouth every 4 hours as needed for moderate pain (4-6) or severe pain (7-10) for up to 5 days., Disp: 15 tablet, Rfl: 0 pantoprazole (ProtoNix) 40 MG EC tablet, Take 1 tablet (40 mg) by mouth daily. Do not crush, chew, or split., Disp: 30 tablet, Rfl: 1 OBJECTIVE VITALS: BP 130/64 (BP Location: Left arm, Patient Position: Sitting) Pulse 60 Temp 36.3 ?C (97.4 ?F) (Temporal) Resp 17 Ht 5' 6 (1.676 m) Wt 136 lb (61.7 kg) SpO2 92% BMI 21.95 kg/m? Average, Min, and Max for last24 hours Vitals: TEMPERATURE: Temp Av.8 ?C (98.2 ?F) Min: 36.3 ?C (97.4 ?F) Max: 37.2 ?C (98.9 ?F) RESPIRATIONS RANGE: Resp Av.5 Min: 14 Max: 17 PULSE RANGE: Pulse Av.3 Min: 60 Max: 68 BLOOD PRESSURE RANGE: Systolic (24hrs), Av , Min:130 , Max:155 ; Diastolic (24hrs), Av, Min:64, Max:73 PULSE OXIMETRY RANGE:SpO2 Av.3 % Min: 91 % Max: 97 % I/O last 3 completed shifts: In: 1476.3 (23.9 mL/kg) [P.O.:550; I.V.:926.3 (15 mL/kg)] Out: - (0 mL/kg) Weight: 61.7 kg Physical Exam Constitutional: General: She is not in acute distress. Appearance: Normal appearance. She is not ill-appearing. HENT: Head: Normocephalic. Eyes: General: No scleral icterus. Extraocular Movements: Extraocular movements intact. Cardiovascular: Rate and Rhythm: Normal rate and regular rhythm. Pulmonary: Effort: Pulmonary effort is normal. Breath sounds: Normal breath sounds. Abdominal: General: Bowel sounds are normal. There is no distension. Palpations: Abdomen is soft. There is no mass. Tenderness: There is abdominal tenderness. There is no guarding or rebound. Hernia: No hernia is present. Musculoskeletal: Cervical back: Neck supple. Lymphadenopathy: Cervical: No cervical adenopathy. Skin: General: Skin is warm and dry. Coloration: Skin is not jaundiced or pale. Findings: No bruising or rash. Neurological: General: No focal deficit present. Mental Status: She is alert. Psychiatric: Mood and Affect: Mood normal. Behavior: Behavior normal. Data Recent blood work, radiologic study and endoscopic study were reviewed with the patient. CBC: Recent Labs 09/11/24 0233 09/12/24 (more content not included)... [facility] 09-12-2024 Note [facility] Hospitalist Pr ogress note [phone]: Please page me ([phone]) for patient care issues. [phone]: Please page [facility] night Hospitalist for any issues. Subjective: Admit Date: 09/05/2024 PCP: RUSSELL HILL MD Room#: [id number] Farooq Danielle is a 73 y.o. female who presents with right upper quadrant pain for 2 weeks, worse with eating, diagnosed with Choledocholithiasis. Patient is an ultrasound at outside facility that showed cholelithiasis and transferred to [facility] for further evaluation and management GI and surgery consulted and MRCP revealed choledocholithiasis Patient is status post ERCP on 09/07/2024 sphincterotomy with balloon extraction to stones and stent placement. Patient developed post ERCP pancreatitis lipase elevated gastroenterology on board please monitor LFTs gastroenterology to follow stent to be removed as outpatient 6 to 10 weeks. General surgery following okay to advance diet and DVT prophylaxis Interval History: Patient alert, chart reviewed, has some abdominal pain. Had BM today. Afebrile. Denies any nausea or vomiting. Adult diet Full liquid 24HR INTAKE/OUTPUT: Intake/Output Summary (Last 24 hours) at 09/12/2024 1232 Last data filed at 09/12/2024 0606 Gross per 24 hour Intake 1881.25 ml Output -- Net 1881.25 ml LABS: CBC: Recent Labs 09/10/2434509/11/2423209/12/24 0535 WBC 13.8* 13.0* 11.6* RBC 3.71* 3.65* 3.45* HGB 10.7* 10.6* 10.0* HCT 32.4* 33.2* 31.0* MCV 87.3 91.0 89.9 RDW 14.3 14.1 14.2 PLT 227 264 314 BMP: Recent Labs 09/10/2434509/11/2423209/12/24 0535 NA 136 137 136 K 3.5 3.4* 3.4* CL 106 105 104 CO2 22* 21* 25 BUN 14 13 11 CREATININE 0.68 0.69 0.69 GLUCOSE 98 81* 92 CALCIUM 8.2* 8.3* 8.2* ANIONGAP 8 11 7 LIVER PROFILE: Recent Labs 09/10/2434509/11/2423209/12/24 0535 AST 82* 48* 28 ALT 171* 123* 82* BILITOT 0.8 0.9 0.7 ALKPHOS 169* 161* 161* PROT 5.1* 5.5* 5.1* PT/INR: No results for input(s): PROTIME, INR in the last 72 hours. CARDIAC ENZYMES: No results for input(s): TROPONINI in the last 72 hours. Procalcitonin: No results found for: PROCAL @RISRSLTSPECIALTY@ Objective: Vitals: BP 144/79 (BP Location: Right arm, Patient Position: Lying) Pulse 58 Temp 36.7 ?C (98 ?F) (Temporal) Resp 16 Ht 5' 6 (1.676 m) Wt 136 lb (61.7 kg) SpO2 92% BMI 21.95 kg/m? Pulse Ox: SpO2 Av.5 % Min: 91 % Max: 92 % Supplemental O2: O2 Flow Rate (L/min): 1.5 L/min 09/12/2024 General appearance: Wincing in pain Oral: Tongue is semi-moist Cardiovascular: S1/S2 heard, RRR Respiratory: Clear to auscultation bilaterally Abdomen: Slight abdominal tenderness noted Musculoskeletal: No obvious deformities seen Medications: lactated Ringer's, 75 mL/hr, Last Rate: 75 mL/hr (09/12/24 0537) acetaminophen, 1,000 mg, Oral, q8h enoxaparin, 40 mg, SubCUTAneous, Daily methocarbamol, 500 mg, Oral, 3 times per day polyethylene glycol (PEG) 3350, 17 g, Oral, Daily potassium chloride CR, 40 mEq, Oral, Once sodium chloride 0.9%, 10 mL, IntraVENous, 2 times per day sodium chloride 0.9%, 5-40 mL, IntraVENous, q12h Assessment Cholelithiasis with choledocholithiasis status post ERCP with stent placement POD 2 laparoscopic cholecystectomy Elevated LFTs Asymptomatic bradycardia Plan Seen and examined Vitals and meds reviewed Consult notes reviewed GI following Replace potassium S/p ERCP with biliary sphincterotomy, balloon extraction. Continue IV fluids, pain control Surgery signed off advance diet to regular Skin incision noted clean Will continue to follow hemoglobin and labs in the a.m. -am labs, replace lytes prn -increase activity Diet Adult diet Full liquid DVT Prophylaxis [x] Lovenox, [] Heparin, [] SCDs, [] Ambulation [] Already on Anticoagulation GI Prophylaxis [] PPI, [] H2 Godfrey, [] Carafate, [] Diet/Tube Feeds Code Status Full Code MDM [] Low, [] Moderate,[] High Patient's risk as above Anticipated Discharge - Date -09/13 pending pain control - Location - Home - Pending the following -pain control Total time spent (which include face to face and non face to face encounters) : minutes Toxic drug monitoring/narrow therapeutic index drug monitoring : # Drug name : # Route administered : # Method of monitoring : Extended Emergency Contact Information Primary Emergency Contact: Zane Danielle Mobile Relation: Spouse Secondary Emergency Contact: Erin Ken Mobile Relation: Daughter Advance Directive: Full Code Discharge planning: TBD Ellis Olmstead MD Division of Hospitalist Medicine Inpatient Medical Services/[facility] 09-11-2024 Note [facility] Hospitalist Pr ogress note [phone]: Please page me ([phone]) for patient care issues. [phone]: Please page [facility] Hospitalist for any issues. Subjective: Admit Date: 09/05/2024 PCP: RUSSELL HILL MD Room#: [id number] Farooq Danielle is a 73 y.o. female who presents with right upper quadrant pain for 2 weeks, worse with eating, diagnosed with Choledocholithiasis. Patient is an ultrasound at outside facility that showed cholelithiasis and transferred to [facility] for further evaluation and management GI and surgery consulted and MRCP revealed choledocholithiasis Patient is status post ERCP on 09/07/2024 sphincterotomy with balloon extraction to stones and stent placement. Patient developed post ERCP pancreatitis lipase elevated gastroenterology on board please monitor LFTs gastroenterology to follow stent to be removed as outpatient 6 to 10 weeks. General surgery following okay to advance diet and DVT prophylaxis Interval History: Tolerating diet initial advance, holding at cld with inflammation, review for advance fld No other concerns like chest pain, fever, shortness of breath, numbness or tingling in the body Adult diet Full liquid 24HR INTAKE/OUTPUT: Intake/Output Summary (Last 24 hours) at 09/11/2024 1154 Last data filed at 09/10/2024 1200 Gross per 24 hour Intake 400 ml Output -- Net 400 ml LABS: CBC: Recent Labs 09/09/24 0452 09/10/24 0346 09/11/24 0233 WBC 12.3* 13.8* 13.0* RBC 4.11 3.71* 3.65* HGB 11.8 10.7* 10.6* HCT 36.2 32.4* 33.2* MCV 88.1 87.3 91.0 RDW 14.1 14.3 14.1 PLT 282 227 264 BMP: Recent Labs 09/09/24 0452 09/10/24 0346 09/11/24 0233 NA 137 136 137 K 3.8 3.5 3.4* CL 106 106 105 CO2 26 22* 21* BUN 16 14 13 CREATININE 0.85 0.68 0.69 GLUCOSE 120* 98 81* CALCIUM 8.7* 8.2* 8.3* ANIONGAP 5 8 11 LIVER PROFILE: Recent Labs 09/09/242 09/10/24 0346 09/11/24 0233 AST 180* 82* 48* ALT 279* 171* 123* BILITOT 0.8 0.8 0.9 ALKPHOS 225* 169* 161* PROT 5.8* 5.1* 5.5* PT/INR: No results for input(s): PROTIME, INR in the last 72 hours. CARDIAC ENZYMES: No results for input(s): TROPONINI in the last 72 hours. Procalcitonin: No results found for: PROCAL @RISRSLTSPECIALTY@ Objective: Vitals: BP 141/68 Pulse 57 Temp 36.4 ?C (97.5 ?F) Resp 16 Ht 5' 6 (1.676 m) Wt 136 lb (61.7 kg) SpO2 92% BMI 21.95 kg/m? Pulse Ox: SpO2 Av.7 % Min: 92 % Max: 94 % Supplemental O2: O2 Flow Rate (L/min): 1.5 L/min 09/11/2024 General appearance: No apparent distress, appears stated age, AAOX4 Oral: Tongue is semi-moist Cardiovascular: S1/S2 heard, RRR Respiratory: Clear to auscultation bilaterally Abdomen: Clean dry and intact dressing noted Musculoskeletal: No obvious deformities seen Medications: lactated Ringer's, 75 mL/hr, Last Rate: 75 mL/hr (09/10/24 183) acetaminophen, 1,000 mg, Oral, q8h enoxaparin, 40 mg, SubCUTAneous, Daily methocarbamol, 500 mg, Oral, 3 times per day polyethylene glycol (PEG) 3350, 17 g, Oral, Daily sodium chloride 0.9%, 10 mL, IntraVENous, 2 times per day sodium chloride 0.9%, 5-40 mL, IntraVENous, q12h Assessment Cholelithiasis with choledocholithiasis status post ERCP with stent placement POD 2 laparoscopic cholecystectomy Elevated LFTs Asymptomatic bradycardia Plan Seen and examined Vitals and meds reviewed Consult notes reviewed GI following S/p ERCP with biliary sphincterotomy, balloon extraction. Continue IV fluids, pain control Surgery signed off advance diet to regular Skin incision noted clean Will continue to follow hemoglobin and labs in the a.m. -am labs, replace lytes prn -increase activity Diet Adult diet Full liquid DVT Prophylaxis [x] Lovenox, [] Heparin, [] SCDs, [] Ambulation [] Already on Anticoagulation GI Prophylaxis [] PPI, [] H2 Godfrey, [] Carafate, [] Diet/Tube Feeds Code Status Full Code MDM [] Low, [] Moderate,[] High Patient's risk as above Anticipated Discharge - Date -09/12 pending diet - Location - Home - Pending the following -clinical improvement, executive talent acquisition consultant recommendations Total time spent (which include face to face and non face to face encounters) : 63 minutes Toxic drug monitoring/narrow therapeutic index drug monitoring : # Drug name : # Route administered : # Method of monitoring : Extended Emergency Contact Information Primary Emergency Contact: LolisZane Mobile Relation: Spouse Secondary Emergency Contact: DayaemilioalexandrageetaErin Mobile Relation: Daughter Advance Directive: Full Code Discharge planning: TBD Jericho Cedillo MD Division of Hospitalist Medicine Inpatient Medical Services/[facility] 09-11-2024 Note Formatting of this n ote might be different from the original. SW present during Rounds this morning as Tx team discussed Pt's current health status and discharge plans. Reviewed chart. Met w /Pt, introduced self, explained role, and inquired upon possible need for supports or community resources. Male present at bedside, identified as Pt's Noah. Gave [facility] HDM and [employer] info and flyer. Pt reported no needs for SW to address at this time. [facility] 09-11-2024 Note Formatting of this n ote might be different from the original. SW present during Rounds this morning as Tx team discussed Pt's current health status and discharge plans. Reviewed chart. Met w /Pt, introduced self, explained role, and inquired upon possible need for supports or community resources. Male present at bedside, identified as Pt's Noah. Gave [facility] HDM and [employer] info and flyer. Pt reported no needs for SW to address at this time. [facility] 09-11-2024 Note Problem: Pain - Adul t Goal: Verbalizes/displays adequate comfort level or baseline comfort level Outcome: Progressing Problem: Safety - Adult Goal: Free from fall injury Outcome: Progressing [facility] 09-11-2024 Plan of care note Problem: Pain - Adult Goal: Verbalizes/displays adequate comfort level or baseline comfort level Outcome: Progressing Problem: Safety - Adult Goal: Free from fall injury Outcome: Progressing [facility] 09-11-2024 Note Department of [employer]er al Medicine Gastroenterology Progress Note SUBJECTIVE: GI following for choledocholithiasis s/p ERCP 09/07 with sphincterotomy, balloon extraction and biliary stent placement complicated by post ERCP pancreatitis. Patient sitting in chair, reports feeling a little better, intermittent abdominal pain well controlled with analgesics, denies nausea and vomiting, tolerating CLD without difficulty, loose stool yesterday. Medications Scheduled Meds: Current Facility-Administered Medications: acetaminophen (Tylenol) tablet 1,000 mg, 1,000 mg, Oral, q8h, Isis Amos MD, 1,000 mg at 09/11/24 0625 enoxaparin (Lovenox) syringe 40 mg, 40 mg, SubCUTAneous, Daily, Isis Amos MD, 40 mg at 09/10/24 1054 [DISCONTINUED] HYDROmorphone (Dilaudid) injection 0.25 mg, 0.25 mg, IntraVENous, q3h PRN OR HYDROmorphone (Dilaudid) injection 0.5 mg, 0.5 mg, IntraVENous, q3h PRN, Maycol Ngo MD lactated ringers infusion, 75 mL/hr, IntraVENous, Continuous, Sonia Heaton PA-C, Last Rate: 75 mL/hr at 09/10/24 183, 75 mL/hr at 09/10/24 183 methocarbamol (Robaxin) tablet 500 mg, 500 mg, Oral, 3 times per day, Maycol Ngo MD, 500 mg at 09/11/24 0625 naloxone (Narcan) injection 0.4 mg, 0.4 mg, IntraVENous, q5 min PRN, Isis Amos MD ondansetron ODT (Zofran-ODT) disintegrating tablet 4 mg, 4 mg, Oral, q8h PRN OR ondansetron (Zofran) injection 4 mg, 4 mg, IntraVENous, q6h PRN, Isis Amos MD, 4 mg at 09/09/24 0005 oxyCODONE (Roxicodone) immediate release tablet 5 mg, 5 mg, Oral, q4h PRN, 5 mg at 09/11/24 0626 OR oxyCODONE (Roxicodone) immediate release tablet 10 mg, 10 mg, Oral, q4h PRN, Isis Amos MD, 10 mg at 09/09/24 0447 polyethylene glycol (PEG) 3350 (Miralax) packet 17 g, 17 g, Oral, Daily, Kimmie Carr APRN - SAUMYA, 17 g at 09/09/24 1207 sodium chloride 0.9 % infusion, 5-250 mL/hr, IntraVENous, PRN, Isis Amos MD sodium chloride 0.9 % infusion, 5-250 mL/hr, IntraVENous, PRN, Isis Amos MD sodium chloride 0.9% (NS) flush 10 mL, 10 mL, IntraVENous, 2 times per day, Isis Amos MD, 10 mL at 09/10/24 2124 sodium chloride 0.9% (NS) flush 10 mL, 10 mL, IntraVENous, PRN, Isis Amos MD sodium chloride 0.9% (NS) flush 5-40 mL, 5-40 mL, IntraVENous, q12h, Isis Amos MD, 10 mL at 09/10/24 1056 sodium chloride 0.9% (NS) flush 5-40 mL, 5-40 mL, IntraVENous, PRN, Isis Amos MD OBJECTIVE VITALS: BP 154/73 (BP Location: Left arm, Patient Position: Lying) Pulse 60 Temp 36.1 ?C (97 ?F) (Temporal) Resp 16 Ht 5' 6 (1.676 m) Wt 136 lb (61.7 kg) SpO2 92% BMI 21.95 kg/m? Average, Min, and Max for last24 hours Vitals: TEMPERATURE: Temp Av.6 ?C (97.9 ?F) Min: 36.1 ?C (97 ?F) Max: 36.9 ?C (98.5 ?F) RESPIRATIONS RANGE: Resp Av.7 Min: 16 Max: 18 PULSE RANGE: Pulse Av Min: 60 Max: 62 BLOOD PRESSURE RANGE: Systolic (24hrs), Av , Min:145 , Max:154 ; Diastolic (24hrs), Av, Min:73, Max:78 PULSE OXIMETRY RANGE:SpO2 Av.7 % Min: 92 % Max: 94 % I/O last 3 completed shifts: In: 400 (6.5 mL/kg) [P.O.:400] Out: - (0 mL/kg) Weight: 61.7 kg Constitutional: No acute distress. Well-nourished. Well hydrated, sitting in chair Eyes: Pupils are equal and round; Conjunctiva are not injected; Sclera are non-icteric. ENT: Ears/nose without external abnormalities. Oral mucosa is pink and moist. Neck: No JVD. No carotid bruits; No thyromegaly. Respiratory: Clear to auscultation bilaterally without any added sounds. Effort is normal Heart: Regular, Normal S1 and S2. No murmur; No added sounds. Abdomen: Normal BS, soft, upper region tenderness, non-distended; no hepatomegaly. Extremities/Skin: No LE edema; Skin warm to touch and well perfused. Musculoskeletal: Head - normocephalic. Neck - supple Psychiatric: AAO x 3, answers appropriately, normal mood, normal affect. Data Recent blood work, radiologic study and endoscopic study were reviewed with the patient. CBC: Recent Labs 09/09/2445109/10/246 09/11/24 0233 WBC 12.3* 13.8* 13.0* RBC 4.11 3.71* 3.65* HGB 11.8 10.7* 10.6* HCT 36.2 32.4* 33.2* MCV 88.1 87.3 91.0 MCH 28.7 28.8 29.0 MCHC 32.6 33.0 31.9 RDW 14.1 14.3 14.1 PLT 282 227 264 MPV 9.5 9.5 9.5 CMP: Recent Labs 09/09/2445109/10/24 0346 09/11/24 0233 NA 137 136 137 K 3.8 3.5 3.4* CL 106 106 105 CO2 26 22* 21* BUN 16 14 13 CREATININE 0.85 0.68 0.69 GLUCOSE 120* 98 81* CALCIUM 8.7* 8.2* 8.3* PROT 5.8* 5.1* 5.5* BILITOT 0.8 0.8 0.9 ALKPHOS 225* 169* 161* AST 180* 82* 48* ALT 279* 171* 123* Radiologic Review MRCP 09/07/24 FINDINGS: LIVER: Unremarkable. GALLBLADDER AND BILE DUCTS: The gallbladder is filled with gallstones. The gallbladder is nondistended. Two filling defects are present in the, bile duct (more content not included)... [facility] 09-11-2024 Plan of care note Problem: Pain - Adult Goal: Verbalizes/displays adequate comfort level or baseline comfort level Outcome: Progressing Problem: Safety - Adult Goal: Free from fall injury Outcome: Progressing Problem: Discharge Planning Goal: Discharge to home or other facility with appropriate resources Outcome: Progressing [facility] 09-10-2024 Note Formatting of this n ote might be different from the original. Care Management Progress Note Introduced self to patient and husb at bedside- from home indep no DME- currently NPO- per GI note Post ERCP pancreatitis- lipase >3000 09/09/24 T [facility] 09-10-2024 Note Formatting of this n ote might be different from the original. Care Management Progress Note Introduced self to patient and husb at bedside- from home indep no DME- currently NPO- per GI note Post ERCP pancreatitis- lipase >3000 09/09/24 [facility] 09-10-2024 Note Care Management Prog ress Note Introduced self to patient and husb at bedside- from home indep no DME- currently NPO- per GI note Post ERCP pancreatitis- lipase >3000 09/09/24 [facility] 09-10-2024 Note Please see full deta ils from the history and physical exam in the resident's / nurse practitioner's note Patient's pain has improved. Kept NPO by the GI team. CT a/p ordered by GI reviewed - inflammatory changes of pancreatic head and uncinate process, no loculated fluid collection. Chief complain: abdominal pain Problem list: Choledocholithiasis Cholelithiasis Hyperbilirubinemia Transaminates Pancreatitis, likely post ERCP Procedures: 09/07 - ERCP, sphincterotomy, stone evacuation x 2, stent placement Management / Plan : OK to advance diet from General surgery prospective Pain control DVT prophylaxis OK for oral medications Zach Ngo MD FACS Trauma, Surgical Critical Care, & General Surgery Division of Trauma Department of Surgery [facility] P [facility] 09-10-2024 Note [facility] Hospitalist Pr ogress note [phone]: Please page me ([phone]) for patient care issues. [phone]: Please page [facility] night Hospitalist for any issues. Subjective: Admit Date: 09/05/2024 PCP: RUSSELL HILL MD Room#: [id number]/[id number] Farooq Danielle is a 73 y.o. female who presents with right upper quadrant pain for 2 weeks, worse with eating, diagnosed with Choledocholithiasis. Patient is an ultrasound at outside facility that showed cholelithiasis and transferred to [facility] for further evaluation and management GI and surgery consulted and MRCP revealed choledocholithiasis Patient is status post ERCP on 09/07/2024 sphincterotomy with balloon extraction to stones and stent placement. Patient developed post ERCP pancreatitis lipase elevated gastroenterology on board please monitor LFTs gastroenterology to follow stent to be removed as outpatient 6 to 10 weeks. General surgery following okay to advance diet and DVT prophylaxis Interval History: Tolerating diet no new concerns - over bedside all questions answered No other concerns like chest pain, fever, shortness of breath, numbness or tingling in the body NPO diet with enteral medications 24HR INTAKE/OUTPUT: No intake or output data in the 24 hours ending 09/10/24 0902 LABS: CBC: Recent Labs 09/08/24 0531 09/09/2445109/10/24 034 WBC 9.8 12.3* 13.8* RBC 4.06 4.11 3.71* HGB 11.5* 11.8 10.7* HCT 35.6 36.2 32.4* MCV 87.7 88.1 87.3 RDW 13.5 14.1 14.3 PLT 258 282 227 BMP: Recent Labs 09/08/24 0532 09/09/2445109/10/24 034 NA 139 137 136 K 3.9 3.8 3.5 CL 109* 106 106 CO2 22* 26 22* BUN 17 16 14 CREATININE 0.73 0.85 0.68 GLUCOSE 107 120* 98 CALCIUM 8.7* 8.7* 8.2* ANIONGAP 8 5 8 LIVER PROFILE: Recent Labs 09/08/24 0532 09/09/2445109/10/24 0346 AST 91* 180* 82* ALT 217* 279* 171* BILITOT 1.0 0.8 0.8 ALKPHOS 259* 225* 169* PROT 5.6* 5.8* 5.1* PT/INR: No results for input(s): PROTIME, INR in the last 72 hours. CARDIAC ENZYMES: No results for input(s): TROPONINI in the last 72 hours. Procalcitonin: No results found for: PROCAL @RISRSLTSPECIALTY@ Objective: Vitals: BP 132/64 (BP Location: Right arm, Patient Position: Sitting) Pulse 61 Temp 36.4 ?C (97.6 ?F) (Temporal) Resp 17 Ht 5' 6 (1.676 m) Wt 136 lb (61.7 kg) SpO2 92% BMI 21.95 kg/m? Pulse Ox: SpO2 Av.4 % Min: 85 % Max: 95 % Supplemental O2: O2 Flow Rate (L/min): 1.5 L/min 09/10/2024 General appearance: No apparent distress, appears stated age, AAOX4 Oral: Tongue is semi-moist Cardiovascular: S1/S2 heard, RRR Respiratory: Clear to auscultation bilaterally Abdomen: Clean dry and intact dressing noted Musculoskeletal: No obvious deformities seen Medications: lactated Ringer's, 150 mL/hr, Last Rate: 150 mL/hr (09/08/24 1607) acetaminophen, 1,000 mg, Oral, q8h enoxaparin, 40 mg, SubCUTAneous, Daily methocarbamol, 500 mg, Oral, 3 times per day polyethylene glycol (PEG) 3350, 17 g, Oral, Daily sodium chloride 0.9%, 10 mL, IntraVENous, 2 times per day sodium chloride 0.9%, 5-40 mL, IntraVENous, q12h Assessment Cholelithiasis with choledocholithiasis status post ERCP with stent placement POD 2 laparoscopic cholecystectomy Elevated LFTs Asymptomatic bradycardia Plan Seen and examined Vitals and meds reviewed Consult notes reviewed GI following S/p ERCP with biliary sphincterotomy, balloon extraction. Continue IV fluids, pain control Surgery signed off advance diet to regular Skin incision noted clean Will continue to follow hemoglobin and labs in the a.m. -am labs, replace lytes prn -increase activity Diet NPO diet with enteral medications DVT Prophylaxis [x] Lovenox, [] Heparin, [] SCDs, [] Ambulation [] Already on Anticoagulation GI Prophylaxis [] PPI, [] H2 Godfrey, [] Carafate, [] Diet/Tube Feeds Code Status Full Code MDM [] Low, [] Moderate,[] High Patient's risk as above Anticipated Discharge - Date -09/11 - Location - Home - Pending the following -clinical improvement, executive talent acquisition consultant recommendations Total time spent (which include face to face and non face to face encounters) : 43 minutes Toxic drug monitoring/narrow therapeutic index drug monitoring : # Drug name : # Route administered : # Method of monitoring : Extended Emergency Contact Information Primary Emergency Contact: Zane Danielle Mobile Relation: Spouse Secondary Emergency Contact: Erin Ken Mobile Relation: Daughter Advance Directive: Full Code Discharge planning: TBD Roxane Bailey MD [facility] Medical Services/[facility] 09-10-2024 Plan of care note Problem: Pain - Adult Goal: Verbalizes/displays adequate comfort level or baseline comfort level Outcome: Progressing Problem: Safety - Adult Goal: Free from fall injury Outcome: Progressing Problem: Discharge Planning Goal: Discharge to home or other facility with appropriate resources Outcome: Progressing Problem: Chronic Conditions and Co-morbidities Goal: Patient's chronic conditions and co-morbidity symptoms are monitored and maintained or improved Outcome: Progressing Problem: Knowledge Deficit Goal: Patient/family/caregiver demonstrates understanding of disease process, treatment plan, medications, and discharge instructions Outcome: Progressing Problem: Potential for Compromised Skin Integrity Goal: Skin Integrity is Maintained or Improved Outcome: Progressing Goal: Nutritional status is improving Outcome: Progressing Problem: Urinary Incontinence Goal: Perineal skin integrity is maintained or improved Outcome: Progressing [facility] 09-09-2024 Plan of care note Problem: Pain - Adult Goal: Verbalizes/displays adequate comfort level or baseline comfort level Outcome: Progressing Problem: Safety - Adult Goal: Free from fall injury Outcome: Progressing Problem: Discharge Planning Goal: Discharge to home or other facility with appropriate resources Outcome: Progressing Problem: Chronic Conditions and Co-morbidities Goal: Patient's chronic conditions and co-morbidity symptoms are monitored and maintained or improved Outcome: Progressing Problem: Potential for Compromised Skin Integrity Goal: Skin Integrity is Maintained or Improved Outcome: Progressing Problem: Urinary Incontinence Goal: Perineal skin integrity is maintained or improved Outcome: Progressing [facility] 09-09-2024 Note [facility] Hospitalist Pr ogress note [phone]: Please page me ([phone]) for patient care issues. [phone]: Please page [facility] night Hospitalist for any issues. Subjective: Admit Date: 09/05/2024 PCP: RUSSELL HILL MD Room#: [facility]9/[facility] Farooq Danielle is a 73 y.o. female who presents with right upper quadrant pain for 2 weeks, worse with eating, diagnosed with Choledocholithiasis. Patient is an ultrasound at outside facility that showed cholelithiasis and transferred to [facility] for further evaluation and management GI and surgery consulted and MRCP revealed choledocholithiasis Patient is status post ERCP on 09/07/2024 sphincterotomy with balloon extraction to stones and stent placement. . lIPASE very elevated Cmp, CBC pending Interval History: Patient tolerated liquid diet -mild pain reported at the surgical site No other concerns like chest pain, fever, shortness of breath, numbness or tingling in the body Adult diet Regular 24HR INTAKE/OUTPUT: Intake/Output Summary (Last 24 hours) at 09/09/2024 0841 Last data filed at 09/08/2024 1607 Gross per 24 hour Intake 1750 ml Output 50 ml Net 1700 ml LABS: CBC: Recent Labs 09/07/24 0150 09/08/24 0531 09/09/24 0452 WBC 5.7 9.8 12.3* RBC 4.00 4.06 4.11 HGB 11.5* 11.5* 11.8 HCT 35.6 35.6 36.2 MCV 89.0 87.7 88.1 RDW 14.0 13.5 14.1 PLT 240 258 282 BMP: Recent Labs 09/07/24 0150 09/08/24 0532 09/09/24 0452 NA 139 139 137 K 3.6 3.9 3.8 CL 110* 109* 106 CO2 19* 22* 26 BUN 22 17 16 CREATININE 0.80 0.73 0.85 GLUCOSE 92 107 120* CALCIUM 8.7* 8.7* 8.7* ANIONGAP 10 8 5 LIVER PROFILE: Recent Labs 09/07/24 0150 09/08/24 0532 AST 195* 91* ALT 309* 217* BILITOT 2.6* 1.0 ALKPHOS 315* 259* PROT 6.0* 5.6* PT/INR: No results for input(s): PROTIME, INR in the last 72 hours. CARDIAC ENZYMES: No results for input(s): TROPONINI in the last 72 hours. Procalcitonin: No results found for: PROCAL @RISRSLTSPECIALTY@ Objective: Vitals: BP 147/72 (BP Location: Right arm, Patient Position: Sitting) Pulse 57 Temp 36.3 ?C (97.3 ?F) (Temporal) Resp 17 Ht 5' 6 (1.676 m) Wt 136 lb (61.7 kg) SpO2 94% BMI 21.95 kg/m? Pulse Ox: SpO2 Av.8 % Min: 92 % Max: 100 % Supplemental O2: O2 Flow Rate (L/min): 1.5 L/min 09/09/2024 General appearance: No apparent distress, appears stated age, AAOX4 Oral: Tongue is semi-moist Cardiovascular: S1/S2 heard, RRR Respiratory: Clear to auscultation bilaterally Abdomen: Clean dry and intact dressing noted Musculoskeletal: No obvious deformities seen Medications: lactated Ringer's, 150 mL/hr, Last Rate: 150 mL/hr (09/08/24 1607) acetaminophen, 1,000 mg, Oral, q8h enoxaparin, 40 mg, SubCUTAneous, Daily sodium chloride 0.9%, 10 mL, IntraVENous, 2 times per day sodium chloride 0.9%, 5-40 mL, IntraVENous, q12h Assessment Cholelithiasis with choledocholithiasis status post ERCP with stent placement- Elevated LFTs Asymptomatic bradycardia Plan Seen and examined Vitals and meds reviewed Consult notes reviewed General Surgery, GI following S/p ERCP with biliary sphincterotomy, balloon extraction. Patient is n.p.o. for the procedure CMP pending today Will continue to follow hemoglobin and labs in the a.m. -am labs, replace lytes prn -increase activity Diet Adult diet Regular DVT Prophylaxis [x] Lovenox, [] Heparin, [] SCDs, [] Ambulation [] Already on Anticoagulation GI Prophylaxis [] PPI, [] H2 Godfrey, [] Carafate, [] Diet/Tube Feeds Code Status Full Code MDM [] Low, [] Moderate,[] High Patient's risk as above Anticipated Discharge - Date -09/10 - Location - Home - Pending the following -clinical improvement, executive talent acquisition consultant recommendations Total time spent (which include face to face and non face to face encounters) : 44 minutes Toxic drug monitoring/narrow therapeutic index drug monitoring : # Drug name : # Route administered : # Method of monitoring : Extended Emergency Contact Information Primary Emergency Contact: Zane Danielle Mobile Relation: Spouse Secondary Emergency Contact: Erin Ken Mobile Relation: Daughter Advance Directive: Full Code Discharge planning: TBD Roxane Bailey MD Division of Hospitalist Medicine Inpatient Medical Services/[facility] 09-08-2024 Plan of care note Problem: Pain - Adult Goal: Verbalizes/displays adequate comfort level or baseline comfort level Outcome: Progressing Problem: Safety - Adult Goal: Free from fall injury Outcome: Progressing Problem: Discharge Planning Goal: Discharge to home or other facility with appropriate resources Outcome: Progressing Problem: Chronic Conditions and Co-morbidities Goal: Patient's chronic conditions and co-morbidity symptoms are monitored and maintained or improved Outcome: Progressing Problem: Potential for Compromised Skin Integrity Goal: Skin Integrity is Maintained or Improved Outcome: Progressing Goal: Nutritional status is improving Outcome: Progressing Problem: Urinary Incontinence Goal: Perineal skin integrity is maintained or improved Outcome: Progressing [facility] 09-08-2024 Note [facility] Hospital[place] Pr benitez note [phone]: Please page me ([phone]) for patient care issues. [phone]: Please page [facility] Hospitalist for any issues. Subjective: Admit Date: 09/05/2024 PCP: RUSSELL HILL MD Room#: [id number] Farooq Danielle is a 73 y.o. female who presents with right upper quadrant pain for 2 weeks, worse with eating, diagnosed with Choledocholithiasis. On admission patient was afebrile, mildly bradycardic with heart rate in the high 40s. WBC 14.6, hemoglobin 12.1. AST, ALT elevated. Total bilirubin 2.8, lipase 25. Right upper quadrant ultrasound from outside facility demonstrated cholelithiasis, choledocholithiasis. She was transferred to [facility] for further workup, MRCP. MRCP revealed choledocholithiasis. GI, general surgery consulted, s/p ERCP on 09/07 Interval History: Patient patient was seen s/p lap cholecystectomy this morning She denies any nausea, vomiting at this time. She reports feeling not back to baseline, still having pain LFTs trending down Adult diet Regular 24HR INTAKE/OUTPUT: Intake/Output Summary (Last 24 hours) at 09/08/2024 1603 Last data filed at 09/08/2024 0952 Gross per 24 hour Intake 1470 ml Output 750 ml Net 720 ml LABS: CBC: Recent Labs 09/06/24 0350 09/07/24 0150 09/08/24 0531 WBC 4.6 5.7 9.8 RBC 4.17 4.00 4.06 HGB 12.1 11.5* 11.5* HCT 39.1 35.6 35.6 MCV 93.8 89.0 87.7 RDW 14.1 14.0 13.5 PLT 245 240 258 BMP: Recent Labs 09/06/24 0350 09/07/24 0150 09/08/24 0532 NA 142 139 139 K 3.9 3.6 3.9 CL 113* 110* 109* CO2 21* 19* 22* BUN 17 22 17 CREATININE 0.92 0.80 0.73 GLUCOSE 84 92 107 CALCIUM 9.0 8.7* 8.7* ANIONGAP 8 10 8 LIVER PROFILE: Recent Labs 09/06/24 0350 09/07/24 0150 09/08/24 0532 AST 283* 195* 91* ALT 392* 309* 217* BILITOT 2.8* 2.6* 1.0 ALKPHOS 299* 315* 259* PROT 6.2* 6.0* 5.6* PT/INR: Recent Labs 09/06/24349 PROTIME 10.3 INR 1.0 CARDIAC ENZYMES: No results for input(s): TROPONINI in the last 72 hours. Procalcitonin: No results found for: PROCAL @RISRSLTSPECIALTY@ Objective: Vitals: BP 113/59 (BP Location: Right arm, Patient Position: Lying) Pulse 57 Temp 36.1 ?C (97 ?F) (Temporal) Resp 14 Ht 5' 6 (1.676 m) Wt 136 lb (61.7 kg) SpO2 94% BMI 21.95 kg/m? Pulse Ox: SpO2 Av.2 % Min: 94 % Max: 100 % Supplemental O2: O2 Flow Rate (L/min): 1.5 L/min 09/08/2024 General appearance: No apparent distress, appears stated age, AAOX4 Oral: Tongue is semi-moist Cardiovascular: S1/S2 heard, RRR Respiratory: Clear to auscultation bilaterally Abdomen: Soft, tenderness in right upper quadrant non-distended bowel sounds positive Musculoskeletal: No obvious deformities seen Medications: lactated Ringer's, 150 mL/hr, Last Rate: 150 mL/hr (09/07/241949) acetaminophen, 1,000 mg, Oral, q8h enoxaparin, 40 mg, SubCUTAneous, Daily sodium chloride 0.9%, 10 mL, IntraVENous, 2 times per day sodium chloride 0.9%, 5-40 mL, IntraVENous, q12h Assessment Cholelithiasis with choledocholithiasis Elevated LFTs Asymptomatic bradycardia Plan General Surgery, GI following S/p ERCP with biliary sphincterotomy, balloon extraction on 09/07. GI recommending continue LR at 150 cc/h S/p lap cholecystectomy today Trend LFTs, bilirubin in a.m., lipase -am labs, replace lytes prn -increase activity Diet Adult diet Regular DVT Prophylaxis [x] Lovenox, [] Heparin, [] SCDs, [] Ambulation [] Already on Anticoagulation GI Prophylaxis [] PPI, [] H2 Godfrey, [] Carafate, [] Diet/Tube Feeds Code Status Full Code MDM [] Low, [] Moderate,[] High Patient's risk as above Anticipated Discharge - Date -09/09 - Location - Home - Pending the following -clinical improvement, executive talent acquisition consultant recommendations Total time spent (which include face to face and non face to face encounters) : 45 minutes Toxic drug monitoring/narrow therapeutic index drug monitoring : # Drug name : # Route administered : # Method of monitoring : Extended Emergency Contact Information Primary Emergency Contact: DanielleZane Mobile Relation: Spouse Secondary Emergency Contact: Erin Ken Mobile Relation: Daughter Advance Directive: Full Code Discharge planning: TBD Ricarda Gavin MD Division of Hospitalist Medicine Inpatient Medical Services/[facility] 09-08-2024 Note Patient: Chaim rampenter Procedure Summary Date: 09/08/24 Room / Location: [address] Operating Room Anesthesia Start: 742 Anesthesia Stop: 1014 Procedure: LAPAROSCOPIC, CHOLECYSTECTOMY (Abdomen) Diagnosis: Choledocholithiasis Surgeons: Maycol Ngo MD Responsible Provider: GREGORY Balbuena CRNA Anesthesia Type: general, regional ASA Status: 2 Anesthesia Type: general, regional Vitals Value Taken Time BP 164/72 09/08/24 1015 Temp 96.9 09/08/24 1019 Pulse 49 09/08/24 1018 Resp 16 09/08/24 1019 SpO2 100 % 09/08/24 1018 Vitals shown include unfiled device data. Anesthesia Post Evaluation Patient location during evaluation: PACU Patient participation: complete - patient participated Level of consciousness: awake and alert Pain management: satisfactory to patient Airway patency: patent Dental Injury: no Cardiovascular status: acceptable, blood pressure returned to baseline and hemodynamically stable Respiratory status: acceptable and spontaneous ventilation Hydration status: euvolemic Nausea/Vomiting: controlled No notable events documented. Patient can be discharged once all PACU criteria has been met. [facility] 09-08-2024 Note Patient: Chaim Duff arpenter Procedure Summary Date: 09/08/24 Room / Location: [address] Operating Room Anesthesia Start: 742 Anesthesia Stop: 1014 Procedure: LAPAROSCOPIC, CHOLECYSTECTOMY (Abdomen) Diagnosis: Choledocholithiasis Surgeons: Maycol Ngo MD Responsible Provider: GREGORY Balbuena CRNA Anesthesia Type: general, regional ASA Status: 2 Anesthesia Type: general, regional Vitals Value Taken Time BP 164/72 09/08/24 1015 Temp 96.9 09/08/24 1019 Pulse 49 09/08/24 1018 Resp 16 09/08/24 1019 SpO2 100 % 09/08/24 1018 Vitals shown include unfiled device data. Anesthesia Post Evaluation Patient location during evaluation: PACU Patient participation: complete - patient participated Level of consciousness: awake and alert Pain management: satisfactory to patient Multimodal analgesia pain management approach Airway patency: patent Two or more strategies used to mitigate risk of obstructive sleep apnea Cardiovascular status: acceptable and hemodynamically stable Respiratory status: acceptable Hydration status: acceptable No notable events documented. MIPS #430 PONV Patient received an inhalational anesthetic (4554F) Patient exhibits three or more risk factors for PONV (4556F) Patient received at leaset 2 prophylactic Rx PONV anti-emtic agents of different classes preop and/or intraop (G9775) MIPS # 424 Perioperative Temperature Management Anesthesia time was 60 minutes or longer (4255F) Anesthesai administered was General (inhalational or TIVA) or Neuraxial block (X0424) At least one body temperature greater than 95.8F/35.5C achieved within the 30 mins immediately prior to or the 15 minutes immediately following anesthesia end time (G9771) MIPS #477 Multimodal Pain Management Not emergent case Patient was administered multimodal pain management (two or more drugs and/or interventions excluding systemic opioids) in the periopeartive period occurring at some time between 6 hours prior to anesthesia start time until discharged from PACU (G2148) MIPS #404 Anesthesiology Smoking Abstinence The patient is not a current smoker (e.g. cigarette, cigar, pipe, e-cigarette/vaping/marijuana) If no stop here (XX404) I completed my handoff to the receiving clinician during which we: 1. Identified the patient 2. Identified the responsible provider 3. Reviewed the pertinent medical history 4. Discussed the surgical course 5. Reviewed intra-op anesthesia management and issues during anesthesia 6. Set expectations for post-procedure period 7. Allowed opportunity for questions and acknowledgement of understanding. [facility] 09-08-2024 Note Airway Date/Time: 09/08/2024 7:49 AM Urgency: scheduled Airway not difficult General Information and Staff Patient location during procedure: Procedural Resident/TRAVEL OCCUPATIONAL THERAPIST: Vi Lima APRN - TRAVEL OCCUPATIONAL THERAPIST Performed: TRAVEL OCCUPATIONAL THERAPIST Indications and Patient Condition Indications for airway management: anesthesia Sedation level: Asleep Preoxygenated: yes Patient position: sniffing Mask difficulty assessment: 1 - vent by mask Final Airway Details Final airway type: endotracheal airway Successful airway: ETT Cuffed: yes Successful intubation technique: direct laryngoscopy Endotracheal tube insertion site: oral Blade: Dana Blade size: #3 ETT size (mm): 7.0 Cormack-Lehane Classification: grade IIa - partial view of glottis Placement verified by: chest auscultation and capnometry Measured from: lips ETT to lips (cm): 22 Number of attempts at approach: 1 [facility] 09-08-2024 Note 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 Patient s/p ERCP on 09/07/24. Sphincterotomy with balloon expression 2 stones and stent placement. Patient was on clear liquids yesterday after procedure. She was bradycardic postprocedure. Afebrile. LFTs improved this AM and Tbili now normal. She was in OR this AM for cholecystectomy, seen in PACU. Still sleepy ut denies abdominal pain post procedure yesterday. Remembers she has a stent in place and it will need removed outpatient. Medications Scheduled Meds: Current Facility-Administered Medications: [Transfer Hold] acetaminophen (Tylenol) tablet 650 mg, 650 mg, Oral, q6h PRN, 650 mg at 09/08/24 0500 OR [Transfer Hold] acetaminophen (Tylenol) suppository 650 mg, 650 mg, Rectal, q6h PRN, Gem Lisa DO [Transfer Hold] enoxaparin (Lovenox) syringe 40 mg, 40 mg, SubCUTAneous, Daily, Gem Lisa DO lactated Ringer's infusion, 150 mL/hr, IntraVENous, Continuous, Ricarda Gavin MD, Stopped at 09/07/24 1515 lactated ringers infusion, 150 mL/hr, IntraVENous, Continuous, Sonia Heaton PA-C, Last Rate: 150 mL/hr at 09/07/24 1950, 150 mL/hr at 09/07/24 1950 [Transfer Hold] morphine injection 2 mg, 2 mg, IntraVENous, q4h PRN, Gem Lisa DO, 2 mg at 09/07/24 0135 [Transfer Hold] naloxone (Narcan) injection 0.4 mg, 0.4 mg, IntraVENous, q5 min PRN, Gem Lisa DO [Transfer Hold] ondansetron ODT (Zofran-ODT) disintegrating tablet 4 mg, 4 mg, Oral, q8h PRN OR [Transfer Hold] ondansetron (Zofran) injection 4 mg, 4 mg, IntraVENous, q6h PRN, Gem Lisa DO [Transfer Hold] oxyCODONE-acetaminophen (Percocet) 5-325 MG per tablet 1 tablet, 1 tablet, Oral, q6h PRN, Gem Guyodi, DO, 1 tablet at 09/07/24 0040 [Transfer Hold] polyethylene glycol (PEG) 3350 (Miralax) packet 17 g, 17 g, Oral, Daily PRN, Gem Ilodi, DO [Transfer Hold] sodium chloride 0.9 % infusion, 5-250 mL/hr, IntraVENous, PRN, Gem Ilodi, DO [Transfer Hold] sodium chloride 0.9% (NS) flush 5-40 mL, 5-40 mL, IntraVENous, q12h, Gem Guyodi, DO, 10 mL at 09/06/24 0925 [Transfer Hold] sodium chloride 0.9% (NS) flush 5-40 mL, 5-40 mL, IntraVENous, PRN, Gem Ilodi, DO OBJECTIVE VITALS: BP 149/69 (BP Location: Right arm, Patient Position: Sitting) Pulse 53 Temp 36.8 ?C (98.3 ?F) (Temporal) Resp 18 Ht 5' 6 (1.676 m) Wt 136 lb (61.7 kg) SpO2 94% BMI 21.95 kg/m? Average, Min, and Max for last24 hours Vitals: TEMPERATURE: Temp Av.6 ?C (97.8 ?F) Min: 36 ?C (96.8 ?F) Max: 36.9 ?C (98.4 ?F) RESPIRATIONS RANGE: Resp Av.1 Min: 12 Max: 18 PULSE RANGE: Pulse Av.5 Min: 43 Max: 95 BLOOD PRESSURE RANGE: Systolic (24hrs), Av , Min:125 , Max:174 ; Diastolic (24hrs), Av, Min:59, Max:83 PULSE OXIMETRY RANGE:SpO2 Av.2 % Min: 94 % Max: 100 % I/O last 3 completed shifts: In: 3080 (49.9 mL/kg) [P.O.:1080; I.V.:2000 (32.4 mL/kg)] Out: 1000 (16.2 mL/kg) [Urine:1000 (0.5 mL/kg/hr)] Weight: 61.7 kg Constitutional: No acute distress. Well-nourished. Sleepy. Eyes: Pupils are equal and round; Conjunctiva are not injected; Sclera are non-icteric. ENT: Ears/nose without external abnormalities. Oral mucosa is pink and moist. Respiratory: Clear to auscultation bilaterally without any added sounds. Effort is normal Heart: Regular, Normal S1 and S2. No murmur; No added sounds. Abdomen: Normal BS, soft, expected post op tenderness, no hepatomegaly. Extremities/Skin: No LE edema; Skin warm to touch and well perfused. Musculoskeletal: Head - normocephalic. Neck - supple Psychiatric: AAO x 3, answers appropriately, normal mood, normal affect. Non-focal. Data Recent blood work, radiologic study and endoscopic study were reviewed with the patient. CBC: Recent Labs 09/06/24 0350 09/07/24 0150 09/08/24 0531 WBC 4.6 5.7 9.8 RBC 4.17 4.00 4.06 HGB 12.1 11.5* 11.5* HCT 39.1 35.6 35.6 MCV 93.8 89.0 87.7 MCH 29.0 28.8 28.3 MCHC 30.9 32.3 32.3 RDW 14.1 14.0 13.5 PLT 245 240 258 MPV 9.7 9.4 9.4 CMP: Recent Labs 09/06/24 0350 09/07/24 0150 09/08/24 0532 NA 142 139 139 K 3.9 3.6 3.9 CL 113* 110* 109* CO2 21* 19* 22* BUN 17 22 17 CREATININE 0.92 0.80 0.73 GLUCOSE 84 92 107 CALCIUM 9.0 8.7* 8.7* PROT 6.2* 6.0* 5.6* BILITOT 2.8* 2.6* 1.0 ALKPHOS 299* 315* 259* AST 283* 195* 91* ALT 392* 309* 217* PT/INR: Recent Labs 09/06/24 0350 INR 1.0 Lab Results Component Value Date 09/06/2024 Radiologic Review MRCP 09/07/24 FINDINGS: LIVER: Unremarkable. GALLBLADDER AND BILE DUCTS: The gallbladder is filled with gallstones. The gallbladder is nondistended. Two filling defects are present in the, bile duct measuring 4 mm and 7 mm. The common bile duct is mildly dilated to 9 mm. The common hepatic duct is mildly dilated to 8 mm. No intrahepatic biliary dilation. PANCREAS: No pancreatic duct dilation. There is (more content not included)... [facility] 09-08-2024 Note Department of [facility] Surgery Daily Progress Note ADMIT DATE: 09/05/2024 TODAY'S DATE: 09/08/2024 HPI: Chaim Danielle is a 73 y.o. female with no significant past medical history who presents with abdominal pain. Surgery was consulted for evaluation of cholelithiasis with concern for choledocholithiasis. Patient states she has been experiencing intermittent right upper quadrant abdominal pain for the last 2 weeks. Patient reports the pain is related to eating and has occurred 2-3 times and lasts 2 to 3 hours at a time. Patient denies symptoms like this before. Patient's states that she is not experiencing any nausea or vomiting. Patient otherwise endorses normal bowel movements without hematochezia. Patient denies fevers or chills. Past surgical history is significant for laparoscopic hysterectomy 20 years ago. Last colonoscopy was last April and demonstrated normal findings per patient. Patient denies personal or family history of Crohn's, ulcerative colitis, colon cancer. Patient denies smoking, alcohol, illicit drug use. Patient does not take any blood thinners at home. On evaluation patient was afebrile and hemodynamically stable, mildly bradycardic on arrival to . Labs reviewed significant for: WBC 4.6, Hgb 12.1, creatinine 0.92, ALP 299, AST 283, ALT 392, total bilirubin 2.8, direct bilirubin 1.7, lipase 25. Reportedly right upper quadrant ultrasound from OSH demonstrated cholelithiasis with choledocholithiasis. Patient transferred to [facility] for further workup and MRCP. SUBJECTIVE: No acute events overnight. Plan for OR today for lap moose Interval history: 09/06 MRCP with choledocholithiasis 09/07 ERCP with stent OBJECTIVE: VITALS: BP (!) 152/64 Pulse 52 Temp (!) 35.6 ?C (96 ?F) (Tympanic) Resp 16 Ht 5' 6 (1.676 m) Wt 136 lb (61.7 kg) SpO2 100% BMI 21.95 kg/m? INTAKE/OUTPUT: Intake/Output Summary (Last 24 hours) at 09/08/2024 1056 Last data filed at 09/08/2024 0952 Gross per 24 hour Intake 3470 ml Output 750 ml Net 2720 ml I/O last 3 completed shifts: In: 3080 (49.9 mL/kg) [P.O.:1080; I.V.:2000 (32.4 mL/kg)] Out: 1000 (16.2 mL/kg) [Urine:1000 (0.5 mL/kg/hr)] Weight: 61.7 kg I/O this shift: In: 750 [I.V.:750] Out: 50 [Blood:50] PHYSICAL EXAM: Gen: NAD, A&Ox3, pain well controlled Heart: RRR, well perfused Lungs: symmetric chest rise, normal work of breathing, breath sounds b/l Abd: soft, minimally tender in right upper quadrant, non distended. Non rigid. Ext: no c/c/e no gross deformities Skin: warm, well perfused, no obvious rashes, cellulitis or gross discoloration LABS Results from last 7 days Lab Units 09/08/24 0531 09/07/24 0150 09/06/24 0350 WBC AUTO 10*3/uL 9.8 5.7 4.6 HEMOGLOBIN g/dL 11.5* 11.5* 12.1 HEMATOCRIT % 35.6 35.6 39.1 PLATELETS 10*3/uL 258 240 245 Results from last 7 days Lab Units 09/08/24 0532 09/07/24 0150 09/06/24 0350 SODIUM mmol/L 139 139 142 POTASSIUM mmol/L 3.9 3.6 3.9 CHLORIDE mmol/L 109* 110* 113* CO2 mmol/L 22* 19* 21* BUN mg/dL 17 22 17 CREATININE mg/dL 0.73 0.80 0.92 GLUCOSE mg/dL 107 92 84 CALCIUM mg/dL 8.7* 8.7* 9.0 Results from last 7 days Lab Units 09/08/24 0532 09/07/24 0150 09/06/24 0350 ALK PHOS U/L 259* 315* 299* BILIRUBIN TOTAL mg/dL 1.0 2.6* 2.8* BILIRUBIN DIRECT mg/dL 0.4 1.8* 1.7* PROTEIN TOTAL g/dL 5.6* 6.0* 6.2* ALT U/L 217* 309* 392* AST U/L 91* 195* 283* LIPASE Date Value Ref Range Status 09/06/2024 25 <55 U/L Final Results from last 7 days Lab Units 09/06/24 0350 INR 1.0 Current Inpatient Medications Scheduled Meds:[Transfer Hold] enoxaparin, 40 mg, SubCUTAneous, Daily sodium chloride 0.9%, 10 mL, IntraVENous, 2 times per day [Transfer Hold] sodium chloride 0.9%, 5-40 mL, IntraVENous, q12h Continuous Infusions:lactated Ringer's, 150 mL/hr, Last Rate: Stopped (09/07/24 1515) lactated Ringer's, 150 mL/hr, Last Rate: 150 mL/hr (09/07/24 1950) lactated Ringer's, 125 mL/hr PRN Meds:PRN medications: [Transfer Hold] acetaminophen OR [Transfer Hold] acetaminophen, diphenhydrAMINE, labetalol OR hydrALAZINE, HYDROmorphone, HYDROmorphone, LORazepam, [Transfer Hold] morphine sulfate, [Transfer Hold] naloxone, [Transfer Hold] ondansetron ODT OR [Transfer Hold] ondansetron, ondansetron, oxyCODONE OR oxyCODONE, [Transfer Hold] oxyCODONE-acetaminophen, [Transfer Hold] polyethylene glycol (PEG) 3350, sodium chloride, [Transfer Hold] sodium chloride, sodium chloride, sodium chloride 0.9%, [Transfer Hold] sodium chloride 0.9% ASSESSMENT AND PLAN: 73 y.o. female with choledocholithiasis s/p ERCP with stent placement - laparoscopic cholecystectomy, possible open today - N.p.o. for procedure - IVF - General Surgery follow Discussed with Dr. Jeni Amos MD 09/08/24 10:56 AM [facility] 09-08-2024 Note Peripheral Block Time Out: 09/08/2024 7:47 AM Patient location during procedure: Procedural Start time: 09/08/2024 7:48 AM End time: 09/08/2024 7:51 AM Reason for block: at surgeon's request and post-op pain management Staffing Performed: TRAVEL OCCUPATIONAL THERAPIST Resident/TRAVEL OCCUPATIONAL THERAPIST: Jared Moore CRNA Preanesthetic Checklist Completed: patient identified, IV checked, site marked, risks and benefits discussed, surgical consent, monitors and equipment checked, pre-op evaluation and timeout performed Region: [place] Primary: TAP (Bupivacaine 0.375%/ Epi 1:200,000/ Dex 0.1mg/mL 40ml divided evenly bilateral) Secondary: Upper rectus (Bupivacaine 0.375%/ Epi 1:200,000/ Dex 0.1mg/mL 20ml divided evenly bilateral) Peripheral Block Patient position: supine Prep: ChloraPrep Patient monitoring: heart rate, cardiac care nurse, continuous pulse ox and continuous capnometry O2: ETT/LMA Laterality: bilateral Injection technique: single-shot Guidance: ultrasound guided -image retained in chart, tip of the needle identified by ultraound during injection. Needle Needle: 21G X 110 mm Additional Notes 09/08/2024 7:48 AM Assessment Injection assessment: negative aspiration for heme, no paresthesia on injection and incremental injection Heart rate change: no Slow fractionated injection: yes Required Documentation: Relevant anatomy identified (Nerves, Vessels, Muscles), Negative for blood on aspiration, Local anesthetic injected incrementally with intermittent aspiration every 5 mL, Normal resistance with injection, No EKG changes noted, No symptoms of toxicity, Local anesthetic spread visualized around nerves or plane. and Local anesthetic injected without difficultyMedications tjbISRIOqchmj-plkvriwthcy-cqxpzuenyuz (TAP) syringe - Injection 50 mL - 09/08/2024 7:48:00 AM [facility] 09-08-2024 Procedure note Images from the original note were not included. DEPARTMENT OF SURGERY OPERATIVE NOTE DATE OF PROCEDURE: 09/08/2024 ATTENDING SURGEON: Maycol Ngo MD TABLE GAMES SHIFT MANAGER: Isis Aldridge PGY5 PREOPERATIVE DIAGNOSIS: choledocholithiasis POSTOPERATIVE DIAGNOSIS: same, plus acute cholecystitis OPERATION: laparoscopic cholecystectomy ANESTHESIA: general ESTIMATED BLOOD LOSS: 50cc SPECIMEN: gallbladder PREOPERATIVE MEDICATIONS: zosyn HISTORY: The patient presented with RUQ abdominal pain and workup was positive for choledocholithiasis. She underwent ERCP with stent placement and follows up today for laparoscopic cholecystectomy. The risks, benefits, and alternatives to surgery were presented to the patient and they consented to surgical intervention. PROCEDURE: The patient was brought to the operating room and transferred over to the operating room table in the supine position. General anesthesia was induced and the patient was intubated. An NG tube was placed. They were positioned with arms out. The patient was prepped and draped in the normal sterile fashion. A timeout was performed which confirmed patient, procedure, medications, allergies, and hazards. An umbilical skin incision was made and the subcutaneous tissues were spread laterally with S retractors. The umbilical stalk was grasped with kochers and retracted upwards. The abdominal fascia was incised sharply and spread with kellys. The peritoneum was bluntly entered. Two 2-0 vicryl stay sutures were placed on the superior and inferior aspects of the fascia. The Garcia trocar was introduced and the abdomen was insufflated. No injuries were noted to the abdominal cavity. Additional ports were placed at the epigastrium and right upper quadrant under direct visualization. The patient was positioned in reverse trendelenberg with right side up. The dome of the gallbladder was grasped and retracted cephalad. The patient s liver was noted to be obstructing the view, despite multiple attempts to retract and reposition. We placed a liver retractor from the left upper quadrant to assist. The overlying omental adhesions and medial and lateral aspects of the gallbladder peritoneum were incised with hook electrocautery. Utilizing hydrodissection from suction sprayer machine and hook electrocautery, the gallbladder was mobilized off the lower half of the cystic plate and retracted laterally. The cystic duct was cleared and noted to be enlarged, as expected. The cystic artery was skeletonized and medialized with [place] and hook electrocautery. At this point our critical view of safety was obtained. Stones of the cystic duct were milked back and the epigastric port was upsized to a 11mm to accommodate the purple hem-o-calderon clips. The cystic artery was taken with the green hem-o-calderon clips with two down on the stay side, one up on specimen side. The cystic duct was taken with the purple hem-o-calderon clips in the same fashion. Both artery and cystic duct were cut with hook scissors. A single stone was removed from the cut lumen of the cystic duct. The infundibulum was then retracted upwards and the remaining gallbladder was removed from the cystic plate with hook electrocautery. Hemostasis of the liver bed was obtained. The specimen was placed into an Endocatch bag and removed via the umbilical port. The abdomen was thoroughly irrigated with 2L warm saline. A 2-0 Vicryl on a suture passer was used to close the epigastric port. The remaining ports were removed under direct visualization and the abdomen was desufflated. Two additional 2-0 vicryl sutures were placed at the umbilical port to close the fascia. The skin was closed with 4-0 monocryl and steri strips. At the conclusion of the case, the needle, sponge, and instrument counts were correct. The patient tolerated the procedure and anesthesia well without any major complications. The patient was extubated and transported to the post-anesthesia care unit in stable condition. The attending surgeon was present for the entire duration of the procedure. Cosigned by Maycol Ngo MD at 09/12/2024 9:08 AM EDT Associated attestation - Maycol Ngo MD - 09/12/2024 9:08 AM EDT Attending physician addendum: I was present and scrubbed in the operating room for the entire surgery. Agree with below except for: Addendum: - the fascia at the epigastric port was closed with 0 Vicryl stitch - the umbilical fascia was closed with interrupted 0 Vicryl stitches Zach Ngo MD FACS Trauma, Surgical Critical Care, & General Surgery Division of Trauma Department of Surgery [facility] 09-08-2024 Procedure note Date: 09/08/2024 Location: [facility] OR Name: Chaim Danielle, : 1950, Diagnosis Pre-op Diagnosis * Choledocholithiasis [K80.50] Post-op Diagnosis * Choledocholithiasis [K80.50] Procedures * LAPAROSCOPIC, CHOLECYSTECTOMY Surgeons * Maycol Ngo - Primary Procedure Summary Anesthesia: General ASA: II Estimated Blood Loss: 50 mL Drains: * None in log * Specimens ID Source Type Tests Collected By Collected At Frozen? Priority Lab ID 1 Gallbladder Tissue TISSUE EXAM Maycol Ngo MD 09/08/24 0943 No Routine Description: GALLBLADDER Staff: Private Secretary: Elizabeth Cornelius RN Relief Private Secretary: Erin Hensley RN Scrub Person: Stephanie Kuhn Findings: see full op note Complications: None; patient tolerated the procedure well. Specimens Collected: Order Name Source Comment Collection Info Order Time TISSUE EXAM Gallbladder Collected By: Maycol Ngo MD 09/08/2024 9:44 AM Wound Class: Class II: Clean-Contaminated Blood Products: None Prophylactic Antibiotics: Procedure appropriate prophylactic antibiotic(s) given within 1 hour of surgical incision (two hours if receiving Vancomycin or flouroquinolone) Cosigned by Maycol Ngo MD at 09/10/2024 10:23 AM EDT [facility] 09-08-2024 Note Please see full deta ils from the history and physical exam in the resident's / nurse practitioner's note ~~~~~~~~~~~~~~~~~~~~~~~~~~~~~~~~~~~~~~ ~~~~~~~~~~~~~~~~~~~~~ Attending physician addendum: I independently saw and evaluated the patient. I personally obtained the rodriguez and critical portion of the history and physical exam. I reviewed and agree with the documentation below. I personally reviewed patient's labs and imaging studies. My findings agree with the below note except for any details corrected. I have examined the patient at the date below. Patient Active Problem List Diagnosis Choledocholithiasis I independently saw the below patient and reviewed the imaging, labs, vital signs; I performed a physical exam and ROS. My findings agree with the above note except for any details corrected below. I have evaluated the patient on 09/08/24 Patient still complains of epigastric discomfort following ERCP yesterday. Tolerated some clear liquids yesterday. PSH - LUCI. Last colonoscopy - 3 months ago - normal per patient. This AM labs - hyperbilirubinemia has resolved, improving LFTs. Chief complain: abdominal pain Problem list: Choledocholithiasis Cholelithiasis Hyperbilirubinemia Transaminates Procedures: 09/07 - ERCP, sphincterotomy, stone evacuation x 2, stent placement Management / Plan : - NPO - IVF - IV Abx - pain control - OR plans I had a long discussion with the patient regarding the risks, benefits, alternatives and limitations of surgery - laparoscopic cholecystectomy, possible open. The risks include however are not limited to risks of an open operation, bleeding, injury to intraabdominal organs, bile duct injury, bile leak, retained stones, altered bowel habits, and the risk of wound complications, hernia or infection. I have also explained to the patient in detail the operation, the anatomy involved and the typical recovery associated with either laparoscopic or open gallbladder surgery. All of her questions were answered. Patient expressed understanding about the procedure and its associated risks and consented to proceed with surgery. Zach Ngo MD FACS Trauma, Surgical Critical Care, & General Surgery Division of Trauma Department of Surgery [facility] 09-08-2024 Note Patient: Chaim meng Procedure Information Anesthesia Start Date/Time: 09/08/24 0743 Procedure: LAPAROSCOPIC, CHOLECYSTECTOMY (Abdomen) Location: [facility] OR [address] [place] [address] Operating Room Surgeons: Maycol Ngo MD Relevant Problems No relevant active problems Past Medical History: No past medical history on file. Past Surgical History: Past Surgical History: No date: ERCP No date: HYSTERECTOMY Social History: TOBACCO: reports that she has never smoked. She has never used smokeless tobacco. ETOH: reports current alcohol use of about 2.0 standard drinks of alcohol per week. Social History Substance and Sexual Activity Drug Use Never Family History: No family history on file. Screening: Hysterectomy Clinical information reviewed: Tobacco Allergies Meds Med Hx Surg Hx OB Status Fam Hx Soc Hx Physical Exam Airway Mallampati: I TM distance: >3 FB Neck ROM: full Mouth Open: normalendotracheal tube not in place Cardiovascular Dental dentition normal Pulmonary Abdominal Anesthesia Plan patient is NPO appropriate Any family history or previous problems with anesthesia no ASA 2 general and regional Any family history or previous problems with anesthesia no The patient is not a current smoker. Anesthetic plan and risks discussed with patient. Use of blood products discussed with who consented to blood products. WILFREDO Screening Labs: Lab Results Component Value Date WBC 9.8 09/08/2024 HGB 11.5 (L) 09/08/2024 HCT 35.6 09/08/2024 MCV 87.7 09/08/2024 PLT 258 09/08/2024 Lab Results Component Value Date NA 139 09/08/2024 K 3.9 09/08/2024 CL 109 (H) 09/08/2024 CO2 22 (L) 09/08/2024 BUN 17 09/08/2024 CREATININE 0.73 09/08/2024 GLUCOSE 107 09/08/2024 CALCIUM 8.7 (L) 09/08/2024 PROT 5.6 (L) 09/08/2024 ALKPHOS 259 (H) 09/08/2024 AST 91 (H) 09/08/2024 ALT 217 (H) 09/08/2024 EGFR 86.4 09/08/2024 Pain Score: 3 No echocardiogram results found for the past 14 days 09/05/24 ECG 12-LEAD (Preliminary) This result has not been signed. Information might be incomplete. Impression Sinus bradycardia Equipment Requests: Additional Equipment Requests [facility] 09-08-2024 Nurse Note Wound Care consulted for Pressure Injury Prevention. Pt's Lauri= 22 on 09/07/2024 , pt is no longer at risk. Skin Care Precaution order set in place. Will continue to follow peripherally. Please voicera or secure chat message with any questions. Ankita Sharp RN, BSN [facility] 09-08-2024 Nurse Note Wound Care consulted for Pressure Injury Prevention. Pt's Lauri= 22 on 09/07/2024 , pt is no longer at risk. Skin Care Precaution order set in place. Will continue to follow peripherally. Please voicera or secure chat message with any questions. Ankita Sharp RN, BSN documented in this encounter [facility] 09-07-2024 Note [facility] Hospitalist Ro[place] marquis note [phone]: Please page me ([phone]) for patient care issues. [phone]: Please page [facility] Hospitalist for any issues. Subjective: Admit Date: 09/05/2024 PCP: RUSSELL HILL MD Room#: [id number] Farooq Danielle is a 73 y.o. female who presents with right upper quadrant pain for 2 weeks, worse with eating, diagnosed with Choledocholithiasis. On admission patient was afebrile, mildly bradycardic with heart rate in the high 40s. WBC 14.6, hemoglobin 12.1. AST, ALT elevated. Total bilirubin 2.8, lipase 25. Right upper quadrant ultrasound from outside facility demonstrated cholelithiasis, choledocholithiasis. She was transferred to [facility] for further workup, MRCP. MRCP revealed choledocholithiasis. GI, general surgery consulted Interval History: Patient had minimal nausea when she had crackers last night, patient seen after ERCP. reports feeling sleepy from anesthesia. Noted to have bradycardia down in recovery room also. Patient asymptomatic. Denies any nausea, vomiting at this time. Patient has been n.p.o. Adult diet Clear liquid 24HR INTAKE/OUTPUT: Intake/Output Summary (Last 24 hours) at 09/07/2024 1505 Last data filed at 09/07/2024 1305 Gross per 24 hour Intake 3860 ml Output 300 ml Net 3560 ml LABS: CBC: Recent Labs 09/06/24 0350 09/07/24 0150 WBC 4.6 5.7 RBC 4.17 4.00 HGB 12.1 11.5* HCT 39.1 35.6 MCV 93.8 89.0 RDW 14.1 14.0 PLT 245 240 BMP: Recent Labs 09/06/24 0350 09/07/24 0150 NA 142 139 K 3.9 3.6 CL 113* 110* CO2 21* 19* BUN 17 22 CREATININE 0.92 0.80 GLUCOSE 84 92 CALCIUM 9.0 8.7* ANIONGAP 8 10 LIVER PROFILE: Recent Labs 09/06/24 0350 09/07/24 0150 AST 283* 195* ALT 392* 309* BILITOT 2.8* 2.6* ALKPHOS 299* 315* PROT 6.2* 6.0* PT/INR: Recent Labs 09/06/24 0350 PROTIME 10.3 INR 1.0 CARDIAC ENZYMES: No results for input(s): TROPONINI in the last 72 hours. Procalcitonin: No results found for: PROCAL @RISRSLTSPECIALTY@ Objective: Vitals: BP 152/78 (Patient Position: Sitting) Pulse (!) 48 Temp 36.6 ?C (97.9 ?F) (Temporal) Resp 16 Ht 5' 6 (1.676 m) Wt 136 lb (61.7 kg) SpO2 96% BMI 21.95 kg/m? Pulse Ox: SpO2 Av.7 % Min: 94 % Max: 100 % Supplemental O2: 09/07/2024 General appearance: No apparent distress, appears stated age, AAOX4 Oral: Tongue is semi-moist Cardiovascular: S1/S2 heard, RRR Respiratory: Clear to auscultation bilaterally Abdomen: Soft, tenderness in right upper quadrant non-distended bowel sounds positive Musculoskeletal: No obvious deformities seen Medications: lactated Ringer's, 150 mL/hr [Held by provider] enoxaparin, 40 mg, SubCUTAneous, Daily sodium chloride 0.9%, 5-40 mL, IntraVENous, q12h Assessment Cholelithiasis with choledocholithiasis Elevated LFTs Asymptomatic bradycardia Plan General Surgery, GI following S/p ERCP with biliary sphincterotomy, balloon extraction. GI recommending clear liquid diet for today, continue LR at 150 cc/h Trend LFTs, bilirubin in a.m., lipase N.p.o. at midnight for lap cholecystectomy tomorrow -am labs, replace lytes prn -increase activity Diet Adult diet Clear liquid DVT Prophylaxis [x] Lovenox, [] Heparin, [] SCDs, [] Ambulation [] Already on Anticoagulation GI Prophylaxis [] PPI, [] H2 Godfrey, [] Carafate, [] Diet/Tube Feeds Code Status Full Code MDM [] Low, [] Moderate,[] High Patient's risk as above Anticipated Discharge - Date -4/30 - Location - Home - Pending the following -clinical improvement, executive talent acquisition consultant recommendations Total time spent (which include face to face and non face to face encounters) : 45 minutes Toxic drug monitoring/narrow therapeutic index drug monitoring : # Drug name : # Route administered : # Method of monitoring : Extended Emergency Contact Information Primary Emergency Contact: Zane Danielle Mobile Relation: Spouse Secondary Emergency Contact: Erin Ken Mobile Relation: Daughter Advance Directive: Full Code Discharge planning: TIGIST Gavin MD Division of Hospitalist Medicine Inpatient Medical Services/[facility] 09-07-2024 Note Patient: Chaim Duff arpenter Procedure Summary Date: 09/07/24 Room / Location: [facility] ENDO 9 / [facility] Gastroenterology Anesthesia Start: 1121 Anesthesia Stop: 1225 Procedure: ENDOSCOPIC RETROGRADE CHOLANGIOPANCREATOGRAPHY DUCT STENT PLACEMENT Diagnosis: Choledocholithiasis Providers: Cristian Ruiz MD Responsible Provider: Wing Vitale MD Anesthesia Type: general ASA Status: 2 Anesthesia Type: general Vitals Value Taken Time BP 172/77 09/07/24 1230 Temp 36.2 ?C (97.1 ?F) 09/07/24 1222 Pulse 43 09/07/24 1245 Resp 16 09/07/24 1245 SpO2 96 % 09/07/24 1245 Vitals shown include unfiled device data. Anesthesia Post Evaluation Patient location during evaluation: PACU Patient participation: complete - patient participated Level of consciousness: awake and alert Pain management: satisfactory to patient Airway patency: patent Dental Injury: no Cardiovascular status: acceptable, blood pressure returned to baseline and hemodynamically stable Respiratory status: acceptable and spontaneous ventilation Hydration status: euvolemic Nausea/Vomiting: controlled No notable events documented. Patient can be discharged once all PACU criteria has been met. [facility] 09-07-2024 Note Patient: Chaim Duff arpenter Procedure Summary Date: 09/07/24 Room / Location: [facility] ENDO 9 / [facility] Gastroenterology Anesthesia Start: 1121 Anesthesia Stop: 1225 Procedure: ENDOSCOPIC RETROGRADE CHOLANGIOPANCREATOGRAPHY DUCT STENT PLACEMENT Diagnosis: Choledocholithiasis Providers: Cristian Ruiz MD Responsible Provider: Wing Vitale MD Anesthesia Type: general ASA Status: 2 Anesthesia Type: general Vitals Value Taken Time BP 172/77 09/07/24 1230 Temp 36.2 ?C (97.1 ?F) 09/07/24 1222 Pulse 45 09/07/24 1244 Resp 15 09/07/24 1244 SpO2 95 % 09/07/24 1244 Vitals shown include unfiled device data. Anesthesia Post Evaluation Patient location during evaluation: PACU Patient participation: complete - patient participated Level of consciousness: awake and alert Pain management: satisfactory to patient Multimodal analgesia pain management approach Airway patency: patent Two or more strategies used to mitigate risk of obstructive sleep apnea Cardiovascular status: acceptable and hemodynamically stable Respiratory status: acceptable Hydration status: acceptable No notable events documented. MIPS #430 PONV Patient received an inhalational anesthetic (4554F) Patient exhibits three or more risk factors for PONV (4556F) Patient received at leaset 2 prophylactic Rx PONV anti-emtic agents of different classes preop and/or intraop (G9775) MIPS # 424 Perioperative Temperature Management Anesthesia time was less than 60 minutes (4256F) MIPS #477 Multimodal Pain Management Not emergent case Patient was not administered multimodal pain management (G2149) Patient reports no pain in PACU (G2149) MIPS #404 Anesthesiology Smoking Abstinence The patient is not a current smoker (e.g. cigarette, cigar, pipe, e-cigarette/vaping/marijuana) If no stop here (XX404) I completed my handoff to the receiving clinician during which we: 1. Identified the patient 2. Identified the responsible provider 3. Reviewed the pertinent medical history 4. Discussed the surgical course 5. Reviewed intra-op anesthesia management and issues during anesthesia 6. Set expectations for post-procedure period 7. Allowed opportunity for questions and acknowledgement of understanding. [facility] 09-07-2024 Note Airway Date/Time: 09/07/2024 11:24 AM Urgency: scheduled Airway not difficult General Information and Staff Patient location during procedure: Procedural Anesthesiologist: Wing Vitale MD Resident/TRAVEL OCCUPATIONAL THERAPIST: GREGORY Leiva CRNA Performed: TRAVEL OCCUPATIONAL THERAPIST Indications and Patient Condition Indications for airway management: anesthesia Sedation level: Asleep Preoxygenated: yes Patient position: sniffing MILS maintained throughout Mask difficulty assessment: 1 - vent by mask Final Airway Details Final airway type: endotracheal airway Successful airway: ETT Cuffed: yes Successful intubation technique: direct laryngoscopy Facilitating devices/methods: intubating stylet Endotracheal tube insertion site: oral Blade: Dana Blade size: #3 ETT size (mm): 7.0 Cormack-Lehane Classification: grade IIa - partial view of glottis Placement verified by: chest auscultation and capnometry Measured from: lips ETT to lips (cm): 21 Number of attempts at approach: 1 [facility] 09-07-2024 Note [facility] Patient Name: Chaim Danielle Procedure Date: 09/07/2024 11:19 AM Gender: Female Date of : 1950 Age: 73 Admit Type: Outpatient Note Status: Finalized Endoscopist: CRISTIAN Ruiz MD, [id number] Procedure: ERCP Indications: For therapy of bile duct stone(s) Findings: The coutierier film was normal. Upper endoscopy shows antral erosions. Cold biopsies taken. D2 shows multiple superficial ulcerations. A duodenoscope is passed to D2. The ampulla is small and inside folds. 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 Initial attempt to cannulate led to MPD cannulation. Small amount of contrast injection showed MPD cannulation, the wire however was not able to be passed beyond genu due to slight angulation, hence I opted to remove the wire. CBD was then able to cannulated and wire advanced to the intrahepatic ducts. Contrast injection showed CBD to be 9 mm in size. There are small filling defects noted. A 7 mm biliary sphincterotomy was then made with ERBE without any immediate complications. Balloon sweep with 9-12 mm balloon expressed 2 stones. Rest of sweeps were negative. Given multiple stones in the gall bladder and elevated LFTs, a 7 fr x9 cm biliary stent was placed in the CBD with good flow of contrast and bile. The GI tract was then decompressed and scope removed from the patient. I personally interpreted the bile duct and pancreatic duct images. Impression: - Choledocholithiasis with an obstruction was found. Complete removal was accomplished by biliary sphincterotomy and balloon extraction. - Duodenal erosions. Recommendation: - Patient has a contact number available for emergencies. The signs and symptoms of potential delayed complications were discussed with the patient. Return to normal activities tomorrow. Written discharge instructions were provided to the patient. - Observe patient's clinical course. - Clear liquid diet today. - PPI daily. - LR at 150 ml/hour. - Watch for pancreatitis, bleeding, perforation, and cholangitis. - The findings and recommendations were discussed with the patient's family. - Remove stent in 6-10 weeks. Referring MD: Tj Campoverde Medicines: Indomethacin 100 mg NM, Lactated Ringers Procedure: Pre-Anesthesia Assessment: - Prior to the procedure, a History and Physical was performed, and patient medications and allergies were reviewed. The patient is competent. The risks and benefits of the procedure and the sedation options and risks were discussed with the patient. All questions were answered and informed consent was obtained. Patient identification and proposed procedure were verified by the physician, the nurse and the pediatric critical care nurse in the pre-procedure area in the procedure room. Mental Status Examination: alert and oriented. Airway Examination: normal oropharyngeal airway and neck mobility. CV Examination: normal. Prophylactic Antibiotics: The patient does not require prophylactic antibiotics. Prior Anticoagulants: The patient has taken no anticoagulant or antiplatelet agents. ASA Grade Assessment: III - A patient with severe systemic disease. After reviewing the risks and benefits, the patient was deemed in satisfactory condition to undergo the procedure. The anesthesia plan was to use general anesthesia. Immediately prior to administration of medications, the patient was re-assessed for adequacy to receive sedatives. The heart rate, respiratory rate, oxygen saturations, blood pressure, adequacy of pulmonary ventilation, and response to care were monitored throughout the procedure. The physical status of the patient was re-assessed after the procedure. After obtaining informed consent, the scope was passed under direct vision. Throughout the procedure, the patient's blood pressure, pulse, and oxygen saturations were monitored continuously. The Duodenoscope was introduced through the mouth, and advanced to the duodenum and used to inject contrast into the bile duct. The Endoscope was introduced through the mouth, and advanced to the duodenum and used to inject contrast into the bile duct. The patient tolerated the procedure well. The ERCP was accomplished without difficulty. Complications: No immediate complications. Procedure Code(s): --- Professional --- 43376, Endoscopic retrograde cholangiopancreatography (ERCP); diagnostic, including collection of specimen(s) by brushing or washing, when performed (separate procedure) --- Technical --- 06183, Endoscopic retrograde cholangiopancreatography (ERCP); diagnostic, including collection of specimen(s) by brushing or washing, when performed (separate procedure) Diagnosis Code(s): --- Professional --- K80.51, Calculus of bile duct without cholangitis or cholecystitis with obstruction --- Technical --- K80.51, Calculus of bile duct without (more content not included)... [facility] 09-07-2024 Procedure note [facility] Patient Name: Chaim Danielle Procedure Date: 09/07/2024 11:19 AM Gender: Female Date of : 1950 Age: 73 Admit Type: Outpatient Note Status: Finalized Endoscopist: CRISTIAN Ruiz MD, [id number] Procedure: ERCP Indications: For therapy of bile duct stone(s) Findings: The coutierier film was normal. Upper endoscopy shows antral erosions. Cold biopsies taken. D2 shows multiple superficial ulcerations. A duodenoscope is passed to D2. The ampulla is small and inside folds. 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 Initial attempt to cannulate led to MPD cannulation. Small amount of contrast injection showed MPD cannulation, the wire however was not able to be passed beyond genu due to slight angulation, hence I opted to remove the wire. CBD was then able to cannulated and wire advanced to the intrahepatic ducts. Contrast injection showed CBD to be 9 mm in size. There are small filling defects noted. A 7 mm biliary sphincterotomy was then made with ERBE without any immediate complications. Balloon sweep with 9-12 mm balloon expressed 2 stones. Rest of sweeps were negative. Given multiple stones in the gall bladder and elevated LFTs, a 7 fr x9 cm biliary stent was placed in the CBD with good flow of contrast and bile. The GI tract was then decompressed and scope removed from the patient. I personally interpreted the bile duct and pancreatic duct images. Impression: - Choledocholithiasis with an obstruction was found. Complete removal was accomplished by biliary sphincterotomy and balloon extraction. - Duodenal erosions. Recommendation: - Patient has a contact number available for emergencies. The signs and symptoms of potential delayed complications were discussed with the patient. Return to normal activities tomorrow. Written discharge instructions were provided to the patient. - Observe patient's clinical course. - Clear liquid diet today. - PPI daily. - LR at 150 ml/hour. - Watch for pancreatitis, bleeding, perforation, and cholangitis. - The findings and recommendations were discussed with the patient's family. - Remove stent in 6-10 weeks. Referring MD: Tj Campoverde Medicines: Indomethacin 100 mg NM, Lactated Ringers Procedure: Pre-Anesthesia Assessment: - Prior to the procedure, a History and Physical was performed, and patient medications and allergies were reviewed. The patient is competent. The risks and benefits of the procedure and the sedation options and risks were discussed with the patient. All questions were answered and informed consent was obtained. Patient identification and proposed procedure were verified by the physician, the nurse and the pediatric critical care nurse in the pre-procedure area in the procedure room. Mental Status Examination: alert and oriented. Airway Examination: normal oropharyngeal airway and neck mobility. CV Examination: normal. Prophylactic Antibiotics: The patient does not require prophylactic antibiotics. Prior Anticoagulants: The patient has taken no anticoagulant or antiplatelet agents. ASA Grade Assessment: III - A patient with severe systemic disease. After reviewing the risks and benefits, the patient was deemed in satisfactory condition to undergo the procedure. The anesthesia plan was to use general anesthesia. Immediately prior to administration of medications, the patient was re-assessed for adequacy to receive sedatives. The heart rate, respiratory rate, oxygen saturations, blood pressure, adequacy of pulmonary ventilation, and response to care were monitored throughout the procedure. The physical status of the patient was re-assessed after the procedure. After obtaining informed consent, the scope was passed under direct vision. Throughout the procedure, the patient's blood pressure, pulse, and oxygen saturations were monitored continuously. The Duodenoscope was introduced through the mouth, and advanced to the duodenum and used to inject contrast into the bile duct. The Endoscope was introduced through the mouth, and advanced to the duodenum and used to inject contrast into the bile duct. The patient tolerated the procedure well. The ERCP was accomplished without difficulty. Complications: No immediate complications. Procedure Code(s): --- Professional --- 76170, Endoscopic retrograde cholangiopancreatography (ERCP); diagnostic, including collection of specimen(s) by brushing or washing, when performed (separate procedure) --- Technical --- 21291, Endoscopic retrograde cholangiopancreatography (ERCP); diagnostic, including collection of specimen(s) by brushing or washing, when performed (separate procedure) Diagnosis Code(s): --- Professional --- K80.51, Calculus of bile duct without cholangitis or cholecystitis with obstruction --- Technical --- K80.51, Calculus of bile duct without cholangitis or cholecystitis with obstruction CPT copyright 2021 [employer]. All rights reserved. The codes documented in this report are preliminary and upon rn psych review may be revised to meet current compliance requirements. Attending Participation: I personally performed the entire procedure. CRISTIAN Ruiz MD 09/07/2024 12:15:06 PM This report has been signed electronically. Number of Addenda: 0 Note Initiated On: 09/07/2024 11:19 AM T [facility] 09-07-2024 Note GASTROENTEROLOGY PHY SICIAN PRE PROCEDURE NOTE HPI: Chaim Danielle is a 73 y.o. female who is here today for planned endoscopic examination. See office or consult note for details. All: Patient has no known allergies. Meds: Current Facility-Administered Medications: [Transfer Hold] acetaminophen (Tylenol) tablet 650 mg, 650 mg, Oral, q6h PRN OR [Transfer Hold] acetaminophen (Tylenol) suppository 650 mg, 650 mg, Rectal, q6h PRN, Gem Lisa DO [Held by provider] enoxaparin (Lovenox) syringe 40 mg, 40 mg, SubCUTAneous, Daily, Gem Lisa DO [Transfer Hold] morphine injection 2 mg, 2 mg, IntraVENous, q4h PRN, Gem Lisa DO, 2 mg at 09/07/24 0135 [Transfer Hold] naloxone (Narcan) injection 0.4 mg, 0.4 mg, IntraVENous, q5 min PRN, Gem Lisa DO [Transfer Hold] ondansetron ODT (Zofran-ODT) disintegrating tablet 4 mg, 4 mg, Oral, q8h PRN OR [Transfer Hold] ondansetron (Zofran) injection 4 mg, 4 mg, IntraVENous, q6h PRN, Gem Lisa, DO [Transfer Hold] oxyCODONE-acetaminophen (Percocet) 5-325 MG per tablet 1 tablet, 1 tablet, Oral, q6h PRN, Gem Ilodi, DO, 1 tablet at 09/07/24 0040 [Transfer Hold] polyethylene glycol (PEG) 3350 (Miralax) packet 17 g, 17 g, Oral, Daily PRN, Gem Ilodi, DO [Transfer Hold] sodium chloride 0.9 % infusion, 5-250 mL/hr, IntraVENous, PRN, Gem Ilodi, DO [Transfer Hold] sodium chloride 0.9% (NS) flush 5-40 mL, 5-40 mL, IntraVENous, q12h, Gem Ilodi, DO, 10 mL at 09/06/24 0925 [Transfer Hold] sodium chloride 0.9% (NS) flush 5-40 mL, 5-40 mL, IntraVENous, PRN, Gem Ilodi, DO PMH: History reviewed. No pertinent past medical history. No reactions to anesthesia in the past. Airway patent PE: VS: BP (!) 149/72 Pulse 93 Temp 36 ?C (96.8 ?F) (Temporal) Resp 16 Ht 1.676 m (5' 6) Wt 61.7 kg (136 lb) SpO2 100% BMI 21.95 kg/m? Body mass index is 21.95 kg/m?. General: Patient in no distress Abdomen: soft and tender ASA score : [] 1 [] 2 [x] 3 ASSESSMENT & PLAN: Imaging reviewed with patient, complains of worseneing abdominal pain today, imaging seen with radiology. Needs ERCP [x] Esophagogastroduodenoscopy with biopsy or dilation or other related interventions with Endoscopic retrograde cholangiopancreatography with or without sphincterotomy , sphincter dilation, stone removal , stricture dilation , stent placement with other therapeutic interventions. Risks & benefits of the endoscopic procedure(s) and MAC /GA sedation were personally explained to patient / family along with alternatives to the procedure in detail including radiological and surgical options. Diagrams were made where applicable. The risks of the endoscopic procedure include but are not limited to risk from anesthesia, cardio - respiratory failure, infection, bleeding, perforation, pancreatitis with its sequelae , ARDS , multiorgan failure, damage to the adjacent organs, missed lesions and need for further procedure, prolonged hospitalization, surgery or interventional radiological intervention, from procedure or complications. We made a shared decision to proceed with planned procedure. Claudia LAMAS Gastroenterology [facility] 09-07-2024 Note Patient: Chaim meng Procedure Information Date/Time: 09/07/24 1400 Procedure: ENDOSCOPIC RETROGRADE CHOLANGIOPANCREATOGRAPHY DUCT STENT PLACEMENT Location: [facility] ENDO 9 / [facility] Gastroenterology Providers: Cristian Ruiz MD Relevant Problems No relevant active problems Past Medical History: No past medical history on file. Past Surgical History: Past Surgical History: No date: HYSTERECTOMY Social History: TOBACCO: reports that she has never smoked. She has never used smokeless tobacco. ETOH: reports current alcohol use of about 2.0 standard drinks of alcohol per week. Social History Substance and Sexual Activity Drug Use Never Family History: No family history on file. Screening: Hysterectomy Clinical information reviewed: Tobacco Allergies Meds Med Hx Surg Hx OB Status Fam Hx Soc Hx Physical Exam Airway Mallampati: II TM distance: >3 FB Neck ROM: full Mouth Open: normal Cardiovascular Dental Pulmonary Abdominal Anesthesia Plan patient is NPO appropriate Any family history or previous problems with anesthesia no ASA 2 general Any family history or previous problems with anesthesia no The patient is not a current smoker. Anesthetic plan and risks discussed with patient. WILFREDO Screening Labs: Lab Results Component Value Date WBC 5.7 09/07/2024 HGB 11.5 (L) 09/07/2024 HCT 35.6 09/07/2024 MCV 89.0 09/07/2024 PLT 240 09/07/2024 Lab Results Component Value Date NA 139 09/07/2024 K 3.6 09/07/2024 CL 110 (H) 09/07/2024 CO2 19 (L) 09/07/2024 BUN 22 09/07/2024 CREATININE 0.80 09/07/2024 GLUCOSE 92 09/07/2024 CALCIUM 8.7 (L) 09/07/2024 PROT 6.0 (L) 09/07/2024 ALKPHOS 315 (H) 09/07/2024 AST 195 (H) 09/07/2024 ALT 309 (H) 09/07/2024 EGFR 77.4 09/07/2024 Pain Score: 0 - No pain No echocardiogram results found for the past 14 days 09/05/24 ECG 12-LEAD (Preliminary) This result has not been signed. Information might be incomplete. Impression Sinus bradycardia Equipment Requests: Additional Equipment Requests [facility] 09-06-2024 Note Hospitalist Progress Note 09/06/2024 [phone]: Please page me ([phone]) for patient care issues. [phone]: Please page [facility] night Hospitalist for any issues. Subjective: Admit Date: 09/05/2024 PCP: RUSSELL HILL MD Room#: [phone] A Interval History: Patient is sitting on the bed, denies any abdominal pain nausea or vomiting No other significant overnight issues. NPO diet with enteral medications NPO diet NPO diet with enteral medications @[id number]@ 24HR INTAKE/OUTPUT: Intake/Output Summary (Last 24 hours) at 09/06/2024 1329 Last data filed at 09/05/2024 2355 Gross per 24 hour Intake 50 ml Output -- Net 50 ml Past Medical History: History reviewed. No pertinent past medical history. LABS: CBC: Recent Labs 09/06/24 0350 WBC 4.6 RBC 4.17 HGB 12.1 HCT 39.1 MCV 93.8 RDW 14.1 PLT 245 BMP: Recent Labs 09/06/24 0350 NA 142 K 3.9 CL 113* CO2 21* BUN 17 CREATININE 0.92 GLUCOSE 84 CALCIUM 9.0 ANIONGAP 8 LIVER PROFILE: Recent Labs 09/06/24 0350 AST 283* ALT 392* BILITOT 2.8* ALKPHOS 299* PROT 6.2* PT/INR: Recent Labs 09/06/24 0350 PROTIME 10.3 INR 1.0 CARDIAC ENZYMES: No results for input(s): TROPONINI in the last 72 hours. Procalcitonin: No results found for: PROCAL COVID-19 PCR: No results for input(s): COVID19 in the last 72 hours. Objective: Vitals: BP 134/63 (BP Location: Right arm, Patient Position: Lying) Pulse (!) 39 Temp 36.9 ?C (98.5 ?F) (Temporal) Resp 17 SpO2 100% Pulse Ox: SpO2 Av.5 % Min: 97 % Max: 100 % Supplemental O2: General appearance: No apparent distress, appears stated age and cooperative with exam HEENT: Normal cephalic, atraumatic without obvious deformity. Pupils equal, round, and reactive to light. Extra ocular muscles intact. Conjunctivae/corneas clear. Neck: Supple, with full range of motion. No jugular venous distention. Trachea midline. No lymphadenopathy. Respiratory: Normal respiratory effort. Clear to auscultation, bilaterally without Rales/Wheezes/Rhonchi. Cardiovascular: Regular rate and rhythm with normal S1/S2 without murmurs, rubs or gallops. Abdomen: Soft, non-tender, non-distended with normal bowel sounds. No rebound or guarding. Musculoskeletal: No clubbing, cyanosis or edema bilaterally. Full range of motion without deformity, +2 peripheral pulses in all extremities. Skin: Skin color, texture, turgor normal. No rashes or lesions. Neurologic: Neurovascularly intact without any focal sensory/motor deficits. Cranial nerves: II-XII intact, grossly non-focal. Medications: lactated Ringer's, 150 mL/hr, Last Rate: 150 mL/hr (09/06/24 0954) [Held by provider] enoxaparin, 40 mg, SubCUTAneous, Daily sodium chloride 0.9%, 5-40 mL, IntraVENous, q12h Assessment Intractable abdominal pain. Cholelithiasis with choledocholithiasis. Elevated LFTs and alkaline phosphatase Asymptomatic bradycardia Plan: Abdominal pain is better, denies any nausea or vomitings. No signs of cholangitis-no requirement for antibiotics Continue symptomatic treatment with IV fluids and pain medications. Follow-up LFTs ordered. MRCP pending. Gastroenterology is following, appreciate their recommendations Follow-up CBC BMP ordered. DVT prophylaxis: Lovenox is on hold. Disposition: Pending MRCP. Pending possible ERCP. Pending GI clearance Possible discharge in next 1 to 2 days. Next -am labs, replace lytes prn -increase activity -DVT prophylaxis: [] Lovenox [] Heparin [] SCDs [x] Encourage ambulation [] Already on Anticoagulation Advance Directive: Full Code Discharge planning: TIGIST Dowell MD Division of Hospitalist Medicine Inpatient Medical Services/[facility]: [phone] [facility] 09-06-2024 Consult note Associated Order (s): IP CONSULT TO GENERAL SURGERY Images from the original note were not included. Department of General Surgery Surgical Service - [facility] Resident Consult Note 09/06/2024 CHIEF COMPLAINT: No chief complaint on file. Reason for Consult: Concern for choledocholithiasis HISTORY OF PRESENT ILLNESS: Chaim Danielle is a 73 y.o. female with no significant past medical history who presents with abdominal pain. Surgery was consulted for evaluation of cholelithiasis with concern for choledocholithiasis. Patient states she has been experiencing intermittent right upper quadrant abdominal pain for the last 2 weeks. Patient reports the pain is related to eating and has occurred 2-3 times and lasts 2 to 3 hours at a time. Patient denies symptoms like this before. Patient's states that she is not experiencing any nausea or vomiting. Patient otherwise endorses normal bowel movements without hematochezia. Patient denies fevers or chills. Past surgical history is significant for laparoscopic hysterectomy 20 years ago. Last colonoscopy was last April and demonstrated normal findings per patient. Patient denies personal or family history of Crohn's, ulcerative colitis, colon cancer. Patient denies smoking, alcohol, illicit drug use. Patient does not take any blood thinners at home. On evaluation patient was afebrile and hemodynamically stable, mildly bradycardic on arrival to . Labs reviewed significant for: WBC 4.6, Hgb 12.1, creatinine 0.92, ALP 299, AST 283, ALT 392, total bilirubin 2.8, direct bilirubin 1.7, lipase 25. Reportedly right upper quadrant ultrasound from OSH demonstrated cholelithiasis with choledocholithiasis. Patient transferred to [facility] for further workup and MRCP. History reviewed. No pertinent past medical history. Past Surgical History: Procedure Laterality Date HYSTERECTOMY Medications Prior to Admission: Current Facility-Administered Medications Medication Dose Route Frequency Provider Last Rate Last Admin acetaminophen (Tylenol) tablet 650 mg 650 mg Oral q6h PRN Gem Lisa DO Or acetaminophen (Tylenol) suppository 650 mg 650 mg Rectal q6h PRN Gem Lisa DO enoxaparin (Lovenox) syringe 40 mg 40 mg SubCUTAneous Daily Gem Lisa DO morphine injection 2 mg 2 mg IntraVENous q4h PRN Gem Lisa DO naloxone (Narcan) injection 0.4 mg 0.4 mg IntraVENous q5 min PRN Gem Lisa DO ondansetron ODT (Zofran-ODT) disintegrating tablet 4 mg 4 mg Oral q8h PRN Gem Ilodi, DO Or ondansetron (Zofran) injection 4 mg 4 mg IntraVENous q6h PRN Gem Ilodi, DO oxyCODONE-acetaminophen (Percocet) 5-325 MG per tablet 1 tablet 1 tablet Oral q6h PRN Gem Ilodi, DO polyethylene glycol (PEG) 3350 (Miralax) packet 17 g 17 g Oral Daily PRN Gem Ilodi, DO sodium chloride 0.9 % infusion 5-250 mL/hr IntraVENous PRN Gem Ilodi, DO sodium chloride 0.9% (NS) flush 5-40 mL 5-40 mL IntraVENous q12h Gem Ilodi, DO 10 mL at 09/05/242114 sodium chloride 0.9% (NS) flush 5-40 mL 5-40 mL IntraVENous PRN Gem Ilodi, DO Allergies: Patient has no known allergies. Social History Socioeconomic History Marital status: Tobacco Use Smoking status: Never Smokeless tobacco: Never Vaping Use Vaping status: Never Used Substance and Sexual Activity Alcohol use: Yes Alcohol/week: 2.0 standard drinks of alcohol Types: 1 Glasses of wine, 1 Cans of beer per week Comment: occasionally with dinner Drug use: Never Social Drivers of Health Food Insecurity: No Food Insecurity (09/05/2024) Hunger Vital Sign Worried About Running Out of Food in the Last Year: Never true Ran Out of Food in the Last Year: Never true Transportation Needs: No Transportation Needs (09/05/2024) PRAPARE - Transportation Lack of Transportation (Medical): No Lack of Transportation (Non-Medical): No Intimate Partner Violence: Not At Risk (09/05/2024) Humiliation, Afraid, Rape, and Kick questionnaire Fear of Current or Ex-Partner: No Emotionally Abused: No Physically Abused: No Sexually Abused: No Housing Stability: Low Risk (09/05/2024) Housing Stability Vital Sign Unable to Pay for Housing in the Last Year: No Number of Times Moved in the Last Year: 0 Homeless in the Last Year: No No family history on file. REVIEW OF SYSTEMS: 11 point review of systems obtained, and negative unless otherwise mentioned in HPI PHYSICAL EXAM: Vitals: 09/05/242021 BP: 157/71 Pulse: (!) 49 Resp: 16 Temp: 37 C (98.6 F) SpO2: 97% No intake/output data recorded. CONSTITUTIONAL: awake, alert, cooperative, no apparent distress NECK: Supple, symmetrical, trachea midline, no adenopathy LUNGS: No increased work of breathing, good air exchange CARDIOVASCULAR: Regular rate and rhythm ABDOMEN: Soft, non-distended, minimally tender to palpation right upper quadrant, no rebound, no guarding, no masses palpated, well-healed laparoscopic incisions CHEST: no masses palpated, no axillary or supraclavicular adenopathy GENITAL/URINARY: Not examined MUSCULOSKELETAL: There is no redness, warmth, or swelling of the joints. Full range of motion noted. NEUROLOGIC: Awake, alert, oriented to name, place and time. SKIN: normal skin color, texture, no redness, warmth, or swelling DATA: CBC: No results found for: WBC, RBC, HGB, HCT, MCV, MCH, MCHC, RDW, PLT, MPV BMP: No results found for: NA, K, CL, CO2, BUN, CREATININE, CALCIUM, LABGLOM, GLUCOSE, GLU Hepatic Function Panel: No results found for: ALKPHOS, ALT, AST, PROT, BILITOT, BILIDIR PT/INR: No results found for: PROTIME, INR Troponin: No results found for: TROPONINI LIPASE: No results found for: LIPASE IMAGING: No image results found. ASSESSMENT AND PLAN: This is a 73 y.o. female with cholelithiasis, concern for choledocholithiasis - No acute surgical intervention at this time - Agree with MRCP to evaluate for choledocholithiasis, will follow-up read - In the event of positive choledocholithiasis patient will need ERCP with GI prior to laparoscopic cholecystectomy this admission - N.p.o. for MRCP - Rest of care per primary - General Surgery follow Patient discussed with attending, Dr. Castro. Vinayak Spencer MD General Surgery Resident 09/06/24 3:26 AM This note may have been dictated using [employer] Edition 2.6 and/or iLike Voice Recognition Feature. The document was proofread; however, unrecognized voice recognition sports athletic trainer errors may be present. Cosigned by Sary Castro MD at 09/06/2024 12:13 PM EDT Associated attestation - Sary Castro MD - 09/06/2024 12:13 PM EDT ATTENDING ADDENDUM Patient Active Problem List Diagnosis Choledocholithiasis I personally supervised the resident or HISTORY CARD CLERK/GLORIAC in the evaluation and development of a treatment plan for this patient on the same day of service as above. I personally discussed the review of systems and interviewed the patient along with performing a physical examination. In addition, I discussed the patient's condition and treatment options with him/her when possible. All of the patient's questions were answered and family updated when appropriate and possible. I performed a physical exam and ROS on the same date of service as above. A complete review of systems was obtained and is negative except as stated in HPI and/or Subjective Section. My findings agree with the above note except for any details corrected below. 73F transferred from [facility] for further evaluation of suspect acute choledocholithiasis. She reports 2 weeks of post prandial abdominal pain that have progressively worsened. Work-up in [facility] ED included a RUQ US that demonstrated cholelithiasis with choledocholithiasis without evidence of acute cholecystitis (I am unable to view these images). Labs were significant for elevated transaminases and T bili. On evaluation at [facility], she reports improvement in her pain. Her labs this morning are significant for elevated transaminases (AST 283, ALT 392, and T bili 2.8). MRCP is pending. Will follow up MRCP results. If negative for choledocholithiasis, will tentatively plan for laparoscopic cholecystectomy tomorrow, Thursday 09/07. IF MRCP showed + choledocholithiasis, will defer to GI for ERCP and plan for lap moose on Saturday. This was discussed with the patient who is in agreement with this plan. Sinus bradycardia at baseline - will obtain EKG for pre-op planning. Level of Medical Decision Making: risk of morbidity from additional diagnostic testing or treatment due to acute choledocholithiasis []High [x]Moderate []Low Complexity: Acute illness with systemic symptoms (MOD) Risk: Decision regarding elective major surgery without limited identified patient or procedure risk factors (MOD) Personally Reviewed/Independently interpreted patient's: [x]Epic notes []Radiology studies [x]Labs []EKG []Ordering tests []Other Discussed/ With: [x]Patient/Family []RN []Consultants []SW/TCC []Other I spent total time of 60 minutes reviewing previous notes, test results, and face to face with Chaim Danielle discussing the diagnosis and importance of compliance with the treatment plan as well as documenting on the day of the visit. Sary Castro MD Division of Trauma Department of Surgery [facility] Pager: [phone] [facility] 09-06-2024 Consult note Associated Order (s): IP CONSULT TO GENERAL SURGERY Images from the original note were not included. Department of General Surgery Surgical Service - [facility] Resident Consult Note 09/06/2024 CHIEF COMPLAINT: No chief complaint on file. Reason for Consult: Concern for choledocholithiasis HISTORY OF PRESENT ILLNESS: Chaim Danielle is a 73 y.o. female with no significant past medical history who presents with abdominal pain. Surgery was consulted for evaluation of cholelithiasis with concern for choledocholithiasis. Patient states she has been experiencing intermittent right upper quadrant abdominal pain for the last 2 weeks. Patient reports the pain is related to eating and has occurred 2-3 times and lasts 2 to 3 hours at a time. Patient denies symptoms like this before. Patient's states that she is not experiencing any nausea or vomiting. Patient otherwise endorses normal bowel movements without hematochezia. Patient denies fevers or chills. Past surgical history is significant for laparoscopic hysterectomy 20 years ago. Last colonoscopy was last April and demonstrated normal findings per patient. Patient denies personal or family history of Crohn's, ulcerative colitis, colon cancer. Patient denies smoking, alcohol, illicit drug use. Patient does not take any blood thinners at home. On evaluation patient was afebrile and hemodynamically stable, mildly bradycardic on arrival to . Labs reviewed significant for: WBC 4.6, Hgb 12.1, creatinine 0.92, ALP 299, AST 283, ALT 392, total bilirubin 2.8, direct bilirubin 1.7, lipase 25. Reportedly right upper quadrant ultrasound from OSH demonstrated cholelithiasis with choledocholithiasis. Patient transferred to [facility] for further workup and MRCP. History reviewed. No pertinent past medical history. Past Surgical History: Procedure Laterality Date HYSTERECTOMY Medications Prior to Admission: Current Facility-Administered Medications Medication Dose Route Frequency Provider Last Rate Last Admin acetaminophen (Tylenol) tablet 650 mg 650 mg Oral q6h PRN Gem Lisa, DO Or acetaminophen (Tylenol) suppository 650 mg 650 mg Rectal q6h PRN Gem Guyodi, DO enoxaparin (Lovenox) syringe 40 mg 40 mg SubCUTAneous Daily Gem Guyodi, DO morphine injection 2 mg 2 mg IntraVENous q4h PRN Gem Guyodi, DO naloxone (Narcan) injection 0.4 mg 0.4 mg IntraVENous q5 min PRN Gem Guyodi, DO ondansetron ODT (Zofran-ODT) disintegrating tablet 4 mg 4 mg Oral q8h PRN Gem Lisa, DO Or ondansetron (Zofran) injection 4 mg 4 mg IntraVENous q6h PRN Gem Lisa, DO oxyCODONE-acetaminophen (Percocet) 5-325 MG per tablet 1 tablet 1 tablet Oral q6h PRN Gem Ilodi, DO polyethylene glycol (PEG) 3350 (Miralax) packet 17 g 17 g Oral Daily PRN Gem Guyodi, DO sodium chloride 0.9 % infusion 5-250 mL/hr IntraVENous PRN Gem Guyodi, DO sodium chloride 0.9% (NS) flush 5-40 mL 5-40 mL IntraVENous q12h Gem Guyodi, DO 10 mL at 09/05/242114 sodium chloride 0.9% (NS) flush 5-40 mL 5-40 mL IntraVENous PRN Gem Lisa, DO Allergies: Patient has no known allergies. Social History Socioeconomic History Marital status: Tobacco Use Smoking status: Never Smokeless tobacco: Never Vaping Use Vaping status: Never Used Substance and Sexual Activity Alcohol use: Yes Alcohol/week: 2.0 standard drinks of alcohol Types: 1 Glasses of wine, 1 Cans of beer per week Comment: occasionally with dinner Drug use: Never Social Drivers of Health Food Insecurity: No Food Insecurity (09/05/2024) Hunger Vital Sign Worried About Running Out of Food in the Last Year: Never true Ran Out of Food in the Last Year: Never true Transportation Needs: No Transportation Needs (09/05/2024) PRAPARE - Transportation Lack of Transportation (Medical): No Lack of Transportation (Non-Medical): No Intimate Partner Violence: Not At Risk (09/05/2024) Humiliation, Afraid, Rape, and Kick questionnaire Fear of Current or Ex-Partner: No Emotionally Abused: No Physically Abused: No Sexually Abused: No Housing Stability: Low Risk (09/05/2024) Housing Stability Vital Sign Unable to Pay for Housing in the Last Year: No Number of Times Moved in the Last Year: 0 Homeless in the Last Year: No No family history on file. REVIEW OF SYSTEMS: 11 point review of systems obtained, and negative unless otherwise mentioned in HPI PHYSICAL EXAM: Vitals: 09/05/242021 BP: 157/71 Pulse: (!) 49 Resp: 16 Temp: 37 C (98.6 F) SpO2: 97% No intake/output data recorded. CONSTITUTIONAL: awake, alert, cooperative, no apparent distress NECK: Supple, symmetrical, trachea midline, no adenopathy LUNGS: No increased work of breathing, good air exchange CARDIOVASCULAR: Regular rate and rhythm ABDOMEN: Soft, non-distended, minimally tender to palpation right upper quadrant, no rebound, no guarding, no masses palpated, well-healed laparoscopic incisions CHEST: no masses palpated, no axillary or supraclavicular adenopathy GENITAL/URINARY: Not examined MUSCULOSKELETAL: There is no redness, warmth, or swelling of the joints. Full range of motion noted. NEUROLOGIC: Awake, alert, oriented to name, place and time. SKIN: normal skin color, texture, no redness, warmth, or swelling DATA: CBC: No results found for: WBC, RBC, HGB, HCT, MCV, MCH, MCHC, RDW, PLT, MPV BMP: No results found for: NA, K, CL, CO2, BUN, CREATININE, CALCIUM, LABGLOM, GLUCOSE, GLU Hepatic Function Panel: No results found for: ALKPHOS, ALT, AST, PROT, BILITOT, BILIDIR PT/INR: No results found for: PROTIME, INR Troponin: No results found for: TROPONINI LIPASE: No results found for: LIPASE IMAGING: No image results found. ASSESSMENT AND PLAN: This is a 73 y.o. female with cholelithiasis, concern for choledocholithiasis - No acute surgical intervention at this time - Agree with MRCP to evaluate for choledocholithiasis, will follow-up read - In the event of positive choledocholithiasis patient will need ERCP with GI prior to laparoscopic cholecystectomy this admission - N.p.o. for MRCP - Rest of care per primary - General Surgery follow Patient discussed with attending, Dr. Castro. Vinayak Spencer MD General Surgery Resident 09/06/24 3:26 AM This note may have been dictated using [employer] Practice Edition 2.6 and/or iLike Voice Recognition Feature. The document was proofread; however, unrecognized voice recognition sports athletic trainer errors may be present. Cosigned by Sary Castro MD at 09/06/2024 12:13 PM EDT Associated attestation - Sary Castro MD - 09/06/2024 12:13 PM EDT ATTENDING ADDENDUM Patient Active Problem List Diagnosis Choledocholithiasis I personally supervised the resident or HISTORY CARD CLERK/TURMAN in the evaluation and development of a treatment plan for this patient on the same day of service as above. I personally discussed the review of systems and interviewed the patient along with performing a physical examination. In addition, I discussed the patient's condition and treatment options with him/her when possible. All of the patient's questions were answered and family updated when appropriate and possible. I performed a physical exam and ROS on the same date of service as above. A complete review of systems was obtained and is negative except as stated in HPI and/or Subjective Section. My findings agree with the above note except for any details corrected below. 73F transferred from [facility] for further evaluation of suspect acute choledocholithiasis. She reports 2 weeks of post prandial abdominal pain that have progressively worsened. Work-up in [facility] ED included a RUQ US that demonstrated cholelithiasis with choledocholithiasis without evidence of acute cholecystitis (I am unable to view these images). Labs were significant for elevated transaminases and T bili. On evaluation at [facility], she reports improvement in her pain. Her labs this morning are significant for elevated transaminases (AST 283, ALT 392, and T bili 2.8). MRCP is pending. Will follow up MRCP results. If negative for choledocholithiasis, will tentatively plan for laparoscopic cholecystectomy tomorrow, Thursday 09/07. IF MRCP showed + choledocholithiasis, will defer to GI for ERCP and plan for lap moose on Saturday. This was discussed with the patient who is in agreement with this plan. Sinus bradycardia at baseline - will obtain EKG for pre-op planning. Level of Medical Decision Making: risk of morbidity from additional diagnostic testing or treatment due to acute choledocholithiasis []High [x]Moderate []Low Complexity: Acute illness with systemic symptoms (MOD) Risk: Decision regarding elective major surgery without limited identified patient or procedure risk factors (MOD) Personally Reviewed/Independently interpreted patient's: [x]Epic notes []Radiology studies [x]Labs []EKG []Ordering tests []Other Discussed/ With: [x]Patient/Family []RN []Consultants []SW/TCC []Other I spent total time of 60 minutes reviewing previous notes, test results, and face to face with Chaim Danielle discussing the diagnosis and importance of compliance with the treatment plan as well as documenting on the day of the visit. Sary Castro MD Division of Trauma Department of Surgery [facility] Pager: [phone] Associated Order(s): IP CONSULT TO GI Department of Internal Medicine Gastroenterology Attending Consult Note Reason for Consult: The patient was seen in consultation at the request of Dr Lisa CHIEF COMPLAINT: Abdominal pain History Obtained From: patient HISTORY OF PRESENT ILLNESS: The patient is a 73 y.o. female with significant past medical history of no significnat medical issues presented to OSH with intermittent abdominal pain, this time it was severe so she came to ER. Work up showed elevated LFTs, ultrasound report states gall bladder and cbd stones. Today pain is improved. Did have nausea but no vomiting. Had colonoscopy a few years ago with local GI. No blood thinners. Allergies: Patient has no known allergies. Current Medications: Current Facility-Administered Medications: acetaminophen (Tylenol) tablet 650 mg, 650 mg, Oral, q6h PRN OR acetaminophen (Tylenol) suppository 650 mg, 650 mg, Rectal, q6h PRN, Gem Lisa, DO enoxaparin (Lovenox) syringe 40 mg, 40 mg, SubCUTAneous, Daily, Gem Lisa, DO morphine injection 2 mg, 2 mg, IntraVENous, q4h PRN, Gem Lisa, DO naloxone (Narcan) injection 0.4 mg, 0.4 mg, IntraVENous, q5 min PRN, Gem Lisa, DO ondansetron ODT (Zofran-ODT) disintegrating tablet 4 mg, 4 mg, Oral, q8h PRN OR ondansetron (Zofran) injection 4 mg, 4 mg, IntraVENous, q6h PRN, Gem Lisa, DO oxyCODONE-acetaminophen (Percocet) 5-325 MG per tablet 1 tablet, 1 tablet, Oral, q6h PRN, Gem Lisa, DO polyethylene glycol (PEG) 3350 (Miralax) packet 17 g, 17 g, Oral, Daily PRN, Gem Lisa, DO sodium chloride 0.9 % infusion, 5-250 mL/hr, IntraVENous, PRN, Gem Guyodi, DO sodium chloride 0.9% (NS) flush 5-40 mL, 5-40 mL, IntraVENous, q12h, Gem Lisa, DO, 10 mL at 09/05/242114 sodium chloride 0.9% (NS) flush 5-40 mL, 5-40 mL, IntraVENous, PRN, Gem Lisa, DO Past Medical History: Active Ambulatory Problems Diagnosis Date Noted No Active Ambulatory Problems Resolved Ambulatory Problems Diagnosis Date Noted No Resolved Ambulatory Problems No Additional Past Medical History Past Surgical History: Social History Socioeconomic History Marital status: Spouse name: Not on file Number of children: Not on file Years of education: Not on file Highest education level: Not on file Occupational History Not on file Tobacco Use Smoking status: Never Smokeless tobacco: Never Vaping Use Vaping status: Never Used Substance and Sexual Activity Alcohol use: Yes Alcohol/week: 2.0 standard drinks of alcohol Types: 1 Glasses of wine, 1 Cans of beer per week Comment: occasionally with dinner Drug use: Never Sexual activity: Not on file Other Topics Concern Not on file Social History Narrative Not on file Social Drivers of Health Financial Resource Strain: Not on file Food Insecurity: No Food Insecurity (09/05/2024) Hunger Vital Sign Worried About Running Out of Food in the Last Year: Never true Ran Out of Food in the Last Year: Never true Transportation Needs: No Transportation Needs (09/05/2024) PRAPARE - Transportation Lack of Transportation (Medical): No Lack of Transportation (Non-Medical): No Physical Activity: Not on file Stress: Not on file Social Connections: Not on file Intimate Partner Violence: Not At Risk (09/05/2024) Humiliation, Afraid, Rape, and Kick questionnaire Fear of Current or Ex-Partner: No Emotionally Abused: No Physically Abused: No Sexually Abused: No Housing Stability: Low Risk (09/05/2024) Housing Stability Vital Sign Unable to Pay for Housing in the Last Year: No Number of Times Moved in the Last Year: 0 Homeless in the Last Year: No Family History: No family history on file. No family history colon or stomach cancer. Social History: TOBACCO: reports that she has never smoked. She has never used smokeless tobacco. ETOH: reports current alcohol use of about 2.0 standard drinks of alcohol per week. DRUGS: reports no history of drug use. REVIEW OF SYSTEMS: No fever, chills, or sweats. Normal appetite and weight. No DOYLE, visual disturbance, eye pain, jaundice, sore throat or mouth ulcers. No skin rash or itching. No CP, SOB, MAI, cough or wheeze. No urinary frequency, urgency, hematuria, or dysuria. No myalgia, arthralgia, or joint swelling. No weakness, numbness, or confusion. GI per HPI. No polyuria, polydipsia, heat or cold intolerance. PHYSICAL EXAM: VS: BP 134/63 (BP Location: Right arm, Patient Position: Lying) Pulse (!) 39 Temp 36.9 C (98.5 F) (Temporal) Resp 17 SpO2 100% There is no height or weight on file to calculate BMI. Constitutional: No acute distress. Well-nourished. Well hydrated Head/Eyes: Pupils are equal and round; Conjunctiva are not injected; Sclera are non-icteric. ENT: Ears/nose without external abnormalities. Oral mucosa is pink and moist. Neck: No JVD. No carotid bruits; No thyromegaly. Respiratory: Clear to auscultation bilaterally without any added sounds. Effort is normal Heart: Regular, Normal S1 and S2. No murmur; No added sounds. Abdomen: Normal BS, soft, non-tender, non-distended; no hepatomegaly. Extremities/Skin: No LE edema; Skin warm to touch and well perfused. Musculoskeletal: Head - normocephalic. Neck - supple DATA: Recent blood work and relevant radiologic and endoscopic studies were reviewed and discussed with the patient. CBC: Recent Labs 09/06/24 0350 WBC 4.6 RBC 4.17 HGB 12.1 HCT 39.1 MCV 93.8 MCH 29.0 MCHC 30.9 RDW 14.1 PLT 245 MPV 9.7 CMP: Recent Labs 09/06/24 0350 NA 142 K 3.9 CL 113* CO2 21* BUN 17 CREATININE 0.92 GLUCOSE 84 CALCIUM 9.0 PROT 6.2* BILITOT 2.8* ALKPHOS 299* AST 283* ALT 392* PT/INR: Recent Labs 09/06/24 0350 INR 1.0 IMPRESSION/RECOMMENDATIONS: 73 yr old lady with cholelithiasis and choledocholithiasis on imaging ( US) , elevated LFT's, abdominal pain. Will get MRCP to confirm CBD stones. Start LR at 150 ml/hour States she always have low HR - obtain an EKG. If MRCP positive, will need ERCP. Given no cholangitis, no need for antibiotics. Hold lovenox this am. Esophagogastroduodenoscopy with biopsy or dilation or other related interventions. Endoscopic ultrasound +/- fine needle aspiration and biopsy. Endoscopic retrograde cholangiopancreatography with or without sphincterotomy , sphincter dilation, stone removal , stricture dilation , stent placement with other therapeutic interventions. Risks & benefits of the endoscopic procedure(s) and MAC /GA sedation were personally explained to patient / family along with alternatives to the procedure in detail including radiological and surgical options. The risks of the endoscopic procedure include but are not limited to risk from anesthesia, cardio - respiratory failure, infection, bleeding, perforation, pancreatitis with its sequelae , ARDS , multiorgan failure, damage to the adjacent organs, missed lesions and need for further procedure, surgery or interventional radiological intervention, from procedure or complications. We made a shared decision to proceed with planned procedure. Claudia LAMAS Gastroenterology documented in this encounter [facility] 09-06-2024 Consult note Associated Order (s): IP CONSULT TO GI Department of Internal Medicine Gastroenterology Attending Consult Note Reason for Consult: The patient was seen in consultation at the request of Dr Lisa CHIEF COMPLAINT: Abdominal pain History Obtained From: patient HISTORY OF PRESENT ILLNESS: The patient is a 73 y.o. female with significant past medical history of no significnat medical issues presented to OSH with intermittent abdominal pain, this time it was severe so she came to ER. Work up showed elevated LFTs, ultrasound report states gall bladder and cbd stones. Today pain is improved. Did have nausea but no vomiting. Had colonoscopy a few years ago with local GI. No blood thinners. Allergies: Patient has no known allergies. Current Medications: Current Facility-Administered Medications: acetaminophen (Tylenol) tablet 650 mg, 650 mg, Oral, q6h PRN OR acetaminophen (Tylenol) suppository 650 mg, 650 mg, Rectal, q6h PRN, Gem Lisa DO enoxaparin (Lovenox) syringe 40 mg, 40 mg, SubCUTAneous, Daily, Gem Lisa DO morphine injection 2 mg, 2 mg, IntraVENous, q4h PRN, Gem Lisa DO naloxone (Narcan) injection 0.4 mg, 0.4 mg, IntraVENous, q5 min PRN, Gem Lisa, DO ondansetron ODT (Zofran-ODT) disintegrating tablet 4 mg, 4 mg, Oral, q8h PRN OR ondansetron (Zofran) injection 4 mg, 4 mg, IntraVENous, q6h PRN, Gem Lisa DO oxyCODONE-acetaminophen (Percocet) 5-325 MG per tablet 1 tablet, 1 tablet, Oral, q6h PRN, Gem Lisa DO polyethylene glycol (PEG) 3350 (Miralax) packet 17 g, 17 g, Oral, Daily PRN, Gem Ilodi, DO sodium chloride 0.9 % infusion, 5-250 mL/hr, IntraVENous, PRN, Gem Ilodi, DO sodium chloride 0.9% (NS) flush 5-40 mL, 5-40 mL, IntraVENous, q12h, Gem Ilodi, DO, 10 mL at 09/05/242114 sodium chloride 0.9% (NS) flush 5-40 mL, 5-40 mL, IntraVENous, PRN, Gem Ilodi, DO Past Medical History: Active Ambulatory Problems Diagnosis Date Noted No Active Ambulatory Problems Resolved Ambulatory Problems Diagnosis Date Noted No Resolved Ambulatory Problems No Additional Past Medical History Past Surgical History: Social History Socioeconomic History Marital status: Spouse name: Not on file Number of children: Not on file Years of education: Not on file Highest education level: Not on file Occupational History Not on file Tobacco Use Smoking status: Never Smokeless tobacco: Never Vaping Use Vaping status: Never Used Substance and Sexual Activity Alcohol use: Yes Alcohol/week: 2.0 standard drinks of alcohol Types: 1 Glasses of wine, 1 Cans of beer per week Comment: occasionally with dinner Drug use: Never Sexual activity: Not on file Other Topics Concern Not on file Social History Narrative Not on file Social Drivers of Health Financial Resource Strain: Not on file Food Insecurity: No Food Insecurity (09/05/2024) Hunger Vital Sign Worried About Running Out of Food in the Last Year: Never true Ran Out of Food in the Last Year: Never true Transportation Needs: No Transportation Needs (09/05/2024) PRAPARE - Transportation Lack of Transportation (Medical): No Lack of Transportation (Non-Medical): No Physical Activity: Not on file Stress: Not on file Social Connections: Not on file Intimate Partner Violence: Not At Risk (09/05/2024) Humiliation, Afraid, Rape, and Kick questionnaire Fear of Current or Ex-Partner: No Emotionally Abused: No Physically Abused: No Sexually Abused: No Housing Stability: Low Risk (09/05/2024) Housing Stability Vital Sign Unable to Pay for Housing in the Last Year: No Number of Times Moved in the Last Year: 0 Homeless in the Last Year: No Family History: No family history on file. No family history colon or stomach cancer. Social History: TOBACCO: reports that she has never smoked. She has never used smokeless tobacco. ETOH: reports current alcohol use of about 2.0 standard drinks of alcohol per week. DRUGS: reports no history of drug use. REVIEW OF SYSTEMS: No fever, chills, or sweats. Normal appetite and weight. No DOYLE, visual disturbance, eye pain, jaundice, sore throat or mouth ulcers. No skin rash or itching. No CP, SOB, MAI, cough or wheeze. No urinary frequency, urgency, hematuria, or dysuria. No myalgia, arthralgia, or joint swelling. No weakness, numbness, or confusion. GI per HPI. No polyuria, polydipsia, heat or cold intolerance. PHYSICAL EXAM: VS: BP 134/63 (BP Location: Right arm, Patient Position: Lying) Pulse (!) 39 Temp 36.9 C (98.5 F) (Temporal) Resp 17 SpO2 100% There is no height or weight on file to calculate BMI. Constitutional: No acute distress. Well-nourished. Well hydrated Head/Eyes: Pupils are equal and round; Conjunctiva are not injected; Sclera are non-icteric. ENT: Ears/nose without external abnormalities. Oral mucosa is pink and moist. Neck: No JVD. No carotid bruits; No thyromegaly. Respiratory: Clear to auscultation bilaterally without any added sounds. Effort is normal Heart: Regular, Normal S1 and S2. No murmur; No added sounds. Abdomen: Normal BS, soft, non-tender, non-distended; no hepatomegaly. Extremities/Skin: No LE edema; Skin warm to touch and well perfused. Musculoskeletal: Head - normocephalic. Neck - supple DATA: Recent blood work and relevant radiologic and endoscopic studies were reviewed and discussed with the patient. CBC: Recent Labs 09/06/24 0350 WBC 4.6 RBC 4.17 HGB 12.1 HCT 39.1 MCV 93.8 MCH 29.0 MCHC 30.9 RDW 14.1 PLT 245 MPV 9.7 CMP: Recent Labs 09/06/24 0350 NA 142 K 3.9 CL 113* CO2 21* BUN 17 CREATININE 0.92 GLUCOSE 84 CALCIUM 9.0 PROT 6.2* BILITOT 2.8* ALKPHOS 299* AST 283* ALT 392* PT/INR: Recent Labs 09/06/24 0350 INR 1.0 IMPRESSION/RECOMMENDATIONS: 73 yr old lady with cholelithiasis and choledocholithiasis on imaging ( US) , elevated LFT's, abdominal pain. Will get MRCP to confirm CBD stones. Start LR at 150 ml/hour States she always have low HR - obtain an EKG. If MRCP positive, will need ERCP. Given no cholangitis, no need for antibiotics. Hold lovenox this am. Esophagogastroduodenoscopy with biopsy or dilation or other related interventions. Endoscopic ultrasound +/- fine needle aspiration and biopsy. Endoscopic retrograde cholangiopancreatography with or without sphincterotomy , sphincter dilation, stone removal , stricture dilation , stent placement with other therapeutic interventions. Risks & benefits of the endoscopic procedure(s) and MAC /GA sedation were personally explained to patient / family along with alternatives to the procedure in detail including radiological and surgical options. The risks of the endoscopic procedure include but are not limited to risk from anesthesia, cardio - respiratory failure, infection, bleeding, perforation, pancreatitis with its sequelae , ARDS , multiorgan failure, damage to the adjacent organs, missed lesions and need for further procedure, surgery or interventional radiological intervention, from procedure or complications. We made a shared decision to proceed with planned procedure. Claduia LAMAS Gastroenterology [facility] 09-05-2024 Telephone encounter Note Name of Caller: Irma Contact Physician requesting Consult: Dr. Lisa Patient Location (facility name, room, bed number): [place] [id number], Room 5109 Bed A Patient Diagnosis/Reason for Consult:Cholelithiasis Provider being paged: ELROY sent to office Time page was sent: 8:26pm Department of provider being paged: Gastroenterology Page Content: Irma from [place] [id number] called in to request a consult for patient located on , room 5109, Bed A. The reason for the consult is Cholelithiasis. Dr. Lisa requested the consult. Irma can be reached at [phone] Message sent via Secure Chat [facility] 09-05-2024 Miscellaneous Notes Name of Caller: Irma Contact Physician requesting Consult: Dr. Lisa Patient Location (facility name, room, bed number): [facility], , Room 5109 Bed A Patient Diagnosis/Reason for Consult:Cholelithiasis Provider being paged: TE sent to office Time page was sent: 8:26pm Department of provider being paged: Gastroenterology Page Content: Irma from [facility], called in to request a consult for patient located on , room 5109, Bed A. The reason for the consult is Cholelithiasis. Dr. Lisa requested the consult. Irma can be reached at [phone] Message sent via Secure Chat documented in this encounter [facility] 09-05-2024 Note Formatting of this n ote is different from the original. [employer] Chaim Danielle : 1950 Primary Care Physician: RUSSELL HILL MD The patient and/or family/surrogate voluntarily agreed to participate in ACP services. Patient s cognitive capacity: yes, patient has capacity Code Status: [x] [FULL CODE - Continue all advanced life support: CPR,intubation,invasive procedures] [_] [DNR-CCA - DO NOT do CPR, intubation] [_] [DNR-PACKER INSPECTOR - Comfort care only] [_] DNR form [was/was not] signed Summary of discussion: The patient health care POA/ surrogate is the following: Zane(spouse). Long discussion about patient code status. Patient has living will that says she is DNR but patient has decided to be a full code. She has changed her mind. She says she will update her paperwork when she gets home. I answered all the patient/family questions that I could within the range and scope of the current medical situation. We discussed the medical conditions, risks, benefits, outcomes, and goals of care at this time for the patient's medical issues at hand in the face of the patient's chronic issues and current presentation. Total time spent: 20 minutes were spent discussing the patient's resuscitation status, advance care planning, and end of life care, with patient and/or family/surrogate. Gem Lisa DO [facility] 09/05/2024, 8:09 PM [facility] 09-05-2024 Note Formatting of this n ote is different from the original. [employer] Chaim Danielle : 1950 Primary Care Physician: RUSSELL HILL MD The patient and/or family/surrogate voluntarily agreed to participate in ACP services. Patient s cognitive capacity: yes, patient has capacity Code Status: [x] [FULL CODE - Continue all advanced life support: CPR,intubation,invasive procedures] [_] [DNR-CCA - DO NOT do CPR, intubation] [_] [DNR-PACKER INSPECTOR - Comfort care only] [_] DNR form [was/was not] signed Summary of discussion: The patient health care POA/ surrogate is the following: Zane(spouse). Long discussion about patient code status. Patient has living will that says she is DNR but patient has decided to be a full code. She has changed her mind. She says she will update her paperwork when she gets home. I answered all the patient/family questions that I could within the range and scope of the current medical situation. We discussed the medical conditions, risks, benefits, outcomes, and goals of care at this time for the patient's medical issues at hand in the face of the patient's chronic issues and current presentation. Total time spent: 20 minutes were spent discussing the patient's resuscitation status, advance care planning, and end of life care, with patient and/or family/surrogate. Gem Lisa DO [facility] 09/05/2024, 8:09 PM T [facility] 09-05-2024 History and physical note Images from the original note were not included. Attending History and Physical Admit Date: 09/05/2024 PCP: RUSSELL HILL MD CHIEF COMPLAINT: abdominal pain Reason for Admission: Cholelithiasis with choledocholithiasis History Obtained From: patient, spouse, daughter HISTORY OF PRESENT ILLNESS: Chaim is a 73 y.o. female with past medical history below who presents from [facility] ED with intermittent abdominal pain for past 2 weeks. Patient is healthy, takes no medications. States that abdominal pain began 2 weeks prior to ED, sharp, radiating to back associated with eating. Pain lasted for a couple of hours but went away. Similar type of abdominal pain returned on Saturday. Again lasted a few hours then resolved. Symptoms returned yesterday and persisted, prompting her to go to ED for further evaluation and management. At [facility] ED, abdominal US obtained and showed cholelithiasis with choledocholithiasis. Laboratory studies essentially unremarkable. Transferred to [facility] for further evaluation and management. Currently, patient denies any abdominal pain (was given IV morphine at [place] [facility]). Denies chest pain, sob, nausea, vomiting, fevers, or chills. Past Medical History: History reviewed. No pertinent past medical history. Past Surgical History: Past Surgical History: Procedure Laterality Date HYSTERECTOMY Social History: Social History Socioeconomic History Marital status: Spouse name: Not on file Number of children: Not on file Years of education: Not on file Highest education level: Not on file Occupational History Not on file Tobacco Use Smoking status: Never Smokeless tobacco: Never Vaping Use Vaping status: Never Used Substance and Sexual Activity Alcohol use: Yes Alcohol/week: 2.0 standard drinks of alcohol Types: 1 Glasses of wine, 1 Cans of beer per week Comment: occasionally with dinner Drug use: Never Sexual activity: Not on file Other Topics Concern Not on file Social History Narrative Not on file Social Drivers of Health Financial Resource Strain: Not on file Food Insecurity: No Food Insecurity (09/05/2024) Hunger Vital Sign Worried About Running Out of Food in the Last Year: Never true Ran Out of Food in the Last Year: Never true Transportation Needs: No Transportation Needs (09/05/2024) PRAPARE - Transportation Lack of Transportation (Medical): No Lack of Transportation (Non-Medical): No Physical Activity: Not on file Stress: Not on file Social Connections: Not on file Intimate Partner Violence: Not At Risk (09/05/2024) Humiliation, Afraid, Rape, and Kick questionnaire Fear of Current or Ex-Partner: No Emotionally Abused: No Physically Abused: No Sexually Abused: No Housing Stability: Low Risk (09/05/2024) Housing Stability Vital Sign Unable to Pay for Housing in the Last Year: No Number of Times Moved in the Last Year: 0 Homeless in the Last Year: No Family History: No family history on file. Medications Prior to Admission: No current facility-administered medications for this encounter. Medications Reconciliation: Medication were reviewed and verified as accurate with patient. Allergies: No Known Allergies REVIEW OF SYSTEMS: SEE HPI Vitals: 09/05/2024 8:22 PM Vitals Systolic 157 Diastolic 71 Heart Rate 49 Temp 37 C (98.6 F) Resp 16 SpO2 97 % BMI Classification: Normal Weight (BMI 18.5-24.9) Pulse Ox: No data recorded Supplemental O2: PHYSICAL EXAM: Physical Exam Cardiovascular: Rate and Rhythm: Normal rate. Pulses: Normal pulses. Heart sounds: Normal heart sounds. Pulmonary: Effort: Pulmonary effort is normal. Abdominal: Palpations: Abdomen is soft. Tenderness: There is no abdominal tenderness. DATA: CBC: No results for input(s): WBC, RBC, HGB, HCT, MCV, RDW, PLT in the last 72 hours. BMP:No results for input(s): NA, K, CL, CO2, BUN, CREATININE, GLUCOSE, CALCIUM, ANIONGAP in the last 72 hours. LIVER PROFILE:No results for input(s): AST, ALT, BILITOT, ALKPHOS, PROT in the last 72 hours. No lab exists for component: LABALBU PT/INR: No results for input(s): PROTIME, INR in the last 72 hours. CARDIAC ENZYMES: No results for input(s): TROPONINI in the last 72 hours. Procalcitonin: No results found for: PROCAL Urine Culture: No results found for this or any previous visit. COVID-19 PCR: No results for input(s): COVID19 in the last 72 hours. I reviewed: [x] laboratory results [x] radiographic results At the time of today's encounter. Pt was advised of the results. Data: (CAT1) Reviewed 3 or more notes from different specialty or health system (each=1). (LOW: 2x CAT1 or independent historian MOD: 3x CAT1 or 1x CAT3 EXTENSIVE: 3x CAT1 and 1x CAT3) Assessment Discussed management with the ED provider and agree with hospitalization. Acute, acute on chronic, unstable/uncontrolled chronic problems/diagnoses: Cholelithiasis with choledocholithiasis Asymptomatic bradycardia Elevated blood pressure without diagnosis of hypertension Stable chronic problems affecting care, new non-acute diagnoses: N/A Plan As a result of the above findings & factors, the following mgmt was pursued: - CLD for now and NPO after midnight, will obtain MRCP, GI consult for consideration of ERCP, gen surgery consult for consideration of cholecystectomy - pain control - obtain EKG - am labs, replace lytes prn - PT/OT/CM/SW - delirium precautions: increase activity - DVT prophylaxis: enoxaparin and encourage ambulation Complexity: Acute illness or injury posing a threat to life or body function (HIGH). Risk: Prescription drug/IVF/colloid was initiated, discontinued, adjusted; or reviewed with decision to maintain current orders (MOD). Advance Directive: Full Code Anticipated Discharge - Date - 09/07/24-09/08/24? - Location - Home - Pending the following - clinical course, specialist recs Total time spent (which include face to face and non face to face encounters) : 75 minutes. Extended Emergency Contact Information Primary Emergency Contact: LolisZane Mobile Relation: Spouse Secondary Emergency Contact: Erin Ken Mobile Relation: Daughter Gem Robbi DO [facility] Medicine [facility]patient Medical Services[facility] 09-05-2024 Note Attending History an d Physical Admit Date: 09/05/2024 PCP: RUSSELL HILL MD CHIEF COMPLAINT: abdominal pain Reason for Admission: Cholelithiasis with choledocholithiasis History Obtained From: patient, spouse, daughter HISTORY OF PRESENT ILLNESS: Chaim is a 73 y.o. female with past medical history below who presents from [place] [facility] with intermittent abdominal pain for past 2 weeks. Patient is healthy, takes no medications. States that abdominal pain began 2 weeks prior to ED, sharp, radiating to back associated with eating. Pain lasted for a couple of hours but went away. Similar type of abdominal pain returned on Saturday. Again lasted a few hours then resolved. Symptoms returned yesterday and persisted, prompting her to go to ED for further evaluation and management. At [place] ED, abdominal US obtained and showed cholelithiasis with choledocholithiasis. Laboratory studies essentially unremarkable. Transferred to [facility] for further evaluation and management. Currently, patient denies any abdominal pain (was given IV morphine at [place] [facility]). Denies chest pain, sob, nausea, vomiting, fevers, or chills. Past Medical History: History reviewed. No pertinent past medical history. Past Surgical History: Past Surgical History: Procedure Laterality Date HYSTERECTOMY Social History: Social History Socioeconomic History Marital status: Spouse name: Not on file Number of children: Not on file Years of education: Not on file Highest education level: Not on file Occupational History Not on file Tobacco Use Smoking status: Never Smokeless tobacco: Never Vaping Use Vaping status: Never Used Substance and Sexual Activity Alcohol use: Yes Alcohol/week: 2.0 standard drinks of alcohol Types: 1 Glasses of wine, 1 Cans of beer per week Comment: occasionally with dinner Drug use: Never Sexual activity: Not on file Other Topics Concern Not on file Social History Narrative Not on file Social Drivers of Health Financial Resource Strain: Not on file Food Insecurity: No Food Insecurity (09/05/2024) Hunger Vital Sign Worried About Running Out of Food in the Last Year: Never true Ran Out of Food in the Last Year: Never true Transportation Needs: No Transportation Needs (09/05/2024) PRAPARE - Transportation Lack of Transportation (Medical): No Lack of Transportation (Non-Medical): No Physical Activity: Not on file Stress: Not on file Social Connections: Not on file Intimate Partner Violence: Not At Risk (09/05/2024) Humiliation, Afraid, Rape, and Kick questionnaire Fear of Current or Ex-Partner: No Emotionally Abused: No Physically Abused: No Sexually Abused: No Housing Stability: Low Risk (09/05/2024) Housing Stability Vital Sign Unable to Pay for Housing in the Last Year: No Number of Times Moved in the Last Year: 0 Homeless in the Last Year: No Family History: No family history on file. Medications Prior to Admission: No current facility-administered medications for this encounter. Medications Reconciliation: Medication were reviewed and verified as accurate with patient. Allergies: No Known Allergies REVIEW OF SYSTEMS: SEE HPI Vitals: 09/05/2024 8:22 PM Vitals Systolic 157 Diastolic 71 Heart Rate 49 Temp 37 ?C (98.6 ?F) Resp 16 SpO2 97 % BMI Classification: Normal Weight (BMI 18.5-24.9) Pulse Ox: No data recorded Supplemental O2: PHYSICAL EXAM: Physical Exam Cardiovascular: Rate and Rhythm: Normal rate. Pulses: Normal pulses. Heart sounds: Normal heart sounds. Pulmonary: Effort: Pulmonary effort is normal. Abdominal: Palpations: Abdomen is soft. Tenderness: There is no abdominal tenderness. DATA: CBC: No results for input(s): WBC, RBC, HGB, HCT, MCV, RDW, PLT in the last 72 hours. BMP:No results for input(s): NA, K, CL, CO2, BUN, CREATININE, GLUCOSE, CALCIUM, ANIONGAP in the last 72 hours. LIVER PROFILE:No results for input(s): AST, ALT, BILITOT, ALKPHOS, PROT in the last 72 hours. No lab exists for component: LABALBU PT/INR: No results for input(s): PROTIME, INR in the last 72 hours. CARDIAC ENZYMES: No results for input(s): TROPONINI in the last 72 hours. Procalcitonin: No results found for: PROCAL Urine Culture: No results found for this or any previous visit. COVID-19 PCR: No results for input(s): COVID19 in the last 72 hours. I reviewed: [x] laboratory results [x] radiographic results At the time of today's encounter. Pt was advised of the results. Data: (CAT1) Reviewed 3 or more notes from different specialty or health system (each=1). (LOW: 2x CAT1 or independent historian MOD: 3x CAT1 or 1x CAT3 EXTENSIVE: 3x CAT1 and 1x CAT3) Assessment Discussed management with the ED provider and agree with hospitalization. Acute, acute on chronic, unstable/uncontrolled chronic problems/diagnoses: Cholelithias (more content not included)... [facility] 09-05-2024 History and physical note Images from the original note were not included. Attending History and Physical Admit Date: 09/05/2024 PCP: RUSSELL HILL MD CHIEF COMPLAINT: abdominal pain Reason for Admission: Cholelithiasis with choledocholithiasis History Obtained From: patient, spouse, daughter HISTORY OF PRESENT ILLNESS: Chaim is a 73 y.o. female with past medical history below who presents from [place] [facility] with intermittent abdominal pain for past 2 weeks. Patient is healthy, takes no medications. States that abdominal pain began 2 weeks prior to ED, sharp, radiating to back associated with eating. Pain lasted for a couple of hours but went away. Similar type of abdominal pain returned on Saturday. Again lasted a few hours then resolved. Symptoms returned yesterday and persisted, prompting her to go to ED for further evaluation and management. At [place] ED, abdominal US obtained and showed cholelithiasis with choledocholithiasis. Laboratory studies essentially unremarkable. Transferred to [facility] for further evaluation and management. Currently, patient denies any abdominal pain (was given IV morphine at [place] [facility]). Denies chest pain, sob, nausea, vomiting, fevers, or chills. Past Medical History: History reviewed. No pertinent past medical history. Past Surgical History: Past Surgical History: Procedure Laterality Date HYSTERECTOMY Social History: Social History Socioeconomic History Marital status: Spouse name: Not on file Number of children: Not on file Years of education: Not on file Highest education level: Not on file Occupational History Not on file Tobacco Use Smoking status: Never Smokeless tobacco: Never Vaping Use Vaping status: Never Used Substance and Sexual Activity Alcohol use: Yes Alcohol/week: 2.0 standard drinks of alcohol Types: 1 Glasses of wine, 1 Cans of beer per week Comment: occasionally with dinner Drug use: Never Sexual activity: Not on file Other Topics Concern Not on file Social History Narrative Not on file Social Drivers of Health Financial Resource Strain: Not on file Food Insecurity: No Food Insecurity (09/05/2024) Hunger Vital Sign Worried About Running Out of Food in the Last Year: Never true Ran Out of Food in the Last Year: Never true Transportation Needs: No Transportation Needs (09/05/2024) PRAPARE - Transportation Lack of Transportation (Medical): No Lack of Transportation (Non-Medical): No Physical Activity: Not on file Stress: Not on file Social Connections: Not on file Intimate Partner Violence: Not At Risk (09/05/2024) Humiliation, Afraid, Rape, and Kick questionnaire Fear of Current or Ex-Partner: No Emotionally Abused: No Physically Abused: No Sexually Abused: No Housing Stability: Low Risk (09/05/2024) Housing Stability Vital Sign Unable to Pay for Housing in the Last Year: No Number of Times Moved in the Last Year: 0 Homeless in the Last Year: No Family History: No family history on file. Medications Prior to Admission: No current facility-administered medications for this encounter. Medications Reconciliation: Medication were reviewed and verified as accurate with patient. Allergies: No Known Allergies REVIEW OF SYSTEMS: SEE HPI Vitals: 09/05/2024 8:22 PM Vitals Systolic 157 Diastolic 71 Heart Rate 49 Temp 37 C (98.6 F) Resp 16 SpO2 97 % BMI Classification: Normal Weight (BMI 18.5-24.9) Pulse Ox: No data recorded Supplemental O2: PHYSICAL EXAM: Physical Exam Cardiovascular: Rate and Rhythm: Normal rate. Pulses: Normal pulses. Heart sounds: Normal heart sounds. Pulmonary: Effort: Pulmonary effort is normal. Abdominal: Palpations: Abdomen is soft. Tenderness: There is no abdominal tenderness. DATA: CBC: No results for input(s): WBC, RBC, HGB, HCT, MCV, RDW, PLT in the last 72 hours. BMP:No results for input(s): NA, K, CL, CO2, BUN, CREATININE, GLUCOSE, CALCIUM, ANIONGAP in the last 72 hours. LIVER PROFILE:No results for input(s): AST, ALT, BILITOT, ALKPHOS, PROT in the last 72 hours. No lab exists for component: LABALBU PT/INR: No results for input(s): PROTIME, INR in the last 72 hours. CARDIAC ENZYMES: No results for input(s): TROPONINI in the last 72 hours. Procalcitonin: No results found for: PROCAL Urine Culture: No results found for this or any previous visit. COVID-19 PCR: No results for input(s): COVID19 in the last 72 hours. I reviewed: [x] laboratory results [x] radiographic results At the time of today's encounter. Pt was advised of the results. Data: (CAT1) Reviewed 3 or more notes from different specialty or health system (each=1). (LOW: 2x CAT1 or independent historian MOD: 3x CAT1 or 1x CAT3 EXTENSIVE: 3x CAT1 and 1x CAT3) Assessment Discussed management with the ED provider and agree with hospitalization. Acute, acute on chronic, unstable/uncontrolled chronic problems/diagnoses: Cholelithiasis with choledocholithiasis Asymptomatic bradycardia Elevated blood pressure without diagnosis of hypertension Stable chronic problems affecting care, new non-acute diagnoses: N/A Plan As a result of the above findings & factors, the following mgmt was pursued: - CLD for now and NPO after midnight, will obtain MRCP, GI consult for consideration of ERCP, gen surgery consult for consideration of cholecystectomy - pain control - obtain EKG - am labs, replace lytes prn - PT/OT/CM/SW - delirium precautions: increase activity - DVT prophylaxis: enoxaparin and encourage ambulation Complexity: Acute illness or injury posing a threat to life or body function (HIGH). Risk: Prescription drug/IVF/colloid was initiated, discontinued, adjusted; or reviewed with decision to maintain current orders (MOD). Advance Directive: Full Code Anticipated Discharge - Date - 09/07/24-09/08/24? - Location - Home - Pending the following - clinical course, specialist recs Total time spent (which include face to face and non face to face encounters) : 75 minutes. Extended Emergency Contact Information Primary Emergency Contact: Zane Danielle Mobile Relation: Spouse Secondary Emergency Contact: JosygeetaErin Mobile Relation: Daughter Gem Robbi DO [facility] Medicine [facility]patient Medical Services[facility] documented in this encounter [facility] Evaluation note No assessment information [facility] Work Phone: Evaluation note Diagnosis Choledocholithiasis- Primary Calculus of bile duct without mention of cholecystitis or obstruction Choledocholithiasis Calculus of bile duct without mention of cholecystitis or obstruction documented in this encounter [facility] Discharge instructions* Attachments The following attachments cannot be sent through Care Everywhere. * Cholecystectomy, Laparoscopic Surgery (Bulgarian) [facility]* Attachments The following attachments cannot be sent through Care Everywhere. * Upper GI Endoscopy Discharge Instructions (Bulgarian) * Moderate Sedation in Adults Discharge Instructions (Bulgarian) [facility] (narrative)No reason for referral information availableWPeoples Hospital Work Phone: Reason for visit Narrative* Auth/Cert (Routine) Specialty Diagnoses / Procedures Referred By Contac t Referred To Contact Diagnoses Choledocholithiasis choledocholithiasis Procedures . Gem Lisa DO [address] [place] [address] Phone: tel: fax: [facility] Medical Surgical Unit [facility] [address] [address] Phone: tel: Referral ID Status Reason Start Date Expiration Date Visits Re quested Visits Authorized [id number] [facility]* Auth/Cert (Routine) Specialty Diagnoses / Procedures Referred By Stanton miles Referred To Contact Diagnoses Choledocholithiasis Procedures NM EGD FLEXIBLE FOREIGN BODY REMOVAL ESOPHAGOGASTRODUODENOSCOPY, DIAGNOSTIC WITH STENT REMOVAL Cristian Ruiz MD [address] [place] [address] Phone: tel: Referral ID Status Reason Start Date Expiration Date Visits Re quested Visits Authorized [id number] 09/21/2024 1 1 [facility] Chief Complaint and Reason for Visit Chief Complaint SCREENING /PT DOES N OT REMEMBER LAST MAMM Chief Complaint DINING WITH DIABETES Chief Complaint Admit Date pain September 05, 2024 3:4 3pm Advance Directives No Advanced Directives Records Found Date Activated Date Inactivated Comments 09/05/2024 9:48 PM Date Activated Date Inactivated Comments 09/05/2024 9:01 PM 09/05/2024 9:48 PM Question Answer Comments ICU transfer: Yes Intubation: No Date Activated Date Inactivated Comments 09/05/2024 8:11 PM 09/05/2024 9:01 PM Question Answer Comments ICU transfer: Yes Intubation: No Date Activated Date Inactivated Comments 09/05/2024 9:48 PM 09/13/2024 5:20 PM Date Activated Date Inactivated Comments 09/05/2024 9:01 PM 09/05/2024 9:48 PM Question Answer Comments ICU transfer: Yes Intubation: No Date Activated Date Inactivated Comments 09/05/2024 8:11 PM 09/05/2024 9:01 PM Question Answer Comments ICU transfer: Yes Intubation: No Date Activated Date Inactivated Comments 09/05/2024 9:48 PM 09/13/2024 5:20 PM Advance Directive Response Recorded Date/ Time Do you have a Healthcare Power of Flight Readiness Technician? No September 05, 2024 3:49pm Summary Purpose Family History No Family History Records Found Additional Source Comments Goals (unrecognized section and content) Goals may be documented in a n alternate sectionGoals may be documented in an alternate sectionGoals may be documented in an alternate section Care Teams (unrecognized sec tion and content) Team Status: Active Member Role Status Dates Dr. Russell Hill MD Primary Care Provider Active Team Status: Inactive Member Role Status Dates Dr. Russell Hill MD Primary Care Provider Active Self Referred Attending Provider Active Beauty Director Relationship Specialty Start Date End Date Russell Hill MD [address] [facility] [address] [place] [phone] PCP - General Family Medicine 09/05/24 Beauty Director Relationship Specialty Start Date End Date Russell Hill MD [address] [facility] [address] [place] [phone] PCP - General Family Medicine 09/05/24 Beauty Director Relationship Specialty Start Date End Date Russell Hill MD [address] [address] [place] [address] PCP - General Family Medicine 09/05/24 Beauty Director Relationship Specialty Start Date End Date Russell Hill MD [address] [facility] [address] [place] [address] PCP - General Family Medicine 09/05/24 Beauty Director Relationship Specialty Start Date End Date Russell Hill MD [address] [facility] [address] [place] [phone] PCP - General Family Medicine 09/05/24 Team Status: Inactive Member Role Status Dates Dr. Russell Hill MD Primary Care Provider Active Start: September 05, 2024 End: September 05, 2024 Dr. Tj Bryant MD Attending Provider Active Sta rt: September 05, 2024 End: September 05, 2024 Dr. Tj Bryant MD Referring Provider Active Sta rt: September 05, 2024 End: September 05, 2024 Dr. Tj Bryant MD Emergency Provider Active Sta rt: September 05, 2024 End: September 05, 2024 Team Status: Inactive Member Role Status Dates Dr. Russell Hill MD Primary Care Provider Active Start: September 18, 2024 End: September 18, 2024 Dr. Russell Hill MD Attending Provider Active Start: September 18, 2024 End: September 18, 2024 Dr. Russell Hill MD Referring Provider Active Start: September 18, 2024 End: September 18, 2024 Beauty Director Relationship Specialty Start Date End Date Russell Hill MD [address] [facility] [address] [place] [phone] PCP - General Family Medicine 09/05/24 Beauty Director Relationship Specialty Start Date End Date Russell Hill MD [address] [facility] [address] [place] [phone] PCP - General Family Medicine 09/05/24 Reason for Visit (unrecogniz ed section and content) Reason Onset Date Comments Consult 09/05/2024 Reason Onset Date Comments Care Coordination 09/13/2024 Scheduled Active and Recently Administ ered Medications (unrecognized section and content) Medication Order 09/11/2024 09/12/2024 09/13/2024 acetaminophen (Tylenol) tablet 1,000 mg 1,000 mg, Oral, Every 8 hours, First dose on Sat09/08/24 at 1230, Phase II/On Unit, Maximum dose of acetaminophen is 4000 mg from all sources in 24 hours. 0625 (Given - Provider: Leonardo Ribeiro RN)1405 (Given - Provider: Erin Drew RN)2224 (Given - Provider: Vineet Curry RN) 0530 (Given - Provider: Vineet Curry RN)1430 (Not Given - Provider: Jeanne Colon RN - Reason: Patient/family refused)2137 (Given - Provider: Luci Cates RN) 0535 (Given - Provider: Luci Cates RN)1353 (Given - Provider: Jeanne Colon RN) enoxaparin (Lovenox) syringe 40 mg 40 mg, SubCUTAneous, Every 24 hours scheduled (Daily), First dose on Sat09/06/24 at 0900, Indication of Use: Prophylaxis-DVT/PE, Indications: Prophylaxis of Venous Thromboembolism 0914 (Given - Provider: Erin Drew RN) 0823 (Given - Provider: Jeanne Colon RN) 0943 (Given - Provider: Jeanne Colon RN) methocarbamol (Robaxin) tablet 500 mg 500 mg, Oral, Every 8 hours scheduled (3 times per day), First dose on Sat09/09/24 at 1400, Phase II/On Unit 0625 (Given - Provider: Leonardo Ribeiro RN)1405 (Given - Provider: Erin Drew RN)2224 (Given - Provider: Vineet Curry RN) 0530 (Given - Provider: Vineet Curry RN)1307 (Given - Provider: Jeanne Colon RN)2137 (Given - Provider: Luci Cates RN) 0535 (Given - Provider: Luci Cates RN)1353 (Given - Provider: Jeanne Colon RN) polyethylene glycol (PEG) 3350 (Miralax) packet 17 g 17 g, Oral, Daily, First dose (after last modification) on Sat09/09/24 at 1100, 1st line for treatment of constipation - give scheduled if no bowel movement in past 24 hours. 0900 (Not Given - Provider: Eirn Drew RN - Reason: Patient/family refused) 0900 (Not Given - Provider: Jeanne Colon RN - Reason: Patient/family refused) 0900 (Not Given - Provider: Jeanne Colon RN - Reason: Patient/family refused) potassium chloride CR (Klor-Con M10) ER tablet 40 mEq (COMPLETED) 40 mEq, Oral, Once, On 09/12/24 at 1000, For 1 dose, Best given with food and plenty of water to minimize gastric irritation. Do not crush or chew. 1307 (Given - Provider: Jeanne Colon RN) potassium chloride CR (Klor-Con M10) ER tablet 40 mEq (COMPLETED) 40 mEq, Oral, Once, On 09/13/24 at 0945, For 1 dose, Best given with food and plenty of water to minimize gastric irritation. Do not crush or chew. 0943 (Given - Provider: Jeanne Colon RN) sodium chloride 0.9% (NS) flush 10 mL 10 mL, IntraVENous, Every 12 hours scheduled (2 times per day), First dose on Sat09/08/24 at 2100, Phase II/On Unit 0900 (Not Given - Provider: Erin Drew RN - Reason: IV Fluids Infusing)2100 (Not Given - Provider: Vineet Curry RN - Reason: IV Fluids Infusing) 0900 (Not Given - Provider: Jeanne Colon RN - Reason: IV Fluids Infusing)2136 (Given - Provider: Luci Cates RN) 0900 (Not Given - Provider: Jeanne Colon RN - Reason: IV Fluids Infusing) sodium chloride 0.9% (NS) flush 5-40 mL 5-40 mL, IntraVENous, Every 12 hours, First dose on 09/05/24 at 2115, For Line Patency: Peripheral IV = 5 mL; Midline or Central Line = 10 mL/lumen. If following IV push medication, administer flush at same rate as the IV push. Flush volume is determined by type of infusion therapy being given. For non-viscous solutions use: Peripheral IV = 5 mL Midline or Central Line = 10 mL/lumen For viscous solutions (i.e. blood components, parenteral nutrition, contrast media, or after obtaining blood sample) use: Peripheral IV = 10 mL Midline or Central Line = 20 mL/lumen 0915 (Not Given - Provider: Erin Drew RN - Reason: IV Fluids Infusing)2114 (Not Given - Provider: Vineet Curry RN - Reason: IV Fluids Infusing) 0915 (Not Given - Provider: Jeanne Colon RN - Reason: IV Fluids Infusing)2137 (Given - Provider: Luci Cates RN) 0915 (Not Given - Provider: Jeanne Colon RN - Reason: IV Fluids Infusing) Continuous Medication Order 09/11/2024 09/12/2024 09/13/2024 lactated ringers infusion 75 mL/hr, IntraVENous, Continuous, Starting on Sat09/07/24 at 1330 0537 (New Bag - Provider: Vineet Curry RN)2138 (New Bag - Provider: Luci Cates RN) 0943 (New Bag - Provider: Jeanne Colon RN) PRN Medication Order 09/11/2024 09/12/2024 09/13/2024 HYDROmorphone (Dilaudid) injection 0.5 mg(Linked Group 1) 0.5 mg, IntraVENous, Every 3 hours PRN, for breakthrough pain only, Starting on Sat09/09/24 at 0912, Phase II/On Unit, If oral and IV narcotics ordered, use oral first and only use IV if oral is ineffective or cannot take oral. Do Not give oral and IV within 1 hour of each other unless specifically ordered. naloxone (Narcan) injection 0.4 mg 0.4 mg, IntraVENous, Every 5 min PRN, opioid reversal, respiratory depression, Starting on 09/05/24 at 2127, +++ For RR <10, pinpoint pupils, over sedation for opioid reversal - MUST notify protection specialist provider immediately after first dose, may give IM or SQ if no IV access +++ ondansetron (Zofran) injection 4 mg(Linked Group 2) 4 mg, IntraVENous, Every 6 hours PRN, nausea, vomiting, Starting on 09/05/24 at 2059, 1st Line. Give IV if patient is unable to take orally. If inadequate response within 60 minutes, proceed to next-line agent or contact provider if no further options ordered. 1405 (See Alternative - Provider: Erin Drew RN) ondansetron ODT (Zofran-ODT) disintegrating tablet 4 mg(Linked Group 2) 4 mg, Oral, Every 8 hours PRN, nausea, vomiting, Starting on Sat09/05/24 at 2059, 1st Line. If inadequate response within 60 minutes, proceed to next-line agent or contact provider if no further options ordered. Patient should allow tablet to dissolve on tongue. Do not remove from blister pack until just before administering. 1405 (Given - Provider: Erin Drew RN) oxyCODONE (Roxicodone) immediate release tablet 10 mg(Linked Group 3) 10 mg, Oral, Every 4 hours PRN, severe pain (7-10), Starting on Sat09/08/24 at 1218, Phase II/On Unit 022 (See Alternative - Provider: Leonardo Ribeiro, CORINNE)0626 (See Alternative - Provider: Leonardo Ribeiro RN)1041 (See Alternative - Provider: Erin Drew RN)1623 (See Alternative - Provider: Erin Drew RN)2046 (See Alternative - Provider: Vineet Curry RN) 0315 (See Alternative - Provider: Vineet Curry RN)0823 (See Alternative - Provider: Jeanne Colon RN)1307 (See Alternative - Provider: Jeanne Colon, CORINNE)1741 (See Alternative - Provider: Reyna Cruz RN)2138 (See Alternative - Provider: Luci Cates, CORINNE) 0401 (See Alternative - Provider: Luci Cates, CORINNE)0946 (See Alternative - Provider: Jeanne Colon, CORINNE)1353 (See Alternative - Provider: Jeanne Colon, CORINNE) oxyCODONE (Roxicodone) immediate release tablet 5 mg(Linked Group 3) 5 mg, Oral, Every 4 hours PRN, moderate pain (4-6), Starting on Sat09/08/24 at 1218, Phase II/On Unit 0221 (Given - Provider: Leonardo Ribeiro RN)0626 (Given - Provider: Leonardo Ribeiro RN)1041 (Given - Provider: Erin Drew RN)1623 (Given - Provider: Erin Drew RN)2046 (Given - Provider: Vineet Curry RN) 0315 (Given - Provider: Vineet Curry RN)0823 (Given - Provider: Jeanne Colon RN)1307 (Given - Provider: Jeanne Colon RN)1741 (Given - Provider: Reyna Cruz, RN)2138 (Given - Provider: Luci Cates, CORINNE) 0401 (Given - Provider: Luci Cates RN)0946 (Given - Provider: Jeanne Colon RN)1353 (Given - Provider: Jeanne Colon RN) sodium chloride 0.9 % infusion 5-250 mL/hr, IntraVENous, PRN, if patient receiving piggyback infusions and maintenance fluids are not ordered OR KVO fluids to protect IV site / prevent frequent line interruptions / long duration, Starting on 09/05/24 at 2058, For piggyback infusion, administer at same rate as piggyback for a total of 25 mL. Enter 25 mL into dose field and piggyback rate into rate field of order. If piggyback is infusing at a rate less than 100 mL/hr, enter 25 mL into dose field and 100 mL/hr into rate field of order. For KVO fluids, enter rate of 20 mL/hr or less into rate field of order. sodium chloride 0.9 % infusion 5-250 mL/hr, IntraVENous, PRN, if patient receiving piggyback infusions and maintenance fluids are not ordered OR KVO fluids to protect IV site / prevent frequent line interruptions/ long duration, Starting on Sat09/08/24 at 1218, Phase II/On Unit, For piggyback infusion, administer at same rate as piggyback for a total of 25 mL. Enter 25 mL into dose field and piggyback rate into rate field of order. If piggyback is infusing at a rate less than 100 mL/hr, enter 25 mL into dose field and 100 mL/hr into rate field of order. For KVO fluids, enter rate of 20 mL/hr or less into rate field of order. sodium chloride 0.9% (NS) flush 10 mL 10 mL, IntraVENous, PRN, line care, Starting on Sat09/08/24 at 1218, Phase II/On Unit, After every IV line use sodium chloride 0.9% (NS) flush 5-40 mL 5-40 mL, IntraVENous, PRN, line care, After every IV line use, Starting on 09/05/24 at 205, For Line Patency: Peripheral IV = 5 mL; Midline or Central Line = 10 mL/lumen. If following IV push medication, administer flush at same rate as the IV push. Flush volume is determined by type of infusion therapy being given. For non-viscous solutions use: Peripheral IV = 5 mL Midline or Central Line = 10 mL/lumen For viscous solutions (i.e. blood components, parenteral nutrition, contrast media, or after obtaining blood sample) use: Peripheral IV = 10 mL Midline or Central Line = 20 mL/lumen Linked Groups Order Group 1: HYDROmorphone (Dilaudid) injection 0.5 mgJump to med 0.5 mg, IntraVENous, Every 3 hours PRN, for breakthrough pain only, Starting on Sat09/09/24 at 0912, Phase II/On Unit, If oral and IV narcotics ordered, use oral first and only use IV if oral is ineffective or cannot take oral. Do Not give oral and IV within 1 hour of each other unless specifically ordered. Group 2: ondansetron ODT (Zofran-ODT) disintegrating tablet 4 mgJump to med 4 mg, Oral, Every 8 hours PRN, nausea, vomiting, Starting on 09/05/24 at 2058, 1st Line. If inadequate response within 60 minutes, proceed to next-line agent or contact provider if no further options ordered. Patient should allow tablet to dissolve on tongue. Do not remove from blister pack until just before administering. Or ondansetron (Zofran) injection 4 mgJump to med 4 mg, IntraVENous, Every 6 hours PRN, nausea, vomiting, Starting on Sat09/05/24 at 2058, 1st Line. Give IV if patient is unable to take orally. If inadequate response within 60 minutes, proceed to next-line agent or contact provider if no further options ordered. Group 3: oxyCODONE (Roxicodone) immediate release tablet 5 mgJump to med 5 mg, Oral, Every 4 hours PRN, moderate pain (4-6), Starting on Sat09/08/24 at 1218, Phase II/On Unit Or oxyCODONE (Roxicodone) immediate release tablet 10 mgJump to med 10 mg, Oral, Every 4 hours PRN, severe pain (7-10), Starting on Sat09/08/24 at 1218, Phase II/On Unit Scheduled Medication Order 10/20/2024 10/21/2024 10/22/2024 sodium chloride 0.9% (NS) flush 10 mL 10 mL, IntraVENous, Every 12 hours scheduled (2 times per day), First dose on Renetta 10/22/24 at 0900 0900 (Canceled Entry - Provider: Automatic Discharge Provider - Comment: Automatically canceled at discontinue of medication order) PRN Medication Order 10/20/2024 10/21/2024 10/22/2024 sodium chloride 0.9 % infusion 5-250 mL/hr, IntraVENous, PRN, if patient receiving piggyback infusions and maintenance fluids are not ordered OR KVO fluids to protect IV site / prevent frequent line interruptions/ long duration, Starting on Renetta 10/22/24 at 0830, For piggyback infusion, administer at same rate as piggyback for a total of 25 mL. Enter 25 mL into dose field and piggyback rate into rate field of order. If piggyback is infusing at a rate less than 100 mL/hr, enter 25 mL into dose field and 100 mL/hr into rate field of order. For KVO fluids, enter rate of 20 mL/hr or less into rate field of order. sodium chloride 0.9% (NS) flush 10 mL 10 mL, IntraVENous, PRN, line care, Starting on Renetta 10/22/24 at 0830, After every IV line use INFORMATION SOURCE (unrecogn ized section and content) DATE CREATED AUTHOR 10/08/2024 [facility] DATE CREATED AUTHOR AUTHOR'S ORGANIZ ATION 10/25/2024 [facility] FOR RECORDS PERTAINING TO PATIENTS WHO ARE OR HAVE BEEN ENROLLED IN A CHEMICAL DEPENDENCY/SUBSTANCEABUSE PROGRAM, SOME INFORMATION MAY BE OMITTED. This clinical summary was aggregated from multiple sources. Caution should be exercised in using it in the provision of clinical care. This summary normalizes information from multiple sources, and as a consequence, information in this document may materially change the coding, format and clinical context of patient data. In addition, data may be omitted in some cases. CLINICAL DECISIONS SHOULD BE BASED ON THE PRIMARY CLINICAL RECORDS. [employer] [facility]. provides no warranty or guarantee of the accuracy or completeness of information in this document.
== END | disposition home or self-care (01) ==
LOC: OPBI 15:40
PROVIDERS: PCP Family Medicine
DX: Z12.31 Encounter for screening mammogram for malignant neoplasm of breast (principal); Z80.3 Family history of malignant neoplasm of breast
CPT/HCPCS: 77063; 77067